=== PATIENT | male | born 1975 | race Caucasian/White ===

== ENCOUNTER → 2017-10-19 10:21 | Outpatient (CLI) | payer OTHER, SELFPAY ==
--- NOTE | 2017-10-19 10:29 | US_ITS ---
STUDY: ABDOMINAL ULTRASOUND - RIGHT UPPER QUADRANT REASON FOR VISIT: Male, 42 years old. Periumbilical pain. Blood in the stool. TECHNIQUE: Ultrasound evaluation of the right upper quadrant was performed with real-time and static littlejohn-scale imaging. TECHNICAL QUALITY: Adequate. COMPARISON: None. FINDINGS: Liver: The liver measures 14.8 cm. There is increased echogenicity consistent with fatty infiltration. Focal fatty infiltration is seen in the region of the gallbladder fossa. The bile ducts are within normal limits. There is hepatic color flow. The direction of portal flow is hepatopetal. There is no demonstrated mass lesion. Gallbladder: Normal distended gallbladder. The gallbladder wall measures 3.6 mm. There is a negative sonographic Chiu's sign. There is no pericholecystic fluid. There are no gallstones. Common Bile Duct (C.B.D.): The common bile duct measures 5.0 mm. Pancreas: Normal size of the head, body and tail of the pancreas. There is normal echogenicity of the pancreas. There is no demonstrated pancreatic mass or cyst. Right Kidney: Normal size of the right kidney. The right kidney measures 10.2 cm x 5.4 cm x 4.5 cm. Normal renal cortex. The right cortex measures 1.4 cm. 2 small subcentimeters cysts are seen. There is no right hydronephrosis. US/Gallbladder IMPRESSION: Fatty infiltration of liver. Focal fatty sparing in the gallbladder fossa. Electronically Signed: Ashok Elizalde MD at 12:46 EDT Tel [phone], Service support ,
== END ==
PROVIDERS: Family Provider Family Medicine; PCP Family Medicine; Visit Provider Nurse Practitioner Adult Health
DX: R19.5 Other fecal abnormalities (principal); R10.33 Periumbilical pain; R19.4 Change in bowel habit
CPT/HCPCS: 76705

== ENCOUNTER 2017-11-09 06:00 | Day surgery (SDC) | payer OTHER, SELFPAY ==
[2017-11-09] VITALS (7 sets, daily range): BP systolic 105–126; BP diastolic 62–96; PULSE 83–98; RESP 16–18; TEMP 36.2–36.6; O2SAT 96–99; BMI 27.8
--- NOTE | 2017-11-09 | EGD_PTH ---
PATIENT: MEGAN MILLER LOC: EN U#:[id number] AGE/SX: 42/M ROOM: RE11/09/[address]: Dr. Norman Gardner MD : 1975 BED: DIS: 11/09/2017 SPEC #: [id number] RECD: 11/09/17 09:55 STATUS: EVITA NATA #: [id number] ANITHA: 11/09/17 00:[address]: Norman Gardner DEPT: SURGICAL PATHOLOGY RECD BY: Perry Kothari ENTERED: 11/09/17 10:16 SP TYPE: EGD BIOPSY OTHR DR: Dr. Keith Gardner III, MD Tissues: A - Duodenum, NOS B - Gastric mucous membrane C - Esophageal mucous membrane D - COLON BIOPSY Procedures: Special Stain Group I Surgery Specimen Level IV GMS Stain (control) HEADER OPERATION: EGD and colonoscopy PRE-OP DIAGNOSIS: GERD, change in bowel habits TISSUE SUBMITTED: A ? Duodenal biopsy, B ? Antral biopsy, C ? Distal esophagus biopsy, D ? Random colonic biopsy MICROSCOPIC DIAGNOSIS A. 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 Mild nonspecific chronic inflammation. B. Gastric antrum, biopsy: Mild chronic gastritis. C. Distal esophagus, biopsy: Consistent with reflux esophagitis. Focal mucosal ulceration with associated acute and chronic inflammation, fibrinopurulent material and early granulation. Gastroesophageal junctional mucosa with mild chronic inflammation. No evidence of dysplasia. D. Random colon biopsy: No pathologic diagnosis. AM:angel 11/12/17 COMMENT A. The results of immunohistochemistry for Helicobacter pylori will be reported separately ([id number]). C. GMS stain with matched control does not reveal fungal organisms. Clinical correlation is suggested. Case has been reviewed in consultation with Dr. Phillips who concurs with the above diagnosis. IDC:LAW MICROSCOPIC DESCRIPTION Slides are reviewed. A. Sections show small collections and groups of plasma cells in the mucosa. Active inflammation is not present. These findings are consistent with mild chronic gastritis. GROSS DESCRIPTION A - Received in fixative is one container labeled with the patient's name and designated duodenal biopsy. The specimen consists of two irregular fragments of light julien soft tissue that in aggregate measure 0.5 x 0.3 x 0.1 cm. The specimen is totally submitted in one cassette. B - Received in fixative is one container labeled with the patient's name and designated antral biopsy. The specimen consists of one irregular fragment of light julien soft tissue that measures 0.5 x 0.2 x 0.1 cm. The specimen is totally submitted in one cassette. C - Received in fixative is one container labeled with the patient's name and designated distal esophagus biopsy. The specimen consists of multiple irregular fragments of light julien soft tissue that in aggregate measure 2 x 0.5 x 0.1 cm. The specimen is totally submitted in one cassette. D - Received in fixative is one container labeled with the patient's name and designated random colonic biopsy. The specimen consists of multiple irregular fragments of light julien soft tissue that in aggregate measure 2 x 0.6 x 0.1 cm. The specimen is totally submitted in one cassette. / SJ:rg 11/09/17 TC:2 CPT: 03800 x4, 28042
--- NOTE | 2017-11-09 | IMM_PTH ---
PATIENT: MEGAN MILLER LOC: EN U#:[id number] AGE/SX: 42/M ROOM: RE11/09/[address]: Dr. Norman Gardner MD : 1975 BED: DIS: 11/09/2017 SPEC #: [id number] RECD: 11/12/17 13:29 STATUS: EVITA NATA #: [id number] ANITHA: 11/09/17 00:[address]: Norman Gardner DEPT: IMMUNOHISTOCHEMISTRY RECD BY: Jania Crawford ENTERED: 11/12/17 13:29 SP TYPE: IMMUNO OTHR DR: Dr. Keith Gardner III, MD Tissues: B - Stomach, NOS Procedures: H Pylori (initial) PHYSICIAN & INSTITUTION [place] [id number] SPECIMEN INFORMATION: Tissue Source: B ? Antral biopsy Clinical Info: GERD, change in bowel habits Specimen Number: [id number] CPT code: 24270 METHODOLOGY: Deparaffinized sections of prefer/formalin-fixed tissue or PAP/DQ stained slides are incubated with monoclonal/polyclonal antibodies/oligonucleotide probes. Localization is made via biotin free immunoperoxidase method. Appropriate controls are performed and reacted as expected. Results on target cell population are indicated in the following table: RESULTS: ANTIBODY / CLONE RESULT Block B H Pylori (polyclonal) negative These tests were developed and their performance characteristics determined by [facility]. They may not have been cleared or approved by the U.S. Food and Drug Administration. The FDA has determined that such clearance or approval is not necessary. INTERPRETATION: B. Antral biopsy: Negative for Helicobacter pylori. AM:tiffany 11/13/17
--- NOTE | 2017-11-09 07:35 | OP.PCM_ITS ---
Problem List (1) Change in bowel habit Status: Acute (2) GERD (gastroesophageal reflux disease) Status: Acute Qualifiers: Esophagitis presence: with esophagitis Qualified Code(s): K21.0 - Gastro- esophageal reflux disease with esophagitis Report of Operation Date of Procedure: 11/09/17 Pre-Operative Diagnosis: Nausea night cough dysphasia and epigastric pain. Change of bowel habits with narrow stool Post-Operative Diagnosis: Severe reflux esophagitis. Small to moderate hiatal hernia 4 cm. Mild antral gastritis. Mild duodenitis. Scattered sigmoid diverticulosis Surgery/Procedure Performed:: Esophagogastroduodenoscopy with cold forcep biopsies. Colonoscopy with random cold forcep biopsies Description of Surgical Findings:: Timeout and informed consent was obtained. 42-year-old gent was taken the endoscopy suite. His oropharynx anesthetized with Topex. He was placed in a left lateral decubitus position. Throughout both the upper and lower endoscopy he received total 125 mg Demerol and 5.5 g of Versed as intravenous sedation. Under direct physician videogastroscope was inserted into the esophageal inlet. The proximal mid esophagus did not appear to be remarkable. The EG junction was at 38 cm. A moderate for similar long hiatal hernia noted. There is evidence of an inflammatory ring and severe reflux esophagitis. The scope was advanced in the stomach. Mild antral erythema noted. The scope was advanced through the pylorus. The first and second portion of the duodenum inspected. The duodenal bulb had some mild erythema. There were no erosions ulceration or bleeding. Biopsy was obtained of the duodenum with cold forcep. The scope was withdrawn back to the stomach and cold forcep antral biopsy was obtained. The scope was retroflexed. The EG junction and cardia inspected. The hiatal hernia noted. The cardia was otherwise unremarkable. Greater and lesser curvatures were inspected and not remarkable. The scope was withdrawn back into the esophagus where an inflammatory type ring was identified with firm tissue there was evidence of severe reflux multiple distal esophageal biopsies were obtained. Hemostasis was intact. Excess fluid and air was aspirated.. The scope was withdrawn without additional abnormality. The patient was kept in a left lateral decubitus position. Digital rectal exam performed. Mild hemorrhoidal changes. 2+ smooth prostate. The flexible colonoscope inserted the rectum advanced quite readily throughout the colon. Some transabdominal pressure was required to get scope to go to the cecum. The cecum ileocecal valve area was nicely achieved. Bowel prep was quite good. The scope was carefully withdrawn from the ascending transverse descending and sigmoid colon. Random colonic biopsies are obtained. There is some scattered diverticulosis of the sigmoid. The scope was retroflexed within the rectum the anorectal verge inspected some hemorrhoidal changes noted no active bleeding. Excess fluid and air was aspirated free the procedure was completed with patient tolerating it well. Impression Hiatal hernia with severe reflux esophagitis Mild antral gastritis Mild duodenitis Minimal sigmoid diverticulosis Random colonic biopsies pending The patient has not had a previous colonoscopy. His next screening colonoscopy would be in 10 years I am strongly recommending to the patient that we initiate a proton pump inhibitor and I will provide him a prescription of omeprazole 40 mg daily. I will invite him to return to the office if he would like to consider further investigations for potential surgical reflux procedure. Cc: Dr. Keith Gardner, III Medications were given at 0705. The upper endoscopy was started at 0707. It was completed at 0712. The lower endoscopy was initiated at 0715. The cecum was reached at 0719. The procedure was completed at 0725. Norman Gardner M.D., F.A.C.S. Type of Anesthesia:: IV Sedation
== END 2017-11-09 08:27 | disposition home or self-care (01) ==
LOC: EN 06:00 → AC 06:01
PROVIDERS: Family Provider Family Medicine; PCP Family Medicine; Visit Provider Surgery
PROC: 0DJD8ZZ Inspection of Lower Intestinal Tract, Via Natural or Artificial Opening Endoscopic (ICD-10-PCS; CPT 45378; principal; 2017-11-09 06:55)
DX: K21.0 Gastro-esophageal reflux disease with esophagitis (principal); K29.70 Gastritis, unspecified, without bleeding; K29.80 Duodenitis without bleeding; K44.9 Diaphragmatic hernia without obstruction or gangrene; K57.30 Diverticulosis of large intestine without perforation or abscess without bleeding; K64.9 Unspecified hemorrhoids; I10 Essential (primary) hypertension; Z79.899 Other long term (current) drug therapy
CPT/HCPCS: 43239; 45380; 88305; 88312; 88342; 99152; 99153; J7120

== ENCOUNTER 2017-12-05 07:25 | Day surgery (SDC) | payer OTHER, SELFPAY ==
[2017-12-05 07:35] VITALS: BP 148/107; PULSE 85; RESP 18; TEMP 36.1; O2SAT 100
== END 2017-12-05 08:08 | disposition home or self-care (01) ==
LOC: EN 07:26
PROVIDERS: Family Provider Family Medicine; PCP Family Medicine; Visit Provider Surgery
PROC: F00ZJWZ Instrumental Swallowing and Oral Function Assessment using Swallowing Equipment (ICD-10-PCS; CPT 43235; principal; 2017-12-05 07:25)
DX: K21.9 Gastro-esophageal reflux disease without esophagitis (principal); R13.10 Dysphagia, unspecified
CPT/HCPCS: 91010; 91013

== ENCOUNTER 2017-12-31 05:29 | Observation (INO) | payer OTHER, SELFPAY ==
[2017-12-24 13:17] VITALS: BP 138/87; PULSE 87; RESP 16; TEMP 36.5; O2SAT 98; BMI 30.2
--- NOTE | 2017-12-24 13:21 | SDCEKG_ITS ---
Test Reason : Blood Pressure : / mmHG Vent. Rate : 065 BPM Atrial Rate : 065 BPM P-R Int : 138 ms QRS Dur : 104 ms QT Int : 380 ms P-R-T Axes : 023 003 -25 degrees QTc Int : 395 ms Normal sinus rhythm Minimal voltage criteria for LVH, may be normal variant Nonspecific T wave abnormality Abnormal ECG Confirmed by JOSE CAMPBELL, LONDON ([id number]), continuity editor LESA MEANS ([id number]) on 12/26/2017 10:26:02 AM Referred By: Norman Gardner Confirmed By:LONDON GARCIA MD
[2017-12-24 13:48] LABS: Hematocrit 44.6 % (40-54); Mean Corp Hgb Conc 33.6 g/gl (32-36); Mean Corpuscular Hgb 29.1 pg (27.0-32.0); Mean Corpuscular Volume 86.4 fL (80-94); Mean Platelet Vol. 9.8 fl (6.2-12.0); Platelet Count 212 K/mm3 (150-450); RBC Distribution Width SD 40.9 fl (35.1-43.9); Red Blood Count 5.16 M/mm3 (4.6-6.2); White Blood Count 7.8 K/mm3 (4.4-11.0)
[2017-12-24 13:53] LABS: Scan Indicated on CBC? Y/N NO
[2017-12-24 14:11] LABS: Anion Gap 8 (5-15); BUN 16 mg/dL (7-18); BUN/Creat Ratio 13.4 RATIO (10-20); Calcium,Total 8.7 mg/dL (8.5-10.1); Chloride 105 mmol/L (98-107); Creatinine, Serum 1.19 mg/dL (0.70-1.30); EST Glomerular Filtration Rate 71 mL/min (>60); Est Glom Filt Rate - Afr Amer 86 mL/min (>60); Estimated Creatinine Clearance 85.25 ml/min; Glucose 95 mg/dL (74-106); Potassium 3.5 mmol/L (3.5-5.1); Sodium Level 139 mmol/L (136-145)
[2017-12-31] VITALS (11 sets, daily range): BP systolic 128–155; BP diastolic 87–115; PULSE 55–104; RESP 16–18; TEMP 36.1–36.8; O2SAT 95–100; BMI 30.2; BMI 29.9
--- NOTE | 2017-12-31 07:09 | DCINST_ITS ---
Discharge Diet: - - You may eat anything which at body temperature will dissolve to a liquid. If no difficulties with swallowing after 1 day you may add pasta and rice. Slowly advanced her diet including soft foods and chewing her food well. Leave very solid foods like beef or pork and chicken until your swallowing with no delay Discharge Activity: May Not Drive - for 1 week or while taking narcotic pain medicine. May shower in (days): 1 Lifting Restrictions: 10 pounds Call your doctor if your incision/area has: Continuous Slow Oozing, Sudden Increased Bleeding, Increased Pain/ Swelling, Increased Redness, Foul Smelling Discharge Call your doctor if you observe: Fever of 101 or Higher Suture Line Care: Avoid Pulling/Pushing, Avoid Pinching/Bending Additional Dressing/Incision Instructions:: Change or remove dressing in 4 days. Leave steri-strips in place for 1 week. Allergies/Adverse Reactions: Allergies shellfish derived Allergy (Severe, Verified 12/24/17 13:08) anaphylactic hydrochlorothiazide Allergy (Intermediate, Verified 12/24/17 13:08) palpitations/restlessness lisinopril Adverse Reaction (Mild, Verified 12/24/17 13:08) cough Medications to take at Discharge losartan 50 mg tablet 50 mg PO QDAY 10/30/17 omega-3 fatty acids 1,000 mg capsule 1,000 mg PO QDAY 12/19/17 Omeprazole 40 mg PO DAILY 12/24/17 Hydrocodone Bitart/Apap 5-325 [[place] 5MG-325MG] 1 tablet PO Q6H PRN PRN 3 Days # 10 tablet 12/31/17 The following prescriptions were given: Hydrocodone Bitart/Apap 5-325 [[place] 5MG-325MG] 1 tablet PO Q6H PRN PRN 3 Days # 10 tablet PRN Reason: Pain Primary Care Physician: Keith Gardner III, MD [Primary Care Provider] - Test Results: Test results from this visit will be discussed in further detail at your follow- up appointment, if applicable. Please Follow Up With: Norman Gardner MD - [phone] When: Call to make an appointment to be seen in about 10 days.
[2017-12-31] MEDS: Cefazolin 2 GM in 0.9% Normal Saline 100 ML IV (07:26)
[2017-12-31] MEDS: Bupivacaine 0.5% PF 10 ML VIAL (09:37)
--- NOTE | 2017-12-31 09:47 | PCM.OPRPT ---
Problem List (1) GERD (gastroesophageal reflux disease) Status: Acute Qualifiers: Esophagitis presence: with esophagitis Report of Operation Date of Procedure: 12/31/17 Pre-Operative Diagnosis: Gastroesophageal reflux disease with Guzmán's esophagus Post-Operative Diagnosis: Same Surgery/Procedure Performed:: Laparoscopic Jose fundoplication Description of Surgical Findings:: Timeout and informed consent was obtained. 39-year-old gent was taken out from. He was placed on the table. He underwent general endotracheal intubation anesthesia. Ancef 2 g given intravenous preoperatively. He was placed in the low lithotomy position with careful buttock padding. The abdomen sterilely prepped draped. Ioban drape was used to help facilitate holding of drapes in place. 0.5% Marcaine was used as local anesthetic. Throughout the procedure total 30 cc was used. Superior and to the right of the umbilicus 5 mm incision was created using [employer] technology access was gained to the abdomen the absence freed CO2 to pressure of 10 mmHg pressure. Family history trocar inserted five-minute lap scope inserted over the joint trocar injuries five-minute trochars are placed in the right upper quadrant and the left upper quadrant left lateral quadrant in a 10 mm trocar was placed in the left epigastrium. The abdomen was insufflated the patient was placed in reverse Trendelenburg position to superficial abdomen was inspected no abnormality. The gastrohepatic omentum was incised with harmonic scalpel. There was a significant amount of fibrofatty tissue in the gastrohepatic ligament so then I elected to transect the short gastrics I did this in the fundus of the stomach rather tight connection to the spleen and very carefully using Harmonic completely transected that. At one and a further secured the vessel on the stomach side with a [id number] suture of 2-0 Ethibond. I then completed that dissection with harmonic was able to the left identify the left young the stomach was actually fairly adherent to carefully dissect that free and do blunt dissection so I could identify the posterior vagus nerve was then able to better identify the epiphrenic ligament and transected over the anterior surface of the esophagus. That been are identified all the fibrofatty tissue on the right which could now be released from the diaphragm giving view to the right young of the diaphragm dissected down to the inferior aspect where I was able to identify the left young the right young and get circumferential blunt dissection. I dissected into the mediastinum with harmonic scalpel so as to free up to the esophagus circumferentially so I could allow for mobilization well back down to the abdomen. I then placed a 1/2 inch Abby around the e.g. junction that gave excellent visualization confirmed my mobilization. I utilized 0 Ethibond sutures with pledgets made of Hemoccult carotid patch admitted ultrathin Dacron. Lot number [id number]. Serial #[id number] with a reference number of HSG K1 4/75 CP UT an expiry date of 02/17/2022. 4 simple sutures were applied I thought I had good approximation of the diaphragmatic hiatus. However did not feel that I had this too snug. Then wrapped the fundus. That sat in position very nicely. My apical suture of 0 Ethibond captured the fundus of the stomach the anterior wall of the esophagus the epiphrenic ligament and the right portion of the stomach. That also was pledgeted. I then placed 1 more 0 Ethibond suture to approximate the stomach to itself and catching the anterior wall of the e.g. junction again. [place] that I had a nice loose short Jose wrap. Hemostasis was wonderfully intact. I then placed a flexible gastroscope down the e.g. inlet carefully inspected the esophagogastric junction this was widely patent. Hemostasis nicely intact. I insufflated air into the stomach and there was absolutely no air leak visualized laparoscopically as I had placed fluid into the epigastric area. All suturing and components appear to be nicely intact. It is note that with the 0 Ethibond I performed that suturing with pledgets on both sides performed extracorporeal knot tying and then additionally added at least a minimal 3 additional intrapleural corporeal knots to each of those fisherman ties. Fluid and air was aspirated free from the abdomen. The gastroscope was used to aspirate fluid and air free from the stomach. I repaired the Madai trocar site with a figure 8 suture of 0 Vicryl using a granee needle. The abdomen was allowed to deflate of the CO2. Skin edges approximated with interrupted 4 Monocryl subdermal stitches. Steri-Strips Telfa and OpSite dressings applied. Sponge and instrument and needle counts were reported the surgeon be correct. Blood loss was minimal. Specimens none. Drains none. Blood loss minimal. The patient was taken to the recovery room in satisfactory condition without apparent complication. Norman Gardner M.D., F.A.C.S. Type of Anesthesia:: General Anesthesiologist: Conrad Cerrato
[2017-12-31] MEDS: Acetaminophen 325 MG Tablet 650 MG PO (13:38)
--- NOTE | 2017-12-31 16:37 | PCM.PN.BLA ---
Progress Note Pt is doing very well Swallowing liquids without difficulty Will advance diet
[2018-01-01] MEDS: Acetaminophen 325 MG Tablet 650 MG PO ×2 (02:11→11:55)
[2018-01-01 02:12] VITALS: BP 159/109; PULSE 88; RESP 16; TEMP 36.4; O2SAT 99
--- NOTE | 2018-01-01 05:30 | NURSING ---
Pt c/o 09/27 lt sided sharp chest pain, stating it is different than the shoulder pain that he had post-op last evening. Dr. Gardner in to see pt and assess. New orders given for EKG, Cardiac enzyme series, aspirin 325mg x1, and daily Cozaar to be given now. ONEYDA Riley called and notified about the stat EKG order. Lab notified of troponin order.
--- NOTE | 2018-01-01 05:48 | PCM.PN.SRG ---
Subjective: New onset left chest pressure at 4:30am HTN also recorded Urinary retention last night requiring st. cath - Physical Exam Lungs: Clear to auscultation, Normal air movement Cardiovascular: Regular rate, Regular Rhythm Abdomen: Bowel Sounds Present, Soft, Distended Vital Signs Temp Pulse Resp BP Pulse Ox 97.6 F L 88 16 159/109 H 99 01/01/18 02:12 01/01/18 02:12 01/01/18 02:12 01/01/18 02:12 01/01/18 02:12 Oxygen Flow Rate (L/min) 2 Oxygen Delivery Method Room Air Weight: 214 lb 15.211 oz Body Mass Index (BMI) 29.9 Intake and Output for Last 24 Hours 12/30/17 12/31/17 01/01/18 23:59 23:59 23:59 Intake Total 1800 / 1800 500 / 500 Output Total 900 / 900 1625 / 1625 Balance 900 / 900 -1125 / -1125 Medical Necessity - Tobacco Use Smoking Status: Never smoker Assessment/Plan All Active Problems (Last Updated 12/19/17 @ 10:02 by Daphnie Curiel) Change in bowel habit (Acute) GERD (gastroesophageal reflux disease) (Acute) Pt is quite anxious likely adding to HTN and urinary retention problems Will check ECG and cardiac enzymes Will treat HTN and chest pain with topical NTG
[2018-01-01 06:00] VITALS: BP 154/98; PULSE 89; RESP 16; TEMP 36.7; O2SAT 98
[2018-01-01] MEDS: Losartan Potassium 50 MG Tablet PO (06:02)
[2018-01-01] MEDS: Enoxaparin 40 MG/0.4 ML Syringe SC (06:03)
[2018-01-01] MEDS: Ibuprofen 600 MG Tablet PO (06:14)
[2018-01-01] MEDS: Aspirin 325 MG Tablet PO (06:14)
[2018-01-01] MEDS: Nitroglycerin Oint 1 INCH PACKET TRANSDERM. (06:14)
[2018-01-01] MEDS: Tamsulosin HCl 0.4 MG Capsule PO (06:14)
[2018-01-01] MEDS: Pantoprazole Sodium 40 MG Tablet PO (09:12)
[2018-01-01 09:18] VITALS: BP 146/88; PULSE 104; RESP 18; TEMP 36.5; O2SAT 96
[2018-01-01 11:18] VITALS: BP 127/73; PULSE 90; RESP 18; TEMP 37.1; O2SAT 95
--- NOTE | 2018-01-01 11:35 | CASEMGMT ---
RN VINITA Face to Face with patient for initial transition planning/care coordination assessment. RN CM introduced self and role at [facility]. Patient lying in bed, alert and oriented, at bedside. Patient willing to participate in assessment and is able to answer all questions appropriately. Care providers, pharmacy, and demographics verified. See link attached. Patient wishes to discharge home, denies need for home health at this time. Patient states he has no further needs or concerns at this time. CM to follow for discharge planning needs that may arise. Disposition Plan: Patient to discharge home with family support and follow-up plans in place.
== END 2018-01-01 15:21 | disposition home or self-care (01) ==
PROVIDERS: Admitting Provider Surgery; Family Provider Family Medicine; PCP Family Medicine; Visit Provider Surgery
PROC: (CPT 43325; principal; 2017-12-31 06:55)
DX: K21.0 Gastro-esophageal reflux disease with esophagitis (principal); K44.9 Diaphragmatic hernia without obstruction or gangrene; K22.70 Barrett's esophagus without dysplasia; I10 Essential (primary) hypertension; Z79.899 Other long term (current) drug therapy; R19.4 Change in bowel habit; R33.9 Retention of urine, unspecified; R07.89 Other chest pain
CPT/HCPCS: 00790; 43280; 36415; 80048; 84484; 85027; 93005; 96372; 97802; 99218; J7120; C1768; G0378; G0379

== ENCOUNTER → 2018-05-16 21:49 | Outpatient (CLI) | payer OTHER, SELFPAY | PROVIDERS: Family Provider Family Medicine; PCP Family Medicine; Visit Provider Family Medicine | DX: G47.33 Obstructive sleep apnea (adult) (pediatric) (principal) | CPT/HCPCS: 95811 ==

== ENCOUNTER → 2018-05-31 14:21 | Outpatient (CLI) | payer OTHER, SELFPAY ==
[2018-05-31 13:17] VITALS: BMI 30.1
--- NOTE | 2018-05-31 14:24 | RAD_ITS ---
STUDY: X-RAY CHEST REASON FOR EXAM: Male, 42 years old. Shortness of breath and cough TECHNIQUE: PA and lateral views of the chest. COMPARISON: 2011 FINDINGS: The lungs are clear and expanded. There is no demonstrated pleural abnormality. Normal size heart. Normal mediastinum and sigifredo. Normal visualized pulmonary arteries. Normal visualized aortic arch and descending thoracic aorta. Normal visualized thoracic spine. Normal visualized ribs, clavicles, and shoulders. There is no demonstrated abnormality of the visualized soft tissue structures of the upper abdomen. RAD/Chest PA and Lateral IMPRESSION: Normal x-ray examination of the chest. Electronically Signed: Guido Parson MD at 21:06 EST , Service support ,
== END ==
PROVIDERS: Family Provider Family Medicine; PCP Family Medicine; Referring Provider Nurse Practitioner Acute Care; Visit Provider Nurse Practitioner Acute Care
DX: R06.02 Shortness of breath (principal)
CPT/HCPCS: 71046

== ENCOUNTER → 2018-06-11 08:19 | Outpatient (CLI) | payer OTHER, SELFPAY ==
[2018-05-31 13:17] VITALS: BMI 30.1
[2018-06-11 08:44] VITALS: PULSE 62; PULSE 66; PULSE 68; PULSE 74; PULSE 78; PULSE 81; PULSE 83; PULSE 85; O2SAT 95; O2SAT 96; O2SAT 97; O2SAT 98
--- NOTE | 2018-06-11 11:14 | PCM.PSN.6M ---
PSN 6 Minute Walk Test - 6 Minute Walk Test 6 Minute Walk Test: 6 Minute Walk Test PSN:6-Minute Walk Test Start: 06/11/18 08:44 Freq: Status: Active Protocol: RESP.6MINW Document 06/11/18 08:44 NEENA (Rec: 06/11/18 08:48 JLA [id number]) 6 Minute Walk Test Date Performed 06/11/18 Time Performed 08:30 Height 6 ft Weight: 99.798 kg Weight in Pounds 220.[address]: Solange Burnette Assistive device used: None Pre-test Oxygen Delivery Method Room Air Pulse Ox (%) 97 Pulse Rate (60-100 beats/min) 83 Dyspnea Carmela Scale (0-10) 0.5 Exertion Carmela Scale (6-20) 6 1st minute Oxygen Delivery Method Room Air Pulse Ox (%) 97 Pulse Rate (60-100 beats/min) 62 2nd minute Oxygen Delivery Method Room Air Pulse Ox (%) 96 Pulse Rate (60-100 beats/min) 74 3rd minute Oxygen Delivery Method Room Air Pulse Ox (%) 95 Pulse Rate (60-100 beats/min) 85 4th minute Oxygen Delivery Method Room Air Pulse Ox (%) 96 Pulse Rate (60-100 beats/min) 81 5th minute Oxygen Delivery Method Room Air Pulse Ox (%) 96 Pulse Rate (60-100 beats/min) 78 6th minute Oxygen Delivery Method Room Air Pulse Ox (%) 96 Pulse Rate (60-100 beats/min) 66 Dyspnea Carmela Scale (0-10) 0.5 Exertion Carmela Scale (6-20) 11 Post-test Oxygen Delivery Method Room Air Pulse Ox (%) 98 Pulse Rate (60-100 beats/min) 68 Full Laps Walked 25 Partial Lap, Number of Tiles Walked 26 Total Distance Walked (ft) 1501 - Interpretation Interpretation: The patient was able to ambulate 1501 feet over the course of 6 minutes on room air with no assistive devices or breaks. The patient explains no significant desaturation or tachycardia during testing. - Recommendations Recommendations: This is a normal walking oximetry.
--- OUTSIDE RECORDS SUMMARY | 2018-08-13 08:56 | XMS RPT_ITS ---
:1975 Author Organization OHIP Support Name Relationship Address Phone [employer] Unavailable [address] + [place] [address] RAINA MILLER Unavailable [address] + [place] [address] [address] [address] + [place] [address] RAINA MILLER Unavailable [address] + [facility] [place] [address] [employer] [address] + [place] [address] RAINA MILLER Unavailable [address] + [place] [address] [employer] [address] + [place] [address] RAINA MILLER Unavailable [address] + [place] [address] [employer] Un[address] + [place] [address] RAINA MILLER Unavailable [address] + [place] [address] [address] [address] + [place] [address] RAINA MILLER Unavailable [address] + [place] [address] [address] [address] + [place] [address] RAINA MILLER Unavailable [address] + [place] [address] [employer] [address] + [place] [address] RAINA MILLER Unavailable [address] + [place] [address] [employer] [address] + [place] [address] RAINA MILLER Unavailable [address] + [place] [address] [employer] Un[address] + [place] [address] RAINA MILLER Unavailable [address] + [place] [address] [address] [address] + [place] [address] RAINA MILLER Unavailable [address] + [facility] [place] [address] [employer] [address] + [place] [address] RAINA MILLER Unavailable [address] + [facility] [place] [address] [employer] [address] + [place] [address] RAINA MILLER Unavailable [address] + [place] [address] [employer] [address] + [place] [address] RAINA MILLER Unavailable [address] + [place] [address] [employer] [address] + [place] [address] [employer] [address] + [place] [address] RAINA MILLER Unavailable [address] + [place] [address] [employer] [address] + [place] [address] ARINA MILLER Unavailable [address] + [place] [address] [employer] [address] + [place] [address] [employer] [address] + [place] [address] RAINA MILLER Unavailable [address] + [place] [address] [address] [address] + [place] [address] RAINA MILLER Unavailable [address] [phone] [place] [address] MALIKA MILLER Unavailable [address] + [place] [address] Care Team Providers Name Role Phone IGOR ERICA Gregory (LIBRARY PARAPROFESSIONAL) Attending Unavailable THORPE, JIMENEZ (LIBRARY PARAPROFESSIONAL) Attending Unavailable CEBUL III, MARIA DEL CARMEN A Referring Unavailable THORPE, JIMENEZ (LIBRARY PARAPROFESSIONAL) Referring Unavailable CEBUL III, MARIA DEL CARMEN A Attending Unavailable CEBUL III, MARIA DEL CARMEN A Referring Unavailable CEBUL III, MARIA DEL CARMEN A Referring Unavailable CEBUL III, MARIA DEL CARMEN A Referring Unavailable CEBUL III, MARIA DEL CARMEN A Referring Unavailable CEBUL III, MARIA DEL CARMEN A Referring Unavailable Cebul III, Maria Del Carmen Attending Unavailable Cebul III, Maria Del Carmen Primary Care Unavailable Solange Burnette Attending Unavailable Cebul III, Maria Del Carmen Referring Unavailable THORPE, JIMENEZ Attending Unavailable THORPE, JIMENEZ Referring Unavailable Cebul III, Maria Del Carmen Primary Care Unavailable Yomaira, Solange Attending Unavailable Yomaira, Solange Referring Unavailable Cebul III, Maria Del Carmen Primary Care Unavailable Yomaira, Solange Attending Unavailable Yomaira, Solange Referring Unavailable Cebul III, Maria Del Carmen Primary Care Unavailable Yomaira, Solange Attending Unavailable Yomaira, Solange Referring Unavailable Cebul III, Maria Del Carmen Primary Care Unavailable CebulNorman Attending Unavailable THORPE, JIMENEZ Referring Unavailable Cebul III, Maria Del Carmen Primary Care Unavailable CebulNorman Attending Unavailable CebulNorman Referring Unavailable Cebul III, Maria Del Carmen Primary Care Unavailable CebulNorman Attending Unavailable CebulNorman Referring Unavailable Cebul III, Maria Del Carmen Primary Care Unavailable CebulNorman Consulting Unavailable Cortez Mendez Attending Unavailable Cortez Mendez Referring Unavailable Cebul III, Maria Del Carmen Primary Care Unavailable CebulNorman Admitting Unavailable Cebul, Norman Attending Unavailable CebulNorman Referring Unavailable Cebul III, Maria Del Carmen Primary Care Unavailable Cebul, Norman Attending Unavailable Cebul III, Maria Del Carmen Referring Unavailable Cebul III, Maria Del Carmen Primary Care Unavailable CebulNorman Admitting Unavailable Cebul, Norman Attending Unavailable Cebul Norman Referring Unavailable Cebul III, Maria Del Carmen Primary Care Unavailable CebulNorman Consulting Unavailable Una Meek PA-C Attending Unavailable Cebul III, Maria Del Carmen Referring Unavailable Cebul III, Maria Del Carmen Primary Care Unavailable CalCortez braga Attending Unavailable Cebul, Norman Referring Unavailable Una Meek PA-C Attending Unavailable Cebul III, Maria Del Carmen Referring Unavailable James Garcia Attending Unavailable CebuNorman velázquez Referring Unavailable Moodispasandra, James Attending Unavailable CeNorman gutierres Referring Unavailable PROBLEMS PROBLEMS DATE TYPE CONDITION / CODE ATTENDING STATUS SOURCE 06/11/2018 Unknown R06.02 - Shortness of Burnette, Active [facility] breath / [facility] R06.02(ICD-10) Hospital Repository 05/06/2018 Active Obstructive sleep NA Active [facility] apnea (adult) Clinic Other (pediatric) / [place] G47.33(ICD-10) Repository 02/11/2018 Unknown R94.31 - Abnormal Moodispaw, Active [facility] electrocardiogram [facility] [ECG] [EKG] / Hospital R94.31(ICD-10) Repository 02/11/2018 Unknown I10 - Essential Moodispaw, Active [facility] (primary) hypertension [facility] / I10(ICD-10) Hospital Repository 02/11/2018 Unknown R07.89 - Other chest Moodispaw, Active [facility] pain / R07.89(ICD-10) [facility] Hospital Repository 01/01/2018 Unknown G89.18 - Other acute CebuNorman velázquez Active [facility] postprocedural pain / [facility] G89.18(ICD-10) Hospital Repository 01/25/2018 Unknown K44.9 - Diaphragmatic [place], Active [facility] hernia without [facility] obstruction or Hospital gangrene / Repository K44.9(ICD-10) 12/04/2017 Unknown K92.1 - Melena / CebhavikNorman Active [facility] K92.1(ICD-10) [facility] Hospital Repository 11/09/2017 Unknown K21.9 - Cebul, Norman Active [facility] reflux disease without Hospital esophagitis / Repository K21.9(ICD-10) 11/09/2017 Unknown R19.4 - Change in Cebul, Norman Active [facility] bowel habit / Community R19.4(ICD-10) Hospital Repository 10/16/2017 Active Other fecal NA Active [facility] abnormalities / Clinic Main R19.5(ICD-10) [facility] Repository 10/16/2017 Active Periumbilical pain / NA Active [facility] R10.33(ICD-10) Clinic Main [place] Repository 10/16/2017 Active Change in bowel habit NA Active [facility] / R19.4(ICD-10) Clinic Main [place] Repository 10/16/2017 Active Unknown / UNK(Unknown) LULA, Active Wan GAONA (LIBRARY PARAPROFESSIONAL) Clinic Main [place] Repository PROCEDURES PROCEDURES No Procedure Records FoundRESULTS RESULTS PULMONARY FUNCTION Observed: 06/13/2018 Status: F Source: [place] REPORT COMP 6:00 AM [facility] REPOSITORY [facility] Pulmonary Services/Neurology [address] [place] [address] MR#: [id number] Acct: [id number] Name: MEGAN MILLER Rep #: [id number] : 1975 42 From: Unruly Magana MD Referring Dr: Solange Burnette NP Status: REG CLI Ordering Dr: Date: Location: PSN Sex: M C COMPLETE PULMONARY FUNCTION TEST INTERPRETATION Brief HPI: Patient is a 42 year old male, currently under the care of Solange Burnette, who presents to [facility] for complete pulmonary function tests secondary to diagnosis of dyspnea. Respiratory therapist reports good effort and reproducible results. Interpretation: Forced expiration spirometry shows no large airways obstructive ventilatory defect with an FEV1 of 99% predicted. There is no significant bronchodilator response in FVC or FEV1 by strict ATS criteria. Spirograms are of good quality and plateau normally. The respiratory flow volume loop shows a normal pattern. Lung volumes by body plethysmography show a normal total lung capacity at 7.74 L, 105% predicted. All other lung volumes are within normal limits. Diffusion capacity by carbon monoxide is normal at 114% predicted. The airway resistance is elevated. No previous pulmonary function tests were available for review. Impression: These pulmonary function tests are grossly within normal limits. Consider bronchoprovocation study if asthma is a consideration. 06/13/18 0600 <Electronically signed by Unruly Magana MD> Date Unruly Magana MD CC: Unruly Magana MD; Solange aGrdner III, MD Date Dictated: 06/12/18 1634 Date Transcribed: 06/12/181633 Improvement Engineer: ASHLEY Signed 6 MINUTE WALK TEST Observed: 06/12/2018 Status: F Source: [place] 6:08 AM [facility] REPOSITORY [facility] Pulmonary Services/Neurology [address] [place] [address] MR#: [id number] Acct: [id number] Name: MEGAN MILLER Rep #: [id number] : 1975 42 From: Unruly Magana MD Referring Dr: Solange Burnette NP Date: Ordering Dr: Sex: M C Location: PSN PSN 6 Minute Walk Test - 6 Minute Walk Test 6 Minute Walk Test: 6 Minute Walk Test PSN:6-Minute Walk Test Start: 06/11/18 08:44 Freq: Status: Active Protocol: RESP.6MINW Document 06/11/18 08:44 JLA (Rec: 06/11/18 08:48 JLA [id number]) 6 Minute Walk Test Date Performed 06/11/18 Time Performed 08:30 Height 6 ft Weight: 99.798 kg Weight in Pounds 220.[address]: Solange Burnette Assistive device used: None Pre-test Oxygen Delivery Method Room Air Pulse Ox (%) 97 Pulse Rate (60-100 beats/min) 83 Dyspnea Carmela Scale (0-10) 0.5 Exertion Carmela Scale (6-20) 6 1st minute Oxygen Delivery Method Room Air Pulse Ox (%) 97 Pulse Rate (60-100 beats/min) 62 2nd minute Oxygen Delivery Method Room Air Pulse Ox (%) 96 Pulse Rate (60-100 beats/min) 74 3rd minute Oxygen Delivery Method Room Air Pulse Ox (%) 95 Pulse Rate (60-100 beats/min) 85 4th minute Oxygen Delivery Method Room Air Pulse Ox (%) 96 Pulse Rate (60-100 beats/min) 81 5th minute Oxygen Delivery Method Room Air Pulse Ox (%) 96 Pulse Rate (60-100 beats/min) 78 6th minute Oxygen Delivery Method Room Air Pulse Ox (%) 96 Pulse Rate (60-100 beats/min) 66 Dyspnea Carmela Scale (0-10) 0.5 Exertion Carmela Scale (6-20) 11 Post-test Oxygen Delivery Method Room Air Pulse Ox (%) 98 Pulse Rate (60-100 beats/min) 68 Full Laps Walked 25 Partial Lap, Number of Tiles Walked 26 Total Distance Walked (ft) 1501 - Interpretation Interpretation: The patient was able to ambulate 1501 feet over the course of 6 minutes on room air with no assistive devices or breaks. The patient explains no significant desaturation or tachycardia during testing. - Recommendations Recommendations: This is a normal walking oximetry. 06/12/18 0608 <Electronically signed by Unruly Magana MD> Date Unruly Magana MD CC: Date Dictated: 06/11/18 1114 Date Transcribed: 06/11/181113 Improvement Engineer: Unruly Magana MD Signed PULMONARY VISIT REPORT Observed: 05/31/2018 Status: F Source: [place] 3:46 PM [facility] REPOSIT[facility] Pulmonary Medicine of [address] [place] [address] OFFICE VISIT Date of Service: 05/31/18 MR#: [id number] Acct: [id number] Name: PAULMEGAN Rep #: [id number] : 1975 Provider: Solange Burnette Age/Sex: 42/M Location: [facility] Status: Signed Assessment AND Plan 1. TOBY (obstructive sleep apnea) G47.33 Plan New. Lengthy discussion about the pathophysiology of obstructive sleep apnea. We will initiate BiPAP 12/8 cm of water. Initial goal is that the Pap should be worn at least 4 hours nightly, ultimately it should be worn anytime spent sleeping. Follow-up with Dr. Magana in 6 weeks to review test results and compliance report. The patient has been encouraged to contact the office with any difficulty acclimating to Pap therapy in the meantime. He conveys understanding and is agreeable to this plan. 2. Obesity (BMI 30.0-34.9) E66.9 Plan Encourage weight loss. Discussed the relationship between obesity and obstructive sleep apnea. 3. Shortness of breath R06.02 Plan Of unclear etiology at this time. Will obtain a chest x-ray given that the patient states that these symptoms began after a surgical procedure was for performed. Plan for a pulmonary stress test to rule out any exertional hypoxia. Also plan to obtain a pulmonary function test to give us further insight into lung volumes and diffusing capacity which may lead us to additional testing such as CT of the chest and or echocardiogram to further evaluate this shortness of breath. Consider diastolic heart failure, pulmonary fibrosis, vocal cord dysfunction, heart failure. Orders Orders: Plan Detail Other Medications New: Follow Up 6 Weeks (BWA) HPI Sleep concern: Chief Complaint: Daytime hypersomnia HPI Comments Details: This patient presents the office today for initial consultation regarding obstructive sleep apnea. He is ambulatory, currently in room air and accompanied by his . The patient states that he is known to snore and has had episodes of witnessed apneas. He has approximately one episode of nocturia nightly. He is not feeling rested upon arising in the morning. He does fall asleep easily while sitting still or reading. He is not currently napping. He experiences shortness of breath on exertion and is exerting easily. He states that this came on fairly suddenly back in December after he had his Jes fundoplication surgery. He denies any shortness of breath with conversation or at rest. He denies any cough, sputum production or hemoptysis. He denies any wheezing, chest tightness, chest pain or palpitations. He denies any fever, chills or body aches. He states that he was previously diagnosed with asthma but has never completed a pulmonary function test. He is not currently on any inhalers. He has never been a smoker. He does not have any environmental exposures at work that would predispose him to chronic bronchitis or COPD. Review report that his father at age 68 suddenly of a heart attack. 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 The father also had obstructive sleep apnea. Titration study completed on May 16, 2018 suggest that the patient has mild obstructive sleep apnea and should be treated with BiPAP of 12/8 cm of water. PLMS index of 0 noted. Intake Vital Signs05/31/18 Height 6 ft 05/31/18 Weight: 222 lb Intake Visit Reasons: Sleep problems DME Vendor: [facility] Accompanied by: Allergies shellfish derived Allergy (Severe, Verified 05/31/18 08:48) anaphylactic hydrochlorothiazide Allergy (Intermediate, Verified 05/31/18 08:48) palpitations/restlessness lisinopril Adverse Reaction (Mild, Verified 05/31/18 13:25) cough AND tachycardia Medications cholecalciferol (vitamin D3) 1,000 unit capsule 1,000 unit PO DAILY 05/31/18 [History Confirmed 05/31/18] coenzyme Q10 75 mg capsule 75 mg PO DAILY 05/31/18 [History Confirmed 05/31/18] losartan 50 mg tablet 25 mg PO QDAY tab 05/31/18 [History Confirmed 05/31/18] multivitamin tablet 1 tab PO DAILY 05/31/18 [History Confirmed 05/31/18] omega-3 fatty acids 1,000 mg capsule 2,000 mg PO QDAY cap 05/31/18 [History Confirmed 05/31/18] vitamin B complex capsule 1 cap PO DAILY 05/31/18 [History Confirmed 05/31/18] [facility] Medical History Change in bowel habit (Acute) GERD (gastroesophageal reflux disease) (Acute) Abdominal pain (Acute) Diarrhea (Acute) Difficulty swallowing (Acute) Hypertension (Chronic) Sleep apnea (Chronic) Surgical History History of esophagogastroduodenoscopy (EGD) (Resolved 10/2017) History of tonsillectomy (Resolved) S/P colonoscopy (Resolved) Status post laparoscopic Jes fundoplication (Resolved 12/31/17) Family History Brother Asthma Mother Arthritis Hypertension High cholesterol Macular degeneration Father Hypertension High cholesterol Sleep apnea Myocardial infarction Son Seizures Daughter Seizures Social History household members: spouse, children housing: house current occupational status: employed current occupation: [employer] [address] [place], [place] pets and animals: Yes pets and animals: other details: outdoor cats Smoking Status: Never smoker second hand exposure: No alcohol intake: current alcohol intake frequency: holidays/special occasions only Alcohol type: wine, beer substance use type: does not use Review of Systems Const CONSTITUTIONAL: Positive fatigue; negative anorexia, body ache, chills, daytime sleepiness, fever(s), night sweats, oral thrush, stops breathing during sleep, weight loss, sleeping in chair, weight loss, weight gain, frequent colds, seasonal allergies, other, headache(s) or orthopnea EETM Ear Nose Throat Mouth: Negative hard of hearing, hearing normal, hoarseness, dry mouth in morning, change in vision, itchy eyes, eye pain, swallowing Difficulty, ear pain, nose bleed, mouth pain, nasal congestion, nasal discharge, post nasal drip, sinus pain, sinus pressure, sore throat, other or headache(s) Cardio Cardiovascular: Negative chest pain, chest pain at rest, chest pain with activity, irregular heart rhythm, edema, palpitations, murmur, other or shortness of breath when lying down Resp Respiratory: Positive as per HPI, shortness of breath shortness of breath: Positive with activity and while talking and snoring; negative pain with cough, wheezing, chest congestion, cough, chest tightness, pain on inspiration, inhalers, increase use of rescue inhalers, apnea or other Gastro Gastrointestional: Negative bloody stools, change in appetite, difficulty swallowing, reflux, hematemesis, melena stool, loose stool, constipation or other Genitourinary: Negative blood in urine, nocturia, pain with urination or other Musc Musculoskeletal: Negative body pain, back pain, neck pain or other Skin/Breast Skin/Breast: Negative dry skin, itching, rash, unusual bruising, breast lump or other Neuro Neurological: Negative restless legs, confusion, weakness or other Psych Psychocological: Negative abnormal sleep pattern, anxiety, thoughts of hurting self/others, hopelessness or other Lymph Lymphatic: Negative easy bleeding, easy bruising, swollen lymph nodes or other Exam Const Constitutional: Positive conversant, cooperative, in no acute respiratory distress, healthy appearing, well developed, well nourished and good hygiene Head Head: Positive normocephalic and atraumatic; negative cyanosis of lips/distal nose Eyes Eye: Positive clear conjunctiva; negative nystagmus or scleral abnormality Ears Ear: Positive external ears normal; negative hard of hearing or hearing normal Nose Nose: Positive external nose normal and no nasal discharge; negative epistaxis Mouth Mouth: Positive oral mucosae normal, no lesions, good dentition and crowded posterior oropharynx; negative post nasal drip, oral thrush present or malodorous breath Mallampati Score: III: Mallampati Score Neck Neck: Positive normal visual inspection, full ROM and trachea midline; negative lymphadenopathy, JVD or tender Chest Wall Chest: Positive normal inspection of the chest and symmetric chest movement; negative increased A/P diameter Resp lung sounds: Positive clear to auscultation, good air exchange, normal expiratory time and normal respiratory effort; negative diminished, wheezes, rhonchi, rales, dullness to percussion or wheeze present on forced exhalation Cardio Cardiac: Positive regular rhythm, S1 normal, regular rate and S2 normal; negative murmur GI GI: Positive normal to inspection; negative distended Genitourinary: Positive deferred Musc Musculoskeletal: Positive steady gait and ROM normal; negative kyphosis or scoliosis Skin Pulmonary Skin Exam: Positive intact; negative rash Pulses Pulse: Yes pulses normal x4 extremities Extremities Extremities: Yes capillary refill normal, No clubbing, No cyanosis, No edema Neuro Neurologic: Yes conversant, Yes no focal neuro deficits, Yes normal concentration, Yes understands questions, Yes cooperative, Yes normal cognition, Yes normal coordination, No tremor Lymph Lymphatic: No lymphadenopathy, No tenderness, No cervical adenopathy Psych Appearance: Positive grossly normal, eye contact and well kempt Mental Status: Positive mental status grossly normal Mood: Positive congruent mood Affect: Positive normal affect Coding Level of Care Code Off vis,new,level 4 Diagnoses TOBY (obstructive sleep apnea) G47.33 Obesity (BMI 30.0-34.9) E66.9 Shortness of breath R06.02 05/31/18 1546 <Electronically signed by Solange DENT> Date Solange DENT Cosigner Signature: Date (if applicable) CC: Maria Del Carmen Gardner III, MD CHEST PA AND LATERAL Observed: 05/31/2018 Status: F Source: [place] 2:24 PM [facility] REPOSITORY [facility] Imaging Services [address] [place] [address] Chest PA and Lateral MR#: [id number] Acct: [id number] Name: MEGAN MILLER Rep #: [id number] : 1975 M 42 From: Tony Parson MD PCP: Maria Del Carmen Gardner III, MD Status: REG CLI Study: Chest PA and Lateral Date of Exam: 05/31/18 Exam# [id number] Ordering Dr: Solange Burnette STUDY: X-RAY CHEST REASON FOR EXAM: Male, 42 years old. Shortness of breath and cough TECHNIQUE: PA and lateral views of the chest. COMPARISON: 2011 FINDINGS: The lungs are clear and expanded. There is no demonstrated pleural abnormality. Normal size heart. Normal mediastinum and sigifredo. Normal visualized pulmonary arteries. Normal visualized aortic arch and descending thoracic aorta. Normal visualized thoracic spine. Normal visualized ribs, clavicles, and shoulders. There is no demonstrated abnormality of the visualized soft tissue structures of the upper abdomen. RAD/Chest PA and Lateral IMPRESSION: Normal x-ray examination of the chest. Electronically Signed: Guido Parson MD at 21:06 EST , Service support , CC: Solange Burnette; Maria Del Carmen Gardner III, MD Improvement Engineer: Signed PROGRESS Observed: 05/09/2018 Status: COMPLETED Source: [place] 2:19 AM [facility] REPOSITORY [facility] ID: [id number] Author: Marisol Chaparro Poly-T Service: (none) Author Type: (none) Type: Progress Notes Filed: 05/09/2018 2:59 AM Note Text: Sleep Study Check-In Documentation Date: May 09, 2018 Name: Megan Miller Patient was accompanied by Self. Location: [place] Latex allergy: No Tape allergy: No Current medications were reviewed with the patient:Yes Sleep aid taken by patient for the sleep study: [place] of sleep aid: Not Applicable Procedure was explained to the patient and all questions were answered. PAP treatment discussed and shown to patient: Yes If PAP used enter mask info: Mask Name Airfit f10 Make Resmed MaskTypeFull Face Mask SizeMedium Chin Sharp Used No Knowledge Program (KP): KP was not completed in epic by patient and accepted Study type: PAP titration Adverse Event: No (If yes create a new abstract) SERS Event: No Comments: Patient was advised to follow up with their ordering provider regarding test results Marisol Chaparro Poly-Odalys PROGRESS Observed: 05/08/2018 Status: COMPLETED Source: [place] 12:[address] [facility] REPOSITORY [facility] ID: [id number] Author: Aquiles Dee III Service: (none) Author Type: Physician Type: Progress Notes Filed: 05/09/2018 2:59 AM Note Text: May 08, 2018 The medical record was reviewed to determine if the proposed sleep study conforms to the [facility] Practice Parameters for the Indications for Polysomnography and Related Procedures, or if the sleep study is indicated for other reasons. Indications for study: TOBY previously diagnosed: Evaluate response to PAP therapy Sleep study to be performed: PAP titration study Special instructions: Start titration at PAP setting of 5 cmH2O Please encourage supine sleep and record sleep in the patient's habitual sleep position. Please add ETCO2, if not on PAP. Add TcpO2 if available Target REM/supine sleep during a PAP titration Aquiles Dee III, PhD PROGRESS Observed: 05/08/2018 Status: COMPLETED Source: [place] 8:[address] [facility] REPOSITORY HNO ID: [id number] Author: Ilene Ordonez Service: (none) Author Type: (none) Type: Progress Notes Filed: 05/09/2018 2:59 AM Note Text: May 08, 2018 An order has been received for PAP titration study from Dr. Maria Del Carmen Gardner, DASHA B. [facility] Staff. Visit prep complete. Comments :No The sleep study is scheduled for 05/08. Insurance: Payor: [facility] / Plan: [place] / Product Type: PPO / Ilene Hagenmichell Psr CNPN Observed: 05/07/2018 Status: COMPLETED Source: [place] 12:[address] [facility] REPOSITORY Telephone ([place]) MEGAN MILLER ([id number]) 1975 M Date Time Provider Department 05/07/18 YASEMIN DODSON During your visit today, we recorded the following information about you: Michelle Gaines Psr 05/07/2018 11:32 AM Signed Patient scheduled for PSG titration study on 05/08. Patient scheduled for consultation with Dr. Dodson on 08/14/18. asking if this is ok or should patient be seen sooner. This PSS told Dr. Dodson will have to review sleep study and office will let patient know if appointment will need to be moved up from 08/14.. Please advise. rPince Adames RN 05/09/2018 2:10 PM Signed Spoke with pt's . Pt had study last night. Informed her that studies take 10-14 business days to be read and if they don't receive a call in 2 weeks to call office back. They do not need an appt to go over results. She verbalized understanding and was given the number to the office. Shannon Vargas MA 05/16/2018 9:00 AM Signed SLEEP PHONE Name of caller : Raina Relationship to patient : Spouse/ Signiciant Other Was permission obtained from patient ? Yes Patient identified by Name and Date of . ( Megan iMller, 1975). Yes Reason for Call : Results : Calling office requesting results of titration test. completed on 05/08/18. Raina is concerned that Megan's breathing or lack of is getting worse and is worried about him at night because he is gasping for air. Number to return call [phone] Okay to leave a message ? Yes Next office visit 08/14/18 with Jessica Thank you calling [facility] [place]. You will receive a return call within 3 business days. If you feel that this is an urgent issue and needs immediate attention, it is recommended that you contact your primary care provider office or proceed to your Primary Care Provider, nearest [facility], or Emergency Room for evaluation/treatment. Prince Adames RN 05/16/2018 9:39 AM Signed Pt's calling for results of titration study performed 05/08. Results are in Epic. See msg below. Allergies As of Date: 05/07/2018 Noted Allergy Reaction blue cheese [Other] 02/16/2005 7 - Swelling Comments: throat swelling LISINOPRIL 09/21/2014 3 - Cough Comments: Cough SHELLFISH 02/16/2005 7 - Swelling Comments: shrimp throat swelling Date Reviewed: 03/04/2018 Reviewed by: Emerald Negro Ma - Fully Assessed Reason for Visit: Future Appointment [256] Prescriptions as of 05/07/2018 Sig: COMPOUNDED PRESCRIPTION as directed. Taking Super Sup* COMPOUNDED PRESCRIPTION as directed. Taking Food Enzy* LOSARTAN 25 MG TABLET TAKE ONE TABLET ONCE DAILY MULTI-VITAMIN ORAL Take by mouth. COQ10 SG 100 ORAL Take by mouth as directed. Problem List As Of Date 05/07/2018 Noted Resolved ABN INVOLUN MOVEMENT NEC [R25.8, R25.9] INVALID FOR* Dysmetabolic syndrome X [E88.81] INVALID FOR*09/18/2013 Anxiety [F41.9] INVALID FOR* Essential hypertension, benign [I10] INVALID FOR* GERD (gastroesophageal reflux disease) [K21.9] INVALID FOR*03/04/2018 Paresthesia of hand, bilateral [R20.2] INVALID FOR*03/04/2018 TOBY (obstructive sleep apnea) [G47.33] INVALID FOR* Encounter Status:Closed by PRINCE ADAMES RN on 05/09/18 PROGRESS Observed: 04/26/2018 Status: COMPLETED Source: [place] 12:53 PM [facility] REPOSITORY HNO ID: [id number] Author: Radha German Service: (none) Author Type: (none) Type: Progress Notes Filed: 04/26/2018 12:53 PM Note Text: Sleep Study Check-In Documentation Date: April 26, 2018 Name: Megan Miller Comments: HST was returned in working order with all sleep questionnaires Radha German PROGRESS Observed: 04/23/2018 Status: COMPLETED Source: [place] 9:[address] [facility] REPOSITORY HNO ID: [id number] Author: Brien Lara Smart [employer]-T Service: (none) Author Type: (none) Type: Progress Notes Filed: 04/23/2018 9:43 AM Note Text: NOMAD# [id number] Was deployed 04/23/18 Mail out UPS tracking Number [id number] Return UPS tracking Number [id number] PROGRESS Observed: 03/29/2018 Status: COMPLETED Source: [place] 12:[address] [facility] REPOSITORY HNO ID: [id number] Author: Radha German Service: (none) Author Type: (none) Type: Progress Notes Filed: 03/29/2018 12:08 PM Note Text: Sleep Study Check-In Documentation Date: March 29, 2018 Name: Megan Miller Comments: HST was returned in work order. Study did not occur. The patient had a cold and did not take the study. Unable to redeploy. Patient will be contacted for repeat testing. Radha German PROGRESS Observed: 03/28/2018 Status: COMPLETED Source: [place] 8:[address] [facility] REPOSITORY HNO ID: [id number] Author: Radha German Service: (none) Author Type: (none) Type: Progress Notes Filed: 03/29/2018 12:08 PM Note Text: Patient returning equipment unused due to having a cold. PROGRESS Observed: 03/26/2018 Status: COMPLETED Source: [place] 9:[address] [facility] REPOSITORY HNO ID: [id number] Author: Brien Lara [employer] Service: (none) Author Type: (none) Type: Progress Notes Filed: 03/29/2018 12:08 PM Note Text: NOMAD# [id number] Was deployed 03/26/18 Mail out UPS tracking Number [id number] Return UPS tracking Number [id number] PROGRESS Observed: 03/25/2018 Status: COMPLETED Source: [place] 12:[address] [facility] REPOSITORY HNO ID: [id number] Author: Radha German Service: (none) Author Type: (none) Type: Progress Notes Filed: 03/29/2018 12:08 PM Note Text: Confirmed HSAT appt and current mailing address PROGRESS Observed: 03/22/2018 Status: COMPLETED Source: [place] 10:[address] [facility] REPOSITORY HNO ID: [id number] Author: Radha German Service: (none) Author Type: (none) Type: Progress Notes Filed: 03/29/2018 12:08 PM Note Text: Left voicemail for patient to confirm HSAT mail out appointment PROGRESS Observed: 03/06/2018 Status: COMPLETED Source: [place] 11:04 AM [facility] [place] REPOSITORY HNO ID: [id number] Author: Aquiles Dee III Service: (none) Author Type: Physician Type: Progress Notes Filed: 03/29/2018 12:08 PM Note Text: March 06, 2018 The electronic medical record was reviewed to determine if the proposed sleep study conforms to the AASM Practice Parameters for the Indications for Polysomnography and Related Procedures, or if the sleep study is indicated for other reasons. Indications for study: TOBY suspected without comorbid medical or sleep disorders Sleep study to be performed: Home Sleep Apnea Test (HSAT) Special instructions: None-follow laboratory protocol Shannon Mars [facility] I have read the above protocol, edited as needed, and agree to the plan Aquiles Dee III, PhD, [facility] PROGRESS Observed: 03/06/2018 Status: COMPLETED Source: [place] 10:[address] [facility] REPOSITORY HNO ID: [id number] Author: Ilene Ordonze Service: (none) Author Type: (none) Type: Progress Notes Filed: 03/29/2018 12:08 PM Note Text: March 06, 2018 An order has been received for Home Sleep Apnea Test (HSAT) from DASHA Fleming. [facility] Staff. Visit prep complete. Comments :No The sleep study is scheduled for 03/27. Insurance: Payor: [employer] / Plan: [place] / Product Type: PPO / Ilene Richards Psr PROGRESS Observed: 03/04/2018 Status: COMPLETED Source: [place] 6:04 PM [facility] [place] REPOSITORY HNO ID: [id number] Author: Maria Del Carmen Gardner III Service: (none) Author Type: Physician Type: Progress Notes Filed: 03/04/2018 6:40 PM Note Text: SUBJECTIVE: Chief Complaint: Megan Miller is a 42 year old male who presents for comprehensive problem evaluation. New concerns today include 1. known Barretts esophagus. Recent fundoplication per Dr Telly Gardner. (01/02/18) Off of prilosec w/o return of hearburn. 2. wants to lose wt. 11/27 commitment. Wants to help 's effort to lose wt. Plans to use basement exercise equipment, exercise videos, cycling in good weather. Plans to cut out evening snacks and eat smaller portions 3. loud snoring but not to be heard outside of the bedroom. Falls to sleep when sitting in chair. No difficulty staying awake while driving. No witnessed gasping. Last sleep study 10 yrs ago--did not document sleep apnea. . Tonsillectomy helped with upper airway obstruction. Wants sleep study Exercises regularly Minimal exercise associated with work or ADL's Cholesterol screening up to date Yes Current Outpatient Prescriptions on File Prior to Visit: losartan (COZAAR) 25 mg tablet TAKE ONE TABLET ONCE DAILY UBIDECARENONE/VITAMIN E MIXED (COQ10 SG 100 ORAL) Take by mouth as directed. COMPOUNDED PRESCRIPTION as directed. Taking Super Supplemental ([employer] [place]) COMPOUNDED PRESCRIPTION as directed. Taking Food Enzymes ([employer] [place]) MULTI-VITAMIN ORAL Take by mouth. omeprazole (PRILOSEC) 20 mg capsule Take 1 capsule by mouth daily before breakfast. 1/2 hr before meal. (Patient not taking: Reported on 10/16/2017 ) No current facility-administered medications on file prior to visit. PAST MEDICAL HISTORY Diagnosis Date - Guzmán esophagus - Essential hypertension, benign 08/24/2011 - Gastritis and duodenitis 06/2002 - PMH - PAST MEDICAL HISTORY OF 06/2002 ABDOMINAL HERNIA PAST SURGICAL HISTORY Procedure Laterality Date - [facility] [place]next colon in 10 years-10/2027 - EGD W/O OR W/BRUSH/WASH N/A 11/09/2017 [facility] [place] - JES HX N/A 12/31/2017 Laparoscopic Jes fundoplication-R. Cebul - REMOVAL OF TONSILS,<12 Y/O 2004 Tonsillectomy FAMILY HISTORY Problem Relation Age of Onset - Ischemic Heart Disease Father of [place] - Hypertension Father - None Mother - Asthma Brother - Hypertension Brother - other (gout) Brother - None Brother - None Brother Social History Marital status: Spouse name: Years of education: Number of children: Social History Main Topics Smoking status: Never Smoker Smokeless tobacco: Never Used Alcohol use: No Drug use: No Sexual activity: Yes Partners with: Female Immunization History Administered Date(s) Administered DT(PEDIATRIC) 10/02/2005 Influenza Vaccine, Split-Non Spec 03/19/2013 Tdap (Age 7+) 05/18/2016 ACTIVE PROBLEM LIST Abnormal Involuntary Movements(781.0) Anxiety Essential Hypertension, Benign Gerd (Gastroesophageal Reflux Disease) Paresthesia of Hand, Bilateral REVIEW OF SYSTEMS General: Denies fever, chills, night sweats, or changes in weight. Dermatologic: Denies any new skin conditions, rashes or changing moles. Eyes: ENT: Respiratory: Denies any cough, dyspnea, or wheezing. Cardiovascular: Denies any chest pain with exertion or at rest, palpitations, syncope, or edema. Gastrointestinal: Denies any nausea, vomiting, abdominal pain, heartburn, changes in bowel habit, Denies any rectal bleeding. Genitourinary: Denies Denies problems with urinary stream., Denies dysuria, frequency, urgency, incontinence, erectile dysfunction, hematuria and nocturia. Musculoskeletal: Denies any joint swelling, crepitus, joint pain, or loss of range of motion., Denies back pain. Neurologic: Denies any headaches, tremors, dizziness, vertigo, memory loss, confusion., Denies weakness, numbness or tingling. Psychiatric: Denies any anxiety or depression. Hematologic/Lymphatic/Immunologic: Denies anemia, bruising, bleeding abnormalities. Endocrine: Denies any heat or cold intolerance, polyuria or polydipsia. OBJECTIVE: PHYSICAL EXAMINATION: BP 118/82 Pulse 76 Temp 36.7 ?C (98 ?F) (Left Tympanic) Resp 12 Wt 98.4 kg (217 lb) BMI 29.43 kg/m? GENERAL APPEARANCE Well appearing, alert, in no acute distress, well-hydrated, well nourished. SKIN: Skin color, texture, turgor normal, no suspicious rashes or lesions HEAD: No significant findings. EYES: EARS: NOSE/SINUSES: OROPHARYNX: NECK: Supple, no lymphadenopathy, normal thyroid, no carotid bruits and no JVD BACK: Back symmetric, Normal curvature, No CVAT. LUNGS: normal pulmonary exam and clear to auscultation and percussion HEART: Normal PMI, Regular rate and rhythm, Normal heart sounds, S1 and S2 and No murmurs. BREASTS: ABDOMEN: Soft, Non-tender, No palpable masses and No hepatosplenomegaly. EXTREMTIES: extremities normal, no deformities, no skin discoloration, no edema, normal pulses bilaterally. NEURO: Awake, alert and oriented x 3, Normal gait, No involuntary motions., muscle tone normal, muscle strength normal GENITALIA: Exam deferred RECTAL: Exam deferred Lab Results for MEGAN MILLER ( ) as of 03/04/2018 18:06 Ref. Range 10/16/2017 16:28 Sodium Latest Ref Range: 136 - 144 mmol/L 140 Potassium Latest Ref Range: 3.7 - 5.1 mmol/L 3.8 Chloride Latest Ref Range: 97 - 105 mmol/L 101 CO2 Latest Ref Range: 22 - 30 mmol/L 23 BUN Latest Ref Range: 9 - 24 mg/dL 16 Creatinine Latest Ref Range: 0.73 - 1.22 mg/dL 1.19 Glucose Latest Ref Range: 74 - 99 mg/dL 84 Protein, Total Latest Ref Range: 6.3 - 8.0 g/dL 7.1 Calcium Latest Ref Range: 8.5 - 10.2 mg/dL 9.0 Albumin Latest Ref Range: 3.9 - 4.9 g/dL 4.4 Bilirubin, Total Latest Ref Range: 0.2 - 1.3 mg/dL 0.6 Alkaline Phosphatase Latest Ref Range: 36 - 108 U/L 46 ALT Latest Ref Range: 10 - 54 U/L 23 AST Latest Ref Range: 14 - 40 U/L 25 Anion Gap Latest Ref Range: 9 - 18 mmol/L 16 eGFR- Unknown >60 eGFR-All Other Races Latest Units: . >60 Hematocrit Latest Ref Range: 39.0 - 51.0 % 39.9 WBC Latest Ref Range: 3.70 - 11.00 k/uL 7.82 RBC Latest Ref Range: 4.20 - 6.00 m/uL 4.47 Hemoglobin Latest Ref Range: 13.0 - 17.0 g/dL 13.6 Platelet Count Latest Ref Range: 150 - 400 k/uL 214 MCV Latest Ref Range: 80.0 - 100.0 fL 89.3 MCH Latest Ref Range: 26.0 - 34.0 pG 30.4 MCHC Latest Ref Range: 30.5 - 36.0 g/dL 34.1 MPV Latest Ref Range: 9.0 - 12.7 fL 10.2 RDW-CV Latest Ref Range: 11.5 - 15.0 % 13.5 Absolute nRBC Latest Ref Range: <0.01 k/uL <0.01 ASSESSMENT: overweight excessive daytime sleepiness PLAN: healthy weight losing diet and regular exercise--150-200 min/wk eat less sugar, bread, potato, pasta, rice, corn, corn syrup, saturated fats Plans to use basement exercise equipment, exercise videos, cycling in good weather. Plans to cut out evening snacks and eat smaller portions home sleep study Maria Del Carmen Gardner III MD CNOV Observed: 03/04/2018 Status: COMPLETED Source: [place] 6:[address] [facility] REPOSITORY Office Visit (FAMPWS) MEGAN MILLER ([id number]) 1975 M Date Time Provider Department 03/04/18 6:00 PM MARIA DEL CARMEN GARNDER III During your visit today, we recorded the following information about you: Temperature Pulse Respiration Blood pressure 98 degrees 76/minute 12/minute 118/82 Weight 98.4 kg Maria Del Carmen Gardner III MD 03/04/2018 6:40 PM Signed SUBJECTIVE: Chief Complaint: Megan Miller is a 42 year old male who presents for comprehensive problem evaluation. New concerns today include 1. known Barretts esophagus. Recent fundoplication per Dr Telly Munoz (01/02/18) Off of prilosec w/o return of hearburn. 2. wants to lose wt. 7/10 commitment. Wants to help 's effort to lose wt. Plans to use basement exercise equipment, exercise videos, cycling in good weather. Plans to cut out evening snacks and eat smaller portions 3. loud snoring but not to be heard outside of the bedroom. Falls to sleep when sitting in chair. No difficulty staying awake while driving. No witnessed gasping. Last sleep study 10 yrs ago--did not document sleep apnea. . Tonsillectomy helped with upper airway obstruction. Wants sleep study Exercises regularly Minimal exercise associated with work or ADL's Cholesterol screening up to date Yes Current Outpatient Prescriptions on File Prior to Visit: losartan (COZAAR) 25 mg tablet TAKE ONE TABLET ONCE DAILY UBIDECARENONE/VITAMIN E MIXED (COQ10 SG 100 ORAL) Take by mouth as directed. COMPOUNDED PRESCRIPTION as directed. Taking Super Supplemental ([employer] [place]) COMPOUNDED PRESCRIPTION as directed. Taking Food Enzymes ([employer] [place]) MULTI-VITAMIN ORAL Take by mouth. omeprazole (PRILOSEC) 20 mg capsule Take 1 capsule by mouth daily before breakfast. 1/2 hr before meal. (Patient not taking: Reported on 10/16/2017 ) No current facility-administered medications on file prior to visit. PAST MEDICAL HISTORY Diagnosis Date - Guzmán esophagus - Essential hypertension, benign 08/24/2011 - Gastritis and duodenitis 06/2002 - PMH - PAST MEDICAL HISTORY OF 06/2002 ABDOMINAL HERNIA PAST SURGICAL HISTORY Procedure Laterality Date - COLONOSCOP W/ OR W/O [facility] SPEC N/A 11/09/2017 [facility] [place] Cebul-next colon in 10 years-10/2027 - EGD W/O OR W/BRUSH/WASH N/A 11/09/2017 [facility] [place]-R. Cebul - JES HX N/A 12/31/2017 Laparoscopic Jes fundoplication-R. Cebul - REMOVAL OF TONSILS,<12 Y/O 2004 Tonsillectomy FAMILY HISTORY Problem Relation Age of Onset - Ischemic Heart Disease Father of [place] - Hypertension Father - None Mother - Asthma Brother - Hypertension Brother - other (gout) Brother - None Brother - None Brother Social History Marital status: Spouse name: Years of education: Number of children: Social History Main Topics Smoking status: Never Smoker Smokeless tobacco: Never Used Alcohol use: No Drug use: No Sexual activity: Yes Partners with: Female Immunization History Administered Date(s) Administered DT(PEDIATRIC) 10/02/2005 Influenza Vaccine, Split-Non Spec 03/19/2013 Tdap (Age 7+) 05/18/2016 ACTIVE PROBLEM LIST Abnormal Involuntary Movements(781.0) Anxiety Essential Hypertension, Benign Gerd (Gastroesophageal Reflux Disease) Paresthesia of Hand, Bilateral REVIEW OF SYSTEMS General: Denies fever, chills, night sweats, or changes in weight. Dermatologic: Denies any new skin conditions, rashes or changing moles. Eyes: ENT: Respiratory: Denies any cough, dyspnea, or wheezing. Cardiovascular: Denies any chest pain with exertion or at rest, palpitations, syncope, or edema. Gastrointestinal: Denies any nausea, vomiting, abdominal pain, heartburn, changes in bowel habit, Denies any rectal bleeding. Genitourinary: Denies Denies problems with urinary stream., Denies dysuria, frequency, urgency, incontinence, erectile dysfunction, hematuria and nocturia. Musculoskeletal: Denies any joint swelling, crepitus, joint pain, or loss of range of motion., Denies back pain. Neurologic: Denies any headaches, tremors, dizziness, vertigo, memory loss, confusion., Denies weakness, numbness or tingling. Psychiatric: Denies any anxiety or depression. Hematologic/Lymphatic/Immunologic: Denies anemia, bruising, bleeding abnormalities. Endocrine: Denies any heat or cold intolerance, polyuria or polydipsia. OBJECTIVE: PHYSICAL EXAMINATION: BP 118/82 Pulse 76 Temp 36.7 ?C (98 ?F) (Left Tympanic) Resp 12 Wt 98.4 kg (217 lb) BMI 29.43 kg/m? GENERAL APPEARANCE Well appearing, alert, in no acute distress, well-hydrated, well nourished. SKIN: Skin color, texture, turgor normal, no suspicious rashes or lesions HEAD: No significant findings. EYES: EARS: NOSE/SINUSES: OROPHARYNX: NECK: Supple, no lymphadenopathy, normal thyroid, no carotid bruits and no JVD BACK: Back symmetric, Normal curvature, No CVAT. LUNGS: normal pulmonary exam and clear to auscultation and percussion HEART: Normal PMI, Regular rate and rhythm, Normal heart sounds, S1 and S2 and No murmurs. BREASTS: ABDOMEN: Soft, Non-tender, No palpable masses and No hepatosplenomegaly. EXTREMTIES: extremities normal, no deformities, no skin discoloration, no edema, normal pulses bilaterally. NEURO: Awake, alert and oriented x 3, Normal gait, No involuntary motions., muscle tone normal, muscle strength normal GENITALIA: Exam deferred RECTAL: Exam deferred Lab Results for MEGAN MILLER ( ) as of 03/04/2018 18:06 Ref. Range 10/16/2017 16:28 Sodium Latest Ref Range: 136 - 144 mmol/L 140 Potassium Latest Ref Range: 3.7 - 5.1 mmol/L 3.8 Chloride Latest Ref Range: 97 - 105 mmol/L 101 CO2 Latest Ref Range: 22 - 30 mmol/L 23 BUN Latest Ref Range: 9 - 24 mg/dL 16 Creatinine Latest Ref Range: 0.73 - 1.22 mg/dL 1.19 Glucose Latest Ref Range: 74 - 99 mg/dL 84 Protein, Total Latest Ref Range: 6.3 - 8.0 g/dL 7.1 Calcium Latest Ref Range: 8.5 - 10.2 mg/dL 9.0 Albumin Latest Ref Range: 3.9 - 4.9 g/dL 4.4 Bilirubin, Total Latest Ref Range: 0.2 - 1.3 mg/dL 0.6 Alkaline Phosphatase Latest Ref Range: 36 - 108 U/L 46 ALT Latest Ref Range: 10 - 54 U/L 23 AST Latest Ref Range: 14 - 40 U/L 25 Anion Gap Latest Ref Range: 9 - 18 mmol/L 16 eGFR- Unknown >60 eGFR-All Other Races Latest Units: . >60 Hematocrit Latest Ref Range: 39.0 - 51.0 % 39.9 WBC Latest Ref Range: 3.70 - 11.00 k/uL 7.82 RBC Latest Ref Range: 4.20 - 6.00 m/uL 4.47 Hemoglobin Latest Ref Range: 13.0 - 17.0 g/dL 13.6 Platelet Count Latest Ref Range: 150 - 400 k/uL 214 MCV Latest Ref Range: 80.0 - 100.0 fL 89.3 MCH Latest Ref Range: 26.0 - 34.0 pG 30.4 MCHC Latest Ref Range: 30.5 - 36.0 g/dL 34.1 MPV Latest Ref Range: 9.0 - 12.7 fL 10.2 RDW-CV Latest Ref Range: 11.5 - 15.0 % 13.5 Absolute nRBC Latest Ref Range: <0.01 k/uL <0.01 ASSESSMENT: overweight excessive daytime sleepiness PLAN: healthy weight losing diet and regular exercise--150-200 min/wk eat less sugar, bread, potato, pasta, rice, corn, corn syrup, saturated fats Plans to use basement exercise equipment, exercise videos, cycling in good weather. Plans to cut out evening snacks and eat smaller portions home sleep study DASHA Hu MD, III MD 03/04/2018 6:27 PM Signed PLAN: healthy weight losing diet and regular exercise--150-200 min/wk eat less sugar, bread, potato, pasta, rice, corn, corn syrup, saturated fats Plans to use basement exercise equipment, exercise videos, cycling in good weather. Plans to cut out evening snacks and eat smaller portions home sleep study DASHA Hu MD, III MD 03/04/2018 10:07 PM Signed Addended by: MARIA DEL CARMEN GARDNER III, MD on: 03/04/2018 10:07 PM Modules accepted: Orders, SmartSet Referring Provider: SELF [200] Allergies As of Date: 03/04/2018 Noted Allergy Reaction blue cheese [Other] 02/16/2005 7 - Swelling Comments: throat swelling LISINOPRIL 09/21/2014 3 - Cough Comments: Cough SHELLFISH 02/16/2005 7 - Swelling Comments: shrimp throat swelling Date Reviewed: 03/04/2018 Reviewed by: Emerald Negro Ma - Fully Assessed Reason for Visit: Physical [83] Primary Visit Diagnosis:Encounter for routine adult medical exam with abnormal findings [Z00.01] Other Visit Diagnoses:Excessive daytime sleepiness [G47.19] Essential hypertension, benign [I10] Anxiety [F41.9] Order(s):HOME SLEEP APNEA TEST (HSAT) [4240985] Order #: [id number] Prescriptions as of 03/04/2018 Sig: LOSARTAN 25 MG TABLET TAKE ONE TABLET ONCE DAILY COQ10 SG 100 ORAL Take by mouth as directed. COMPOUNDED PRESCRIPTION as directed. Taking Super Sup* COMPOUNDED PRESCRIPTION as directed. Taking Food Enzy* MULTI-VITAMIN ORAL Take by mouth. Problem List As Of Date 03/04/2018 Noted Resolved ABN INVOLUN MOVEMENT NEC [R25.8, R25.9] INVALID FOR* Dysmetabolic syndrome X [E88.81] INVALID FOR*09/18/2013 Anxiety [F41.9] INVALID FOR* Essential hypertension, benign [I10] INVALID FOR* GERD (gastroesophageal reflux disease) [K21.9] INVALID FOR*03/04/2018 Paresthesia of hand, bilateral [R20.2] INVALID FOR*03/04/2018 Other instructions from your clinician: PLAN: healthy weight losing diet and regular exercise--150-200 min/wk eat less sugar, bread, potato, pasta, rice, corn, corn syrup, saturated fats Plans to use [employer] exercise equipment, exercise videos, cycling in good weather. Plans to cut out evening snacks and eat smaller portions home sleep study Maria Del Carmen Gardner III MD Medications Discontinued During This Encounter omeprazole (PRILOSEC) 20 mg capsule 30 c* 11 01/07/2016 03/04/2018 Route: ORAL Sig: Take 1 capsule by mouth daily before breakfast. 1/2 hr before meal. Patient not taking: Reported on 10/16/2017 Disc: Course of therapy completed Encounter Status:Closed by MARIA DEL CARMEN GARDNER III, MD on 03/04/18 SURGERY VISIT REPORT Observed: 01/29/2018 Status: F Source: [place] 2:52 PM [facility] [address] [place] [address] [address] [place] [address] OFFICE VISIT Date of Service: 01/29/18 MR#: [id number] Acct: [id number] Name: MEGAN MILLER Rep #: [id number] : 1975 Provider: Una Meek PA-C Age/Sex: 42/M Location: [facility] Status: Signed Intake Intake Visit Reasons: Lap Jes Fundolipcation RC 12/31 Chief Complaint: discuss lap jes Veterinary Surgeon Required: No Is patient in pain?: No Allergies shellfish derived Allergy (Severe, Verified 01/29/18 14:30) anaphylactic hydrochlorothiazide Allergy (Intermediate, Verified 01/29/18 14:30) palpitations/restlessness lisinopril Adverse Reaction (Mild, Verified 01/29/18 14:30) cough Medications losartan 50 mg tablet 50 mg PO QDAY 10/30/17 [History Confirmed 01/29/18] omega-3 fatty acids 1,000 mg capsule 1,000 mg PO QDAY 12/19/17 [History Confirmed 01/29/18] Omeprazole 40 mg PO DAILY 12/24/17 [History Confirmed 01/29/18] Hydrocodone Bitart/Apap 5-325 [Oxford 5MG-325MG] 1 tab PO Q6H PRN PRN 3 Days #10 tab 12/31/17 [Rx Confirmed 01/29/18] Subjective Details: Patient is a 42 y/o male I am following for GERD with Guzmán's esophagus. Dr. Gardner will plan to perform a laparoscopic Jes fundoplication on 12/31/17. Patient tolerated the procedure well. Patient notes minimal amount of abdominal discomfort especially in the LUQ. He denies nausea, vomiting, fever. He notes trying pie and chips. He notes on one occasion he had a feeling of food sticking, however it eventually went down. Patient denies taking pain medication. He denies heartburn symptoms. Patient returns for a follow-up visit. He notes overall feeling very well. He went on a dump truck ride with his [id number] and felt sore after for the next few days. He denies feeling of food getting stuck. He notes little difficulty with belching. He notes minimal amount of bloating if he eats too much. He notes he continues to wean off of the omeprazole. Objective Details: Abdomen- soft, nontender. Positive bowel sounds. Incisions nicely healed. Assessment AND Plan Problems 1. Status post laparoscopic Jes fundoplication Z98.890 12/2017 Plan - May resume normal diet including meats and breads - Recommend cutting up the meats and breads into smaller pieces - Follow-up as needed Coding Level of Care Code Global Post Op Diagnoses Status post laparoscopic Jes fundoplication Z98.890 01/29/18 1906 <Electronically signed by Una Meek PA-C> Date Una Meek PA-C Cosigner Signature: Date (if applicable) CC: SURGERY VISIT REPORT Observed: 01/10/2018 Status: F Source: [place] 2:10 PM [facility] REPOSITORY [facility] [address] [place] [address] OFFICE VISIT Date of Service: 01/10/18 MR#: [id number] Acct: [id number] Name: MEGAN MILLER Rep #: [id number] : 1975 Provider: Una Meek PA-C Age/Sex: 42/M Location: [facility] Status: Signed Intake Intake Visit Reasons: Lap Jes Fundolipcation RC 12/31 Chief Complaint: discuss lap jes Veterinary Surgeon Required: No Is patient in pain?: No Allergies shellfish derived Allergy (Severe, Verified 01/10/18 09:44) anaphylactic hydrochlorothiazide Allergy (Intermediate, Verified 01/10/18 09:44) palpitations/restlessness lisinopril Adverse Reaction (Mild, Verified 01/10/18 09:44) cough Medications losartan 50 mg tablet 50 mg PO QDAY 10/30/17 [History Confirmed 01/10/18] omega-3 fatty acids 1,000 mg capsule 1,000 mg PO QDAY 12/19/17 [History Confirmed 01/10/18] Omeprazole 40 mg PO DAILY 12/24/17 [History Confirmed 01/10/18] Hydrocodone Bitart/Apap 5-325 [Oxford 5MG-325MG] 1 tab PO Q6H PRN PRN 3 Days #10 tab 12/31/17 [Rx Confirmed 01/10/18] Subjective Details: Patient is a 42 y/o male I am following for GERD with Guzmán's esophagus. Dr. Gardner will plan to perform a laparoscopic Jes fundoplication on 12/31/17. Patient tolerated the procedure well. Patient notes minimal amount of abdominal discomfort especially in the LUQ. He denies nausea, vomiting, fever. He notes trying pie and chips. He notes on one occasion he had a feeling of food sticking, however it eventually went down. Patient denies taking pain medication. He denies heartburn symptoms. Objective Details: Abdomen- soft, tenderness in the LUQ. Bowel sounds normal. Incisions c/d/i. No erythema or infection noted. Minimal amount of ecchymosis. Assessment AND Plan Problems 1. Status post laparoscopic Jes fundoplication Z98.890 12/2017 Plan - May increase to include all food except tough meats and breads - No lifting greater than 35 pounds for 2 weeks - May RTW to work tomorrow for 1/2 day - Follow-up in 1 month Coding Level of Care Code Global Post Op Diagnoses Status post laparoscopic Jes fundoplication Z98.890 01/10/18 1410 <Electronically signed by Una Meek PA-C> Date Una Meek PA-C Cosigner Signature: Date (if applicable) CC: Maria Del Carmen Gardner III, MD 12 LEAD ELECTROCARDIOGRAM Observed: 01/10/2018 Status: F Source: [place] 1:39 PM [facility] REPOSITORY [facility] [address] [place] [id number] 12 Lead EKG 01/01/18 0555 MR#: [id number] Acct: [id number] Name: MEGAN MILLER Rep #: [id number] : 1975 42 From: James Garcia MD Attending Dr: Norman Gardner MD Status: DIS MARJORIE Ordering Dr: Norman Gardner MD Date: 01/01/18 Location: [facility] Sex: M C Admitted: 12/31/17 Test Reason : CHEST PAIN Blood Pressure : / mmHG Vent. Rate : 087 BPM Atrial Rate : 087 BPM P-R Int : 146 ms QRS Dur : 104 ms QT Int : 368 ms P-R-T Axes : 032 -07 -17 degrees QTc Int : 442 ms Normal sinus rhythm with sinus arrhythmia Voltage criteria for left ventricular hypertrophy Nonspecific T wave abnormality Abnormal ECG Confirmed by JAMES GARCIA MD ([id number]), editorial manager LESA [employer] ([id number]) on 01/10/2018 1:39:04 PM Referred By: Norman Gardner Confirmed By:JAMES GARCIA MD 01/10/18 1339 Date James Garcia MD CC: Maria Del Carmen Gardner III, MD; Norman Gardner MD Signed DISCHARGE INSTRUCTION Observed: 01/02/2018 Status: F Source: [place] 5:58 AM [facility] REPOSITORY [facility] Medical Records Department [address] [place] [address] Instructions for Home/Discharge Instructions 12/31/1707 MR#: [id number] Acct: [id number] Name: MEGAN MILLER Rep #: [id number] : 1975 42 From: Norman Gardner MD PCP: Maria Del Carmen Gardner III, MD Status: DIS MARJORIE Discharge Diet: - - You may eat anything which at body temperature will dissolve to a liquid. If no difficulties with swallowing after 1 day you may add pasta and rice. Slowly advanced her diet including soft foods and chewing her food well. Leave very solid foods like beef or pork and chicken until your swallowing with no delay Discharge Activity: May Not Drive - for 1 week or while taking narcotic pain medicine. May shower in (days): 1 Lifting Restrictions: 10 pounds Call your doctor if your incision/area has: Continuous Slow Oozing, Sudden Increased Bleeding, Increased Pain/ Swelling, Increased Redness, Foul Smelling Discharge Call your doctor if you observe: Fever of 101 or Higher Suture Line Care: Avoid Pulling/Pushing, Avoid Pinching/Bending Additional Dressing/Incision Instructions:: Change or remove dressing in 4 days. Leave steri-strips in place for 1 week. Allergies/Adverse Reactions: Allergies shellfish derived Allergy (Severe, Verified 12/24/17 13:08) anaphylactic hydrochlorothiazide Allergy (Intermediate, Verified 12/24/17 13:08) palpitations/restlessness lisinopril Adverse Reaction (Mild, Verified 12/24/17 13:08) cough Medications to take at Discharge losartan 50 mg tablet 50 mg PO QDAY 10/30/17 omega-3 fatty acids 1,000 mg capsule 1,000 mg PO QDAY 12/19/17 Omeprazole 40 mg PO DAILY 12/24/17 Hydrocodone Bitart/Apap 5-325 [Oxford 5MG-325MG] 1 tablet PO Q6H PRN PRN 3 Days #10 tablet 12/31/17 The following prescriptions were given: Hydrocodone Bitart/Apap 5-325 [Oxford 5MG-325MG] 1 tablet PO Q6H PRN PRN 3 Days #10 tablet PRN Reason: Pain Primary Care Physician: Maria Del Carmen Gardner III, MD [Primary Care Provider] - Test Results: Test results from this visit will be discussed in further detail at your follow-up appointment, if applicable. Please Follow Up With: Norman Gardner MD - [phone] When: Call to make an appointment to be seen in about 10 days. 01/02/18 0558 <Electronically signed by Norman Gardner MD> Date Norman Gardner MD CC: Maria Del Carmen Gardner III, MD TROPONIN-I Collected: 01/01/2018 Status: F Source: [place] 11:27 AM [facility] REPOSITORY Order Comment: 'TROP' Serial specimen #1, #2 or #3: 3 TYPE CODE TESTS RESULT OUT OF RANGE REFERENCE UNITS LAB L501.4010 <0.045 ng/mL Normal 0.026 TROPONIN-I Result Comment: TROPONIN-I EXPECTED VALUES <0.045 Negative 0.045 - 0.590 Consistent with Cardiac Damage > OR = 0.600 Critical Value Not every elevated troponin is indicative of AZ. These values should be used with clinical judgement in examining the patient's clinical picture for diagnosis. To establish a diagnosis of AZ versus myocardial injury, there must be a demonstrated rise and/or fall in the troponin values, in addition to ischemic symptoms, EKG changes, new regional wall motion abnormality, and/or angiographical evidence. PLEASE NOTE: REFERENCE RANGES EDITED 17 Performed By: #### L501.4010 #### [facility] [address] [place], [address] TROPONIN-I Collected: 01/01/2018 Status: F Source: [place] 8:23 AM [facility] REPOSITORY Order Comment: 'TROP' Serial specimen #1, #2 or #3: 2 TYPE CODE TESTS RESULT OUT OF RANGE REFERENCE UNITS LAB L501.4010 <0.045 ng/mL Normal 0.021 TROPONIN-I Result Comment: TROPONIN-I EXPECTED VALUES <0.045 Negative 0.045 - 0.590 Consistent with Cardiac Damage > OR = 0.600 Critical Value Not every elevated troponin is indicative of AZ. These values should be used with clinical judgement in examining the patient's clinical picture for diagnosis. To establish a diagnosis of AZ versus myocardial injury, there must be a demonstrated rise and/or fall in the troponin values, in addition to ischemic symptoms, EKG changes, new regional wall motion abnormality, and/or angiographical evidence. PLEASE NOTE: REFERENCE RANGES EDITED 17 Performed By: #### L501.4010 #### [facility] [address] [place], [address] OPERATIVE REPORT Observed: 12/31/2017 Status: F Source: [place] 9:54 AM [facility] REPOSITORY [facility] Medical Records Department [address] [place] [address] Operative Report 12/31/17 0947 MR#: [id number] Acct: [id number] Name: MEGAN MILLER Rep #: [id number] : 1975 42 From: Norman Gardner MD PCP: Maria Del Carmen Gardner III, MD Status: ADM IN Location: [facility] [id number] Problem List (1) GERD (gastroesophageal reflux disease) Status: Acute Qualifiers: Esophagitis presence: with esophagitis Report of Operation Date of Procedure: 12/31/17 Pre-Operative Diagnosis: Gastroesophageal reflux disease with Guzmán's esophagus Post-Operative Diagnosis: Same Surgery/Procedure Performed:: Laparoscopic Jes fundoplication Description of Surgical Findings:: Timeout and informed consent was obtained. 39-year-old gent was taken out from. He was placed on the table. He underwent general endotracheal intubation anesthesia. Ancef 2 g given intravenous preoperatively. He was placed in the low lithotomy position with careful buttock padding. The abdomen sterilely prepped draped. Ioban drape was used to help facilitate holding of drapes in place. 0.5% Marcaine was used as local anesthetic. Throughout the procedure total 30 cc was used. Superior and to the right of the umbilicus 5 mm incision was created using Visipaque technology access was gained to the abdomen the absence freed CO2 to pressure of 10 mmHg pressure. Family history trocar inserted five-minute lap scope inserted over the joint trocar injuries five-minute trochars are placed in the right upper quadrant and the left upper quadrant left lateral quadrant in a 10 mm trocar was placed in the left epigastrium. The abdomen was insufflated the patient was placed in reverse Trendelenburg position to superficial abdomen was inspected no abnormality. The gastrohepatic omentum was incised with harmonic scalpel. There was a significant amount of fibrofatty tissue in the gastrohepatic ligament so then I elected to transect the short gastrics I did this in the fundus of the stomach rather tight connection to the spleen and very carefully using Harmonic completely transected that. At one and a further secured the vessel on the stomach side with a [id number]-bf-cmfsp suture of 2-0 Ethibond. I then completed that dissection with harmonic was able to the left identify the left young the stomach was actually fairly adherent to carefully dissect that free and do blunt dissection so I could identify the posterior vagus nerve was then able to better identify the epiphrenic ligament and transected over the anterior surface of the esophagus. That been are identified all the fibrofatty tissue on the right which could now be released from the diaphragm giving view to the right young of the diaphragm dissected down to the inferior aspect where I was able to identify the left young the right young and get circumferential blunt dissection. I dissected into the mediastinum with harmonic scalpel so as to free up to the esophagus circumferentially so I could allow for mobilization well back down to the abdomen. I then placed a 1/2 inch Abby around the e.g. junction that gave excellent visualization confirmed my mobilization. I utilized 0 Ethibond sutures with pledgets made of Hemoccult carotid patch admitted ultrathin Dacron. Lot number [id number]. Serial #[id number] with a reference number of HSG K1 4/75 CP UT an expiry date of 02/17/2022. 4 simple sutures were applied I thought I had good approximation of the diaphragmatic hiatus. However did not feel that I had this too snug. Then wrapped the fundus. That sat in position very nicely. My apical suture of 0 Ethibond captured the fundus of the stomach the anterior wall of the esophagus the epiphrenic ligament and the right portion of the stomach. That also was pledgeted. I then placed 1 more 0 Ethibond suture to approximate the stomach to itself and catching the anterior wall of the e.g. junction again. [place] that I had a nice loose short Jes wrap. Hemostasis was wonderfully intact. I then placed a flexible gastroscope down the e.g. inlet carefully inspected the esophagogastric junction this was widely patent. Hemostasis nicely intact. I insufflated air into the stomach and there was absolutely no air leak visualized laparoscopically as I had placed fluid into the epigastric area. All suturing and components appear to be nicely intact. It is note that with the 0 Ethibond I performed that suturing with pledgets on both sides performed extracorporeal knot tying and then additionally added at least a minimal 3 additional intrapleural corporeal knots to each of those fisherman ties. Fluid and air was aspirated free from the abdomen. The gastroscope was used to aspirate fluid and air free from the stomach. I repaired the Madai trocar site with a figure 8 suture of 0 Vicryl using a granee needle. The abdomen was allowed to deflate of the CO2. Skin edges approximated with interrupted 4 Monocryl subdermal stitches. Steri-Strips Telfa and OpSite dressings applied. Sponge and instrument and needle counts were reported the surgeon be correct. Blood loss was minimal. Specimens none. Drains none. Blood loss minimal. The patient was taken to the recovery room in satisfactory condition without apparent complication. Norman Gardner M.D., F.A.C.S. Type of Anesthesia:: General Anesthesiologist: Conrad Cerrato 12/31/17 0954 <Electronically signed by Norman Gardner MD> Date Norman Gardner MD CC: Maria Del Carmen Gardner III, MD; Norman Gardner MD Signed 12 LEAD ELECTROCARDIOGRAM Observed: 12/26/2017 Status: F Source: [place] 10:26 AM [facility] REPOSITORY [facility] [place] [address] [address] [facility] 12/24/17 1219 MR#: [id number] Acct: [id number] Name: MEGAN MILLER Rep #: [id number] : 1975 42 From: James Garcia MD Attending Dr: Norman Gardner MD Status: PRE IN Ordering Dr: Norman Gardner MD Date: 12/24/17 Location: [facility] Sex: M C Admitted: Test Reason : Blood Pressure : / mmHG Vent. Rate : 065 BPM Atrial Rate : 065 BPM P-R Int : 138 ms QRS Dur : 104 ms QT Int : 380 ms P-R-T Axes : 023 003 -25 degrees QTc Int : 395 ms Normal sinus rhythm Minimal voltage criteria for LVH, may be normal variant Nonspecific T wave abnormality Abnormal ECG Confirmed by JOSE CAMPBELL, JAMES ([id number]), editorial manager [employer] ([id number]) on 12/26/2017 10:26:02 AM Referred By: Norman Gardner Confirmed By:JAMES GARCIA MD 12/26/17 1026 Date James Garcia MD CC: Maria Del Carmen Gardner III, MD; Norman Gardner MD Date Dictated: 12/24/179 Date Transcribed: 12/24/17 121 Improvement Engineer: Signed CBC-COMPLETE BLOOD CNT Collected: 12/24/2017 Status: F Source: [place] NO DIFF 1:30 PM [facility] REPOSITORY TYPE CODE TESTS RESULT OUT OF RANGE REFERENCE UNITS LAB L100.1000 4.4-11.0 K/mm3 Normal WBC 7.8 LAB L100.1200 4.6-6.2 M/mm3 Normal RBC 5.16 LAB L100.1300 13.0-16.5 g/dl Normal HGB 15.0 LAB L100.1400 40-54 % Normal HCT 44.6 LAB L100.1500 80-94 fL Normal MCV 86.4 LAB L100.1600 27.0-32.0 pg Normal MCH 29.1 LAB L100.1700 32-36 g/gl Normal MCHC 33.6 LAB L100.1810 11.6-14.6 % Normal RDW CV 13.0 LAB L100.1820 35.1-43.9 fl Normal RDW SD 40.9 LAB L100.1900 150-450 K/mm3 Normal PLT 212 LAB L100.2000 6.2-12.0 fl Normal MPV 9.8 Performed By: #### L100.0500 #### [facility] [address] [place], [place], [address] BASIC METABOLIC Collected: 12/24/2017 Status: F Source: [place] PROFILE (BMP) 1:30 PM [facility] REPOSITORY TYPE CODE TESTS RESULT OUT OF RANGE REFERENCE UNITS LAB L501.0100 74-106 mg/dL Normal GLU 95 Result Comment: Please note revised GLUCOSE reference range effective 2017. LAB L501.1000 7-18 mg/dL Normal BUN 16 LAB L501.1100 0.70-1.30 mg/dL Normal CREAT,SERUM 1.19 Result Comment: The validity of the calculated GFR AND GFRAA in patients over 70 years has not been determined. Clinical correlation is essential. LAB L501.1110 >60 mL/min Normal EST GFR 71 Result Comment: Non- GFR Calc LAB L501.1115 >60 mL/min Normal EST GFR - AA 86 Result Comment: GFR Calc LAB L501.1255 ml/min Normal Estimated CRCL 85.25 LAB L501.1300 10-20 RATIO Normal BUN/CRE 13.4 LAB L501.2200 8.5-10 mg/dL Normal .1 CA 8.7 LAB L501.5300 136-14 mmol/L Normal 5 NA 139 LAB L501.5600 3.5-5. mmol/L Normal 1 K 3.5 LAB L501.5900 98-107 mmol/L Normal CL 105 LAB L501.6100 21.0-3 mmol/L Normal 2.0 CO2 26.0 LAB L501.6200 5-15 Normal GAP 8 Performed By: #### L500.2500 #### [facility] [address] [place], [address] SURGERY VISIT REPORT Observed: 12/19/2017 Status: F Source: [place] 11:06 AM [facility] REPOSITORY [facility] [address] [place] [address] OFFICE VISIT Date of Service: 12/19/17 MR#: [id number] Acct: [id number] Name: MEGAN MILLER Rep #: [id number] : 1975 Provider: Norman Gardner MD Age/Sex: 42/M Location: [facility] Status: Signed Intake Vital Signs12/19/17 Height 6 ft 12/19/17 Weight: 204 lb 3 oz 12/19/17 Body Mass Index (BMI) 27.6 12/19/17 Blood Pressure 142/94 Intake Visit Reasons: Hiatal Hernia Chief Complaint: discuss lap jes Veterinary Surgeon Required: No Is patient in pain?: No Allergies shellfish derived Allergy (Severe, Verified 12/19/17 10:02) anaphylactic hydrochlorothiazide Allergy (Intermediate, Verified 12/19/17 10:02) palpitations/restlessness lisinopril Adverse Reaction (Mild, Verified 12/19/17 10:02) cough Medications losartan 50 mg tablet 50 mg PO QDAY 10/30/17 [History Confirmed 12/19/17] Omeprazole 40 mg PO DAILY #90 capsule. 11/09/17 [Rx Confirmed 12/19/17] omega-3 fatty acids 1,000 mg capsule 1,000 mg PO QDAY 12/19/17 [History Confirmed 12/19/17] [facility] Medical History Change in bowel habit (Acute) GERD (gastroesophageal reflux disease) (Acute) Abdominal pain (Acute) Diarrhea (Acute) Difficulty swallowing (Acute) Hypertension (Chronic) Surgical History History of esophagogastroduodenoscopy (EGD) (Acute 10/2017) History of tonsillectomy (Acute) S/P colonoscopy (Acute) Family History Brother Asthma Mother Arthritis Hypertension Father Hypertension High cholesterol Son Seizures Daughter Seizures Social History Smoking Status: Never smoker alcohol intake: never substance use type: does not use HPI HPI HPI: MEGAN MILLER, is a 42 M who presents to the office today for further surgical follow-up and consultation regarding his erosive gastroesophageal reflux disease and Guzmán's esophagus. Previous evaluations including his office visit and upper endoscopy and lower endoscopy and normal gallbladder ultrasound and pathology and manometry which I obtained on December 05, 2017 at the [facility] which is diagnosed as a normal swallow study. MR#:[id number]:[id number] Name: MEGAN MILLER [facility] #:[id number] : 1975 Provider:Norman Gardner MD Age/Sex: 42/M Location:[facility] Status:Signed Intake Vital Signs 10/30/17 Height 6 ft 10/30/17 Weight: 210 lb 10/30/17 Body Mass Index (BMI) 28.5 10/30/17 Blood Pressure 117/78 10/30/17 Blood Pressure Location Rt brachial 10/30/17 Blood Pressure Position Sitting 10/30/17 Respiratory Rate 20 10/30/17 Pulse Rate 81 10/30/17 Pulse Source Monitor 10/30/17 Temperature 98.1 F 10/30/17 Temperature Source Oral 10/30/17 Pulse Ox 98 10/30/17 Oxygen Delivery Method room air Intake Visit Reasons: blood in stool, diarrhea and heartburn Veterinary Surgeon Required: No Is patient in pain?: No Allergies shellfish derived Allergy (Severe, Verified 10/30/17 14:28) anaphylactic hydrochlorothiazide Allergy (Intermediate, Verified 10/30/17 14:29) palpitations/restlessness lisinopril Adverse Reaction (Mild, Verified 10/30/17 14:29) cough Medications losartan 50 mg tablet 50 mg PO QDAY 10/30/17 [History Confirmed 10/30/17] [facility] Medical History Change in bowel habit (Acute) GERD (gastroesophageal reflux disease) (Acute) Abdominal pain (Acute) Diarrhea (Acute) Difficulty swallowing (Acute) Nausea (Acute) Hypertension (Chronic) Surgical History History of tonsillectomy (Acute) Family History Brother Asthma Mother Arthritis Hypertension Father Hypertension High cholesterol Son Seizures Daughter Seizures Social History Smoking Status: Never smoker alcohol intake: never substance use type: does not use HPI HPI HPI: MEGAN MILLER, is a 42 M who presents to the office today for surgical consultation regarding nausea and low to mid abdominal pain and dark smear type stool with change of bowel habits and narrow stool caliber with intermittent diarrhea. In addition he has developed a cough mostly at night. He has a previous history of gastroesophageal reflux disease. There is been no current weight change. He has not had a previous colonoscopy. Previous remote upper endoscopy was in 2002. In addition the patient states that occasionally when he eats food gets stuck right in his hypopharynx. He has never had a food foreign body both esophageal obstruction that required any intervention. He had previously for an extended period of time been on a proton pump inhibitor for his GERD. After reading the package instructions it became apparent that long-term use was discouraged. The patient stopped that medication but did not start any H2 juan or other type of acid reducing medication. He is concerned that his symptoms have escalated. He is not sure that his cough represents reflux. ROS General General: Yes fatigue; no weight change, appetite, colon cancer, breast cancer or weakness HEENT HEENT: Yes difficulty swallowing; no eye injury, eye surgery, swollen glands or hoarseness Endo Endocrine: No thyroid disease, diabetes mellitus, thyroid cancer, Hair loss, heat intolerance or cold intolerance Skin Skin: No rash or changing moles Breast Breast: No left breast lump, right breast lump, nipple discharge, breast pain, abnormal mammogram, abnormal US or breast enlargement Musc Musculoskeletal: No back problems, arthritis, rheumatoid arthritis, gout or joint pain Cardio Cardiovascular: Yes high blood pressure; no murmur, pacemaker, heart disease, atrial fibrillation, heart attack, heart stent, palpitations, shortness of breat with exertion or chest pain Psych Psychiatric: No depression, anxiety or hearing voices Resp Respiratory: No shortness of breath, No sleep apnea, Yes cough, No COPD, No asthma, No emphysema, No wheezing Gastro Gastrointestinal: Yes abdominal pain, Yes nausea or vomiting, Yes diarrhea, No constipation, Yes blood in stool, No acid reflux, Yes hemorrhoids, No ulcers, No gallbladder problem, No black,tarry stools Vicente Hematologic: No blood thinners, No blood disorders, No bleeding, No anemia, No blood clots Neuro Neurologic: No system reviewed and no additional complaints, except as docu, No as per HPI, No abnormal walking, No abnormal hearing, No abnormal movements, No abnormal speech, No behavioral changes, No burning sensations, No confusion, No seizure-like activity, No unsteadiness, No dizziness, No localized weakness, No frequent falls, No headache(s), No lack of coordination, No loss of vision, No memory loss, No numbness, No other visual disturbances, No radiating pain, No restless legs, No sensory deficit, No fainting, No tingling, No tremor(s), No weakness, No other Exam Const General: cooperative, healthy appearing, comfortable Nutritional Appearance: average body habitus Orientation: alert, awake, oriented x3 HENMT Head: normal to inspection Eyes General: appearance normal, both eyes and all related structures Neck Neck: normal visual inspection Chest Chest palpation AND inspection: normal inspection of the chest Breast Palpation: No nipple discharge Resp Effort AND Inspection: normal respiratory effort Auscultation: clear to auscultation bilaterally Cardio Rate: regular rate Rhythm: regular rhythm Heart Sounds: no murmurs GI Inspection: normal to inspection Palpation: soft, no hepatosplenomegaly Auscultation: normal bowel sounds Musc Cervical Spine: normal cervical lordosis Skin General: no rashes or lesions noted Neuro General: CN's II-XI intact bilaterally Extrem General: no calf tenderness Psych Affect: normal affect Assessment AND Plan Problems 1. Gastroesophageal reflux disease, esophagitis presence not specified K21.9 2. Change in bowel habit R19.4 Plan Variety issues suggesting exacerbation of GERD and chronic cough and cessation of previously prescribed proton pump inhibitors. In addition he has a nondescript mid to right abdominal pain. He is convinced that this is gallbladder but a very recent gallbladder ultrasound was normal. He has not had a hepatobiliary scan. He has had a change in bowel habits with some intermittent blood in his stools in the smear and change in caliber to a narrow as well as intermittent diarrhea. It is difficult to assess the variety of this symptom complex. I recommended the patient a esophagogastroduodenoscopy with possible biopsy and colonoscopy with possible biopsy or polypectomy is indicated. The patient is aware of the technique, benefits, risks, alternatives. We will schedule and proceed at his discretion I appreciate the opportunity of assisting with his surgical care If no etiology is identified then we might consider a hepatobiliary scan as the patient is still remain concerned that he has functional gallbladder disease. Cc: Dr. Maria Del Carmen Gardner, DASHA and SADNRA Belle M.D., F.A.C.S. Coding Level of Care Code Off vis,new,level 4 Diagnoses Gastroesophageal reflux disease, esophagitis presence not specified K21.9 Esophagitis presence: esophagitis presence not specified Change in bowel habit R19.4 Time Spent (min) 45 10/30/17 1708<Electronically signed by Norman Gardner MD> Date Norman Gardner MD MR#: [id number]:[id number] Name: MEGAN MILLER [facility] #:[id number] : 1975 42From: Norman Gardner MD PCP:Maria Del Carmen Gardner III, MD Status:[facility] Location: [place] [address] Problem List (1) Change in bowel habit Status: Acute (2) GERD (gastroesophageal reflux disease) Status: Acute Qualifiers: Esophagitis presence: with esophagitis Qualified Code(s): K21.0 - Gastro-esophageal reflux disease with esophagitis Report of Operation Date of Procedure: 11/09/17 Pre-Operative Diagnosis: Nausea night cough dysphasia and epigastric pain. Change of bowel habits with narrow stool Post-Operative Diagnosis: Severe reflux esophagitis. Small to moderate hiatal hernia 4 cm. Mild antral gastritis. Mild duodenitis. Scattered sigmoid diverticulosis Surgery/Procedure Performed:: Esophagogastroduodenoscopy with cold forcep biopsies. Colonoscopy with random cold forcep biopsies Description of Surgical Findings:: Timeout and informed consent was obtained. 42-year-old agueda was taken the endoscopy suite. His oropharynx anesthetized with Topex. He was placed in a left lateral decubitus position. Throughout both the upper and lower endoscopy he received total 125 mg Demerol and 5.5 g of Versed as intravenous sedation. Under direct physician videogastroscope was inserted into the esophageal inlet. The proximal mid esophagus did not appear to be remarkable. The EG junction was at 38 cm. A moderate for similar long hiatal hernia noted. There is evidence of an inflammatory ring and severe reflux esophagitis. The scope was advanced in the stomach. Mild antral erythema noted. The scope was advanced through the pylorus. The first and second portion of the duodenum inspected. The duodenal bulb had some mild erythema. There were no erosions ulceration or bleeding. Biopsy was obtained of the duodenum with cold forcep. The scope was withdrawn back to the stomach and cold forcep antral biopsy was obtained. The scope was retroflexed. The EG junction and cardia inspected. The hiatal hernia noted. The cardia was otherwise unremarkable. Greater and lesser curvatures were inspected and not remarkable. The scope was withdrawn back into the esophagus where an inflammatory type ring was identified with firm tissue there was evidence of severe reflux multiple distal esophageal biopsies were obtained. Hemostasis was intact. Excess fluid and air was aspirated.. The scope was withdrawn without additional abnormality. The patient was kept in a left lateral decubitus position. Digital rectal exam performed. Mild hemorrhoidal changes. 2+ smooth prostate. The flexible colonoscope inserted the rectum advanced quite readily throughout the colon. Some transabdominal pressure was required to get scope to go to the cecum. The cecum ileocecal valve area was nicely achieved. Bowel prep was quite good. The scope was carefully withdrawn from the ascending transverse descending and sigmoid colon. Random colonic biopsies are obtained. There is some scattered diverticulosis of the sigmoid. The scope was retroflexed within the rectum the anorectal verge inspected some hemorrhoidal changes noted no active bleeding. Excess fluid and air was aspirated free the procedure was completed with patient tolerating it well. Impression Hiatal hernia with severe reflux esophagitis Mild antral gastritis Mild duodenitis Minimal sigmoid diverticulosis Random colonic biopsies pending The patient has not had a previous colonoscopy. His next screening colonoscopy would be in 10 years I am strongly recommending to the patient that we initiate a proton pump inhibitor and I will provide him a prescription of omeprazole 40 mg daily. I will invite him to return to the office if he would like to consider further investigations for potential surgical reflux procedure. Cc: Dr. Maria Del Carmen Gardner, III Medications were given at 0705. The upper endoscopy was started at 0707. It was completed at 0712. The lower endoscopy was initiated at 0715. The cecum was reached at 0719. The procedure was completed at 0725. Norman Gardner M.D., F.A.C.S. Type of Anesthesia:: IV Sedation 11/09/17 0735<Electronically signed by Norman Gardner MD> Date Norman Gardner MD CC: Maria Del Carmen Gardner III, MD; Norman Gardner MD Signed [facility] [id number] [place] [address] Page 1of 2The contents of this transmission are privileged, confidential and exempt from disclosureunder applicable law. If you have received this information in error, call . MEGAN HAILE MR# [id number]: MEGAN MILLER/Sex: 42/[address]: Unit #: [id number]: ENDOB: 1975Status:DEP SDCFacility:WOLeslie ____Spec# :[id number] Spec Date: 06/22/18Subm Dr: Jj CAMPBELL,[facility] Type: EGDOPERATION: EGD and colonoscopyPRE-OP DIAGNOSIS: GERD, change in bowel habitsTISSUE SUBMITTED: A Duodenal biopsy, B Antral biopsy, C Distal esophagus biopsy, D Random colonic biopsy MICROSCOPIC DIAGNOSISA. Duodenum, biopsy:Consistent with Katt s gland hyperplasia.Mild nonspecific chronic inflammation.B. Gastric antrum, biopsy:Mild chronic gastritis. C. Distal esophagus, biopsy:Consistent with reflux esophagitis.Focal mucosal ulceration with associated acute and chronic inflammation, fibrinopurulent material and early granulation.Gastroesophageal junctional mucosa with mild chronic inflammation.No evidence of dysplasia.D. Random colon biopsy:No pathologic diagnosis H.AM:angel 11/12/17COMMENTA. The results of immunohistochemistry for Helicobacter pylori will be reported separately ([id number]).C. GMS stain with matched control does not reveal fungal organisms. Clinical correlation is suggested.Case has been reviewed in consultation with Dr. Phillips who concurs with the above diagnosis.IDC:SJMICROSCOPIC DESCRIPTIONSlides are reviewed.A. Sections show small collections and groups of plasma cells in the mucosa. Active inflammation is not present. These findings are consistent with mild chronic gastritis.GROSS DESCRIPTION [facility] [id number] [place], [place] [address] Pag e 2of 2The contents of this transmission are privileged, confidential and exempt from disclosureunder applicable law. If you have received this information in error, call . MEGAN HAILE MR# [id number] -Received in fixative is one container labeled with the patient's name and designated duodenal biopsy. The specimen consists of two irregular fragments of light julien soft tissue that in aggregate measure 0.5 x 0.3 x 0.1 cm. The specimen is totally submitted in one cassette.B -Received in fixative is one container labeled with the patient's name and designated antral biopsy. The specimen consists of one irregular fragment of light julien soft tissue that measures 0.5 x 0.2 x 0.1 cm. The specimen is totally submitted in one cassette.C -Received in fixative is one container labeled with the patient's name and designated distalesophagus biopsy. The specimen consists of multiple irregular fragments of light julien soft tissue that in aggregate measure 2 x 0.5 x 0.1 cm. The specimen is totally submitted in one cassette. D -Received in fixative is one container labeled with the patient's name and designated random colonic biopsy. The specimen consists of multiple irregular fragments of light julien soft tissue that in aggregate measure 2 x 0.6 x 0.1 cm. The specimen is totally submitted in one cassette. / SJ:rg 11/09/17 TC:2CPT: 53536 x4, 88312 Electr onically Signed by: Dr. Gal Bird H pylori is Negative ROS General General: Yes fatigue; no weight change, appetite, colon cancer, breast cancer or weakness HEENT HEENT: Yes difficulty swallowing; no eye injury, eye surgery, swollen glands or hoarseness Endo Endocrine: No thyroid disease, diabetes mellitus, thyroid cancer, Hair loss, heat intolerance or cold intolerance Skin Skin: No rash or changing moles Breast Breast: No left breast lump, right breast lump, nipple discharge, breast pain, abnormal mammogram, abnormal US or breast enlargement Musc Musculoskeletal: No back problems, arthritis, rheumatoid arthritis, gout or joint pain Cardio Cardiovascular: Yes high blood pressure; no murmur, pacemaker, heart disease, atrial fibrillation, heart attack, heart stent, palpitations, shortness of breat with exertion or chest pain Psych Psychiatric: No depression, anxiety or hearing voices Resp Respiratory: No shortness of breath, No sleep apnea, Yes cough, No COPD, No asthma, No emphysema, No wheezing Gastro Gastrointestinal: Yes abdominal pain, Yes nausea or vomiting, Yes diarrhea, No constipation, Yes blood in stool, No acid reflux, Yes hemorrhoids, No ulcers, No gallbladder problem, No black,tarry stools Vicente Hematologic: No blood thinners, No blood disorders, No bleeding, No anemia, No blood clots Neuro Neurologic: No weakness Exam Chest Breast Palpation: No nipple discharge Cardio Heart Sounds: no murmurs Assessment AND Plan Problems 1. Gastroesophageal reflux disease with esophagitis K21.0 Plan Today was a 30 minute face to his consultative appointment regarding the patient's Guzmán's and erosive reflux esophagitis. I am proposing for him a laparoscopic Jes fundoplication and in extensive detail over 30 minute appointment we discussed the technique, benefits, risks and alternatives. I believe that all though he has some chronic gastritis that long-term that can be treated with an H2 juan rather than a proton pump inhibitor. We have discussed the future ongoing need for esophageal surveillance. The patient and his have had an opportunity to ask and have multiple questions answered. I believe that at his age of 42 that he would be a good candidate. Patient states that his father at age 66 of a myocardial infarction. At some point in the past the patient has had a cardiac stress test which by his report was normal. He has no exercise-induced symptoms. We will schedule and proceed with definitive surgical repair. I appreciate the ongoing opportunity of assisting with his surgical management. We will have him hold his fish oil preoperatively. Cc: Dr. Maria Del Carmen Gardner, III Norman Gardner M.D., F.A.C.S. Coding Level of Care Code Off vis,est,level 3 Diagnoses Gastroesophageal reflux disease with esophagitis K21.0 Esophagitis presence: with esophagitis 12/19/17 1106 <Electronically signed by Norman Gardner MD> Date Norman Gardner MD Cosigner Signature: Date (if applicable) CC: Maria Del Carmen Gardner III, MD OPERATIVE REPORT Observed: 11/09/2017 Status: F Source: [place] 7:35 AM [facility] REPOSITORY [facility] Medical Records Department [address] [place] [place] [address] Operative Report 11/09/17 0729 MR#: [id number] Acct: [id number] Name: MEGAN MILLER Rep #: [id number] : 1975 42 From: Norman Gardner MD PCP: Maria Del Carmen Gardner III, MD Status: [facility] Location: [place] [address] Problem List (1) Change in bowel habit Status: Acute (2) GERD (gastroesophageal reflux disease) Status: Acute Qualifiers: Esophagitis presence: with esophagitis Qualified Code(s): K21.0 - Gastro-esophageal reflux disease with esophagitis Report of Operation Date of Procedure: 11/09/17 Pre-Operative Diagnosis: Nausea night cough dysphasia and epigastric pain. Change of bowel habits with narrow stool Post-Operative Diagnosis: Severe reflux esophagitis. Small to moderate hiatal hernia 4 cm. Mild antral gastritis. Mild duodenitis. Scattered sigmoid diverticulosis Surgery/Procedure Performed:: Esophagogastroduodenoscopy with cold forcep biopsies. Colonoscopy with random cold forcep biopsies Description of Surgical Findings:: Timeout and informed consent was obtained. 42-year-old gent was taken the endoscopy suite. His oropharynx anesthetized with Topex. He was placed in a left lateral decubitus position. Throughout both the upper and lower endoscopy he received total 125 mg Demerol and 5.5 g of Versed as intravenous sedation. Under direct physician videogastroscope was inserted into the esophageal inlet. The proximal mid esophagus did not appear to be remarkable. The EG junction was at 38 cm. A moderate for similar long hiatal hernia noted. There is evidence of an inflammatory ring and severe reflux esophagitis. The scope was advanced in the stomach. Mild antral erythema noted. The scope was advanced through the pylorus. The first and second portion of the duodenum inspected. The duodenal bulb had some mild erythema. There were no erosions ulceration or bleeding. Biopsy was obtained of the duodenum with cold forcep. The scope was withdrawn back to the stomach and cold forcep antral biopsy was obtained. The scope was retroflexed. The EG junction and cardia inspected. The hiatal hernia noted. The cardia was otherwise unremarkable. Greater and lesser curvatures were inspected and not remarkable. The scope was withdrawn back into the esophagus where an inflammatory type ring was identified with firm tissue there was evidence of severe reflux multiple distal esophageal biopsies were obtained. Hemostasis was intact. Excess fluid and air was aspirated.. The scope was withdrawn without additional abnormality. The patient was kept in a left lateral decubitus position. Digital rectal exam performed. Mild hemorrhoidal changes. 2+ smooth prostate. The flexible colonoscope inserted the rectum advanced quite readily throughout the colon. Some transabdominal pressure was required to get scope to go to the cecum. The cecum ileocecal valve area was nicely achieved. Bowel prep was quite good. The scope was carefully withdrawn from the ascending transverse descending and sigmoid colon. Random colonic biopsies are obtained. There is some scattered diverticulosis of the sigmoid. The scope was retroflexed within the rectum the anorectal verge inspected some hemorrhoidal changes noted no active bleeding. Excess fluid and air was aspirated free the procedure was completed with patient tolerating it well. Impression Hiatal hernia with severe reflux esophagitis Mild antral gastritis Mild duodenitis Minimal sigmoid diverticulosis Random colonic biopsies pending The patient has not had a previous colonoscopy. His next screening colonoscopy would be in 10 years I am strongly recommending to the patient that we initiate a proton pump inhibitor and I will provide him a prescription of omeprazole 40 mg daily. I will invite him to return to the office if he would like to consider further investigations for potential surgical reflux procedure. Cc: Dr. Maria Del Carmen Gardner, III Medications were given at 0705. The upper endoscopy was started at 0707. It was completed at 0712. The lower endoscopy was initiated at 0715. The cecum was reached at 0719. The procedure was completed at 0725. Norman Gardner M.D., F.A.C.S. Type of Anesthesia:: IV Sedation 11/09/17 0735 <Electronically signed by Norman Gardner MD> Date Norman Gardner MD CC: Maria Del Carmen Gardner III, MD; Norman Gardner MD Signed EGD ([facility] S[facility]) Observed: 11/09/2017 Status: F Source: [place] 12:00 AM [facility] REPOSITORY Patient: MEGAN MILLER : 1975 (42/M) Acct Num: [id number] Phys: Jj CAMPBELL,Norman Unit Num: [id number] Loc: EN Specimen: [id number] Received: 11/09/17 - 0955 Spec Type: EGD BIOPSY TISSUES TISSUES: A. Duodenum, NOS B. Gastric mucous membrane C. Esophageal mucous membrane D. COLON BIOPSY COMMENT A. The results of immunohistochemistry for Helicobacter pylori will be reported separately ([id number]). C. GMS stain with matched control does not reveal fungal organisms. Clinical correlation is suggested. Case has been reviewed in consultation with Dr. Phillips who concurs with the above diagnosis. IDC:LAW GROSS DESCRIPTION A - Received in fixative is one container labeled with the patient's name and designated duodenal biopsy. The specimen consists of two irregular fragments of light julien soft tissue that in aggregate measure 0.5 x 0.3 x 0.1 cm. The specimen is totally submitted in one cassette. B - Received in fixative is one container labeled with the patient's name and designated antral biopsy. The specimen consists of one irregular fragment of light julien soft tissue that measures 0.5 x 0.2 x 0.1 cm. The specimen is totally submitted in one cassette. C - Received in fixative is one container labeled with the patient's name and designated distal esophagus biopsy. The specimen consists of multiple irregular fragments of light julien soft tissue that in aggregate measure 2 x 0.5 x 0.1 cm. The specimen is totally submitted in one cassette. D - Received in fixative is one container labeled with the patient's name and designated random colonic biopsy. The specimen consists of multiple irregular fragments of light julien soft tissue that in aggregate measure 2 x 0.6 x 0.1 cm. The specimen is totally submitted in one cassette. / LAW:angel 11/09/17 TC:2 CPT: 94263 x4, 02992 HEADER OPERATION: EGD and colonoscopy PRE-OP DIAGNOSIS: GERD, change in bowel habits TISSUE SUBMITTED: A Duodenal biopsy, B Antral biopsy, C Distal esophagus biopsy, D Random colonic biopsy MICROSCOPIC DESCRIPTION Slides are reviewed. A. Sections show small collections and groups of plasma cells in the mucosa. Active inflammation is not present. These findings are consistent with mild chronic gastritis. MICROSCOPIC DIAGNOSIS A. Duodenum, biopsy: Consistent with Katt s gland hyperplasia. Mild nonspecific chronic inflammation. B. Gastric antrum, biopsy: Mild chronic gastritis. C. Distal esophagus, biopsy: Consistent with reflux esophagitis. Focal mucosal ulceration with associated acute and chronic inflammation, fibrinopurulent material and early granulation. Gastroesophageal junctional mucosa with mild chronic inflammation. No evidence of dysplasia. D. Random colon biopsy: No pathologic diagnosis. AM:angel 11/12/17 Signed Gal Giovani 11/12/17 <signature on file> Performed By: #### PEGD #### [facility] [address] [place], [address] IMMUNOHISTOCHEMISTRY Observed: 11/09/2017 Status: F Source: [place] 12:00 AM [facility] REPOSITORY Patient: MEGAN MILLER : 1975 (42/M) Acct Num: [id number] Phys: Jj CAMPBELL,Norman Unit Num: [id number] Loc: EN Specimen: [id number] Received: 11/12/17 - 1329 Spec Type: IMMUNO TISSUES TISSUES: B. Stomach, NOS SPECIMEN INFORMATION: Tissue Source: B Antral biopsy Clinical Info: GERD, change in bowel habits Specimen Number: [id number] CPT code: 34742 METHODOLOGY: Deparaffinized sections of prefer/formalin-fixed tissue or PAP/DQ stained slides are incubated with monoclonal/polyclonal antibodies/oligonucleotide probes. Localization is made via biotin free immunoperoxidase method. Appropriate controls are performed and reacted as expected. Results on target cell population are indicated in the following table: RESULTS: ANTIBODY / CLONE RESULT Block B H Pylori (polyclonal) negative These tests were developed and their performance characteristics determined by [facility]. They may not have been cleared or approved by the U.S. Food and Drug Administration. The FDA has determined that such clearance or approval is not necessary. INTERPRETATION: B. Antral biopsy: Negative for Helicobacter pylori. AM:tiffany 11/13/17 PHYSICIAN AND INSTITUTION [address] [address] Signed Gal Leivaih 11/13/17 <signature on file> Performed By: #### PIMM #### [facility] [address] [place], [place] [address]. [place], [address] SURGERY VISIT REPORT Observed: 10/30/2017 Status: F Source: [place] 5:08 PM [facility] RE[facility]IT[facility] [address] [place] [address]. [address] [place] [address] OFFICE VISIT Date of Service: 10/30/17 MR#: [id number] Acct: [id number] Name: MEGAN MILLER Rep #: [id number] : 1975 Provider: Norman Gardner MD Age/Sex: 42/M Location: [facility] Status: Signed Intake Vital Signs10/30/17 Height 6 ft 10/30/17 Weight: 210 lb Intake Visit Reasons: blood in stool, diarrhea and heartburn Veterinary Surgeon Required: No Is patient in pain?: No Allergies shellfish derived Allergy (Severe, Verified 10/30/17 14:28) anaphylactic hydrochlorothiazide Allergy (Intermediate, Verified 10/30/17 14:29) palpitations/restlessness lisinopril Adverse Reaction (Mild, Verified 10/30/17 14:29) cough Medications losartan 50 mg tablet 50 mg PO QDAY 10/30/17 [History Confirmed 10/30/17] [facility] Medical History Change in bowel habit (Acute) GERD (gastroesophageal reflux disease) (Acute) Abdominal pain (Acute) Diarrhea (Acute) Difficulty swallowing (Acute) Nausea (Acute) Hypertension (Chronic) Surgical History History of tonsillectomy (Acute) Family History Brother Asthma Mother Arthritis Hypertension Father Hypertension High cholesterol Son Seizures Daughter Seizures Social History Smoking Status: Never smoker alcohol intake: never substance use type: does not use HPI HPI HPI: MEGAN MILLER, is a 42 M who presents to the office today for surgical consultation regarding nausea and low to mid abdominal pain and dark smear type stool with change of bowel habits and narrow stool caliber with intermittent diarrhea. In addition he has developed a cough mostly at night. He has a previous history of gastroesophageal reflux disease. There is been no current weight change. He has not had a previous colonoscopy. Previous remote upper endoscopy was in 2002. In addition the patient states that occasionally when he eats food gets stuck right in his hypopharynx. He has never had a food foreign body both esophageal obstruction that required any intervention. He had previously for an extended period of time been on a proton pump inhibitor for his GERD. After reading the package instructions it became apparent that long-term use was discouraged. The patient stopped that medication but did not start any H2 juan or other type of acid reducing medication. He is concerned that his symptoms have escalated. He is not sure that his cough represents reflux. ROS General General: Yes fatigue; no weight change, appetite, colon cancer, breast cancer or weakness HEENT HEENT: Yes difficulty swallowing; no eye injury, eye surgery, swollen glands or hoarseness Endo Endocrine: No thyroid disease, diabetes mellitus, thyroid cancer, Hair loss, heat intolerance or cold intolerance Skin Skin: No rash or changing moles Breast Breast: No left breast lump, right breast lump, nipple discharge, breast pain, abnormal mammogram, abnormal US or breast enlargement Musc Musculoskeletal: No back problems, arthritis, rheumatoid arthritis, gout or joint pain Cardio Cardiovascular: Yes high blood pressure; no murmur, pacemaker, heart disease, atrial fibrillation, heart attack, heart stent, palpitations, shortness of breat with exertion or chest pain Psych Psychiatric: No depression, anxiety or hearing voices Resp Respiratory: No shortness of breath, No sleep apnea, Yes cough, No COPD, No asthma, No emphysema, No wheezing Gastro Gastrointestinal: Yes abdominal pain, Yes nausea or vomiting, Yes diarrhea, No constipation, Yes blood in stool, No acid reflux, Yes hemorrhoids, No ulcers, No gallbladder problem, No black,tarry stools Vicente Hematologic: No blood thinners, No blood disorders, No bleeding, No anemia, No blood clots Neuro Neurologic: No system reviewed and no additional complaints, except as docu, No as per HPI, No abnormal walking, No abnormal hearing, No abnormal movements, No abnormal speech, No behavioral changes, No burning sensations, No confusion, No seizure-like activity, No unsteadiness, No dizziness, No localized weakness, No frequent falls, No headache(s), No lack of coordination, No loss of vision, No memory loss, No numbness, No other visual disturbances, No radiating pain, No restless legs, No sensory deficit, No fainting, No tingling, No tremor(s), No weakness, No other Exam Const General: cooperative, healthy appearing, comfortable Nutritional Appearance: average body habitus Orientation: alert, awake, oriented x3 HENMT Head: normal to inspection Eyes General: appearance normal, both eyes and all related structures Neck Neck: normal visual inspection Chest Chest palpation AND inspection: normal inspection of the chest Breast Palpation: No nipple discharge Resp Effort AND Inspection: normal respiratory effort Auscultation: clear to auscultation bilaterally Cardio Rate: regular rate Rhythm: regular rhythm Heart Sounds: no murmurs GI Inspection: normal to inspection Palpation: soft, no hepatosplenomegaly Auscultation: normal bowel sounds Musc Cervical Spine: normal cervical lordosis Skin General: no rashes or lesions noted Neuro General: CN's II-XI intact bilaterally Extrem General: no calf tenderness Psych Affect: normal affect Assessment AND Plan Problems 1. Gastroesophageal reflux disease, esophagitis presence not specified K21.9 2. Change in bowel habit R19.4 Plan Variety issues suggesting exacerbation of GERD and chronic cough and cessation of previously prescribed proton pump inhibitors. In addition he has a nondescript mid to right abdominal pain. He is convinced that this is gallbladder but a very recent gallbladder ultrasound was normal. He has not had a hepatobiliary scan. He has had a change in bowel habits with some intermittent blood in his stools in the smear and change in caliber to a narrow as well as intermittent diarrhea. It is difficult to assess the variety of this symptom complex. I recommended the patient a esophagogastroduodenoscopy with possible biopsy and colonoscopy with possible biopsy or polypectomy is indicated. The patient is aware of the technique, benefits, risks, alternatives. We will schedule and proceed at his discretion I appreciate the opportunity of assisting with his surgical care If no etiology is identified then we might consider a hepatobiliary scan as the patient is still remain concerned that he has functional gallbladder disease. Cc: Dr. Maria Del Carmen Gardner III and SANDRA Belle M.D., F.A.C.S. Coding Level of Care Code Off vis,new,level 4 Diagnoses Gastroesophageal reflux disease, esophagitis presence not specified K21.9 Esophagitis presence: esophagitis presence not specified Change in bowel habit R19.4 Time Spent (min) 45 10/30/17 1708 <Electronically signed by Norman Gardner MD> Date Norman Gardner MD Cosigner Signature: Date (if applicable) CC: JIMENEZ COTTON; Maria Del Carmen Gardner III, MD GALLBLADDER Observed: 10/19/2017 Status: F Source: [place] 10:29 AM [facility] REPOSITORY [facility] [address] [place] [id number] Gallbladder MR#: [id number] Acct: [id number] Name: MEGAN MILLER Rep #: [id number] : 1975 M 42 From: Ashok Elizalde MD PCP: Maria Del Carmen Gardner III, MD Status: REG CLI Study: Gallbladder Date of Exam: 10/19/17 Exam# [id number] Ordering Dr: Jimenez Cotton STUDY: ABDOMINAL ULTRASOUND - RIGHT UPPER QUADRANT REASON FOR VISIT: Male, 42 years old. Periumbilical pain. Blood in the stool. TECHNIQUE: Ultrasound evaluation of the right upper quadrant was performed with real-time and static littlejohn-scale imaging. TECHNICAL QUALITY: Adequate. COMPARISON: None. FINDINGS: Liver: The liver measures 14.8 cm. There is increased echogenicity consistent with fatty infiltration. Focal fatty infiltration is seen in the region of the gallbladder fossa. The bile ducts are within normal limits. There is hepatic color flow. The direction of portal flow is hepatopetal. There is no demonstrated mass lesion. Gallbladder: Normal distended gallbladder. The gallbladder wall measures 3.6 mm. There is a negative sonographic Chiu's sign. There is no pericholecystic fluid. There are no gallstones. Common Bile Duct (C.B.D.): The common bile duct measures 5.0 mm. Pancreas: Normal size of the head, body and tail of the pancreas. There is normal echogenicity of the pancreas. There is no demonstrated pancreatic mass or cyst. Right Kidney: Normal size of the right kidney. The right kidney measures 10.2 cm x 5.4 cm x 4.5 cm. Normal renal cortex. The right cortex measures 1.4 cm. 2 small subcentimeters cysts are seen. There is no right hydronephrosis. US/Gallbladder IMPRESSION: Fatty infiltration of liver. Focal fatty sparing in the gallbladder fossa. Electronically Signed: Ashok Elizalde MD at 12:46 EDT Tel [phone], Service support , CC: JIMENEZ COTTON; Maria Del Carmen Gardner III, MD Improvement Engineer: Signed CBC Collected: 10/16/2017 Status: F Source: [place] 4:28 PM [facility] REPOSIT[facility] TYPE CODE TESTS RESULT OUT OF REFERENCE UNITS RANGE LAB WBC 3.70-11.00 k/uL WBC 7.82 LAB RBC 4.20-6.00 m/uL RBC 4.47 LAB HGB 13.0-17.0 g/dL Hemoglobin 13.6 LAB HCT 39.0-51.0 % Hematocrit 39.9 LAB MCV 80.0-100.0 fL MCV 89.3 LAB MCH 26.0-34.0 pG MCH 30.4 LAB MCHC 30.5-36.0 g/dL MCHC 34.1 LAB RDWCV 11.5-15.0 % RDW-CV 13.5 LAB PLTCT 150-400 k/uL Platelet Count 214 LAB MPV 9.0-12.7 fL MPV 10.2 LAB ABSNUC <0.01 k/uL Absolute nRBC <0.01 Performed By: #### CBC, CMP #### [facility] [address] [place], [place] [address] COMP METABOLIC PANEL Collected: 10/16/2017 Status: F Source: [place] 4:28 PM [facility] REPOSITORY TYPE CODE TESTS RESULT OUT OF REFERENCE UNITS RANGE LAB TP 6.3-8.0 g/dL Protein, Total 7.1 LAB ALB 3.9-4.9 g/dL Albumin 4.4 LAB CA 8.5-10.2 mg/dL Calcium, Total 9.0 LAB TBIL 0.2-1.3 mg/dL Bilirubin, Total 0.6 LAB ALKP 36-108 U/L Alkaline Phosphatase 46 LAB AST 14-40 U/L AST 25 LAB GLU 74-99 mg/dL Glucose 84 Result Comment: The [place] Diabetes Association (ADA) provides guidance for cutoff values for fasting glucose and random glucose. The ADA defines fasting as no caloric intake for at least 8 hours. Fas ting plasma glucose results between 100 to 125 mg/dL indicate increased risk for diabetes (prediabetes). Fasting plasma glucose results greater than or equal to 126 mg/dL meet the criteria for diagnosis of diabetes. In the absence of unequivocal hyperglycemia, results should be confirmed by repeat testing. In a patient with classic symptoms of hyperglycemia or hyperglycemic crisis, random plasma glucose results greater than or equal to 200 mg/dL meet the criteria for diagnosis of diabetes. Reference: Standards of Medical Care in Diabetes 2016, [place] [employer] Association. Diabetes Care. 2016.39(Suppl 1). LAB BUN 9-24 mg/dL BUN 16 LAB CRET 0.73-1.22 mg/dL Creatinine 1.19 LAB NA 136-144 mmol/L Sodium 140 LAB K 3.7-5.1 mmol/L Potassium 3.8 LAB CL 97-105 mmol/L Chloride 101 LAB CO2 22-30 mmol/L CO2 23 LAB AGAP 9-18 mmol/L Anion Gap 16 LAB ALT 10-54 U/L ALT 23 LAB GFRAA eGFR- Amer. >60 LAB GFRNAA . eGFR-All Other Races >60 Result Comment: eGFR (Estimated GFR) Units of measure: mL/min/1.73 meters squared eGFR is derived from the reexpressed MDRD Study equation using the following parameters: serum creatinine, age, gender and race. The creatinine assay has been calibrated to be traceable to IDMS. An eGFR <60 mL/min/1.73m2 for >3 months is consistent with chronic kidney disease. Refer to KDOQI guidelines for clinical interpretation. In patients with unstable renal function, e.g. those with acute kidney injury, the eGFR may not accurately reflect actual GFR. Performed By: #### CBC, CMP #### [facility] [address] [place], [place] [address] HISTORY PHYSICAL Observed: 10/16/2017 Status: COMPLETED Source: [place] 3:31 PM [facility] REPOSITORY HNO ID: [id number] Author: Jimenez (Sandra) Lula Service: (none) Author Type: Nurse Practitioner Type: HANDP Filed: 10/16/2017 6:08 PM Note Text: Megan Nicki Paul a 42 year old male who is a consultation requested by Erica Garcia NP, for an opinion regarding occult blood. My final recommendations will be communicated back to the requesting provider by way of shared Medical record. The patient has not been seen previously. The patient denies a family history of colon cancer. The patient was seen by Erica on 09/18/17, leading to this consultation. That note has been reviewed and part as follows: presents here today for Above Complaints. was on speaker phone. Reports change in bowel habits over past couple months, noting stringy stool consistency alternating with normal BM. He then reports bright red blood in stool x 2 days last week then has returned to normal. He reports BRB dripping into toilet and on tissue with wiping, He denies melana or hematochezia.. He did note some cramping pointing to the periumbilical area and some nausea prior to the BM. He notes he has been off omeprazole for the past year. Was taking for reflux noting increase in cough. Previous EGD in 2002, report reviewed. He denies any black or tarry stools, Cough is described as non-productive, worse when lying down. Denies any post nasal drainage, no wheezing or h/o asthma. Cough started about 1-2 months ago. Denies reflux or heartburn. Denies fever, chills, unintentional weight loss. Component Latest Ref Rng AND Units 09/18/2017 Guaiac neg - pos pos Quality Check yes/no Yes Presenting complaint: The patient presents today reporting continued change in bowel routine. Having a bowel movement two to three times a day. In the past couple days having up to twelve in a day. Waking from sleep with with urgency. Sometimes not making it. The patient had watery stools the past couple days. Cough. Headache (when coughing). No fever. His tells me that the patient gets a pain across his back above the waist. This can happen when sitting still. The sensation may radiate up his back. It might have lasted a minute a two. He reports that this pain can come and go. He can't recall having any of this pain while in bed. The patient reports having intermittent nausea the past month. No vomiting. The patient reports that he had acid reflux several years ago. His reports that the patient had been taking Prilosec for possibly 3-5 years. He stopped taking it abruptly. He used a demetria cleanse. He did well for about ten to twelve months. The patient reports dysphagia when eating a sandwich - if in a hurry. The food bolus will eventually go down. REVIEW OF SYSTEMS: GENERAL: No weight loss, malaise or fevers HEENT: Negative for frequent or significant headaches, No changes in hearing or vision, no nose bleeds or other nasal problems NECK: Negative for lumps, goiter, pain and significant neck swelling RESPIRATORY: Cough; dry CARDIOVASCULAR: Hypertension. On prescription. GI: The patient states that his appetite has been good. He does get hungry. There has been some nausea, no vomiting. He admits to dysphagia and denies odynophagia. There has not been indigestion without heartburn. There has not been regurgitation. Bowel habits have been irregular. There has been diarrhea. There has not been constipation. The patient admits to rectal bleeding. There has not been melena. Intermittent abdominal pain that is located in the periumbilical region. PSYCH: Negative for sleep disturbance, mood disorder and recent psychosocial stressors. HEMATOLOGY/LYMPHOLOGY Negative for prolonged bleeding, bruising easily or swollen nodes ENDOCRINE:Negative for thyroid or diabetes. NEURO: No history of headaches, syncope, paralysis, seizures or tremors All other reviewed and negative other than HPI. PAST MEDICAL HISTORY Diagnosis Date - Esophagitis 06/2002 - Essential hypertension, benign 08/24/2011 - Gastritis and duodenitis 06/2002 - PMH - PAST MEDICAL HISTORY OF 06/2002 ABDOMINAL HERNIA PAST SURGICAL HISTORY Procedure Laterality Date - REMOVAL OF TONSILS,<12 Y/O 2005 Tonsillectomy FAMILY HISTORY Problem Relation Age of Onset - Ischemic Heart Disease Father of [place] - Hypertension Father - None Mother - Asthma Brother - Hypertension Brother - gout [OTHER] Brother - None Brother - None Brother Current Outpatient Prescriptions: losartan (COZAAR) 25 mg tablet Take 1 tablet by mouth once daily. Disp: 30 tablet Rfl: 11 UBIDECARENONE/VITAMIN E MIXED (COQ10 SG 100 ORAL) Take by mouth as directed. Disp: Rfl: COMPOUNDED PRESCRIPTION as directed. Taking Super Supplemental ([employer] [place]) Disp: Rfl: COMPOUNDED PRESCRIPTION as directed. Taking Food Enzymes ([facility] [facility] [place]) Disp: Rfl: omeprazole (PRILOSEC) 20 mg capsule Take 1 capsule by mouth daily before breakfast. 1/2 hr before meal. (Patient not taking: Reported on 10/16/2017 ) Disp: 30 capsule Rfl: 11 MULTI-VITAMIN ORAL Take by mouth. Disp: Rfl: No current facility-administered medications for this visit. SOCIAL HISTORY: Patient is . He has never smoked and reports his alcohol use as never. PHYSICAL EXAMINATION: Blood pressure 119/74, pulse 93, height 182.9 cm (6'), weight 93.9 kg (207 lb). General Appearance: Well appearing, alert, in no acute distress, well-hydrated, well nourished. Skin: Skin color, texture, turgor normal, no suspicious rashes or lesions. Head: Normocephalic, no masses, lesions or abnormalities. Eyes: Anicteric sclera. Oropharynx: Lips, mucosa, and tongue normal, oropharynx normal. Neck: Supple, no adenopathy; thyroid symmetric, normal size. Lungs: Lungs clear to auscultation. No wheezing, rhonchi, rales. Heart: RRR without murmur. Abdomen: Abdomen soft, slight tenderness to palpation above umbilicus in RUQ, non-tender otherwise. Bowel sounds normal. No masses, organomegaly. Extremities: No deformities, edema, skin discoloration, clubbing or cyanosis. Peripheral Pulses: Normal. Neurologic: Gait normal. Sensation grossly intact. Impression: Upper abdominal pain 2)altered bowel habits 3)dyspepsia with reported history of acid reflux Plan: We have discussed an upper endoscopy as well as a colonoscopy. I have recommended MAC. Dr. Norman Gardner has done surgery for his . They request he do the procedures. We will facilitate an appointment with Dr. Gardner. Labs today. RUQ US. I have personally interviewed and examined this patient. I have read the information that the MA documented in this encounter. This visit was at least 30 minutes in [id number] time, with a majority of the time spent in review of the past records with the patient, discussion and counseling. Jimenez Cotton RN APRN.DREA CNOV Observed: 10/16/2017 Status: COMPLETED Source: [place] 3:[address] [facility] REPOSITORY [facility] MEGAN MILLER ([id number]) 1975 M Date Time Provider Department 10/16/17 3:20 PM JIMENEZ COTTON (SANDRA) [facility] During your visit today, we recorded the following information about you: Pulse Blood pressure Weight Height 93/minute 119/74 93.9 kg 1.829 m Jimenez Cotton RN APRN.SPEECH LANGUAGE PATHOLOGIST ASSISTANT 10/16/2017 6:08 PM Signed Megan Miller a 42 year old male who is a consultation requested by Erica Garcia NP, for an opinion regarding occult blood. My final recommendations will be communicated back to the requesting provider by way of shared Medical record. The patient has not been seen previously. The patient denies a family history of colon cancer. The patient was seen by Erica on 09/18/17, leading to this consultation. That note has been reviewed and part as follows: presents here today for Above Complaints. was on speaker phone. Reports change in bowel habits over past couple months, noting stringy stool consistency alternating with normal BM. He then reports bright red blood in stool x 2 days last week then has returned to normal. He reports BRB dripping into toilet and on tissue with wiping, He denies melana or hematochezia.. He did note some cramping pointing to the periumbilical area and some nausea prior to the BM. He notes he has been off omeprazole for the past year. Was taking for reflux noting increase in cough. Previous EGD in 2002, report reviewed. He denies any black or tarry stools, Cough is described as non-productive, worse when lying down. Denies any post nasal drainage, no wheezing or h/o asthma. Cough started about 1-2 months ago. Denies reflux or heartburn. Denies fever, chills, unintentional weight loss. Component Latest Ref Rng AND Units 09/18/2017 Guaiac neg - pos pos Quality Check yes/no Yes Presenting complaint: The patient presents today reporting continued change in bowel routine. Having a bowel movement two to three times a day. In the past couple days having up to twelve in a day. Waking from sleep with with urgency. Sometimes not making it. The patient had watery stools the past couple days. Cough. Headache (when coughing). No fever. His tells me that the patient gets a pain across his back above the waist. This can happen when sitting still. The sensation may radiate up his back. It might have lasted a minute a two. He reports that this pain can come and go. He can't recall having any of this pain while in bed. The patient reports having intermittent nausea the past month. No vomiting. The patient reports that he had acid reflux several years ago. His reports that the patient had been taking Prilosec for possibly 3- 5 years. He stopped taking it abruptly. He used a demetria cleanse. He did well for about ten to twelve months. The patient reports dysphagia when eating a sandwich - if in a hurry. The food bolus will eventually go down. REVIEW OF SYSTEMS: GENERAL: No weight loss, malaise or fevers HEENT: Negative for frequent or significant headaches, No changes in hearing or vision, no nose bleeds or other nasal problems NECK: Negative for lumps, goiter, pain and significant neck swelling RESPIRATORY: Cough; dry CARDIOVASCULAR: Hypertension. On prescription. GI: The patient states that his appetite has been good. He does get hungry. There has been some nausea, no vomiting. He admits to dysphagia and denies odynophagia. There has not been indigestion without heartburn. There has not been regurgitation. Bowel habits have been irregular. There has been diarrhea. There has not been constipation. The patient admits to rectal bleeding. There has not been melena. Intermittent abdominal pain that is located in the periumbilical region. PSYCH: Negative for sleep disturbance, mood disorder and recent psychosocial stressors. HEMATOLOGY/LYMPHOLOGY Negative for prolonged bleeding, bruising easily or swollen nodes ENDOCRINE:Negative for thyroid or diabetes. NEURO: No history of headaches, syncope, paralysis, seizures or tremors All other reviewed and negative other than HPI. PAST MEDICAL HISTORY Diagnosis Date - Esophagitis 06/2002 - Essential hypertension, benign 08/24/2011 - Gastritis and duodenitis 06/2002 - PMH - PAST MEDICAL HISTORY OF 06/2002 ABDOMINAL HERNIA PAST SURGICAL HISTORY Procedure Laterality Date - REMOVAL OF TONSILS,<12 Y/O 2004 Tonsillectomy FAMILY HISTORY Problem Relation Age of Onset - Ischemic Heart Disease Father of [place] - Hypertension Father - None Mother - Asthma Brother - Hypertension Brother - gout [OTHER] Brother - None Brother - None Brother Current Outpatient Prescriptions: losartan (COZAAR) 25 mg tablet Take 1 tablet by mouth once daily. Disp: 30 tablet Rfl: 11 UBIDECARENONE/VITAMIN E MIXED (COQ10 SG 100 ORAL) Take by mouth as directed. Disp: Rfl: COMPOUNDED PRESCRIPTION as directed. Taking Super Supplemental ([employer] [place]) Disp: Rfl: COMPOUNDED PRESCRIPTION as directed. Taking Food Enzymes ([facility] [place]) Disp: Rfl: omeprazole (PRILOSEC) 20 mg capsule Take 1 capsule by mouth daily before breakfast. 1/2 hr before meal. (Patient not taking: Reported on 10/16/2017 ) Disp: 30 capsule Rfl: 11 MULTI-VITAMIN ORAL Take by mouth. Disp: Rfl: No current facility-administered medications for this visit. SOCIAL HISTORY: Patient is . He has never smoked and reports his alcohol use as never. PHYSICAL EXAMINATION: Blood pressure 119/74, pulse 93, height 182.9 cm (6'), weight 93.9 kg (207 lb). General Appearance: Well appearing, alert, in no acute distress, well-hydrated, well nourished. Skin: Skin color, texture, turgor normal, no suspicious rashes or lesions. Head: Normocephalic, no masses, lesions or abnormalities. Eyes: Anicteric sclera. Oropharynx: Lips, mucosa, and tongue normal, oropharynx normal. Neck: Supple, no adenopathy; thyroid symmetric, normal size. Lungs: Lungs clear to auscultation. No wheezing, rhonchi, rales. Heart: RRR without murmur. Abdomen: Abdomen soft, slight tenderness to palpation above umbilicus in RUQ, non-tender otherwise. Bowel sounds normal. No masses, organomegaly. Extremities: No deformities, edema, skin discoloration, clubbing or cyanosis. Peripheral Pulses: Normal. Neurologic: Gait normal. Sensation grossly intact. Impression: Upper abdominal pain 2)altered bowel habits 3)dyspepsia with reported history of acid reflux Plan: We have discussed an upper endoscopy as well as a colonoscopy. I have recommended MAC. Dr. Norman Gardner has done surgery for his . They request he do the procedures. We will facilitate an appointment with Dr. Gardner. Labs today. RUQ US. I have personally interviewed and examined this patient. I have read the information that the KATHRYN documented in this encounter. This visit was at least 30 minutes in rylk-[id number]-cbnk time, with a majority of the time spent in review of the past records with the patient, discussion and counseling. Jimenez Cotton RN DEMONSTRATOR SALES.DREA Cotton RN DEMONSTRATOR SALES.[facility] 10/16/2017 4:[address] Gardner ,as discussed. October 30, @ 1:40. Referring Provider: MARIA DEL CARMEN GARDNER III [[id number]] Allergies As of Date: 10/16/2017 Noted Allergy Reaction blue cheese [Other] 02/16/2005 7 - Swelling Comments: throat swelling LISINOPRIL 09/21/2014 3 - Cough Comments: Cough SHELLFISH 02/16/2005 7 - Swelling Comments: shrimp throat swelling Date Reviewed: 10/16/2017 Reviewed by: Brianna Garcia Ma - Fully Assessed Reason for Visit: Rectal Problem [93] Diarrhea [35] heart burn [Other] Primary Visit Diagnosis:Occult blood in stools [R19.5] Other Visit Diagnoses:Periumbilical pain [R10.33] Altered bowel habits [R19.4] Order(s):CBC [SQCBC] Order #: [id number] FUTURE COMP METABOLIC PANEL [SQCMP] Order #: [id number] FUTURE US ABD RT UPPER QUADRANT [[id number]] Order #: [id number] FUTURE Prescriptions as of 10/16/2017 Sig: LOSARTAN 25 MG TABLET Take 1 tablet by mouth once d* COQ10 SG 100 ORAL Take by mouth as directed. COMPOUNDED PRESCRIPTION as directed. Taking Super Sup* COMPOUNDED PRESCRIPTION as directed. Taking Food Enzy* OMEPRAZOLE 20 MG CAPSULE,SWETA* Take 1 capsule by mouth daily* Patient not taking: Reported on 10/16/2017 MULTI-VITAMIN ORAL Take by mouth. Problem List As Of Date 10/16/2017 Noted Resolved ABN INVOLUN MOVEMENT NEC [R25.8, R25.9] INVALID FOR* Dysmetabolic syndrome X [E88.81] INVALID FOR*09/18/2013 Anxiety [F41.9] INVALID FOR* Essential hypertension, benign [I10] INVALID FOR* GERD (gastroesophageal reflux disease) [K21.9] INVALID FOR* Paresthesia of hand, bilateral [R20.2] INVALID FOR* Other instructions from your clinician: See Dr. Gardner ,as discussed. October 30, @ 1:40. Follow-up and Disposition History Recorded Encounter Status:Closed by JIMENEZ COTTON CNP on 10/16/17 PROGRESS Observed: 09/18/2017 Status: COMPLETED Source: [place] 3:39 PM [facility] REPOSITORY HNO ID: [id number] Author: Erica Garcia (Manager Supply Chain) Service: (none) Author Type: Nurse Practitioner Type: Progress Notes Filed: 09/20/2017 12:22 PM Note Text: Chief Complaint Patient presents with: Rectal Problem: Bright red blood in stool x 2 days HPI Megan Miller is a 42 year old male who presents here today for Above Complaints. was on speaker phone. Reports change in bowel habits over past couple months, noting stringy stool consistency alternating with normal BM. He then reports bright red blood in stool x 2 days last week then has returned to normal. He reports BRB dripping into toilet and on tissue with wiping, He denies melana or hematochezia.. He did note some cramping pointing to the periumbilical area and some nausea prior to the BM. He notes he has been off omeprazole for the past year. Was taking for reflux noting increase in cough. Previous EGD in 2002, report reviewed. He denies any black or tarry stools, Cough is described as non-productive, worse when lying down. Denies any post nasal drainage, no wheezing or h/o asthma. Cough started about 1-2 months ago. Denies reflux or heartburn. Denies fever, chills, unintentional weight loss. Result Date - 07/11/2002 Results-Findings INTRODUCTION: 27 year old male patient presents for an elective outpatient EGD. ?The indication for the procedure was dysphagia. ? CONSENT: The benefits, risks, and alternatives to the procedure were discussed and informed consent was obtained. PREPARATION: EKG, pulse, pulse oximetry and blood pressure monitored. MEDICATIONS: - Demerol 62.5 mg IV before the procedure - Versed 4 mg IV before the procedure - Cetacaine topically before the procedure PROCEDURE: The endoscope was passed with ease under direct visualization to the esophagus. FINDINGS: HYPOPHARYNX: The mucosa in the hypopharynx appeared erythematous. ?Enlarged tonsils were easily idientified. ESOPHAGUS: There was evidence of Grade I nonerosive esophagitis of the esophagus. ?The mucosa appeared cobblestoned. ?Multiple biopsies were obtained from the mid distal esophagus. STOMACH: There was a small hiatal hernia. ?There was evidence of acute gastritis of the entire. ?The mucosa appeared erythematous. ?A single biopsy was obtained and placed on PyloriTek strip. PYLORUS: The pylorus appeared normal. DUODENUM: There was evidence of duodenitis of 1st portion of the duodenum and the 2nd portion of the duodenum. ?The mucosa appeared erythematous. IMPRESSION: 1. ?Erythematous mucosa in the hypopharynx. 2. ?Enlarged tonsils were easily idientified. 3. ?Grade I nonerosive esophagitis of the esophagus. [530.10]. Multiple biopsies were obtained from the mid distal esophagus. 4. ?Small hiatal hernia. [553.3]. 5. ?Acute gastritis of the entire. [535.00]. A single biopsy was obtained and placed on PyloriTek strip. 6. ?The pylorus appeared normal. 7. ?Duodenitis of 1st portion of the duodenum and the 2nd portion of the duodenum. [535.60]. ?8. The esophagus appeared almost tubular in appearance. RECOMMENDATION: - 1. We'll call with biopsy results. ?? 2. Elevation of head of bed 4/Avoid late night snacks ?? 3. Will await biopsies before beginning any medication.. Report interpreted by Dr. Moisés Chiu The ROS is otherwise negative. Past medical history, appointments, medications, allergies reviewed. Patient Allergies ALLERGIES Allergen Reactions - Blue Cheese [Other] Swelling throat swelling - Shellfish Swelling shrimp throat swelling Current Medications Current Outpatient Prescriptions on File Prior to Visit: losartan (COZAAR) 25 mg tablet Take 1 tablet by mouth once daily. UBIDECARENONE/VITAMIN E MIXED (COQ10 SG 100 ORAL) Take by mouth as directed. COMPOUNDED PRESCRIPTION as directed. Taking Super Supplemental ([facility]) COMPOUNDED PRESCRIPTION as directed. Taking Food Enzymes ([facility]) MULTI-VITAMIN ORAL Take by mouth. omeprazole (PRILOSEC) 20 mg capsule Take 1 capsule by mouth daily before breakfast. 1/2 hr before meal. No current facility-administered medications on file prior to visit. Previous Medical History PAST MEDICAL HISTORY Diagnosis Date - Esophagitis 06/2002 - Essential hypertension, benign 08/24/2011 - Gastritis and duodenitis 06/2002 - PMH - PAST MEDICAL HISTORY OF 06/2002 ABDOMINAL HERNIA Previous Surgical History PAST SURGICAL HISTORY Procedure Laterality Date - REMOVAL OF TONSILS,<12 Y/O 2004 Tonsillectomy Family History FAMILY HISTORY Problem Relation Age of Onset - Asthma Brother - Ischemic Heart Disease Father of [place] - Hypertension Father - None Mother - gout [Other] [OTHER] Brother - Hypertension Brother - None Brother - None Brother Social History Social History Marital status: Spouse name: Years of education: Number of children: Social History Main Topics Smoking status: Never Smoker Smokeless tobacco: Never Used Alcohol use: No Drug use: No Sexual activity: Yes Partners with: Female EXAM: BP 120/88 Pulse 82 Temp 36.3 ?C (97.4 ?F) (Tympanic) Resp 16 Wt 94.8 kg (209 lb) BMI 28.54 kg/m? General Appearance: Well appearing, alert, in no acute distress, well-hydrated, well nourished.. Oropharynx: Lips, mucosa, and tongue normal, teeth and gums normal, oropharynx normal. Neck: Supple, no adenopathy; thyroid symmetric, normal size, no bruits. Lungs: Lungs clear to auscultation. No wheezing, rhonchi, rales. Heart: RRR without murmur, gallop, or rubs. No ectopy. Abdomen: Normal abdominal exam, Abdomen soft, non-tender. Bowel sounds normal. No masses, organomegaly, Positive findings: tenderness mild Periumbilical. No rebound or rigidity. Rectal: Positive findings: non-thrombosed, external hemorrhoids noted. Loose stool and guiaic positive. ASSESSMENT/PLAN: 1. Occult blood positive stool - ICD9: 792.1, ICD10: R19.5 (primary diagnosis) -Referral to Gastroenterology for further eval. Likely will need upper and lower endoscopy. - HEMOCCULT SINGLE B/O - CONSULT TO GASTROENTEROLOGY 2. Periumbilical pain - ICD9: 789.05, ICD10: R10.33 Etiology unclear Differential Diagnosis includes IBS - Referral to Gastroenterology - Offered rx such as to resume PPI and patient declines. - CONSULT TO GASTROENTEROLOGY 3. Cough - ICD9: 786.2, ICD10: R05 - As above, patient does not wish to resume PPI at this time. - CONSULT TO GASTROENTEROLOGY Erica Garcia, MSN DEMONSTRATOR SALES.DREA COVARRUBIAS Observed: 09/18/2017 Status: COMPLETED Source: [place] 3:[address] [facility] REPOSITORY Office Visit (FAMPWS) MEGAN MILLER ([id number]) 1975 M Date Time Provider Department 09/18/17 3:20 PM ERICA GARCIA (SANDRA) FAMPWS During your visit today, we recorded the following information about you: Temperature Pulse Respiration Blood pressure 97.4 degrees 82/minute 16/minute 120/88 Weight 94.8 kg Erica Garcia (Manager Supply Chain) 09/20/2017 12:22 PM Signed Chief Complaint Patient presents with: Rectal Problem: Bright red blood in stool x 2 days HPI Megan Miller is a 42 year old male who presents here today for Above Complaints. was on speaker phone. Reports change in bowel habits over past couple months, noting stringy stool consistency alternating with normal BM. He then reports bright red blood in stool x 2 days last week then has returned to normal. He reports BRB dripping into toilet and on tissue with wiping, He denies melana or hematochezia.. He did note some cramping pointing to the periumbilical area and some nausea prior to the BM. He notes he has been off omeprazole for the past year. Was taking for reflux noting increase in cough. Previous EGD in 2002, report reviewed. He denies any black or tarry stools, Cough is described as non-productive, worse when lying down. Denies any post nasal drainage, no wheezing or h/o asthma. Cough started about 1-2 months ago. Denies reflux or heartburn. Denies fever, chills, unintentional weight loss. Result Date - 07/11/2002 Results-Findings INTRODUCTION: 27 year old male patient presents for an elective outpatient EGD. ?The indication for the procedure was dysphagia. ? CONSENT: The benefits, risks, and alternatives to the procedure were discussed and informed consent was obtained. PREPARATION: EKG, pulse, pulse oximetry and blood pressure monitored. MEDICATIONS: - Demerol 62.5 mg IV before the procedure - Versed 4 mg IV before the procedure - Cetacaine topically before the procedure PROCEDURE: The endoscope was passed with ease under direct visualization to the esophagus. FINDINGS: HYPOPHARYNX: The mucosa in the hypopharynx appeared erythematous. ?Enlarged tonsils were easily idientified. ESOPHAGUS: There was evidence of Grade I nonerosive esophagitis of the esophagus. ?The mucosa appeared cobblestoned. ?Multiple biopsies were obtained from the mid distal esophagus. STOMACH: There was a small hiatal hernia. ?There was evidence of acute gastritis of the entire. ?The mucosa appeared erythematous. ?A single biopsy was obtained and placed on PyloriTek strip. PYLORUS: The pylorus appeared normal. DUODENUM: There was evidence of duodenitis of 1st portion of the duodenum and the 2nd portion of the duodenum. ?The mucosa appeared erythematous. IMPRESSION: 1. ?Erythematous mucosa in the hypopharynx. 2. ?Enlarged tonsils were easily idientified. 3. ?Grade I nonerosive esophagitis of the esophagus. [530.10]. Multiple biopsies were obtained from the mid distal esophagus. 4. ?Small hiatal hernia. [553.3]. 5. ?Acute gastritis of the entire. [535.00]. A single biopsy was obtained and placed on PyloriTek strip. 6. ?The pylorus appeared normal. 7. ?Duodenitis of 1st portion of the duodenum and the 2nd portion of the duodenum. [535.60]. ?8. The esophagus appeared almost tubular in appearance. RECOMMENDATION: - 1. We'll call with biopsy results. ?? 2. Elevation of head of bed 4/Avoid late night snacks ?? 3. Will await biopsies before beginning any medication.. Report interpreted by Dr. Moisés Chiu The ROS is otherwise negative. Past medical history, appointments, medications, allergies reviewed. Patient Allergies ALLERGIES Allergen Reactions - Blue Cheese [Other] Swelling throat swelling - Shellfish Swelling shrimp throat swelling Current Medications Current Outpatient Prescriptions on File Prior to Visit: losartan (COZAAR) 25 mg tablet Take 1 tablet by mouth once daily. UBIDECARENONE/VITAMIN E MIXED (COQ10 SG 100 ORAL) Take by mouth as directed. COMPOUNDED PRESCRIPTION as directed. Taking Super Supplemental ([facility]) COMPOUNDED PRESCRIPTION as directed. Taking Food Enzymes ([facility]) MULTI-VITAMIN ORAL Take by mouth. omeprazole (PRILOSEC) 20 mg capsule Take 1 capsule by mouth daily before breakfast. 1/2 hr before meal. No current facility-administered medications on file prior to visit. Previous Medical History PAST MEDICAL HISTORY Diagnosis Date - Esophagitis 06/2002 - Essential hypertension, benign 08/24/2011 - Gastritis and duodenitis 06/2002 - PMH - PAST MEDICAL HISTORY OF 06/2002 ABDOMINAL HERNIA Previous Surgical History PAST SURGICAL HISTORY Procedure Laterality Date - REMOVAL OF TONSILS,<12 Y/O 2005 Tonsillectomy Family History FAMILY HISTORY Problem Relation Age of Onset - Asthma Brother - Ischemic Heart Disease Father of [place] - Hypertension Father - None Mother - gout [Other] [OTHER] Brother - Hypertension Brother - None Brother - None Brother Social History Social History Marital status: Spouse name: Years of education: Number of children: Social History Main Topics Smoking status: Never Smoker Smokeless tobacco: Never Used Alcohol use: No Drug use: No Sexual activity: Yes Partners with: Female EXAM: BP 120/88 Pulse 82 Temp 36.3 ?C (97.4 ?F) (Tympanic) Resp 16 Wt 94.8 kg (209 lb) BMI 28.54 kg/m? General Appearance: Well appearing, alert, in no acute distress, well-hydrated, well nourished.. Oropharynx: Lips, mucosa, and tongue normal, teeth and gums normal, oropharynx normal. Neck: Supple, no adenopathy; thyroid symmetric, normal size, no bruits. Lungs: Lungs clear to auscultation. No wheezing, rhonchi, rales. Heart: RRR without murmur, gallop, or rubs. No ectopy. Abdomen: Normal abdominal exam, Abdomen soft, non-tender. Bowel sounds normal. No masses, organomegaly, Positive findings: tenderness mild Periumbilical. No rebound or rigidity. Rectal: Positive findings: non-thrombosed, external hemorrhoids noted. Loose stool and guiaic positive. ASSESSMENT/PLAN: 1. Occult blood positive stool - ICD9: 792.1, ICD10: R19.5 (primary diagnosis) -Referral to Gastroenterology for further eval. Likely will need upper and lower endoscopy. - HEMOCCULT SINGLE B/O - CONSULT TO GASTROENTEROLOGY 2. Periumbilical pain - ICD9: 789.05, ICD10: R10.33 Etiology unclear Differential Diagnosis includes IBS - Referral to Gastroenterology - Offered rx such as to resume PPI and patient declines. - CONSULT TO GASTROENTEROLOGY 3. Cough - ICD9: 786.2, ICD10: R05 - As above, patient does not wish to resume PPI at this time. - CONSULT TO GASTROENTEROLOGY Erica Garcia, MSN DEMONSTRATOR SALES.SPEECH LANGUAGE PATHOLOGIST ASSISTANT Referring Provider: SELF [[id number]] Allergies As of Date: 09/18/2017 Noted Allergy Reaction blue cheese [Other] 02/16/2005 7 - Swelling Comments: throat swelling LISINOPRIL 09/21/2014 3 - Cough Comments: Cough SHELLFISH 02/16/2005 7 - Swelling Comments: shrimp throat swelling Date Reviewed: 09/18/2017 Reviewed by: Cortney Beebe Cma - Fully Assessed Reason for Visit: Rectal Problem [93] Cmt: Bright red blood in stool x 2 days Primary Visit Diagnosis:Occult blood positive stool [R19.5] Other Visit Diagnoses:Periumbilical pain [R10.33] Cough [R05] Order(s):HEMOCCULT SINGLE B/O [2272077] Order #: [id number] CONSULT TO GASTROENTEROLOGY [9096] Order #: [id number]: 1 Prescriptions as of 09/18/2017 Sig: LOSARTAN 25 MG TABLET Take 1 tablet by mouth once d* COQ10 SG 100 ORAL Take by mouth as directed. COMPOUNDED PRESCRIPTION as directed. Taking Super Sup* COMPOUNDED PRESCRIPTION as directed. Taking Food Enzy* MULTI-VITAMIN ORAL Take by mouth. OMEPRAZOLE 20 MG CAPSULE,SWETA* Take 1 capsule by mouth daily* Problem List As Of Date 09/18/2017 Noted Resolved ABN INVOLUN MOVEMENT NEC [R25.8, R25.9] INVALID FOR* Dysmetabolic syndrome X [E88.81] INVALID FOR*09/18/2013 Anxiety [F41.9] INVALID FOR* Essential hypertension, benign [I10] INVALID FOR* GERD (gastroesophageal reflux disease) [K21.9] INVALID FOR* Paresthesia of hand, bilateral [R20.2] INVALID FOR* Encounter Status:Closed by ERICA GARCIA CNP on 09/20/17 ALLERGIES ALLERGIES DATE TYPE / CODE NAME / CODE REACTION SEVERITY SOURCE Drug lisinopril/F006 cough [place] 9 Allergy/521072778( 417780(RXNORM) tachycardia [facility] Repository Drug hydrochlorothia palpitations/rest [place] 9 Allergy/146920651( zide/[id number] lessness [facility] SNOMED CT) (RXNORM) Hospital Repository Drug shellfish ANAPHYLACTIC [place] 9 Allergy/289862525( derived/T823749 [facility] SNOMED CT) 754(RXNORM) Hospital Repository DRUG LISINOPRIL COUGH [place] 5 INGREDI/405732642( [facility] SNOMED [facility]) [place] [facility]ository Miscellaneous OTHER SWELLING [place] [address] Allergy/424935443( [facility] SNOMED [facility]) [place] Repository Food/232265462(SNO SHELLFISH SWELLING [address]) [facility] [place] Repository ENCOUNTERS ENCOUNTERS ADMIT/DISCHARGE ACCOUNT ADMITTING ENCOUNTER LOCATION SOURCE NUMBER CLASS 06/12/2018 [id number] Ambulatory [facility] ing:PSN Repository 06/11/2018 [id number] Ambulatory [facility] ing:PSN Repository 05/31/2018 [id number] Ambulatory [facility] ing:RAD Repository 05/31/2018/05/31/19 [id number] Ambulatory BMSBuilding:[place] 19 [facility] Repository 05/16/2018 [id number] Ambulatory [facility] ing:SL Repository 05/08/2018/05/22/19 [id number] Ambulatory [address] Other [place] Repository 04/25/2018/04/25/20 [id number] Ambulatory [place] 18 [facility] [place] Repository 04/24/2018/05/06/20 [id number] Ambulatory [address] Main [place] Repository 03/28/2018/03/28/20 [id number] Ambulatory [address] Main [place] Repository 03/27/2018/03/27/20 [id number] Ambulatory [address] Main [place] Repository 03/04/2018/03/05/20 [id number] Ambulatory [address] Repository 01/29/2018/01/30/20 [id number] Ambulatory BMSBuilding:B [place] 18 [facility] Repository 01/10/2018/01/11/20 [id number] Ambulatory BMSBuilding:[place] 18 [facility] Repository 01/01/2018/01/02/20 [id number] Ambulatory BMSBuilding:[place] 18 [facility] Repository 12/31/2017/01/02/20 [id number] Norman Gardner Ambulatory [address] Hospital ing:WP5Jvum: Repository IR690Dca: 1 12/31/2017 [id number] Norman Gardner Ambulatory BMSBuilding:B [place] MS.CF[facility] Repository 12/24/2017/01/02/20 [id number] Ambulatory BMSBuilding:[place] 18 [facility] Repository 12/19/2017/12/20/19 [id number] Ambulatory BMSBuilding:B [place] 18 [facility] Repository 12/05/2017/12/06/19 [id number] Ambulatory [address] ing:EN Repository 12/05/2017 [id number] Ambulatory BMSBuilding:B [place] MS.[facility] Repository 11/09/2017/11/10/19 [id number] Ambulatory [address] ing:EN Repository 11/09/2017 [id number] Ambulatory BMSBuilding:B [place] MS.CF[facility] Repository 10/30/2017/10/31/19 [id number] Ambulatory BMSBuilding:B [place] 18 [facility] Repository 10/19/2017 [id number] Ambulatory [facility] ing:US Repository 10/16/2017 [id number] Ambulatory [facility] Repository 10/16/2017/10/18/19 [id number] Ambulatory [address] Repository 09/18/2017/09/21/19 [id number] Ambulatory [address] Repository PAYERS PAYERS ENCOUNTER GUARANTOR PAYER SUBSCRIBER SOURCE 06/12/2018 MEGAN Caceres Primary MEGAN Wright [id number] Insurance:[facility]: [facility] Number: [id number] [id number] Repository [address]Mcl: (330) Date:2460-17-33[phone] () [address] [address]NX: 06/12/2018 Secondary NOT GIVENUNK Adri[place] Insurance:SELF PAY [facility] Number: Effective Repository Date:2018-05-31 06/11/2018 MEGAN Caceres Primary MEGAN Wright [id number] Insurance:[facility] Number: [id number], [place] [id number] Repository [address]Rik: (330) Date:4141-78-36[phone] (HP) [address] [address]JY: 06/11/2018 Secondary NOT GIVENUNK Adriana Insurance:SELF PAY [facility]: Effective Repository Date:2018-05-31 05/31/2018 MEGAN J Primary MEGAN J [place] [id number] Insurance:SUMMA ALIZAERDOB: Community PAUL CAREPolicy Number: [id number], [place] [id number] Repository [address]Eho: (330) Date:3909-95-24[phone] () [address] [address]GK: 05/31/2018 Secondary NOT GIVENUNK Adriana Insurance:SELF PAY [facility] Number: Effective Repository Date:2018-05-31 05/31/2018 MEGAN J Primary MEGAN J [place] [id number] Insurance:SUMMA [facility]ULDOB: [facility] Number: [id number], [place] [id number] Repository [address]Bii: (330) Date:1101-02-03[phone] () [address] [address]OO: 05/31/2018 Secondary NOT GIVENUNK Adriana Insurance:SELF PAY [facility] Number: Effective Repository Date:2018-05-28 05/16/2018 MEGAN J Primary MEGAN J [place] [id number] Insurance:SUMMA PAULDOB: [facility] Number: [id number], [place] [id number] Repository [address]Tor: (330) Date:5159-45-00X[phone] (HP) [address] [address]DG: 05/16/2018 Secondary NOT GIVENUNK [place] Insurance:SELF PAY [facility] Number: Effective Repository Date:2018-05-16 01/29/2018 MEGAN J Primary MEGAN J Adri[place] [id number] Insurance:SUMMA [facility]ULDOB: [facility] Number: [id number], [place] [id number] Repository [address]Smi: (330) Date:8112-54-58[address] (HP) [place] [address]UW: 01/29/2018 Secondary NOT GIVENUNK Adriana Insurance:SELF PAY [facility]: Effective Repository Date:2018-01-29 01/10/2018 MEGAN J Primary MEGAN J Adriana [id number] Insurance:SUMMA ALIZAERDOB: [facility] [place]: [id number] [id number] Repository 8[address]Qot: ([phone]) Date:0648-60-46PM [phone] (HP) [address] [place] [address]PL: 01/10/2018 Secondary NOT GIVENUNK Alloway Insurance:SELF PAY [facility] Number: Effective Repository Date:2018-01-10 01/01/2018 MEGAN J Primary MEGAN J Alloway [id number] Insurance:SUMMA PAULDOB: [facility] Number: [id number], [place] [id number] Repository 287[address]Uzf: ([phone]) Date:4089-82-40HC [phone] () [place] [address]BW: 01/01/2018 Secondary NOT GIVENUNK Alloway Insurance:SELF PAY [facility] Number: Effective Repository Date:2018-01-01 12/31/2017 MEGAN J Primary MEGAN J Adriana [id number] Insurance:SUMMA ALIZAERDOB: [facility] Number: [id number], [place] [id number] Repository [address]Qsm: (330) Date:9076-65-89KA [phone] () [place] [address]XR: 12/31/2017 Secondary NOT GIVENUNK Alloway Insurance:SELF PAY [facility] Number: Effective Repository Date:2017-11-19 12/31/2017 MEGAN J Primary MEGAN J Alloway [id number] Insurance:SUMMA ALIZAERDOB: Community PAUL CAREPolicy Number: [id number], [place] [id number] Repository [address]Gww: (330) Date:4005-81-91QD [phone] (HP) [address] [address]ZM: 12/31/2017 Secondary NOT GIVENUNK Alloway Insurance:SELF PAY [facility]: Effective Repository Date:2017-12-31 12/24/2017 MEGAN J Primary MEGAN J Alloway [id number] Insurance:SUMMA ALIZAERDOB: Community PAUL CAREPolicy Number: [id number], [place] [id number] Repository 35[address]Syn: (330) Date:1414-55-16SE [phone] (HP) [place] [address]DM: 12/24/2017 Secondary NOT GIVENUNK Alloway Insurance:SELF PAY [facility] Number: Effective Repository Date:2017-12-24 12/19/2017 MEGAN J Primary MEGAN J Alloway [id number] Insurance:SUMMA PAULDOB: Community PAUL CAREPolicy Number: [id number] [id number] Repository [address]Jkx: (330) Date:0616-57-73XB [phone] (HP) [address] [address]OH: 12/19/2017 Secondary NOT GIVENUNK Adriana Insurance:SELF PAY [facility] Number: Effective Repository Date:2017-11-09 12/05/2017 MEGAN J Primary MEGAN J Alloway [id number] Insurance:SUMMA PAULDOB: Community PAUL CAREPolicy Number: [id number], [place] [id number] Repository 197[address]Boz: (330) Date:2627-01-58ZV [phone] (HP) [address] [address]EU: 12/05/2017 Secondary NOT GIVENUNK Adriana Insurance:SELF PAY [facility] Number: Effective Repository Date:2017-11-23 12/05/2017 MEGAN J Primary MEGAN J Alloway [id number] Insurance:SUMMA ALIZAERDOB: Community PAUL CAREPolicy Number: [id number], [place] [id number] Repository 470[address]Ffq: (330) Date:3558-79-57GU [phone] (HP) [address] [address]FP: 12/05/2017 Secondary NOT GIVENUNK Alloway Insurance:SELF PAY [facility] Number: Effective Repository Date:2017-12-05 11/09/2017 MEGAN J Primary MEGAN J Adriana [id number] Insurance:SUMMA ALIZAERDOB: [facility] Number: [id number], [place] [id number] Repository 48[address]Jyv: ([phone]) Date:0769-24-53NT [phone] (HP) [address] [address]DB: 11/09/2017 Secondary NOT GIVENUNK Alloway Insurance:SELF PAY [facility] Number: Effective Repository Date:2017-10-31 11/09/2017 MEGAN J Primary MEGAN J Alloway [id number] Insurance:SUMMA PAULDOB: Community PAUL CAREPolicy Number: [id number], [place] [id number] Repository 75145Pfg: (330) Date:7572-27-43NZ [phone] (HP) [address] [address]IJ: 11/09/2017 Secondary NOT GIVENUNK Alloway Insurance:SELF PAY [facility] Number: Effective Repository Date:2017-11-09 10/30/2017 MEGAN J Primary MEGAN J Alloway [id number] Insurance:SUMMA PAULDOB: [facility] Number: [id number], [place] [id number] Repository 428[address]Rqw: (330) Date:5683-28-93LQ [phone] (HP) [address] [address]LW: 10/30/2017 Secondary NOT GIVENUNK Alloway Insurance:SELF PAY [facility] Effective Repository Date:2017-10-16 10/19/2017 MEGAN J Primary MEGAN J Alloway [id number] Insurance:BIPINA DEANNAB: [facility]: [id number] Hospital [place] [id number] Repository [address]Kve: [phone]) Date:6417-16-30YJ [phone] () [address] [address]IX: 10/19/2017 Secondary MEGAN J Adriana Insurance:[facility] PACKAGE DEANNAB: [facility] [id number] [facility] [id number] Repository Date:2017-10-16 10/19/2017 Tertiary NOT GIVENUNK Alloway Insurance:SELF PAY [facility] Number: Effective Repository Date:2017-10-16
== END ==
PROVIDERS: Family Provider Family Medicine; PCP Family Medicine; Referring Provider Nurse Practitioner Acute Care; Visit Provider Nurse Practitioner Acute Care
DX: R06.02 Shortness of breath (principal)
CPT/HCPCS: 94618

== ENCOUNTER → 2018-06-12 08:01 | Outpatient (CLI) | payer OTHER, SELFPAY ==
[2018-05-31 13:17] VITALS: BMI 30.1
--- NOTE | 2018-06-12 16:34 | PFTCOMP ---
COMPLETE PULMONARY FUNCTION TEST INTERPRETATION Brief HPI: Patient is a 42 year old male, currently under the care of Solange Burnette, who presents to [facility] for complete pulmonary function tests secondary to diagnosis of dyspnea. Respiratory therapist reports good effort and reproducible results. Interpretation: Forced expiration spirometry shows no large airways obstructive ventilatory defect with an FEV1 of 99% predicted. There is no significant bronchodilator response in FVC or FEV1 by strict ATS criteria. Spirograms are of good quality and plateau normally. The respiratory flow volume loop shows a normal pattern. Lung volumes by body plethysmography show a normal total lung capacity at 7.74 L, 105% predicted. All other lung volumes are within normal limits. Diffusion capacity by carbon monoxide is normal at 114% predicted. The airway resistance is elevated. No previous pulmonary function tests were available for review. Impression: These pulmonary function tests are grossly within normal limits. Consider bronchoprovocation study if asthma is a consideration.
--- OUTSIDE RECORDS SUMMARY | 2018-08-14 02:39 | XMS RPT_ITS ---
:1975 Author Organization OHIP Support Name Relationship Address Phone [employer]FUCI[employer] Unavailable [address] + [place] [address] RAINA MILLER Unavailable [address] + [place] [address] [employer] Un[address] + [place] [address] RAINA MILLER Unavailable [address] + [facility] [address] [employer] Un[address] + [place] [address] RAINA MILLER Unavailable [address] + [place] [address] [employer] [address] + [place] [address] RAINA MILLER Unavailable [address] + [place] [address] [employer] Un[address] + [place] [address] RAINA MILLER Unavailable [address] + [place] [address] [employer] [address] + [place] [address] RAINA MILLER Unavailable [address] + [place] [address] [employer] [address] + [place] [address] RAINA MILLER Unavailable [address] + [place] [address] [employer] Un[address] + [place] [address] RAINA MILLER Unavailable [address] + [place] [address] [employer] Un[address] + [place] [address] RAINA MILLER Unavailable [address] + [place] [address] [employer]FU[employer] Un[address] + [place] [address] RAINA MILLER Unavailable [address] + [place] [address] [employer]ISM [employer] Un[address] + [place] [address] RAINA MILLER Unavailable [address] + [facility] [place] [facility] [place] [address] [employer] Un[address] + [place] [address] RAINA MILLER Unavailable [address] + [facility] [place] [facility] [place] [address] [employer]FUCI[employer] Unavailable [address] + [place] [address] RAINA MILLER Unavailable [address] + [place] [address] [employer] [address] + [place] [address] RAINA MILLER Unavailable [address] + [place] [address] [employer]FU[employer] [address] + [place] [address] [employer] [address] + [place] [address] RAINA MILLER Unavailable [address] + [place] [address] [employer] Un[address] + [place] [address] RAINA MILLER Unavailable [address] + [place] [address] [employer] Un[address] + [place] [address] [employer]FUCI[employer]ISM [employer] [address] + [place] [address] RAINA MILLER Unavailable [address] + [place] [address] [employer] [address] + [place] [address] RAINA MILLER Unavailable [address] [phone] [place] [address] MALIKA MILLER Unavailable [address] + [place] [address] Care Team Providers Name Role Phone CEBUL III, MARIA DEL CARMEN A Referring Unavailable CEBUL III, MARIA DEL CARMEN A Referring Unavailable CEBUL III, MARIA DEL CARMEN A Referring Unavailable CEBUL III, MARIA DEL CARMEN A Attending Unavailable THORJIMENEZ NOBLE (ROASTMASTER) Referring Unavailable THORPE, JIMENEZ (ROASTMASTER) Attending Unavailable CEBUL III, MARIA DEL CARMEN A Referring Unavailable ERICA GARCIA (ROASTMASTER) Attending Unavailable CEBUL III, MARIA DEL CARMEN [...] Primary Care Unavailable Solange Burnette Attending Unavailable Yomaira, Solange Referring Unavailable Cebul III, Maria Del Carmen Primary Care Unavailable Yomaira, Solange Attending Unavailable Yomaira, Solange Referring Unavailable Cebul III, Maria Del Carmen Primary Care Unavailable CebulNorman Attending Unavailable THORPEJIMENEZ Referring Unavailable Cebul III, Maria Del Carmen [...] III, Maria Del Carmen Primary Care Unavailable Cortez Mendez Attending Unavailable Cebul, Norman Referring Unavailable Una Meek PA-C Attending Unavailable Cebul III, Maria Del Carmen Referring Unavailable James Garcia Attending Unavailable CebuNorman velázquez Referring Unavailable Moodispasandra, James Attending Unavailable CeNorman gutierres Referring Unavailable PROBLEMS PROBLEMS DATE TYPE CONDITION / CODE ATTENDING STATUS SOURCE 06/11/2018 Unknown R06.02 - Shortness of Burnette, Active [facility] breath / [facility] R06.02(ICD-10) Hospital Repository 05/06/2018 Active Obstructive sleep NA Active [facility] apnea (adult) Clinic Other (pediatric) / [place] G47.33(ICD-10) Repository 02/11/2018 Unknown R94.31 - Abnormal Moodispaw, Active [facility] [place] electrocardiogram [facility] [ECG] [EKG] / Hospital R94.31(ICD-10) Repository 02/11/2018 Unknown I10 - Essential Moodispaw, Active [place] (primary) hypertension [facility] / I10(ICD-10) Hospital Repository 02/11/2018 Unknown R07.89 - Other chest Moodispaw, Active [place] pain / R07.89(ICD-10) [facility] Hospital Repository 01/01/2018 Unknown G89.18 - Other acute CebuNorman velázquez Active [place] postprocedural pain / [facility] G89.18(ICD-10) Hospital Repository 01/25/2018 Unknown K44.9 - Diaphragmatic [place], Active [place] hernia without [facility] Access Hospital obstruction or Hospital gangrene / Repository K44.9(ICD-10) 12/04/2017 Unknown K92.1 - Melena / CebhavikNorman Active [place] K92.1(ICD-10) [facility] Repository 11/09/2017 Unknown K21.9 - Cebul, Norman Active [place] [facility] reflux disease without Hospital esophagitis / Repository K21.9(ICD-10) 11/09/2017 Unknown R19.4 - Change in Cebul, Norman Active [place] [place] bowel habit / Community R19.4(ICD-10) Hospital Repository 10/16/2017 Active Other fecal NA Active [facility] abnormalities / Clinic Main R19.5(ICD-10) [place] Repository 10/16/2017 Active Periumbilical pain / NA Active [facility] R10.33(ICD-10) Clinic Main [place] Repository 10/16/2017 Active Change in bowel habit NA Active [facility] / R19.4(ICD-10) Clinic Main [place] Repository 10/16/2017 Active Unknown / UNK(Unknown) LULA, Active Wan GAONA (ROASTMASTER) Clinic Main [place] Repository PROCEDURES PROCEDURES No Procedure Records FoundRESULTS RESULTS PULMONARY FUNCTION Observed: 06/13/2018 Status: F Source: [place] REPORT COMP 6:00 AM [facility] REPOSITORY [facility] Pulmonary Services/Neurology [address] [place] [address] MR#: [id number] Acct: [id number] Name: MEGAN MILLER Rep #: [id number] : 1975 42 From: Unruly Magana MD Referring Dr: Solange Burnette NP Status: REG CLI Ordering Dr: Date: Location: PSN Sex: M C COMPLETE PULMONARY FUNCTION TEST INTERPRETATION Brief HPI: Patient is a 42 year old male, currently under the care of Solange Burnette, who presents to [facility] for complete pulmonary function tests secondary to [...] Magana MD CC: Unruly Magana MD; Solange Gardner III, MD Date Dictated: 06/12/18 1634 Date Transcribed: 06/12/181633 Hydroblaster: ASHLEY Signed 6 MINUTE WALK TEST Observed: 06/12/2018 Status: F Source: [place] 6:08 AM [facility] REPOSITORY [facility] Pulmonary Services/Neurology [address] [place] [address] MR#: [id number] Acct: [id number] Name: MEGAN MILLER Rep #: [id number] : 1975 42 From: Unruly Magana MD Referring Dr: Solange Burnette NP Date: Ordering Dr: Sex: M C Location: PSN PSN 6 Minute Walk Test - 6 Minute Walk Test 6 Minute Walk Test: 6 Minute Walk Test PSN:6-Minute Walk Test Start: 06/11/18 08:44 Freq: Status: Active Protocol: RESP.6MINW Document 06/11/18 08:44 JLA (Rec: 06/11/18 08:48 JLA [id number]) 6 Minute Walk Test Date Performed 06/11/18 [...] Date Dictated: 06/11/18 1114 Date Transcribed: 06/11/181113 Hydroblaster: Unruly Magana MD Signed PULMONARY VISIT REPORT Observed: 05/31/2018 Status: F Source: [place] 3:46 PM [facility] REPOSITORY [facility] [address] [place] [address] OFFICE VISIT Date of Service: 05/31/18 MR#: [id number] Acct: [id number] Name: PAULMEGAN Rep #: [id number] : 1975 Provider: Solange Burnette Age/Sex: 42/M Location[place] [facility] Status: Signed Assessment AND Plan 1. 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 The father also had obstructive sleep apnea. [...] cap PO DAILY 05/31/18 [History Confirmed 05/31/18] [facility] Medical History Change in bowel habit (Acute) [...] house current occupational status: employed current occupation: [employer] [address] [place], [place] pets and animals: Yes pets and [...] AND LATERAL Observed: 05/31/2018 Status: F Source: [place] 2:24 PM [facility] REPOSITORY [facility] Imaging Services [address] [place] [address] Chest PA and Lateral MR#: [id number] Acct: [id number] Name: MEGAN MILLER Rep #: [id number] : 1975 M 42 From: Tony Parson MD PCP: Maria Del Carmen Gardner III, MD Status: REG CLI Study: Chest PA and Lateral Date of Exam: 05/31/18 Exam# [id number] Ordering Dr: Solange Burnette STUDY: X-RAY CHEST [...] Burnette; Maria Del Carmen Gardner III, MD Hydroblaster: Signed PROGRESS Observed: 05/09/2018 Status: COMPLETED Source: [place] 2:19 AM [facility] [place] REPOSITORY [facility] ID: [id number] Author: Marisol Chaparro Poly-T Service: (none) Author Type: (none) Type: Progress Notes Filed: 05/09/2018 2:59 AM Note Text: Sleep Study Check-In Documentation Date: May 09, 2018 Name: Megan Miller Patient was accompanied by Self. Location: [place] Latex allergy: No Tape allergy: No Current medications were reviewed with the patient:Yes Sleep aid taken by patient for the sleep study: [place] of sleep aid: Not Applicable Procedure was [...] Poly-Odalys PROGRESS Observed: 05/08/2018 Status: COMPLETED Source: [place] 12:25 PM [facility] REPOSITORY HNO ID: [id number] Author: Aquiles Dee III Service: (none) Author [...] PhD PROGRESS Observed: 05/08/2018 Status: COMPLETED Source: [place] 8:13 AM [facility] REPOSITORY [facility]NO ID: [id number] Author: Ilene Ordonez Service: (none) Author Type: (none) Type: Progress Notes Filed: 05/09/2018 2:59 AM Note Text: May 08, 2018 An order has been received for PAP titration study from Dr. Maria Del Carmen Gardner, DASHA B. [facility] Staff. Visit prep complete. Comments :No The sleep study is scheduled for 05/08. Insurance: Payor: [facility] / Plan: [place] / Product Type: PPO / Ilene Hagenmichell Psr CNPN Observed: 05/07/2018 Status: COMPLETED Source: [place] 12:00 AM [facility] REPOSITORY Telephone (NEMOWS) MEGAN MILLER ([id number]) 1975 M Date Time Provider Department 05/07/18 [...] be moved up from 08/14.. Please advise. Prince Adames RN 05/09/2018 2:10 PM Signed Spoke [...] Name and Date of . ( Megan Miller, 1975). Yes Reason for Call : Results : Calling office requesting results of titration test. completed on 05/08/18. Raina is concerned that Megan's breathing or lack of is getting worse and is worried about him at night because he is gasping for air. Number to return call [phone] Okay to leave a message ? Yes Next office visit 08/14/18 with Jessica Thank you calling [facility] [place]. You will receive a return call within 3 business days. If you feel that this is an urgent issue and needs immediate attention, it is recommended that you contact your primary care provider office or proceed to your Primary Care Provider, nearest [facility], or Emergency Room for evaluation/treatment. Prince Adames [...] 05/09/18 PROGRESS Observed: 04/26/2018 Status: COMPLETED Source: [place] 12:53 PM [facility] REPOSITORY HNO ID: [id number] Author: Radha German Service: (none) Author Type: (none) Type: Progress Notes Filed: 04/26/2018 12:53 PM Note Text: Sleep Study Check-In Documentation Date: April 26, 2018 Name: Megan Miller Comments: HST was returned in working order with all sleep questionnaires Radha German PROGRESS Observed: 04/23/2018 Status: COMPLETED Source: [place] 9:40 AM [facility] REPOSITORY HNO ID: [id number] Author: Brien Lara Smart Poly-T Service: (none) Author Type: (none) Type: Progress Notes Filed: 04/23/2018 9:43 AM Note Text: NOMAD# [id number] Was deployed 04/23/18 Mail out UPS tracking Number [id number] Return UPS tracking Number [id number] PROGRESS Observed: 03/29/2018 Status: COMPLETED Source: [place] 12:07 PM [facility] REPOSITORY [facility]NO ID: [id number] Author: Radha German Service: (none) Author Type: [...] German PROGRESS Observed: 03/28/2018 Status: COMPLETED Source: [place] 8:32 AM [facility] REPOSITORY HNO ID: [id number] Author: Radha German Service: (none) Author Type: (none) Type: Progress Notes Filed: 03/29/2018 12:08 PM Note Text: Patient returning equipment unused due to having a cold. PROGRESS Observed: 03/26/2018 Status: COMPLETED Source: [place] 9:29 AM [facility] REPOSITORY [facility]NO ID: [id number] Author: Brien Lara Smart Poly-T Service: (none) Author Type: (none) Type: Progress Notes Filed: 03/29/2018 12:08 PM Note Text: NOMAD# [id number] Was deployed 03/26/18 Mail out UPS tracking Number [id number] Return UPS tracking Number [id number] PROGRESS Observed: 03/25/2018 Status: COMPLETED Source: [place] 12:28 PM [facility] REPOSITORY HNO ID: [id number] Author: Radha German Service: (none) Author Type: (none) Type: Progress Notes Filed: 03/29/2018 12:08 PM Note Text: Confirmed HSAT appt and current mailing address PROGRESS Observed: 03/22/2018 Status: COMPLETED Source: [place] 10:49 AM [facility] REPOSITORY HNO ID: [id number] Author: Radha German Service: (none) Author Type: (none) Type: Progress Notes Filed: 03/29/2018 12:08 PM Note Text: Left voicemail for patient to confirm HSAT mail out appointment PROGRESS Observed: 03/06/2018 Status: COMPLETED Source: [place] 11:04 AM [facility] [place] REPOSITORY HNO ID: [id number] Author: Aquiles Dee III Service: (none) Author [...] Special instructions: None-follow laboratory protocol Shannon Mars [facility] I have read the above protocol, edited as needed, and agree to the plan Aquiles Dee III, PhD, [facility] PROGRESS Observed: 03/06/2018 Status: COMPLETED Source: [place] 10:36 AM [facility] REPOSITORY HNO ID: [id number] Author: Ilene Ordonez Service: (none) Author Type: (none) Type: Progress Notes Filed: 03/29/2018 12:08 PM Note Text: March 06, 2018 An order has been received for Home Sleep Apnea Test (HSAT) from DASHA Fleming. [facility] Staff. Visit prep complete. Comments :No The sleep study is scheduled for 03/27. Insurance: Payor: [employer] / Plan[place] / Product Type: PPO / Ilene Richards Psr PROGRESS Observed: 03/04/2018 Status: COMPLETED Source: [place] 6:04 PM [facility] [place] REPOSITORY HNO ID: [id number] Author: Maria Del Carmen Gardner III Service: [...] PRESCRIPTION as directed. Taking Super Supplemental ([employer]) COMPOUNDED PRESCRIPTION as directed. Taking Food Enzymes ([employer]) MULTI-VITAMIN ORAL Take by mouth. omeprazole (PRILOSEC) [...] Laterality Date - [facility] in 10 years-10/2027 - EGD W/O OR W/BRUSH/WASH N/A 11/09/2017 [facility] - JES HX N/A 12/31/2017 Laparoscopic Jes fundoplication-R. Cebul - REMOVAL OF TONSILS,<12 Y/O 2004 Tonsillectomy FAMILY HISTORY Problem Relation Age of Onset - Ischemic Heart Disease Father of DE - Hypertension Father - None Mother - [...] MD CNOV Observed: 03/04/2018 Status: COMPLETED Source: [place] 6:00 PM [facility] REPOSITORY Office Visit (FAMPWS) MEGAN MILLER ([id number]) 1975 M Date Time Provider Department 03/04/18 6:00 PM MARIA DEL CARMEN GARDNER III During your visit today, we recorded [...] COMPOUNDED PRESCRIPTION as directed. Taking Super Supplemental ([employer]) COMPOUNDED PRESCRIPTION as directed. Taking Food Enzymes ([employer]) MULTI-VITAMIN ORAL Take by mouth. omeprazole (PRILOSEC) [...] Laterality Date - COLONOSCOP W/ OR W/O [facility] SPEC N/A 11/09/2017 [facility] Cebul-next colon in 10 years-10/2027 - EGD W/O OR W/BRUSH/WASH N/A 11/09/2017 [facility] Cebul - JES HX N/A 12/31/2017 Laparoscopic Jes fundoplication-R. Cebul - REMOVAL OF TONSILS,<12 Y/O 2004 Tonsillectomy FAMILY HISTORY Problem Relation Age of Onset - Ischemic Heart Disease Father of DE - Hypertension Father - None Mother - [...] Anxiety [F41.9] Order(s):HOME SLEEP APNEA TEST (HSAT) [[id number]] Order #: [id number] Prescriptions as of 03/04/2018 Sig: LOSARTAN 25 [...] corn syrup, saturated fats Plans to use [employer] exercise equipment, exercise videos, cycling in good [...] VISIT REPORT Observed: 01/29/2018 Status: F Source: [place] 2:52 PM [facility] [address] [place] [address] [address] [place] [address] OFFICE VISIT Date of Service: 01/29/18 MR#: [id number] Acct: [id number] Name: MEGAN MILLER Rep #: [id number] : 1975 Provider: Una Meek PA-C Age/Sex: 42/M Location: [facility] Status: Signed Intake Intake Visit Reasons: Lap Jes Fundolipcation RC 12/31 Chief Complaint: discuss lap jes Analytics Lead Required: No Is patient in pain?: No [...] 12/24/17 [History Confirmed 01/29/18] Hydrocodone Bitart/Apap 5-325 [[place] 5MG-325MG] 1 tab PO Q6H PRN PRN [...] on a 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 [place] [address] OFFICE VISIT Date of Service: 01/10/18 MR#: [id number] Acct: [id number] Name: MEGAN MILLER Rep #: [id number] : 1975 Provider: Una Meek PA-C Age/Sex: 42/M Location: [facility] Status: Signed Intake Intake Visit Reasons: Lap Jes Fundolipcation RC 12/31 Chief Complaint: discuss lap jes Analytics Lead Required: No Is patient in pain?: No [...] 12/24/17 [History Confirmed 01/10/18] Hydrocodone Bitart/Apap 5-325 [[place] 5MG-325MG] 1 tab PO Q6H PRN PRN [...] LEAD ELECTROCARDIOGRAM Observed: 01/10/2018 Status: F Source: [place] 1:39 PM [facility] REPOSITORY [facility] Cardiovascular Services [address] [place] [address] 12 Lead EKG 01/01/18 0555 MR#: [id number] Acct: [id number] Name: MEGAN MILLER Rep #: [id number] : 1975 42 From: James Garcia MD Attending Dr: Norman Gardner MD Status: DIS MARJORIE Ordering Dr: Norman Gardner MD Date: 01/01/18 Location: [place]3 Sex: M C Admitted: 12/31/17 Test Reason [...] Abnormal ECG Confirmed by JAMES GARCIA MD ([id number]), slot editor LESA MEANS ([id number]) on 01/10/2018 1:39:04 PM Referred By: Norman Gardner Confirmed By:JAMES GARCIA MD 01/10/18 1339 Date James Garica MD CC: Maria Del Carmen Gardner III, MD; Norman Gardner MD Signed DISCHARGE INSTRUCTION Observed: 01/02/2018 Status: F Source: [place] 5:58 AM [facility] REPOSITORY [facility] Medical Records Department [address] [place] [address] Instructions for Home/Discharge Instructions 12/31/1707 MR#: [id number] Acct: [id number] Name: MEGAN MILLER Rep #: [id number] : 1975 42 From: Norman Gardner MD [...] mg PO DAILY 12/24/17 Hydrocodone Bitart/Apap 5-325 [[place] 5MG-325MG] 1 tablet PO Q6H PRN PRN 3 Days #10 tablet 12/31/17 The following prescriptions were given: Hydrocodone Bitart/Apap 5-325 [[place] 5MG-325MG] 1 tablet PO Q6H PRN PRN 3 Days #10 tablet PRN Reason: Pain Primary Care Physician: Maria Del Carmen Gardner III, MD [Primary Care Provider] - Test Results: Test results from this visit will be discussed in further detail at your follow-up appointment, if applicable. Please Follow Up With: Norman Gardner MD - [phone] When: Call to make an appointment to be seen in about 10 days. 01/02/18 0558 <Electronically signed by Norman Gardner MD> Date Norman Gardner MD CC: Maria Del Carmen Gardner III, MD TROPONIN-I Collected: 01/01/2018 Status: F Source: [place] 11:27 AM [facility] REPOSITORY Order Comment: 'TROP' Serial specimen #1, #2 or #3: 3 TYPE CODE TESTS RESULT OUT OF RANGE REFERENCE UNITS LAB L501.4010 <0.045 ng/mL Normal 0.026 TROPONIN-I Result Comment: TROPONIN-I EXPECTED VALUES <0.045 Negative 0.045 - 0.590 Consistent with Cardiac Damage > OR = 0.600 Critical Value Not every elevated troponin is indicative of DE. These values should be used with clinical judgement in examining the patient's clinical picture for diagnosis. To establish a diagnosis of DE versus myocardial injury, there must be a demonstrated rise and/or fall in the troponin values, in addition to ischemic symptoms, EKG changes, new regional wall motion abnormality, and/or angiographical evidence. PLEASE NOTE: REFERENCE RANGES EDITED 17 Performed By: #### L501.4010 #### [place] [facility] [address] [place], [address] TROPONIN-I Collected: 01/01/2018 Status: F Source: [place] 8:23 AM [facility] REPOSITORY Order Comment: 'TROP' Serial specimen #1, #2 or #3: 2 TYPE CODE TESTS RESULT OUT OF RANGE REFERENCE UNITS LAB L501.4010 <0.045 ng/mL Normal 0.021 TROPONIN-I Result Comment: TROPONIN-I EXPECTED VALUES <0.045 Negative 0.045 - 0.590 Consistent with Cardiac Damage > OR = 0.600 Critical Value Not every elevated troponin is indicative of DE. These values should be used with clinical judgement in examining the patient's clinical picture for diagnosis. To establish a diagnosis of DE versus myocardial injury, there must be a demonstrated rise and/or fall in the troponin values, in addition to ischemic symptoms, EKG changes, new regional wall motion abnormality, and/or angiographical evidence. PLEASE NOTE: REFERENCE RANGES EDITED 17 Performed By: #### L501.4010 #### [facility] [address] [place], [address] OPERATIVE REPORT Observed: 12/31/2017 Status: F Source: [place] 9:54 AM [facility] REPOSITORY [facility] Medical Records Department [address] [place] [address] Operative Report 12/31/17 0947 MR#: [id number] Acct: [id number] Name: MEGAN MILLER Rep #: [id number] : 1975 42 From: Norman Gardner MD PCP: Maria Del Carmen Gardner III, MD Status: ADM IN Location: [facility] VN132-7 Problem List (1) GERD (gastroesophageal reflux disease) [...] vessel on the stomach side with a lxqeyd-ny-hfbik suture of 2-0 Ethibond. I then completed [...] admitted ultrathin Dacron. Lot number [id number]. Serial #[id number] with a reference number of HSG K1 [...] anterior wall of the e.g. junction again. [place] that I had a nice loose short [...] F.A.C.S. Type of Anesthesia:: General Anesthesiologist: Conrad eCrrato 12/31/17 0954 <Electronically signed by Norman Gardner MD> Date Norman Gardner MD CC: Maria Del Carmen Gardner III, MD; Norman Gardner MD Signed 12 LEAD ELECTROCARDIOGRAM Observed: 12/26/2017 Status: F Source: [place] 10:26 AM [facility] REPOSITORY [facility] [place] [address] EKG - [facility] 12/24/17 1219 MR#: [id number] Acct: [id number] Name: MEGAN MILLER Rep #: [id number] : 1975 42 From: James Garcia MD Attending Dr: Norman Gardner MD Status: PRE IN Ordering Dr: Norman Gardner MD Date: 12/24/17 Location: [facility] [place] Sex: M C Admitted: Test Reason : [...] Abnormal ECG Confirmed by JOSE CAMPBELL, JAMES ([id number]), slot editor LESA MEANS ([id number]) on 12/26/2017 10:26:02 AM Referred By: Norman Gardner Confirmed By:JAMES GARCIA MD 12/26/17 1026 Date James Garcia MD CC: Maria Del Carmen Gardner III, MD; Norman Gardner MD Date Dictated: 12/24/179 Date Transcribed: 12/24/17 121 Hydroblaster: Signed CBC-COMPLETE BLOOD CNT Collected: 12/24/2017 Status: F Source: [place] NO DIFF 1:30 PM [facility] REPOSITORY TYPE CODE TESTS RESULT OUT OF [...] MPV 9.8 Performed By: #### L100.0500 #### [facility] [address] [facility]. [place], [place], [address] BASIC METABOLIC Collected: 12/24/2017 Status: F Source: [place] PROFILE (BMP) 1:30 PM [facility] REPOSITORY TYPE CODE TESTS RESULT OUT OF [...] GAP 8 Performed By: #### L500.2500 #### [facility] [address] [place], [address] SURGERY VISIT REPORT Observed: 12/19/2017 Status: F Source: [place] 11:06 AM [facility] REPOSITORY [facility] [address] [place] [address] OFFICE VISIT Date of Service: 12/19/17 MR#: [id number] Acct: [id number] Name: MEGAN MILLER Rep #: [id number] : 1975 Provider: Norman Gardner MD Age/Sex: 42/M Location: [facility] Status: Signed Intake Vital Signs12/19/17 Height 6 ft 12/19/17 Weight: 204 lb 3 oz 12/19/17 Body Mass Index (BMI) 27.6 12/19/17 Blood Pressure 142/94 Intake Visit Reasons: Hiatal Hernia Chief Complaint: discuss lap jes Analytics Lead Required: No Is patient in pain?: No [...] mg PO QDAY 12/19/17 [History Confirmed 12/19/17] [facility] Medical History Change in bowel habit (Acute) [...] obtained on December 05, 2017 at the [facility] which is diagnosed as a normal swallow study. MR#:[id number]:[id number] Name: MEGAN MILLER [facility] #:[id number] : 1975 Provider:Norman Gardner MD Age/Sex: 42/M Location:[facility] Status:Signed Intake Vital Signs 10/30/17 Height 6 [...] Reasons: blood in stool, diarrhea and heartburn Analytics Lead Required: No Is patient in pain?: No Allergies shellfish derived Allergy (Severe, Verified 10/30/17 14:28) anaphylactic hydrochlorothiazide Allergy (Intermediate, Verified 10/30/17 14:29) palpitations/restlessness lisinopril Adverse Reaction (Mild, Verified 10/30/17 14:29) cough Medications losartan 50 mg tablet 50 mg PO QDAY 10/30/17 [History Confirmed 10/30/17] [facility] Medical History Change in bowel habit (Acute) [...] Dr. Maria Del Carmen Gardner, DASHA and SANDRA Belle M.D., F.A.C.S. Coding Level of Care Code Off vis,new,level 4 Diagnoses Gastroesophageal reflux disease, esophagitis presence not specified K21.9 Esophagitis presence: esophagitis presence not specified Change in bowel habit R19.4 Time Spent (min) 45 10/30/17 1708<Electronically signed by Norman Gardner MD> Date Norman Gardner MD MR#: [id number]:[id number] Name: MEGAN MILLER [facility] #:[id number] : 1975 42From: Norman Gardner MD PCP:Maria Del Carmen Gardner III, MD Status:[facility] Location: [place] [address] Problem List (1) Change in bowel habit [...] Gardner III, MD; Norman Gardner MD Signed [facility]PART[facility] LABORATORYSURGICAL [id number] [place] [address] Page 1of 2The contents of this transmission are privileged, confidential and exempt from disclosureunder applicable law. If you have received this information in error, call . MEGAN HAILE MR# [id number]: MEGAN MILLER/Sex: 42/[address]: Unit #: [id number]: ENDOB: 1975Status:DEP SDCFacility:WOLeslie ____Spec# :[id number] Spec Date: 06/22/18Subm Dr: Jj CAMPBELL,[facility] Type: EGDOPERATION: EGD and colonoscopyPRE-OP DIAGNOSIS: GERD, [...] for Helicobacter pylori will be reported separately ([id number]).C. GMS stain with matched control does not reveal fungal organisms. Clinical correlation is suggested.Case has been reviewed in consultation with Dr. Phillips who concurs with the above diagnosis.IDC:SJMICROSCOPIC DESCRIPTIONSlides are reviewed.A. Sections show small collections and groups of plasma cells in the mucosa. Active inflammation is not present. These findings are consistent with mild chronic gastritis.GROSS DESCRIPTION [facility]ITALDEPARTMENT OF LABORATORYSURGICAL [id number] [place], [place] [address] Pag e 2of 2The contents of this transmission are privileged, confidential and exempt from disclosureunder applicable law. If you have received this information in error, call . MEGAN HAILE MR# [id number] -Received in fixative is one container labeled [...] in one cassette. / SJ:rg 11/09/17 TC:2CPT: 00317 x4, 88312 Electr onically Signed by: Dr. [...] OPERATIVE REPORT Observed: 11/09/2017 Status: F Source: [place] 7:35 AM [facility] REPOSITORY [facility] Medical Records Department [address] [facility] [place] [address] Operative Report 11/09/17 0729 MR#: [id number] Acct: [id number] Name: MEGAN MILLER Rep #: [id number] : 1975 42 From: Norman Gardner MD PCP: Maria Del Carmen Gardner III, MD Status: [facility] Y Location: [place] [address] Problem List (1) Change in bowel habit [...] III, MD; Norman Gardner MD Signed EGD ([facility] SITE) Observed: 11/09/2017 Status: F Source: [place] 12:00 AM [facility] REPOSITORY Patient: MEGAN MILLER : 1975 (42/M) Acct Num: [id number] Phys: Jj CAMPBELL,Norman Unit Num: [id number] Loc: EN Specimen: [id number] Received: 11/09/17 - 0955 Spec Type: EGD BIOPSY TISSUES TISSUES: A. Duodenum, NOS B. Gastric mucous membrane C. Esophageal mucous membrane D. COLON BIOPSY COMMENT A. The results of immunohistochemistry for Helicobacter pylori will be reported separately ([id number]). C. GMS stain with matched control does [...] one cassette. / LAW:angel 11/09/17 TC:2 CPT: 73578 x4, 03930 HEADER OPERATION: EGD and colonoscopy PRE-OP DIAGNOSIS: [...] on file> Performed By: #### PEGD #### [facility] [address] [place], [address] IMMUNOHISTOCHEMISTRY Observed: 11/09/2017 Status: F Source: GORE 12:00 AM [facility] REPOSITORY Patient: MEGAN MILLER : 1975 (42/M) Acct Num: [id number] Phys: Jj CAMPBELL,Norman Unit Num: [id number] Loc: EN Specimen: [id number] Received: 11/12/17 - 1329 Spec Type: IMMUNO TISSUES TISSUES: B. Stomach, NOS SPECIMEN INFORMATION: Tissue Source: B Antral biopsy Clinical Info: GERD, change in bowel habits Specimen Number: [id number] CPT code: 01998 METHODOLOGY: Deparaffinized sections of prefer/formalin-fixed tissue or [...] developed and their performance characteristics determined by [facility]. They may not have been cleared or approved by the U.S. Food and Drug Administration. The FDA has determined that such clearance or approval is not necessary. INTERPRETATION: B. Antral biopsy: Negative for Helicobacter pylori. AM:tiffany 11/13/17 PHYSICIAN AND INSTITUTION [address] [address] Signed Gal Leivaih 11/13/17 <signature on file> Performed By: #### PIMM #### [facility] [address] [place], [place] [address]. [place], [address] SURGERY VISIT REPORT Observed: 10/30/2017 Status: F Source: GORE 5:08 PM [facility] REPOSITORY [facility] [address] [place] [address]. [address] [place] [address] OFFICE VISIT Date of Service: 10/30/17 MR#: [id number] Acct: [id number] Name: MGEAN MILLER Rep #: [id number] : 1975 Provider: Norman Gardner MD Age/Sex: 42/M Location: [facility] Status: Signed Intake Vital Signs10/30/17 Height 6 ft 10/30/17 Weight: 210 lb Intake Visit Reasons: blood in stool, diarrhea and heartburn Analytics Lead Required: No Is patient in pain?: No Allergies shellfish derived Allergy (Severe, Verified 10/30/17 14:28) anaphylactic hydrochlorothiazide Allergy (Intermediate, Verified 10/30/17 14:29) palpitations/restlessness lisinopril Adverse Reaction (Mild, Verified 10/30/17 14:29) cough Medications losartan 50 mg tablet 50 mg PO QDAY 10/30/17 [History Confirmed 10/30/17] [facility] Medical History Change in bowel habit (Acute) [...] MD GALLBLADDER Observed: 10/19/2017 Status: F Source: GORE 10:29 AM [facility] REPOSITORY [facility] Imaging Services [address] [place] [address] Gallbladder MR#: [id number] Acct: [id number] Name: MEGAN MILLER Rep #: [id number] : 1975 M 42 From: Ashok Elizalde MD PCP: Maria Del Carmen Gardner III, MD Status: REG CLI Study: Gallbladder Date of Exam: 10/19/17 Exam# [id number] Ordering Dr: Jimenez Cotton STUDY: ABDOMINAL ULTRASOUND [...] Ashok Elizalde MD at 12:46 EDT Tel [phone], Service support , CC: JIMENEZ COTTON; Maria Del Carmen Gardner III, MD Hydroblaster: Signed CBC Collected: 10/16/2017 Status: F Source: [place] 4:28 PM [facility] REPOSITORY TYPE [...] <0.01 Performed By: #### CBC, CMP #### [facility] [address] [place], [place] [address] COMP METABOLIC PANEL Collected: 10/16/2017 Status: F Source: [place] 4:28 PM [facility] REPOSITORY TYPE CODE TESTS RESULT OUT OF REFERENCE UNITS RANGE LAB TP 6.3-8.0 g/dL Protein, Total 7.1 LAB ALB 3.9-4.9 g/dL Albumin 4.4 LAB CA 8.5-10.2 mg/dL Calcium, Total 9.0 LAB TBIL 0.2-1.3 mg/dL Bilirubin, Total 0.6 LAB ALKP 36-108 U/L Alkaline Phosphatase 46 LAB AST 14-40 U/L AST 25 LAB GLU 74-99 mg/dL Glucose 84 Result Comment: The Canadian Diabetes Association (ADA) provides guidance for cutoff [...] Standards of Medical Care in Diabetes 2016, Canadian Diabetes Association. Diabetes Care. 2016.39(Suppl 1). LAB [...] GFR. Performed By: #### CBC, CMP #### [facility] [address] [place], [place] [address] HISTORY PHYSICAL Observed: 10/16/2017 Status: COMPLETED Source: [place] 3:31 PM [facility] REPOSITORY HNO ID: [id number] Author: Jimenez (Sandra) Lula Service: (none) Author [...] Onset - Ischemic Heart Disease Father of [place] - Hypertension Father - None Mother - Asthma Brother - Hypertension Brother - gout [OTHER] Brother - None Brother - None Brother Current Outpatient Prescriptions: losartan (COZAAR) 25 mg tablet Take 1 tablet by mouth once daily. Disp: 30 tablet Rfl: 11 UBIDECARENONE/VITAMIN E MIXED (COQ10 SG 100 ORAL) Take by mouth as directed. Disp: Rfl: COMPOUNDED PRESCRIPTION as directed. Taking Super Supplemental ([employer]) Disp: Rfl: COMPOUNDED PRESCRIPTION as directed. Taking Food Enzymes ([employer] [place]) Disp: Rfl: omeprazole (PRILOSEC) 20 mg capsule [...] visit was at least 30 minutes in glfm-li-buue time, with a majority of the time spent in review of the past records with the patient, discussion and counseling. Jimenez Cotton RN APRN.DREA CNOV Observed: 10/16/2017 Status: COMPLETED Source: [place] 3:20 PM [facility] REPOSITORY [facility] MEGAN [facility]ILLER ([id number]) 1975 M Date Time Provider Department 10/16/17 3:20 PM JIMENEZ COTTON (SANDRA) [facility] During your visit today, we recorded the following information about you: Pulse Blood pressure Weight Height 93/minute 119/74 93.9 kg 1.829 m Jimenez Cotton RN APRN.SUPERVISOR METAL FURNITURE FABRICATION 10/16/2017 6:08 PM Signed Megan Miller a [...] Onset - Ischemic Heart Disease Father of [place] - Hypertension Father - None Mother - Asthma Brother - Hypertension Brother - gout [OTHER] Brother - None Brother - None Brother Current Outpatient Prescriptions: losartan (COZAAR) 25 mg tablet Take 1 tablet by mouth once daily. Disp: 30 tablet Rfl: 11 UBIDECARENONE/VITAMIN E MIXED (COQ10 SG 100 ORAL) Take by mouth as directed. Disp: Rfl: COMPOUNDED PRESCRIPTION as directed. Taking Super Supplemental ([employer]) Disp: Rfl: COMPOUNDED PRESCRIPTION as directed. Taking Food Enzymes ([employer]) Disp: Rfl: omeprazole (PRILOSEC) 20 mg capsule [...] visit was at least 30 minutes in bikq-zx-kgnr time, with a majority of the time spent in review of the past records with the patient, discussion and counseling. Jimenez Cotton RN VP OF TECHNOLOGY.DREA Cotton RN VP OF TECHNOLOGY.[facility] 10/16/2017 4:[address] Gardner ,as discussed. October 30, @ 1:40. Referring Provider: MARIA DEL CARMEN GARDNER III [02023] Allergies As of Date: 10/16/2017 Noted Allergy [...] bowel habits [R19.4] Order(s):CBC [SQCBC] Order #: [id number] FUTURE COMP METABOLIC PANEL [SQCMP] Order #: [id number] FUTURE US ABD RT UPPER QUADRANT [9780099] Order #: [id number] FUTURE Prescriptions as of 10/16/2017 Sig: LOSARTAN [...] 10/16/17 PROGRESS Observed: 09/18/2017 Status: COMPLETED Source: [place] 3:39 PM [facility] REPOSITORY HNO ID: [id number] Author: Erica Garcia (Precipitation Equipment Tender) Service: (none) Author Type: Nurse Practitioner Type: [...] COMPOUNDED PRESCRIPTION as directed. Taking Super Supplemental ([employer]) COMPOUNDED PRESCRIPTION as directed. Taking Food Enzymes ([employer]) MULTI-VITAMIN ORAL Take by mouth. omeprazole (PRILOSEC) [...] Brother - Ischemic Heart Disease Father of [place] - Hypertension Father - None Mother - [...] - CONSULT TO GASTROENTEROLOGY Erica Garcia, MSN VP OF TECHNOLOGY.DREA COVARRUBIAS Observed: 09/18/2017 Status: COMPLETED Source: [place] 3:20 PM [facility] REPOSITORY Office Visit ([facility]) MEGAN MILLER ([id number]) 1975 M Date Time Provider Department 09/18/17 3:20 PM ERICA GARCIA (SANDRA) [facility] During your visit today, we recorded the following information about you: Temperature Pulse Respiration Blood pressure 97.4 degrees 82/minute 16/minute 120/88 Weight 94.8 kg Erica Garcia (Precipitation Equipment Tender) 09/20/2017 12:22 PM Signed Chief Complaint Patient [...] COMPOUNDED PRESCRIPTION as directed. Taking Super Supplemental ([employer]) COMPOUNDED PRESCRIPTION as directed. Taking Food Enzymes ([employer]) MULTI-VITAMIN ORAL Take by mouth. omeprazole (PRILOSEC) [...] Brother - Ischemic Heart Disease Father of [place] - Hypertension Father - None Mother - [...] - CONSULT TO GASTROENTEROLOGY Erica Garcia, MSN VP OF TECHNOLOGY.SUPERVISOR METAL FURNITURE FABRICATION Referring Provider: SELF [200] Allergies As of [...] pain [R10.33] Cough [R05] Order(s):HEMOCCULT SINGLE B/O [7548100] Order #: [id number] CONSULT TO GASTROENTEROLOGY [9053] Order #: [id number]: 1 Prescriptions as of 09/18/2017 Sig: LOSARTAN [...] CODE REACTION SEVERITY SOURCE Drug lisinopril/F006 cough [place] 9 Allergy/186101649( 949581(RXNORM) tachycardia [facility] SN[facility]) Hospital Repository Drug hydrochlorothia palpitations/rest [place] 9 Allergy/611688911( zide/C662877038 lessness [facility] SNOMED [facility]) (RXNORM) Hospital Repository Drug shellfish ANAPHYLACTIC [place] [facility] 9 Allergy/795449831( derived/G775118 [facility] SNOMED CT) 754(RXNORM) Hospital Repository DRUG LISINOPRIL COUGH [place] 5 INGREDI/198863348( [facility] SNOMED CT) [place] Repository Miscellaneous OTHER SWELLING [place] [address] Allergy/238920107( [facility] SNOMED CT) [place] Repository Food/298385700(SNO SHELLFISH SWELLING [address]) [facility] [place] Repository ENCOUNTERS ENCOUNTERS ADMIT/DISCHARGE ACCOUNT ADMITTING ENCOUNTER LOCATION SOURCE NUMBER CLASS 06/12/2018 [id number] Ambulatory [facility] Hospital ing:PSN Repository 06/11/2018 [id number] Ambulatory [facility] Hospital ing:PSN Repository 05/31/2018 [id number] Ambulatory [facility] Hospital ing:RAD Repository 05/31/2018/05/31/19 [id number] Ambulatory BMSBuilding:B [place] 19 MS.[facility] Repository 05/16/2018 [id number] Ambulatory [facility] Hospital ing:SL Repository 05/08/2018/05/22/19 [id number] Ambulatory [address] Other [place] Repository 04/25/2018/04/25/20 [id number] Ambulatory [place] 18 [facility] [place] Repository 04/24/2018/05/06/20 [id number] Ambulatory [address] Main [place] Repository 03/28/2018/03/28/20 [id number] Ambulatory [address] Main [place] Repository 03/27/2018/03/27/20 [id number] Ambulatory [address] Main [place] Repository 03/04/2018/03/05/20 [id number] Ambulatory [address] Repository 01/29/2018/01/30/20 [id number] Ambulatory BMSBuilding:B [place] 18 [place].[facility] Repository 01/10/2018/01/11/20 [id number] Ambulatory BMSBuilding:B [place] 18 [place].[facility] Repository 01/01/2018/01/02/20 [id number] Ambulatory BMSBuilding:W [place] 18 [facility] Repository 12/31/2017/01/02/20 [id number] Norman Gardner Ambulatory [address] Hospital ing:AT4Aehe: Repository XR930Tzl: 1 12/31/2017 [id number] Norman Gardner Ambulatory BMSBuilding:B [place].CF.[facility] Repository 12/24/2017/01/02/20 [id number] Ambulatory BMSBuilding:W [place] 18 [facility] Repository 12/19/2017/12/20/19 [id number] Ambulatory BMSBuilding:B [place] 18 MS.[facility] Repository 12/05/2017/12/06/19 [id number] Ambulatory [address] ing:EN Repository 12/05/2017 [id number] Ambulatory BMSBuilding:B [place].CF.[facility] Repository 11/09/2017/11/10/19 [id number] Ambulatory [address] ing:EN Repository 11/09/2017 [id number] Ambulatory BMSBuilding:B [place] MS.CF.[facility] Repository 10/30/2017/10/31/19 [id number] Ambulatory BMSBuilding:B [place] 18 [place].[facility] Repository 10/19/2017 [id number] Ambulatory [facility] ing:US Repository 10/16/2017 [id number] Ambulatory [facility] Repository 10/16/2017/10/18/19 [id number] Ambulatory [address] Repository 09/18/2017/09/21/19 [id number] Ambulatory [address] Repository PAYERS PAYERS ENCOUNTER GUARANTOR PAYER SUBSCRIBER SOURCE 06/12/2018 MEGAN Caceres Primary MEGAN Wright [id number] Insurance:[facility]: [facility] Number: [id number], [place] [id number] Repository [address]Uxl: (330) Date:3591-63-52NM [address] () [address] [address]WC: 06/12/2018 Secondary NOT GIVENUNK [place] Insurance:SELF PAY [facility] Number: Effective Repository Date:2018-05-31 06/11/2018 MEGAN Caceres Primary MEGAN Wright [id number] Insurance:[facility] Number: [id number], [place] [id number] Repository [address]Kqk: (330) Date:2266-44-62RN [phone] (HP) [address] [address]SA: 06/11/2018 Secondary NOT GIVENUNK [place] Insurance:SELF PAY [facility] Number: Effective Repository Date:2018-05-31 05/31/2018 MEGAN J Primary MEGAN J [place] [id number] Insurance:SUMMA ALIZAERDOB: Community PAUL CAREPolicy Number: [id number], [place] [id number] Repository [address]Rfj: (330) Date:1332-51-58VC [phone] () [address] [address]QS: 05/31/2018 Secondary NOT GIVENUNK [place] Insurance:SELF PAY [facility] Number: Effective Repository Date:2018-05-31 05/31/2018 MEGAN J Primary MEGAN J [place] [id number] Insurance:SUMMA PAULDOB: [facility] Number: [id number], [place] [id number] Repository [address]Qxu: (330) Date:1816-85-97YD [phone] () [address] [address]SD: 05/31/2018 Secondary NOT GIVENUNK [place] Insurance:SELF PAY [facility] Number: Effective Repository Date:2018-05-28 05/16/2018 MEGAN J Primary MEGAN J [place] [id number] Insurance:SUMMA PAULDOB: [facility] Number: [id number], [place] [id number] Repository [address]Plu: (330) Date:9425-78-60NH [phone] (HP) [address] [address]OJ: 05/16/2018 Secondary NOT GIVENUNK [place] Insurance:SELF PAY [facility] Number: Effective Repository Date:2018-05-16 01/29/2018 MEGAN J Primary MEGAN J [place] [id number] Insurance:SUMMA PAULDOB: [facility] Number: [id number], [place] [id number] Repository [address]Aau: (330) Date:8019-84-92[phone] (HP) [place], [place] [address]PI: 01/29/2018 Secondary NOT GIVENUNK [place] Insurance:SELF PAY [facility] Number: Effective Repository Date:2018-01-29 01/10/2018 MEGAN J Primary MEGAN J [place] [id number] Insurance:SUMMA ALIZAERDOB: Community [facility] Number: [id number], [place] [id number] Repository [address]Nsk: (330) Date:8818-96-11WF [address] (HP) 362[place] [address]HU: 01/10/2018 Secondary NOT GIVENUNK [place] Insurance:SELF PAY [facility] Number: Effective Repository Date:2018-01-10 01/01/2018 MEGAN J Primary MEGAN J [place] [id number] Insurance:SUMMA PAULDOB: Community [facility] Number: [id number], [place] [id number] Repository [address]Azz: (330) Date:0970-43-35SX [address] () [address] [address]JK: 01/01/2018 Secondary NOT GIVENUNK [place] Insurance:SELF PAY [facility] Number: Effective Repository Date:2018-01-01 12/31/2017 MEGAN J Primary MEGAN J [place] [id number] Insurance:SUMMA ALIZAERDOB: Community [facility] Number: [id number], [place] [id number] Repository [address]Ebe: (330) Date:3724-31-07LP [address] () [address] [address]FI: 12/31/2017 Secondary NOT GIVENUNK [place] Insurance:SELF PAY [facility] Number: Effective Repository Date:2017-11-19 12/31/2017 MEGAN J Primary MEGAN J [place] [id number] Insurance:SUMMA ALIZAERDOB: Community PAUL CAREPolicy Number: [id number], [place] [id number] Repository [address]Jwg: (330) Date:1809-48-90WX [phone] (HP) [address] [address]TA: 12/31/2017 Secondary NOT GIVENUNK [place] Insurance:SELF PAY [facility] Number: Effective Repository Date:2017-12-31 12/24/2017 MEGAN J Primary MEGAN J [place] [id number] Insurance:SUMMA ALIZAERDOB: Community PAUL CAREPolicy Number: [id number], [place] [id number] Repository [address]Vki: (330) Date:8381-11-57HP [phone] (HP) [place] [address]XW: 12/24/2017 Secondary NOT GIVENUNK [place] Insurance:SELF PAY [facility] Number: Effective Repository Date:2017-12-24 12/19/2017 MEGAN J Primary MEGAN J [place] [id number] Insurance:SUMMA PAULDOB: Community PAUL CAREPolicy Number: [id number], [place] [id number] Repository [address]Obc: (330) Date:4790-72-57YJ [phone] (HP) [address] [address]MN: 12/19/2017 Secondary NOT GIVENUNK [place] Insurance:SELF PAY [facility] Number: Effective Repository Date:2017-11-09 12/05/2017 MEGAN J Primary MEGAN J [place] [id number] Insurance:SUMMA PAULDOB: Community PAUL CAREPolicy Number: [id number], [place] [id number] Repository [address]Rti: (330) Date:0009-74-31VF [phone] (HP) [address] [address]YP: 12/05/2017 Secondary NOT GIVENUNK [place] Insurance:SELF PAY [facility] Number: Effective Repository Date:2017-11-23 12/05/2017 MEGAN J Primary MEGAN J [place] [id number] Insurance:SUMMA ALIZAERDOB: Community PAUL CAREPolicy Number: [id number], [place] [id number] Repository [address]Kii: (330) Date:8244-05-76[phone] (HP) [place], [place] [address]JU: 12/05/2017 Secondary NOT GIVENUNK [place] Insurance:SELF PAY [facility] Number: Effective Repository Date:2017-12-05 11/09/2017 MEGAN J Primary MEGAN J Adriana [id number] Insurance:SUMMA ALIZAERDOB: [facility] Number: [id number], [place] [id number] Repository [address]Riq: (330) Date:7584-25-71AD [phone] (HP) [address] [address]AS: 11/09/2017 Secondary NOT GIVENUNK [place] Insurance:SELF PAY [facility] Number: Effective Repository Date:2017-10-31 11/09/2017 MEGAN J Primary MEGAN J [place] [id number] Insurance:SUMMA PAULDOB: Community PAUL CAREPolicy Number: [id number], [place] [id number] Repository [address]Khb: (330) Date:5916-18-99[phone] (HP) [address] [address]NJ: 11/09/2017 Secondary NOT GIVENUNK [place] Insurance:SELF PAY [facility] Number: Effective Repository Date:2017-11-09 10/30/2017 MEGAN J Primary MEGAN J [place] [id number] Insurance:SUMMA PAULDOB: [facility] Number: [id number], [place] [id number] Repository [address]Rnq: (330) Date:9803-05-60PE [phone] (HP) [address] [address]LU: 10/30/2017 Secondary NOT GIVENUNK [place] Insurance:SELF PAY [facility] Number: Effective Repository Date:2017-10-16 10/19/2017 MEGAN J Primary MEGAN J [place] [id number] Insurance:BIPINA DEANNAB: [facility]: [id number] [place] [id number] Repository [address]Ogs: 330) Date:3840-12-42[phone] () [address] [address]VE: 10/19/2017 Secondary MEGAN J Adriana Insurance:[facility] P[facility]AGE DEANNAB: [facility] Number: [id number] [id number] Repository Date:2017-10-16 10/19/2017 Tertiary NOT GIVENUNK [place] Insurance:SELF PAY [facility] Number: Effective Repository Date:2017-10-16
== END ==
PROVIDERS: Family Provider Family Medicine; PCP Family Medicine; Referring Provider Nurse Practitioner Acute Care; Visit Provider Nurse Practitioner Acute Care
DX: R06.02 Shortness of breath (principal)
CPT/HCPCS: 94060; 94726; 94729

== ENCOUNTER → 2018-07-05 07:39 | Outpatient (CLI) | payer OTHER, SELFPAY ==
[2018-07-02 11:09] VITALS: BMI 30.4
[2018-07-05 08:48] LABS: AST(SGOT) 23 U/L (15-37); Alanine Aminotransfer ALT/SGPT 55 U/L (16-61); Albumin, Serum 4.1 g/dL (3.2-5.0); Alkaline Phosphatase 58 U/L (45-117); Bilirubin, Direct 0.29 mg/dL (0.00-0.30); Cholesterol 152 mg/dL (200); Globulin 3.9 g/dL (2.2-4.2); High Density Lipoprotein 50 mg/dL; T4 Total, Thyroxin 7.9 ug/dL (4.5-12.1); Thyroid Stim Hormone (TSH) 1.75 uIU/mL (0.358-3.74); Triglycerides 127 mg/dL; Very Low Density Lipoprotein 25 mg/dL (5-40)
== END ==
PROVIDERS: Family Provider Family Medicine; PCP Family Medicine; Referring Provider Internal Medicine Cardiovascular Disease; Visit Provider Internal Medicine Cardiovascular Disease
DX: I10 Essential (primary) hypertension (principal); G47.33 Obstructive sleep apnea (adult) (pediatric); Z13.220 Encounter for screening for lipoid disorders; R06.02 Shortness of breath
CPT/HCPCS: 36415; 80061; 80076; 84436; 84443

== ENCOUNTER → 2018-07-18 08:00 | Outpatient (CLI) | payer OTHER, SELFPAY ==
[2018-07-02 11:09] VITALS: BMI 30.4
[2018-07-17 08:49] VITALS: BMI 30.4
--- NOTE | 2018-07-18 08:03 | ECHOD_ITS ---
Reason For Study: DYSPNEA/SOB Procedure This was a 2D Doppler, Color Flow transthoracic echocardiogram. Exam performed in department. Left Ventricle Normal size and thickness. The estimated ejection fraction is 65 %. Stage 1 diastolic dysfunction. No regional wall motion abnormalities noted. Right Ventricle Mildly dilated right ventricle. Normal systolic function. Atria Normal left atrium. Normal right atrium. Normal atrial septum. Mitral Valve The mitral valve is structurally normal. No prolapse or stenosis seen. Tricuspid Valve Normal tricuspid valve. Unable to estimate RV systolic pressure due to inadequate jet, pulmonary artery pressure probably normal. Aortic Valve Normal aortic valve. Trisinus/trileaflet aortic valve. Pulmonic Valve Normal pulmonic valve. Trivial pulmonic valve insufficiency. Great Vessels Normal aortic root. Normal arch. Normal inferior vena cava. Inferior vena cava collapse with sniff. Pericardium/Pleural No pericardial effusion. MMode/2D Measurements & Calculations LVIDd: 5.0 cm IVSd: 0.86 cm Ao root diam: 3.4 cm LVIDs: 3.4 cm LVPWd: 0.77 cm RVDd: 4.2 cm FS: 31.2 % LAV(MOD-bp): 49.9 ml LVAd ap4: 41.1 cm2 SV(MOD-sp4): 82.3 ml LAV(MOD-bp) Indexed: 22.3 ml/m2 EDV(MOD-sp4): 148.8 ml LAV(MOD-sp2): 45.2 ml EDV(sp4-el): 152.4 ml LAV(MOD-sp4): 48.1 ml LVAs ap4: 24.1 cm2 ESV(MOD-sp4): 66.5 ml ESV(sp4-el): 66.6 ml EF(MOD-sp4): 55.3 % EF(sp4-el): 56.3 % SV(sp4-el): 85.8 ml LA A4 area: 18.5 cm2 LA dimension(2D): 3.5 cm RA A4 area: 17.3 cm2 Time Measurements MV dec time: 0.28 sec Doppler Measurements & Calculations MV E max tonny: 70.8 cm/sec Lat Peak E' Tonny: 10.4 cm/sec Med Peak E' Tonny: 8.1 cm/sec MV A max tonny: 62.7 cm/sec E/E' lat: 6.8 E/E' med: 8.7 MV E/A: 1.1 Ao V2 max: 144.3 cm/sec LV V1 max: 99.4 cm/sec PA V2 max: 93.5 cm/sec Ao max P.3 mmHg LV V1 max P.0 mmHg Interpretation Summary The estimated ejection fraction is 65 %. Stage 1 diastolic dysfunction. Mildly dilated right ventricle. Unable to estimate RV systolic pressure due to inadequate jet, pulmonary artery pressure probably normal. There is no comparison study available. Ordering Physician: Hudson Garvey Referring Physician: MARIA DEL CARMEN GOLD Performed By: Keyla Woods RDCS
== END ==
PROVIDERS: Family Provider Family Medicine; PCP Family Medicine; Referring Provider Internal Medicine Cardiovascular Disease; Visit Provider Internal Medicine Cardiovascular Disease
DX: R06.02 Shortness of breath (principal); G47.33 Obstructive sleep apnea (adult) (pediatric); I10 Essential (primary) hypertension; Z82.49 Family history of ischemic heart disease and other diseases of the circulatory system
CPT/HCPCS: 93306

== ENCOUNTER → 2018-07-25 10:57 | Outpatient (CLI) | payer OTHER, SELFPAY ==
[2018-07-02 11:09] VITALS: BMI 30.4
[2018-07-17 08:49] VITALS: BMI 30.4
--- NOTE | 2018-07-25 10:58 | STE_ITS ---
Reason For Study: Dyspnea Stress Results Protocol: Unruly Protocol Maximum Predicted HR: 176 bpm Target HR: 150 bpm % Maximum Predicted HR: 96 % DurationHeart Rate Stage (mm:ss) (bpm) BP Comment Baseline 78 138/88No Chest Pain Unruly Protocol Stage I 3:00 106 134/86No Chest Pain Unruly Protocol Stage II 3:00 123 140/88No Chest Pain Unruly Protocol Stage III 3:00 153 158/84No Chest Pain Unruly Protocol Stage IV 1:00 169 / No Chest Pain; Mild Dyspnea Recovery 94 134/94No Chest Pain Stress Duration: 10:00 mm:ss Maximum Stress HR: 169 bpm METS: 13 Baseline Echocardiogram Findings The estimated ejection fraction is 65 %. Stress Echo Wall motion Data Resting WM Intermediate WM Stress WM Resting Wall Motion Wall Motion Stress No regional wall motion No regional wall motion abnormalities noted. abnormalities noted. EKG Data Normal intervals are noted. The patient exercised according to the regular Unruly protocol for a total duration of 10:00. The maximum heart rate attained was 171 beats per minute. This was 97% of maximum predicted heart rate. The patient exercised into stage 4 of the Unruly protocol. During stress, there were no ST or T wave changes noted to suggest ischemia. No clinical angina was noted. Interpretation Summary The estimated ejection fraction is 65 %. Normal, adequate, treadmill echocardiogram. Negative for ischemia by EKG and echocardiographic criteria. No anginal symptoms noted. Rare PVCs noted. Appropriate blood pressure response to exercise. Average exercise capacity for age. Final LVEF of 75%. Test terminated due to leg fatigue. Ordering Physician: Hudson Garvey Referring Physician: Keith Gardner III Performed By: Margaret Landin, KENAN, RVT
== END ==
PROVIDERS: Family Provider Family Medicine; PCP Family Medicine; Referring Provider Internal Medicine Cardiovascular Disease; Visit Provider Internal Medicine Cardiovascular Disease
DX: R06.02 Shortness of breath (principal); G47.33 Obstructive sleep apnea (adult) (pediatric); I10 Essential (primary) hypertension; G47.30 Sleep apnea, unspecified; Z82.49 Family history of ischemic heart disease and other diseases of the circulatory system
CPT/HCPCS: 93017; 93350

== ENCOUNTER → 2018-12-25 | Outpatient (CLI) | payer OTHER, SELFPAY ==
[2018-07-17 08:49] VITALS: BMI 30.4
--- NOTE | 2018-12-25 10:07 | NEURO ---
NCS and/or EMG Patient Report Ordering Doctor: Chante Garcia DATE OF SERVICE: 12/25/18 Is a bilateral upper extremity nerve conduction study performed on this 43-year-old male with a 3-month history of numbness and tingling in his hands. Bilateral upper extremity sensory and motor nerve conduction studies performed demonstrating moderate prolongation of the median motor and sensory distal latencies symmetrically with preservation of amplitudes and conduction velocities. The ulnar motor and sensory and radial sensory responses are normal. The median F wave latencies are mildly prolonged bilaterally. Impression: This is an abnormal nerve conduction study of the bilateral upper extremities consistent with moderate carpal tunnel syndrome at the wrist bilaterally.
== END | disposition home or self-care (01) ==
LOC: PSN 06:50
PROVIDERS: Family Provider Family Medicine; PCP Family Medicine; Referring Provider Nurse Practitioner Family; Visit Provider Nurse Practitioner Family
DX: R20.0 Anesthesia of skin (principal); R20.2 Paresthesia of skin
CPT/HCPCS: 95912

== ENCOUNTER → 2019-02-11 20:00 | Outpatient (CLI) | payer OTHER, SELFPAY ==
[2019-01-14 07:45] VITALS: BMI 30.4
== END ==
PROVIDERS: Family Provider Family Medicine; PCP Family Medicine; Referring Provider Nurse Practitioner Acute Care; Visit Provider Nurse Practitioner Acute Care
DX: G47.33 Obstructive sleep apnea (adult) (pediatric) (principal)
CPT/HCPCS: 95811

== ENCOUNTER → 2020-11-19 08:28 | Outpatient (CLI) | payer OTHER, SELFPAY ==
[2020-10-29 15:12] VITALS: BMI 30.7
[2020-11-19 10:29] LABS: Insulin 22.6 mU/L (2.6-37.6)
[2020-11-19 10:35] LABS: Hemoglobin A1c 4.7 % (3.8-5.6)
[2020-11-19 10:50] LABS: Anion Gap 9 (5-15); BUN 20 mg/dL (7-18); BUN/Creat Ratio 15.7 RATIO (10-20); Calcium,Total 8.7 mg/dL (8.5-10.1); Chloride 104 mmol/L (98-107); Creatinine, Serum 1.27 mg/dL (0.70-1.30); EST Glomerular Filtration Rate 65 mL/min (>60); Est Glom Filt Rate - Afr Amer 78 mL/min (>60); Glucose 99 mg/dL (74-106); Potassium 3.8 mmol/L (3.5-5.1); Sodium Level 138 mmol/L (136-145)
== END ==
PROVIDERS: PCP Family Medicine; Referring Provider Dermatology; Visit Provider Dermatology
DX: L83 Acanthosis nigricans (principal); L40.0 Psoriasis vulgaris; L40.8 Other psoriasis; L29.8 Other pruritus; D22.5 Melanocytic nevi of trunk; L82.1 Other seborrheic keratosis; Z71.89 Other specified counseling; D18.01 Hemangioma of skin and subcutaneous tissue
CPT/HCPCS: 36415; 80048; 83036; 83525

== ENCOUNTER → 2020-12-21 09:43 | Outpatient (CLI) | payer OTHER, SELFPAY ==
[2020-12-21 08:26] VITALS: BMI 30.7
[2020-12-21 12:05] LABS: Absolute Lymphocyte Count 2.39 X10^3/uL (0.83-4.51); Absolute Neutrophil Count 3.2 X10^3/uL (2.0-7.7); Basophil# 0.06 X10^3/uL; Basophil% 0.9 % (0-1); Eosinophil# 0.33 X10^3/uL; Hematocrit 45.2 % (40-54); Lymphocyte # 2.39 X10^3/ul (0.83-4.51); Lymphocyte % 36.5 % (19-41); Mean Corp Hgb Conc 33.2 g/dL (32-36); Mean Corpuscular Hgb 29.1 pg (27.0-32.0); Mean Corpuscular Volume 87.6 fL (80-94); Mean Platelet Vol. 10.5 fl (6.2-12.0); Monocyte# 0.54 X10^3/uL; Monocyte% 8.2 % (0-10); NRBC Flagged by Analyzer 0 % (0-5); Neutrophil # 3.21 X10^3/uL (2.7-7.7); Neutrophil % 49.1 % (47-70); Platelet Count 262 K/mm3 (150-450); RBC Distribution Width CV 13.1 % (11.6-14.6); RBC Distribution Width SD 41.7 fl (35.1-43.9); Red Blood Count 5.16 M/mm3 (4.6-6.2); White Blood Count 6.6 K/mm3 (4.4-11.0)
[2020-12-21 12:17] LABS: Vitamin D,25 Hydroxy 33.6 ng/mL
[2020-12-21 12:27] LABS: ALB/GLOB Ratio 1.1 RATIO (0.9-2.4); AST(SGOT) 28 U/L (15-37); Alanine Aminotransfer ALT/SGPT 58 U/L (16-61); Albumin, Serum 4.2 g/dL (3.2-5.0); Alkaline Phosphatase 61 U/L (45-117); Anion Gap 7 (5-15); BUN 12 mg/dL (7-18); BUN/Creat Ratio 10.5 RATIO (10-20); Calcium,Total 8.7 mg/dL (8.5-10.1); Chloride 105 mmol/L (98-107); Cholesterol 184 mg/dL (200); Creatinine, Serum 1.14 mg/dL (0.70-1.30); EST Glomerular Filtration Rate 73 mL/min (>60); Est Glom Filt Rate - Afr Amer 89 mL/min (>60); Globulin 3.7 g/dL (2.2-4.2); Glucose 94 mg/dL (74-106); High Density Lipoprotein 50 mg/dL; PSA,Total - Annual Screen 0.88 ng/mL (0.00-4.00); Potassium 4.5 mmol/L (3.5-5.1); Protein, Total 7.9 g/dL (6.4-8.2); Sodium Level 138 mmol/L (136-145); Triglycerides 170 mg/dL; Very Low Density Lipoprotein 34 mg/dL (5-40)
[2020-12-21 14:29] LABS: Hemoglobin A1c 4.9 % (3.8-5.6)
== END ==
PROVIDERS: PCP Internal Medicine; Referring Provider Internal Medicine; Visit Provider Internal Medicine
DX: I10 Essential (primary) hypertension (principal); G47.33 Obstructive sleep apnea (adult) (pediatric); J30.2 Other seasonal allergic rhinitis; M10.9 Gout, unspecified; E55.9 Vitamin D deficiency, unspecified; K21.9 Gastro-esophageal reflux disease without esophagitis; Z12.5 Encounter for screening for malignant neoplasm of prostate
CPT/HCPCS: 36415; 80053; 80061; 82306; 83036; 84153; 85025; G0103

== ENCOUNTER → 2021-01-06 08:39 | Outpatient (CLI) | payer OTHER, SELFPAY ==
[2021-01-06 10:36] LABS: Homocysteine 7.9 umol/L (3.2-10.7)
[2021-01-12 16:08] LABS: Complement C3 142 mg/dL (82-167); Dilute Russell Viper Venom 44.8 sec (0.0-47.0); PTT-LA 33.5 sec (0.0-51.9); Thrombin Time 19.7 sec (0.0-23.0)
[2021-01-12 18:35] LABS: Anti-Cardiolipin Ab, IgA, Qn < 9 APL U/mL (0-11); Anti-Cardiolipin Ab, IgG, Qn < 9 GPL U/mL (0-14); Anti-Cardiolipin Ab, IgM, Qn 10 MPL U/mL (0-12); Anti-Thrombin 3 AG, Immunol 85 % (72-124); Antithrombin 3 Function 103 % (75-135); Interpretation Comment: (.); Protein C, Functional 122 % (73-180); Protein S, Free 105 % (57-157); Protein S, Funtional 114 % (63-140); Protein S, Total 97 % (60-150)
== END ==
PROVIDERS: PCP Internal Medicine; Referring Provider Internal Medicine; Visit Provider Internal Medicine
DX: Z83.2 Family history of diseases of the blood and blood-forming organs and certain disorders involving the immune mechanism (principal)
CPT/HCPCS: 36415; 81240; 81241; 83090; 85300; 85301; 85303; 85305; 85306; 86147; 86160

== ENCOUNTER 2021-07-19 09:00 | Outpatient (CLI) | payer OTHER, SELFPAY | END 2021-07-19 23:59 | disposition home or self-care (01) | LOC: SL 09:37 | PROVIDERS: PCP Internal Medicine; Visit Provider Internal Medicine Critical Care Medicine | DX: G47.33 Obstructive sleep apnea (adult) (pediatric) (principal) ==

== ENCOUNTER 2021-08-10 09:14 | Outpatient (CLI) | payer OTHER, SELFPAY ==
[2021-08-10 10:16] LABS: Anion Gap 7 (5-15); BUN 18 mg/dL (7-18); BUN/Creat Ratio 15.3 RATIO (10-20); Calcium,Total 9.3 mg/dL (8.5-10.1); Chloride 104 mmol/L (98-107); Creatinine, Serum 1.18 mg/dL (0.70-1.30); EST Glomerular Filtration Rate 70 mL/min (>60); Est Glom Filt Rate - Afr Amer 85 mL/min (>60); Glucose 106 mg/dL (74-106); Magnesium 2.3 mg/dL (1.6-2.6); Potassium 4.4 mmol/L (3.5-5.1); Sodium Level 138 mmol/L (136-145); Thyroid Stim Hormone (TSH) 1.62 uIU/mL (0.358-3.74)
== END 2021-08-10 23:59 | disposition home or self-care (01) ==
LOC: LAB 09:16
PROVIDERS: PCP Internal Medicine; Referring Provider Physician Assistant Medical; Visit Provider Physician Assistant Medical
DX: I10 Essential (primary) hypertension (principal)
CPT/HCPCS: 36415; 80048; 83735; 84443

== ENCOUNTER → 2022-07-19 | Outpatient (CLI) | payer OTHER, SELFPAY ==
[2022-07-19 10:55] LABS: Absolute Lymphocyte Count 3.03 X10^3/uL (0.83-4.51); Absolute Neutrophil Count 4.2 X10^3/uL (2.0-7.7); Basophil# 0.06 X10^3/uL; Basophil% 0.7 % (0-1); Eosinophil# 0.34 X10^3/uL; Eosinophils% 4.1 % (0-5); Hematocrit 46.7 % (40-54); Hemoglobin 15.4 g/dL (13.0-16.5); Lymphocyte # 3.03 X10^3/ul (0.83-4.51); Mean Corpuscular Hgb 29.1 pg (27.0-32.0); Mean Corpuscular Volume 88.1 fL (80-94); Mean Platelet Vol. 9.5 fl (6.2-12.0); Monocyte# 0.52 X10^3/uL; Monocyte% 6.3 % (0-10); NRBC Flagged by Analyzer 0 % (0-5); Neutrophil # 4.18 X10^3/uL (2.7-7.7); Platelet Count 275 K/mm3 (150-450); RBC Distribution Width CV 13.2 % (11.6-14.6); White Blood Count 8.2 K/mm3 (4.4-11.0)
[2022-07-19 11:32] LABS: Vitamin D,25 Hydroxy 34.1 ng/mL
[2022-07-19 11:41] LABS: ALB/GLOB Ratio 1.1 RATIO (0.9-2.4); AST(SGOT) 22 U/L (15-37); Alanine Aminotransfer ALT/SGPT 49 U/L (16-61); Alkaline Phosphatase 57 U/L (45-117); Anion Gap 7 (5-15); BUN 18 mg/dL (7-18); BUN/Creat Ratio 14.9 RATIO (10-20); Calcium,Total 9.1 mg/dL (8.5-10.1); Chloride 104 mmol/L (98-107); Cholesterol 166 mg/dL (200); Creatinine, Serum 1.21 mg/dL (0.70-1.30); EST Glomerular Filtration Rate 68 mL/min (>60); Est Glom Filt Rate - Afr Amer 82 mL/min (>60); Globulin 3.7 g/dL (2.2-4.2); Glucose 94 mg/dL (74-106); High Density Lipoprotein 50 mg/dL; PSA,Total - Annual Screen 1.13 ng/mL (0.00-4.00); Potassium 4.1 mmol/L (3.5-5.1); Protein, Total 7.7 g/dL (6.4-8.2); Sodium Level 138 mmol/L (136-145); Thyroid Stim Hormone (TSH) 1.24 uIU/mL (0.358-3.74); Triglycerides 91 mg/dL; Very Low Density Lipoprotein 18 mg/dL (5-40)
[2022-07-19 14:14] LABS: Hemoglobin A1c 4.8 % (3.8-5.6)
== END | disposition home or self-care (01) ==
LOC: LAB 10:09
PROVIDERS: PCP Internal Medicine; Referring Provider Internal Medicine; Visit Provider Internal Medicine
DX: Z00.00 Encounter for general adult medical examination without abnormal findings (principal); I10 Essential (primary) hypertension; G47.33 Obstructive sleep apnea (adult) (pediatric); K21.9 Gastro-esophageal reflux disease without esophagitis; Z13.220 Encounter for screening for lipoid disorders; Z12.5 Encounter for screening for malignant neoplasm of prostate; E55.9 Vitamin D deficiency, unspecified
CPT/HCPCS: 36415; 80053; 80061; 82306; 83036; 84153; 84443; 85025; G0103

== ENCOUNTER 2022-10-15 08:27 | Emergency (ER) | payer OTHER, SELFPAY ==
[2022-10-15 08:28] VITALS: BP 127/95; PULSE 84; RESP 16; TEMP 36.6; O2SAT 98; BMI 30.2
--- NOTE | 2022-10-15 08:49 | RAD_ITS ---
STUDY: X-RAY - LEFT FOOT CLINICAL: Male, 47 years old. Injury/Pain -- P.o. P base fifth metatarsal and suspect gout MTP TECHNIQUE: 3 view(s) of the foot. COMPARISON: None. FINDINGS: Normal talus, calcaneus, and tarsal bones. Normal visualized subtalar, talonavicular, calcaneocuboid, tarsal and tarsometatarsal articulations. Normal metatarsi. There is mild joint space narrowing, spurring, and small cysts or erosions at the metatarsophalangeal joint of the great toe. Normal tibial and fibular sesamoid bones. Normal interphalangeal joint of the great toe. Normal phalanges of the great toe. Normal second through fifth metatarsophalangeal joints. Normal interphalangeal joints and phalanges of the lesser toes. The soft tissue structures are unremarkable. There is no demonstrated fracture. 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 Electronically Signed: Grant Phelps MD at 9:29 EDT ,
--- NOTE | 2022-10-15 08:49 | ED.VIS.LOWEX ---
HPI History of Present Illness Chief Complaint: Lower Extremity Injury Detail of Chief Complaint: Initially pain base fifth metatarsal now swelling and pain MTP great toe Informant: patient and spouse/S.O. Occured/Mechanism Comment: Patient initially had pain base of the fifth metatarsal after he started using inserts prescribed by Dr. Philip [facility]. Onset/Context/Timing Onset: Weeks Context: Sudden Onset Timing: Continuous and Waxes and wanes Quality of Pain: Dull, Aching and Throbbing Location: Base of the fifth metatarsal initially now MTP joint left great toe Current Severity: Mild Maximum Severity: Severe Worsened by: Walking, lying prone, movement of great toe Relieved by: Nothing Associated Symptoms Associated Symptoms: Negative for Parasthesia, Weakness or Loss of Funtion Narrative Narrative: Patient is a 47-year-old male with history of hypertension who was seen by Dr. Oanh Barrera. He presents with greater than week of pain. Pain initially was located near the base of the fifth metatarsal. Pain started after he began using inserts prescribed by Dr. Philip from the foot and ankle clinic. He subsequently developed swelling and pain which is localized over the MTP joint of his left great toe. He has been taking low doses of ibuprofen erratically. He does report lying prone in bed causes his toe to have significant pain. He has not been able to wear a shoe for greater than a week. He is on losartan. He is not on hydrochlorothiazide. He has no history of gout. There is a family history of gout. He denies fever, chills night sweats. He denies any specific injury. He denies prior injury to the left foot. He is not on an antithrombotic or anticoagulant. Patient states he went to urgent care and presents because he is requesting a second opinion and was dissatisfied with care rendered. Tetanus Immunization: Unknown Prior similar symptoms: No Recent Illness/Hospitalization: No [facility] Medical History Essential hypertension Family history of clotting disorder GERD (gastroesophageal reflux disease) Gout TOBY (obstructive sleep apnea) Seasonal allergies Sleep apnea Home Medications cholecalciferol (vitamin D3) 25 mcg (1,000 unit) capsule (Vitamin D3) 1,000 unit PO DAILY 05/31/18 [History Last Taken Unknown] coenzyme Q10 75 mg capsule (Ultra CoQ10) 75 mg PO DAILY 05/31/18 [History Last Taken Unknown] multivitamin (Multiple Vitamins tablet) 1 tab PO DAILY 05/31/18 [History Last Taken Unknown] omega-3 fatty acids 1,000 mg capsule (Fish Oil Concentrate) 2,000 mg PO QDAY supplement 05/31/18 [History Last Taken Unknown] Cellular Complex PO 11/16/20 [History Last Taken Unknown] Essential oils PO 11/16/20 [History Last Taken Unknown] losartan 25 mg tablet 25 mg PO DAILY #90 tabs 07/19/22 [Rx Last Taken Unknown] prednisone 20 mg tablet 60 mg PO DAILY #15 TABLETS 10/15/22 [Rx Last Taken Unknown] Allergy/AdvReac Type Severity Reaction Status Date / Time shellfish derived Allergy Severe anaphylacti Verified 07/19/22 08:42 c hydrochlorothiazide Allergy Intermediate palpitation Verified 07/19/22 08:42 s/restlessn ess lisinopril AdvReac Mild cough & Verified 07/19/22 08:42 tachycardia Family History Brother Asthma Cancer Mother Arthritis Hypertension High cholesterol Macular degeneration Depression Father Hypertension High cholesterol Sleep apnea Myocardial infarction, Onset Age: 68 CAD (coronary artery disease) Son Seizures Daughter Seizures Aunt Parkinsons disease Grandmother Parkinsons disease CVA (cerebral vascular accident) Uncle CVA (cerebral vascular accident) Diabetes Grandfather Myocardial infarction, Onset Age: 68 Surgical History History of esophagogastroduodenoscopy (EGD) (~10/2017) History of tonsillectomy S/P colonoscopy Status post laparoscopic Jose fundoplication (~12/2017) Status post laparoscopic Jose fundoplication (~12/31/17) Social History household members: spouse and children housing: house current occupational status: employed current occupation: [employer] [address] [place], [place] pets and animals: Yes pets and animals: other details: outdoor cats Smoking Status: Never smoker second hand exposure: No alcohol intake: never substance use type: does not use what type of physical activity do you participate in: walking frequency: 1-2 times per week ROS ROS ED Constitutional Constitutional ED: Denies chills, fever(s), subjective, sweats or weight loss Musculoskeletal Musculoskeletal: Reports arthralgias; Denies back pain, myalgias or neck pain Integumentary Reports rash; Denies abscess or Abrasions Neurologic Neurologic: Denies paresthesias or weakness Endocrine Endocrinology: Denies polydipsia, polyphagia or polyuria EXAM Physical Exam Const Vital Signs: 10/15/22 08:28 Temperature 97.9 F Temperature Source Temporal Pulse Rate 84 Respiratory Rate 16 Blood Pressure 127/95 H Blood Pressure Mean 105 Pulse Ox 98 Oxygen Delivery Method Room Air Positive well nourished and well developed General Appearance ED: well developed HEENT Reports moist mucous membranes normocephalic and atraumatic Eyes PERRL Eyes Narrative: Extraocular muscles are intact. Sclera is anicteric. Resp normal respiratory effort Cardio regular rate and regular rhythm Extremity Negative for normal to inspection Extremity Narrative: There is swelling and erythema over the MTP joint of the left great toe. There is pain outpatient base of the fifth metatarsal. The base of the fifth metatarsal is slightly more prominent on the left than right. DP and PT pulse are palpable. There is no pain the patient over the plantar surface of the left foot. There is no pain ovation of the lateral medial malleolus. Patient does have pain with passive dorsi and plantarflexion of the great toe. General Extremety ED: Yes edema and weight-bearing difficulty; Negative for cyanosis General Extremity: edema and weight-bearing difficulty; Negative for cyanosis Neuro oriented x3, CN's II-XII intact bilaterally and moves all extremities Psych mental status grossly normal Skin no wounds Lesions: no lesions MDM MDM MDM Narrative Medical decision making narrative: With pain at the base of the fifth metatarsal with prominence will obtain x-ray to evaluate for possible pull off fracture versus ligamentous strain from orthotic device. Suspect patient has gout since he has erythema slight warmth and pain over the MTP joint of his great toe. Since he is not diabetic we will treat with burst of prednisone. Radiography Chest X-Ray - ED: Read by ED Physician (Three-view x-ray of the foot reveals no evidence of fracture, of the fifth metatarsal. There is arthritic changes noted MTP joint of the left great toe.) Diagnostic Testing: Clinical Impression(s) from Imaging Studies Foot X-Ray 10/15/22 08:49 IMPRESSION: Arthritic change at the first MTP joint. Electronically Signed: Grant Phelps MD at 9:29 EDT , Treatment and Re-Evaluation Narrative: In light of patient's history arthritic changes of the first MTPJ joint suspect patient has gout we will treat with burst of prednisone. He received his first dose of prednisone in department. With regards to the pain at the base of the fifth metatarsal have him follow-up Dr. Philip since this may be related to the orthotic he was prescribed. Discharge Plan Triage Chief Complaint: Lower Extremity Injury ED Provider: Kareem Dumas Dx/Rx/DC Orders Clinical Impression: Gout, Essential hypertension, Acute pain of left foot Instructions: ED Gout Prescriptions: New prednisone 20 mg tablet 60 mg PO DAILY Qty: 15 0RF No Action omega-3 fatty acids [Fish Oil Concentrate] 1,000 mg capsule 2,000 mg PO QDAY multivitamin [Multiple Vitamins] tablet 1 tab PO DAILY Ultra CoQ10 75 mg capsule 75 mg PO DAILY cholecalciferol (vitamin D3) 1,000 unit capsule 1,000 unit capsule 1,000 unit PO DAILY Cellular Complex PO Essential oils PO losartan 25 mg tablet 25 mg PO DAILY Qty: 90 3RF Primary Care Provider: Oanh Barrera Referrals: Oanh Barrera MD [Primary Care Provider] - 3-5 Days if not improving Malvin Philip DPM [Med Staff - Active Staff] - 3-5 Days Activity Restrictions/Additional Instructions: Recommend follow-up with Dr. Philip with regards to the pain lateral aspect of your foot since this may be related to the orthotics you were prescribed Disposition Disposition: Home, Self Care
[2022-10-15] MEDS: predniSONE 20 MG Tablet 60 MG PO (10:12)
[2022-10-15 10:15] VITALS: BP 125/74; PULSE 61; RESP 15; O2SAT 98
== END 2022-10-15 10:16 | disposition home or self-care (01) ==
PROVIDERS: Emergency Provider Emergency Medicine; PCP Internal Medicine; Visit Provider Emergency Medicine
DX: M10.9 Gout, unspecified (principal); I10 Essential (primary) hypertension; M79.672 Pain in left foot; Z79.899 Other long term (current) drug therapy; X58.XXXA Exposure to other specified factors, initial encounter
CPT/HCPCS: 73630; 99283

== ENCOUNTER → 2023-11-13 | Outpatient (CLI) | payer OTHER, SELFPAY ==
[2023-11-13 12:32] LABS: Absolute Lymphocyte Count 2.11 X10^3/uL (0.83-4.51); Absolute Neutrophil Count 3.1 X10^3/uL (2.0-7.7); Basophil# 0.06 X10^3/uL; Eosinophil# 0.29 X10^3/uL; Eosinophils% 4.8 % (0-5); Hemoglobin 15.2 g/dL (13.0-16.5); Lymphocyte # 2.11 X10^3/ul (0.83-4.51); Lymphocyte % 35.3 % (19-41); Mean Corpuscular Hgb 29.1 pg (27.0-32.0); Mean Platelet Vol. 10.5 fl (6.2-12.0); Monocyte# 0.43 X10^3/uL; Monocyte% 7.2 % (0-10); NRBC Flagged by Analyzer 0 % (0-5); Neutrophil # 3.07 X10^3/uL (2.7-7.7); Neutrophil % 51.4 % (47-70); Platelet Count 267 K/mm3 (150-450); RBC Distribution Width CV 13.2 % (11.6-14.6); RBC Distribution Width SD 41.9 fl (35.1-43.9); Red Blood Count 5.23 M/mm3 (4.6-6.2)
[2023-11-13 12:50] LABS: ALB/GLOB Ratio 1.1 RATIO (0.9-2.4); AST(SGOT) 27 U/L (15-37); Alanine Aminotransfer ALT/SGPT 44 U/L (16-61); Alkaline Phosphatase 57 U/L (45-117); Anion Gap 7 (5-15); BUN 15 mg/dL (7-18); BUN/Creat Ratio 12.3 RATIO (10-20); Calcium,Total 9.5 mg/dL (8.5-10.1); Chloride 105 mmol/L (98-107); Cholesterol 165 mg/dL (200); Creatinine, Serum 1.22 mg/dL (0.70-1.30); EST Glomerular Filtration Rate 67 mL/min (>60); Est Glom Filt Rate - Afr Amer 81 mL/min (>60); Globulin 3.7 g/dL (2.2-4.2); Glucose 105 mg/dL (74-106); High Density Lipoprotein 50 mg/dL; PSA,Total- Diagnostic 1.54 ng/mL (0.0-4.0); Potassium 4.1 mmol/L (3.5-5.1); Protein, Total 7.7 g/dL (6.4-8.2); Sodium Level 138 mmol/L (136-145); Triglycerides 118 mg/dL; Very Low Density Lipoprotein 24 mg/dL (5-40)
[2023-11-13 13:03] LABS: Vitamin B12 404 pg/mL (211-911); Vitamin D,25 Hydroxy 45.7 ng/mL
[2023-11-14 11:09] LABS: ANTINUCLEAR ANTIBODIES DIRECT Negative (Negative)
== END | disposition home or self-care (01) ==
LOC: BIMLAB 08:44
PROVIDERS: PCP Internal Medicine; Referring Provider Internal Medicine; Visit Provider Internal Medicine
DX: Z13.6 Encounter for screening for cardiovascular disorders (principal); I10 Essential (primary) hypertension; R35.1 Nocturia; Z80.42 Family history of malignant neoplasm of prostate; R53.83 Other fatigue; R20.0 Anesthesia of skin
CPT/HCPCS: 36415; 80053; 80061; 82306; 82607; 84153; 85025; 86038; 86225; 86235

== ENCOUNTER → 2023-12-05 | Outpatient (CLI) | payer OTHER, SELFPAY | END | disposition home or self-care (01) | PROVIDERS: PCP Internal Medicine; Referring Provider Internal Medicine; Visit Provider Internal Medicine | DX: G47.33 Obstructive sleep apnea (adult) (pediatric) (principal) | CPT/HCPCS: 95811 ==

== ENCOUNTER → 2024-01-03 | Outpatient (CLI) | payer OTHER, SELFPAY | END | disposition home or self-care (01) | LOC: SL 08:54 | PROVIDERS: PCP Internal Medicine; Visit Provider Internal Medicine | DX: Z00.00 Encounter for general adult medical examination without abnormal findings (principal) ==

== ENCOUNTER → 2024-06-25 | Outpatient (CLI) | payer OTHER, SELFPAY ==
--- NOTE | 2024-06-25 14:45 | RAD_ITS ---
PROCEDURE: HIP, UNI W/ PELVIS 2-3 VIEWS REASON FOR EXAM: Right hip pain TECHNIQUE: AP pelvis and two views of the right hip. COMPARISON: None. FINDINGS: No fracture. No suspicious bone lesion. Normal alignment. Soft tissues are unremarkable. RAD/HIP, UNI W/ Pelvis 2-3 Views IMPRESSION: Negative right hip. Negative AP pelvis. Reading Location: [facility]
== END | disposition home or self-care (01) ==
LOC: RAD 14:39
PROVIDERS: PCP Internal Medicine; Referring Provider Physician Assistant; Visit Provider Physician Assistant
DX: M25.551 Pain in right hip (principal)
CPT/HCPCS: 73502

== ENCOUNTER 2024-07-04 07:26 | Outpatient (RCR) | payer OTHER, SELFPAY ==
--- NOTE | 2024-07-04 09:49 | HP.PTEVAL_ITS ---
Patient's Visit Information Visit Information Visit Information: MEGAN MILLER is a 48 year old M referred to Physical Therapy by VAHID Mark with a diagnosis of RIGHT HIP PAIN. Date of Evaluation: 07/04/24 Physical Therapist: Moisés Lundy PT, Cert MDT, OCS Visit Plan Frequency: 1VISIST Plan: PT EVAL ONLY PER PATIENT FOR HEP IF NOT BETTER RTD FOR POSSIBLE MRI Subjective Subjective: This 48 y/o male presents to physical therapy with right hip pain. Patient has right anterior hip pain ~2 months. Seen recommended PT. Ant- inflammatory was prescribed. Patient also has orthotics. x-rays -. Aggravating factors sitting in chair to elevate ,squatting ,bending ,stairs .Alleviating stretching . Denies paresthesia/tingling. Symptoms insidious onset. Bowel/bladder-. Patient pain affects sleeping. Patient condition affects QOL and function. Patient goals to decrease pain and learn HEP. 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 SOCIAL: Pain Right Back: Pain Intensity (Out of 10): 0 Pain Intensity Range: 10 Right Hip: Pain Intensity (Out of 10): 3 Pain Intensity Range: 10 Comment: walking Objective Objective: POSTURE: WFL GAIT: antalgic gait right side NEURO: denies paresthesia/tingling ,reflexes L3-4,L4-5,L5-S1 S1 1/3 FLEXABILITY: hamstrings mod tigh ,quads mod tight PROM: hip flexion 100 degrees pain,hip abd 40 degrees ,IR30 degrees with pain,ER 45 MMT: quads/hip flexion ,hip abd 4-/5 ,pain ,hamstrings 4/5 STAIRS: painful LUMBAR ROM: flexion min loss ,extension min loss ,side glides min Special Tests L/S Slump test left side: Negative L/S Slump test right side: Negative L/S Left Straight Leg Raise: Negative L/S Right Straight Leg Raise: Negative R Hip Scour: Positive R Hip Quadrant - Intraarticular Pathology: Positive R Hip YARELI - Intraarticular Pathology: Positive R Hip FADDIR - Labrum: Positive R Hip Impingement Provocation - Labrum: Positive Goals Goal 1:: Patient to be I with HEP for hip Rehabilitation Potential Physical Therapy Diagnosis: This patient has pain right hip with possible labral tear with pain ,weakness and antalgic gait thus patient wants HEP Rehabilitation Potential: Good Anticipated Interventions Patient/Client Instruction: Educate patient on: Condition and Plan of Care For the Purpose of:: To decrease pain, To increase ROM, To increase oxygenation perfusion, To improve ability to perform ADL's, To increase tolerance to activity/condition/position, To improve ability of physical actions for home/community/work/leisure, To improve health of tissue, To decrease soft tissue restriction and To improve endurance Therapeutic Exercise to Include: Strength training, Flexibilty training and Active ROM Comment: HIP For the Purpose of:: To decrease pain, To increase ROM, To improve muscle perfo rmance and motor function, To increase tolerance to activity/condition/position, To improve ability of physical actions for home/community/work/leisure, To improve health of tissue and To improve tolerance to ADL's Text: Thank you for the opportunity to evaluate your patient. For Medicare and Medicare HMO plans, please review the plan of care and approve it. It will need to be FAXED BACK to us at [phone] for Medicare purposes. For Medicare only, by signing this I certify the plan of care. Please let me know if there are questions or concerns regarding this plan of care. Physician Signature: Date:
--- NOTE | 2024-09-25 15:02 | HP.PT.NRP ---
Patient Information Patient Information: MEGAN MILLER was seen in my office for initial evaluation on 07/04/24. The following Plan of Care was established for this patient: POC Established Initial Frequency: 1VISIST Anticipated Interventions Patient/Client Instruction: Educate patient on: Condition and Plan of Care For the Purpose of:: To decrease pain, To increase ROM, To increase oxygenation perfusion, To improve ability to perform ADL's, To increase tolerance to activity/condition/position, To improve ability of physical actions for home/community/work/leisure, To improve health of tissue, To decrease soft tissue restriction and To improve endurance Therapeutic Exercise to Include: Strength training, Flexibilty training and Active ROM For the Purpose of:: To decrease pain, To increase ROM, To improve muscle performance and motor function, To increase tolerance to activity/condition/position, To improve ability of physical actions for home/community/work/leisure, To improve health of tissue and To improve tolerance to ADL's Last Seen Last Seen: This patient was last seen in our office . Pertinent comments regarding their Physical therapy will appear below: Patient seen for PT for right hip pain for HEP only thus is d/c At this point I will be discontinuing this patient from physical therapy. I would be happy to see this patient again in the future if found appropriate by the physician. Thank you! Moisés Lundy, PT, Cert MDT, OCS
== END 2024-07-04 19:00 | disposition home or self-care (01) ==
LOC: PT 07:26
PROVIDERS: PCP Internal Medicine; Referring Provider Physician Assistant; Visit Provider Physician Assistant
DX: M25.551 Pain in right hip (principal); G57.63 Lesion of plantar nerve, bilateral lower limbs
CPT/HCPCS: 97110; 97162

== ENCOUNTER → 2024-07-22 | Outpatient (CLI) | payer OTHER, SELFPAY ==
[2024-07-22 12:30] LABS: Absolute Neutrophil Count 3.2 X10^3/uL (2.0-7.7); Basophil# 0.06 X10^3/uL; Basophil% 0.9 % (0-1); Eosinophil# 0.25 X10^3/uL; Eosinophils% 3.7 % (0-5); Hematocrit 44.4 % (40-54); Hemoglobin 14.8 g/dL (13.0-16.5); Lymphocyte % 40.1 % (19-41); Mean Corp Hgb Conc 33.3 g/dL (32-36); Mean Corpuscular Hgb 29.2 pg (27.0-32.0); Mean Corpuscular Volume 87.6 fL (80-94); Mean Platelet Vol. 10.2 fl (6.2-12.0); Monocyte# 0.51 X10^3/uL; Monocyte% 7.6 % (0-10); NRBC Flagged by Analyzer 0 % (0-5); Neutrophil % 47.4 % (47-70); Platelet Count 274 K/mm3 (150-450); RBC Distribution Width CV 13.5 % (11.6-14.6); RBC Distribution Width SD 42.5 fl (35.1-43.9); Red Blood Count 5.07 M/mm3 (4.6-6.2); White Blood Count 6.7 K/mm3 (4.4-11.0)
[2024-07-22 14:31] LABS: ALB/GLOB Ratio 1.4 RATIO (0.9-2.4); AST(SGOT) 24 U/L (<=37); Alanine Aminotransfer ALT/SGPT 27 U/L (<=46); Albumin, Serum 4.5 g/dL (3.5-5.0); Alkaline Phosphatase 61 U/L (40-129); Anion Gap 14 (5-15); BUN 16 mg/dL (4-19); BUN/Creat Ratio 13.7 RATIO (10-20); Calcium,Total 9.4 mg/dL (7.6-11.0); Carbon Dioxide 22.1 mmol/L (21.0-32.0); Chloride 104 mmol/L (98-108); Creatinine, Serum 1.15 mg/dL (0.70-1.20); EST Glomerular Filtration Rate 78 (>60); Globulin 3.2 g/dL (2.2-4.2); Glucose 106 mg/dL (70-99); Potassium 4.3 mmol/L (3.3-5.1); Protein, Total 7.7 g/dL (5.9-8.4); Sodium Level 140 mmol/L (133-145); Total Bilirubin 0.65 mg/dL (0.00-1.30)
[2024-07-22 18:15] LABS: Cholesterol 174 mg/dL (<=200); High Density Lipoprotein 57 mg/dL; Low Density Lipoprotein Calc. 93 mg/dL; Triglycerides 122 mg/dL; Very Low Density Lipoprotein 24 mg/dL (5-40); cholesterol:hdl ratio screen 3.06
== END | disposition home or self-care (01) ==
LOC: BIMLAB 08:11
PROVIDERS: PCP Internal Medicine; Visit Provider Internal Medicine
DX: Z00.00 Encounter for general adult medical examination without abnormal findings (principal); I10 Essential (primary) hypertension; G47.33 Obstructive sleep apnea (adult) (pediatric); Z80.42 Family history of malignant neoplasm of prostate
CPT/HCPCS: 36415; 80053; 80061; 84153; 85025; G0103

== ENCOUNTER → 2024-07-23 | Outpatient (CLI) | payer OTHER, SELFPAY | END | disposition home or self-care (01) | LOC: LABSPEC 08:56 | PROVIDERS: PCP Internal Medicine; Referring Provider Internal Medicine; Visit Provider Internal Medicine | DX: K62.5 Hemorrhage of anus and rectum (principal) | CPT/HCPCS: 82274 ==

== ENCOUNTER 2025-02-12 09:47 | Emergency (ER) | payer OTHER, SELFPAY ==
[2025-02-12 09:47] VITALS: BP 166/111; PULSE 71; RESP 14; TEMP 37.2; O2SAT 98; BMI 32.3
--- NOTE | 2025-02-12 10:00 | ED.VIS.GI ---
HPI HPI - GI History of Present Illness Chief Complaint: Abd Pain Informant: patient Abdominal Pain/Flank Pain Onset: Today Context: Sudden Onset Timing: Continuous Quality: Cramping Location: LLQ and Left Flank Worsened by: - (Standing) Relieved by: - (Bending forward) Nausea/Vomiting/Emesis GI Symptom: Positive for Nausea and Vomiting Quality: Positive for - (Dry heaves) Diarrhea/Melena/Hematochezia GI Symptom: Negative for Diarrhea, Melena or Hematochezia Associated Symptoms Associated Symptoms: Negative for Dysuria, Frequency or Hematuria Narrative Narrative: Patient presents with left lower abdominal pain that began today. Patient states he felt fine when he got up and went to work. Patient states that when he got to work, he noted pain in his left lower abdomen and left flank. Patient states it is worse when he stood up at work. Patient states it is better when he was able to sit down and bend forward. Patient admits to some nausea and dry heaves. Patient denies any melena or hematochezia. Patient denies any dysuria or hematuria. Patient denies any fevers or chills. PFSH [facility] Medical History Family history of clotting disorder Seasonal allergies Gout Essential hypertension TOBY (obstructive sleep apnea) GERD (gastroesophageal reflux disease) Home Medications ?Medication ?Instructions ?Recorded ?Last Taken ?Type cholecalciferol (vitamin D3) 25 1,000 unit PO DAILY 05/31/18 Unknown History mcg (1,000 unit) capsule (Vitamin D3) coenzyme Q10 75 mg capsule (Ultra 75 mg PO DAILY 05/31/18 Unknown History CoQ10) multivitamin (Multiple Vitamins 1 tab PO DAILY 05/31/18 Unknown History tablet) omega-3 fatty acids 1,000 mg 2,000 mg PO QDAY supplement 05/31/18 Unknown History capsule (Fish Oil Concentrate) Cellular Complex PO 11/16/20 Unknown History Essential oils PO 11/16/20 Unknown History losartan 25 mg tablet 25 mg PO DAILY #90 tabs 07/22/24 Unknown Rx methylprednisolone 4 mg tablets in 4 mg PO PER PKG DIR #21 tabs 01/08/25 Unknown Rx a dose pack (Medrol (Tom)) hydrocodone-acetaminophen 5-325mg 1 tab PO Q6H PRN PRN Pain 3 days 02/12/25 Unknown Rx 5mg-325mg #10 TABLETS tamsulosin 0.4 mg capsule 0.4 mg PO DAILY #7 CAPSULES 02/12/25 Unknown Rx Allergy/AdvReac Type Severity Reaction Status Date / Time shellfish derived Allergy Severe anaphylacti Verified 02/12/25 09:47 c hydrochlorothiazide Allergy Intermediate palpitation Verified 02/12/25 09:47 s/restlessn ess lisinopril AdvReac Mild cough & Verified 02/12/25 09:47 tachycardia Family History Brother Asthma Cancer lymphoma Mother Arthritis Hypertension High cholesterol Macular degeneration Depression Father Hypertension High cholesterol Sleep apnea Myocardial infarction, Onset Age: 68 CAD (coronary artery disease) Son Seizures Daughter Seizures Aunt Parkinsons disease Grandmother Parkinsons disease CVA (cerebral vascular accident) Uncle CVA (cerebral vascular accident) Diabetes Grandfather Myocardial infarction, Onset Age: 68 Grandfather Cancer melanoma Brother CVA (cerebral vascular accident) Cancer prostate Surgical History Status post laparoscopic Jose fundoplication (~12/31/17) S/P colonoscopy History of esophagogastroduodenoscopy (EGD) (~10/2017) History of tonsillectomy Social History adopted: No household members: spouse and children housing: house number of children: 3 current occupational status: employed current occupation: [employer] [address] [place], [place] pets and animals: No sexually active: Yes Smoking Status: Never smoker Electronic Cigarette Use: not used second hand exposure: No alcohol intake: never substance use type: does not use caffeine: Yes (2) Type: coffee frequency: does not exercise do you feel safe at home: Yes ROS ROS ED Constitutional Constitutional ED: Denies chills or fever(s) Eyes Eyes: Denies blurry vision or change in vision ENT ENT ED: Denies rhinorrhea or sore throat Cardiovascular Cardiovascular: Denies chest pain or palpitations Respiratory/Chest Respiratory/Chest: Denies cough or dyspnea Gastrointestinal Gastrointestinal: Reports abdominal pain, nausea and vomiting; Denies melena Genitourinary Genitourinary ED: Denies dysuria or hematuria Musculoskeletal Musculoskeletal: Reports back pain; Denies neck pain Integumentary Denies abscess or rash Neurologic Neurologic: Denies headache(s) or weakness Allergic/Immunologic Allergic/Immunologic ED: Denies mouth swelling or urticaria EXAM Physical Exam Const Vital Signs: 02/12/25 09:47 02/12/25 11:47 Temperature 99 F Temperature Source Temporal Pulse Rate 71 63 Respiratory Rate 14 Blood Pressure 166/111 H Blood Pressure Mean 129 Pulse Ox 98 100 Oxygen Delivery Method Room Air Room Air Positive well nourished and well developed Constitutional Narrative: BMI is 32.3. General Appearance ED: well developed and NAD HEENT Reports moist mucous membranes normocephalic and atraumatic Neck supple Resp normal respiratory effort and clear to auscultation bilaterally Cardio regular rate and regular rhythm GI non-distended Palpation: soft and tender LLQ; Negative for guarding or rebound tenderness present Back/Spine General Back: CVA tenderness left Extremity full ROM General Extremety ED: Negative for edema or tenderness General Extremity: Negative for edema Neuro CN's II-XII intact bilaterally, moves all extremities and no sensory deficits noted Sensorium / Orientation: alert Motor Exam: strength 5/5 throughout Psych mental status grossly normal MDM MDM MDM Narrative Medical decision making narrative: Differential diagnosis includes ureteral calculus, pyelonephritis, diverticulitis, colitis, gastroenteritis, dehydration, electrolyte abnormality, and urinary tract infection. CBC will be obtained to assess for leukocytosis and anemia. Basic metabolic profile will be obtained to assess for electrolyte abnormality and renal function. Urinalysis will be obtained to assess for urinary tract infection and hematuria. CT scan of the abdomen and pelvis will be obtained to assess for ureteral calculus, diverticulitis, and colitis. History & Record Review Additional record(s) reviewed:: Prior outpatient record, Prior ED visit and Prior labs Lab Data Attestation: I reviewed the patient's lab results. Lab results narrative: CBC was reviewed and was within normal limits. Basic metabolic profile was reviewed. Creatinine was slightly elevated at 1.3. This is slightly increased from previous result. Urinalysis was reviewed. There is no evidence of urinary tract infection or hematuria. Labs: Laboratory Results - last 24 hr 02/12/25 02/12/25 10:27 10:30 WBC 7.4 RBC 5.11 Hgb 15.3 Hct 44.2 MCV 86.5 MCH 29.9 MCHC 34.6 RDW Std Deviation 40.7 RDW Coeff of Francesca 13.1 Plt Count 277 MPV 9.6 Immature Gran % (Auto) 0.400 Neut % (Auto) 58.9 Lymph % (Auto) 30.3 [place] % (Auto) 6.6 Eos % (Auto) 3.1 Baso % (Auto) 0.7 Absolute Neuts (auto) 4.4 Absolute Lymphs (auto) 2.24 Nucleated RBC % 0 Sodium 138 Potassium 4.6 Chloride 104 Carbon Dioxide 20.7 L Anion Gap 14 BUN 15 Creatinine 1.30 H Estim Creat Clear Calc 83.87 Est GFR (MDRD) Non-Af 67 BUN/Creatinine Ratio 11.2 Glucose 115 H Calcium 9.2 Urine Color Yellow Urine Clarity Clear Urine pH 5.0 Ur Specific [place] 1.025 Urine Protein 15 H Urine Glucose (UA) Normal Urine Ketones Negative Urine Occult Blood 10 H Urine Nitrite Negative Urine Bilirubin Negative Urine Urobilinogen Normal Ur Leukocyte Esterase Negative Urine RBC 0-5 SEEN Urine WBC 0 SEEN Ur Squamous Epith Cells 0 SEEN Urine Bacteria 0 SEEN Urine Mucus 0 SEEN Radiography Diagnostic Testing: Clinical Impression(s) from Imaging Studies Abdomen/Pelvis CT 02/12/25 10:26 IMPRESSION: Three stones at the lower pole of the left kidney with the largest measures 6 mm. Left perinephric fluid consistent sent with forniceal rupture. A 2 mm obstructing stone at the left ureteral-bladder junction causing severe left hydronephrosis. Colonic diverticulosis with no evidence of acute diverticulitis. No bowel obstruction. Reading Location: [facility] CT scan of the abdomen and pelvis was obtained. There are 3 stones at the lower pole of the left kidney with the largest measuring 6 mm. There is a 2 mm obstructing stone at the left ureterovesicular junction causing left hydronephrosis and hydroureter. There is left perinephric stranding consistent with forniceal rupture. This was interpreted by the radiologist and was also independently reviewed by myself. Treatment and Re-Evaluation :: Patient was given IV fluids, morphine, and Zofran. Patient was feeling better on reevaluation. Patient was advised of his findings. Case was discussed with Dr. Cazares. He will follow-up with the patient as an outpatient. He did not feel the forniceal rupture needed treatment at this time. Patient was given a prescription for [place]. Patient was instructed to follow-up with his primary care physician and urology in 5 to 7 days. Patient understood and was agreeable with the plan. All questions were answered. Discharge Plan Triage Chief Complaint: Abd Pain ED Provider: Apolinar Berkowitz Dx/Rx/DC Orders Clinical Impression: Calculus of distal left ureter, Acute left flank pain Instructions: ED Urine Strainer, ED Kidney Stone with Pain Prescriptions: New hydrocodone-acetaminophen 5-325 mg tablet 1 tab PO Q6H PRN PRN (Reason: Pain) 3 Days Qty: 10 0RF tamsulosin 0.4 mg capsule 0.4 mg PO DAILY Qty: 7 0RF No Action omega-3 fatty acids [Fish Oil Concentrate] 1,000 mg capsule 2,000 mg PO QDAY multivitamin [Multiple Vitamins] tablet 1 tab PO DAILY Ultra CoQ10 75 mg capsule 75 mg PO DAILY cholecalciferol (vitamin D3) [Vitamin D3] 1,000 unit capsule 1,000 unit PO DAILY Cellular Complex PO Essential oils PO losartan 25 mg tablet 25 mg PO DAILY Qty: 90 1RF methylprednisolone [Medrol (Tom)] 4 mg tablets,dose pack 4 mg PO PER PKG DIR Qty: 21 0RF Primary Care Provider: Vandana Barahona Referrals: Vandana Barahona MD [Primary Care Provider, Internal Medicine] - 5-7 Days Luis Cazares MD [Med Staff - Active Staff, Urology] - 3-5 Days Activity Restrictions/Additional Instructions: You may take the hydrocodone every 6 hours as needed for pain. Take the tamsulosin daily as this will help the kidney stone pass. Drink plenty of fluids. Strain all of your urine. Print Language: Albanian Disposition Disposition: Home, Self Care
--- NOTE | 2025-02-12 10:26 | CT_ITS ---
PROCEDURE: ABDOMEN/PELVIS WITHOUT CONT 02/12/2025 REASON FOR EXAM: PAIN TECHNIQUE: Procedure Code: CTABDPEL Modality: CT Procedure: ABDOMEN/PELVIS WITHOUT CONT Noncontrast technique limits evaluation of the abdominal and pelvic viscera. Coronal and Sagittal reconstruction series were provided. One or more dose reduction techniques were used (e.g., Automated exposure control, adjustment of the mA and/or kV according to patient size, use of iterative reconstruction technique). RADIATION DOSE SUMMARY: CTDlvol: 15.18 mGy DLP: 879.67 mGycm COMPARISON: None. FINDINGS: Lung bases: Clear. Liver: Fatty infiltration of the liver. Gallbladder: Unremarkable. Spleen: Unremarkable. Pancreas: Unremarkable. Adrenals: Unremarkable. Kidneys: Three stones at the lower pole of the left kidney with the largest measures 6 mm. Left perinephric fluid consistent sent with forniceal rupture. A 2 mm obstructing stone at the left ureteral- bladder junction causing severe left hydronephrosis. Bladder: The bladder is decompressed. Reproductive Organs: Unremarkable. Bowel: Extensive colonic diverticulosis with no evidence of acute diverticulitis. No bowel obstruction. Appendix: Unremarkable. Lymph nodes: No lymphadenopathy. Vasculature: No aneurysm. Peritoneum / Retroperitoneum: No free air or free fluid. Bones: No acute bony abnormalities. CT/Abdomen/Pelvis without Cont IMPRESSION: Three stones at the lower pole of the left kidney with the largest measures 6 m m. Left perinephric fluid consistent sent with forniceal rupture. A 2 mm obstructing stone at the left ureteral-bladder junct ion causing severe left hydronephrosis. Colonic diverticulosis with no evidence of acute diverticulitis. No bowel obstruction. Reading Location: [facility]
[2025-02-12 10:39] LABS: Mucous, Urine 0 SEEN /hpf (<or=2+); Squamous Epithelial Cells - UA 0 SEEN /hpf (0-5)
[2025-02-12] MEDS: 0.9% Normal Saline (1000mL) 1,000 ML 999 ML IV (10:44)
[2025-02-12 10:45] LABS: Hematocrit 44.2 % (40-54); Hemoglobin 15.3 g/dL (13.0-16.5); Immature Granulocytes Count 0.030 X10^3/uL (0.0-0.0); Mean Corp Hgb Conc 34.6 g/dL (32-36); Mean Corpuscular Volume 86.5 fL (80-94); Mean Platelet Vol. 9.6 fl (6.2-12.0); NRBC Flagged by Analyzer 0 % (0-5); Platelet Count 277 K/mm3 (150-450); RBC Distribution Width CV 13.1 % (11.6-14.6); RBC Distribution Width SD 40.7 fl (35.1-43.9); Red Blood Count 5.11 M/mm3 (4.6-6.2); White Blood Count 7.4 K/mm3 (4.4-11.0)
[2025-02-12 10:59] LABS: Anion Gap 14 (5-15); BUN 15 mg/dL (4-19); BUN/Creat Ratio 11.2 RATIO (10-20); Calcium,Total 9.2 mg/dL (7.6-11.0); Carbon Dioxide 20.7 mmol/L (21.0-32.0); Chloride 104 mmol/L (98-108); Estimated Creatinine Clearance 83.87 ml/min (50-250); Glucose 115 mg/dL (70-99); Potassium 4.6 mmol/L (3.3-5.1)
[2025-02-12 11:03] LABS: Color, Urine Yellow (Yellow); Glucose, Dipstick Normal (Normal); Ketone-Dipstick Negative (Negative); Leukocyte Esterase-Dipstick Negative /ul (Negative); Nitrite-Dipstick Negative (Negative); Occult Blood-Urine 10 /ul (Negative); Protein-Dipstick 15 mg/dl (Negative); Specific Gravity, Urine 1.025 (1.002-1.030); Urine Bilirubin Dipstick Negative (Negative)
[2025-02-12 11:13] LABS: Red Blood Cells-Urine 0-5 SEEN /hpf (0-5)
[2025-02-12 11:47] VITALS: PULSE 63; O2SAT 100
[2025-02-12 12:58] VITALS: BP 166/111; PULSE 63; RESP 14; TEMP 37.2; O2SAT 100
== END 2025-02-12 12:58 | disposition home or self-care (01) ==
PROVIDERS: Emergency Provider Emergency Medicine; PCP Internal Medicine; Visit Provider Emergency Medicine
DX: N13.2 Hydronephrosis with renal and ureteral calculous obstruction (principal); R19.7 Diarrhea, unspecified; I10 Essential (primary) hypertension; M10.9 Gout, unspecified; G47.33 Obstructive sleep apnea (adult) (pediatric); K21.9 Gastro-esophageal reflux disease without esophagitis; Z79.899 Other long term (current) drug therapy
CPT/HCPCS: 74176; 80048; 81001; 85025; 96361; 96374; 96375; 99283; A4216; J2405

== ENCOUNTER → 2025-02-19 | Outpatient (CLI) | payer OTHER, SELFPAY ==
--- NOTE | 2025-02-19 11:00 | CALC_PTH ---
PATIENT: MEGAN MILLER LOC: [facility] U#:[id number] AGE/SX: 49/M ROOM: RE02/19/[address]: Dr. Luis Cazares MD : 1975 BED: DIS: 02/19/2025 SPEC #: [id number] RECD: 02/19/25 15:00 STATUS: EVITA NATA #: [id number] ANITHA: 02/19/25 11:[address]: Luis Cazares DEPT: SURGICAL PATHOLOGY RECD BY: Aden Perez ENTERED: 02/20/25 06:37 SP TYPE: Calculi OTHR DR: Dr. Vandana Barahona MD Tissues: A - CALCULI Procedures: Surgery Specimen Level I HEADER OPERATION: Not noted PRE-OP DIAGNOSIS: Calculus of kidney TISSUE SUBMITTED: A- Calculi GROSS DIAGNOSIS A. Kidney, calculus: * Urolithiasis confirmed (gross examination only). * Chemical analysis is pending and a separate report will follow. COMMENT The calculus is submitted in its entirety for chemical stone analysis. The results from this study will be reported separately. GROSS DESCRIPTION A. Received fresh labeled the patient's name and date of . Designated as stone analysis is a 0.3 cm irregular brown calculus. No sections are submitted. The specimen is for gross examination only. The specimen is sent for stone analysis. NM 02/20/2025 CPT:73016
--- NOTE | 2025-02-19 11:00 | CALC_PTH ---
PATIENT: MEGAN MILLER LOC: [facility] U#:[id number] AGE/SX: 49/M ROOM: RE02/19/[address]: Dr. Luis Cazares MD : 1975 BED: DIS: 02/19/2025 SPEC #: [id number] RECD: 02/19/25 15:00 STATUS: EVITA NATA #: [id number] ANITHA: 02/19/25 11:[address]: Luis Cazares DEPT: SURGICAL PATHOLOGY RECD BY: Aden Perez ENTERED: 02/20/25 06:37 SP TYPE: Calculi OTHR DR: Dr. Vandana Barahona MD Tissues: A - CALCULI Procedures: Surgery Specimen Level I HEADER OPERATION: Not noted PRE-OP DIAGNOSIS: Calculus of kidney TISSUE SUBMITTED: A- Calculi GROSS DIAGNOSIS A. Kidney, calculus: * Urolithiasis confirmed (gross examination only). * Chemical analysis is pending and a separate report will follow. COMMENT The calculus is submitted in its entirety for chemical stone analysis. The results from this study will be reported separately. GROSS DESCRIPTION A. Received fresh labeled the patient's name and date of . Designated as stone analysis is a 0.3 cm irregular brown calculus. No sections are submitted. The specimen is for gross examination only. The specimen is sent for stone analysis. NM 02/20/2025 CPT:36225
[2025-03-04 20:08] LABS: Ca Oxalate, Dihydrate 20 % (.); Ca Oxalate, Monohydrate 80 % (.)
== END | disposition home or self-care (01) ==
PROVIDERS: PCP Internal Medicine; Referring Provider Urology; Visit Provider Urology
DX: N20.0 Calculus of kidney (principal)
CPT/HCPCS: 82360; 88300

== ENCOUNTER 2025-03-31 06:32 | Day surgery (SDC) | payer OTHER, SELFPAY ==
--- NOTE | 2025-03-30 08:52 | PAT.ANESEVAL ---
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 When Was Last Pacemaker Check QUESTION #4 FULL TEXT: You/Your Family Experience fever (hyperthermia) with Anesthesia Last Oral Intake Last Oral intake: Last Oral Intake NPO since Meds taken in AM with sips of water? Meds patient instructed to take am of surgery PONV PONV - hospital housekeeper: PONV - hospital housekeeper Female No 03/30/25 08:32 HX of Motion Sickness No 03/30/25 08:32 HX of N/V After Surgery No 03/30/25 08:32 Non-Smoker Yes 03/30/25 08:32 Duration of Surgery greater No 03/30/25 08:32 than 60 minutes Number of Risk Factors 1 03/30/25 08:32 PONV Score Low Risk 03/30/25 08:32 Height & Weight Height & Weight: Anesthesia: Height & Weight Height 5 ft 11 in 02/12/25 09:47 Respiratory Assessment Respiratory Assessment - hospital housekeeper: Respiratory Tract Infection Hx - hospital housekeeper Hx Respiratory Tract Infection No 03/30/25 08:32 STOP Sleep Apnea STOP Sleep Apnea - hospital housekeeper: STOP Sleep Apnea - hospital housekeeper Hx Hypertension Yes: CONTROLLED ON MED 03/30/25 08:32 Hx Sleep Apnea No 03/30/25 08:32 CPAP No 03/30/25 08:32 BIPAP Do you snore loudly (louder No 03/30/25 08:32 than talking or can be heard Do you often feel tired/ No 03/30/25 08:32 fatigued/ sleepy during daytime? Has anyone observed you stop No 03/30/25 08:32 breathing during sleep? STOP Results Negative 03/30/25 08:32 QUESTION #5 FULL TEXT : Do you snore loudly (louder than talking or can be heard through closed doors)? 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 Specify any problems Hx of Preganancy in last 3 N/A 03/30/25 08:32 Months Nurse Filling Out Transfusion VCHRISTIN 03/30/25 08:32 & Questions: Date: 03/30/25 03/30/25 08:32 Time: 08:33 03/30/25 08:32 Patient unable to answer at this time (ie. confused, unrespo /Reproduction History /Reproductive History - hospital housekeeper: /Reproductive Hx- hospital housekeeper Hx Now No 03/30/25 08:32 Gestational Age (in weeks): EDC: Hx Hx Para Hx Section SAB No 03/30/25 08:32 Does the father of the baby or his family experience fever w Father of the baby Malignant Hypertension history comment [facility] Medical History (Updated 03/30/25 @ 08:32 by Cierra Otero) Wears glasses Wears contact lenses Kidney stone Excessive bleeding Non-smoker History of pain when walking Normal stress echocardiogram History of stress test History of echocardiogram Cardiology follow-up encounter Family history of clotting disorder Seasonal allergies Essential hypertension TOBY (obstructive sleep apnea) GERD (gastroesophageal reflux disease) Home Medications Medication Instructions Recorded Last Taken Type cholecalciferol (vitamin D3) 25 1,000 unit PO DAILY 05/31/18 Unknown History mcg (1,000 unit) capsule (Vitamin D3) coenzyme Q10 75 mg capsule (Ultra 75 mg PO DAILY 05/31/18 Unknown History CoQ10) multivitamin (Multiple Vitamins 1 tab PO DAILY 05/31/18 03/25/25 History tablet) omega-3 fatty acids 1,000 mg 2,000 mg PO QDAY supplement 05/31/18 03/25/25 History capsule (Fish Oil Concentrate) Cellular Complex 1 tab PO DAILY 11/16/20 03/26/25 History losartan 25 mg tablet 25 mg PO DAILY #90 tabs 07/22/24 Unknown Rx Allergy/AdvReac Type Severity Reaction Status Date / Time shellfish derived Allergy Severe anaphylacti Verified 03/30/25 08:23 c hydrochlorothiazide Allergy Intermediate palpitation Verified 03/30/25 08:23 s/restlessn ess lisinopril AdvReac Mild cough & Verified 03/30/25 08:23 tachycardia Family History Brother Asthma Cancer lymphoma Mother Arthritis Hypertension High cholesterol Macular degeneration Depression Father Hypertension High cholesterol Sleep apnea Myocardial infarction, Onset Age: 68 CAD (coronary artery disease) Son Seizures Daughter Seizures Aunt Parkinsons disease Grandmother Parkinsons disease CVA (cerebral vascular accident) Uncle CVA (cerebral vascular accident) Diabetes Grandfather Myocardial infarction, Onset Age: 68 Grandfather Cancer melanoma Brother CVA (cerebral vascular accident) Cancer prostate Surgical History Status post laparoscopic Jose fundoplication (~12/31/17) S/P colonoscopy History of esophagogastroduodenoscopy (EGD) (~10/2017) History of tonsillectomy Social History adopted: No household members: spouse and children housing: house number of children: 3 current occupational status: employed current occupation: [employer] [address] [place], [place] pets and animals: No sexually active: Yes Smoking Status: Never smoker Electronic Cigarette Use: not used second hand exposure: No alcohol intake: never substance use type: does not use caffeine: Yes (2) Type: coffee frequency: does not exercise do you feel safe at home: Yes Recommendation Anesthesia Recommendation Anesthesia recommendation: OPTIMIZED for anesthesia (Repeat EKG on DOS. Latest EKG I could find was 12/2017. Can proceed to pre-op)
[2025-03-31] VITALS (8 sets, daily range): BP systolic 97–120; BP diastolic 73–88; PULSE 66–77; RESP 14–16; TEMP 36.1–36.3; O2SAT 97–99; BMI 32.5
--- OUTSIDE RECORDS SUMMARY | 2025-03-31 06:35 | XMS RPT_ITS | CCD ---
Author Organization [facility] Care Team Providers Care Grain Thresher Name Role Phone MARIA DEL CARMEN GARDNER III Unavailable Unavailable Dr. Oanh Barrera Primary Care Provider Dr. Oanh Barrera Attending Provider [phone] Dr. Oanh Barrera Primary Care Provider Dr. Oanh Barrera Attending Provider [phone] Oanh Barrera MD Primary Care Provider [phone] Dr. Vandana Barahona MD Primary Care Provider 1( [phone]) Dr. Vandana Barahona MD Referring Provider Lupillo Vaca Attending Provider [phone] Lupillo Vaca Referring Provider [phone] Dr. Vandana Barahona MD Attending Provider Dr. Vandana Barahona MD Primary Care Provider 1( [phone]) Dr. Vandana Barahona MD Referring Provider Lupillo Vaca Attending Provider [phone] Dr. Mustapha Iqbal MD Attending Provider Dr. Vandana Barahona MD Primary Care Physician [phone] Lupillo Vaca Attending Physician [phone] Dr. Mustapha Iqbal MD Attending Physician Dr. Apolinar Berkowitz DO Attending Physician Dr. Apolinar Berkowitz DO Emergency Department Physi pawan [facility], Vandana Primary Care Unavailable Jun, Vandana Attending Unavailable Jun, Vandana Referring Unavailable [facility], Vandana Primary Care Unavailable Luis Cazares Attending Unavailable Luis Cazares Referring Unavailable Lupillo Vaca Attending Unavailable Nicho REDDING, Lupillo Referring Unavailable Jun, Vandana Primary Care Unavailable Lupillo Vaca Attending Unavailable Nicho PA, Lupillo Referring Unavailable Jun, Vandana Primary Care Unavailable Jun, Vandana Primary Care Unavailable Jun, Vandana Attending Unavailable Jun, Vandana Primary Care Unavailable Apolinar Berkowitz Attending Unavailable [facility], Vandana Primary Care Unavailable Mustapha Iqbal Attending Unavailable Jun, Vandana Referring Unavailable [facility], Vandana Primary Care Unavailable Lupillo Vaca Attending Unavailable Jun, Vandana Referring Unavailable Jun, Vandana Primary Care Unavailable Mustapha Iqbal Attending Unavailable [facility], Vandana Referring Unavailable Jun, Vandana Referring Unavailable [facility], Vandana Primary Care Unavailable Jun, Vandana Attending Unavailable Lupillo Vaca Attending Unavailable [facility], Vandana Primary Care Unavailable [facility], Vandana Referring Unavailable Allergies Allergy Classification Reported Allergen(s) Allergy Type Date of Onset Reaction(s) Facility (11 sources) Lisinopril; Translations: [LISINOPRIL] Drug Allergy 015 Cough [facility] Repository (2 sources) Shellfish; Translations: [SHELLFISH] Propensity to adverse reactions to food (disorder) 005 Swelling [facility] Repository (1 source) OTHER; Translations: [OTHER] Propensity to adverse reactions (disorder) AOF [facility] Repository (8 sources) hydroCHLOROthiazide Drug Allergy 023 palpitations/r estlessness [facility] (9 sources) Shellfish; Translations: [shellfish derived] Allergy to substance 023 anaphylactic [facility] (1 source) blue cheese [Other] Propensity to adverse reactions [address] [facility] Work Phone: (1 source) hydroCHLOROthiazide Drug Allergy 025 [facility] Repository Medications Current Medications Medication Drug Class(es) Dates Sig (Normalized) Sig (Original) acetaminophen 325 mg / HYDROcodone bitartrate 5 mg oral tablet (9 sources) Opioid Agonist Start: 02-12-2025 take 1 tablet by mouth every six hours as needed for pain Start: 12-31-2017 End: 05-31-2018 Hydrocodone-Acetaminophen 1 TABLET tablet Discontinued 1 {tbl} PO EVERY 6 HOURS NEEDED as needed for Pain 10 3 0 December 31, 2017 12:00am May 31, 2018 2:25pm Postoperative pain Other acute postprocedural pain Start: 12-31-2017 End: 05-31-2018 take 1 tablet by mouth every six hours as needed Hydrocodone-Acetaminophen Discontinued 1 TABLET PO EVERY 6 HOURS NEEDED 10 3 December 31, 2017 12:00am May 31, 2018 2:25pm allopurinol 100 mg oral tablet (1 source) Xanthine Oxidase Inhibitor Start: 08-15-2019 take 1 tablet by mouth once daily allopurinol (ZYLOPRIM) 100 mg tablet Indications: Gout involving toe, unspecified cause, unspecified chronicity, unspecified laterality Take 1 tablet by mouth once daily. For gout. 30 tablet 11 08/15/2019 Active Cellular Complex (8 sources) Start: 11-16-2020 Start: 11-16-2020 Cellular Compl ex Active PO 0 November 16, 2020 12:00am Start: 11-16-2020 Cellular Compl ex Active PO November 16, 2020 12:00am Start: 11-16-2020 Cellular Compl ex Active PO November 15, 2020 11:00pm cholecalciferol 0.025 mg oral capsule (8 sources) Vitamin D Start: 05-31-2018 take 1 capsule by mouth once daily colchicine 0.6 mg oral tablet (1 source) Start: 08-07-2019 colchicine 0.6 mg tablet Indications: Acute gout of foot, unspecified cause, unspecified laterality 1.2 mg by mouth x 1 dose; then 0.6 mg taken 1 hour later. May repeat in 3 days 3 tablet 2 08/07/2019 Active COMPOUNDED PRESCRIPTION (2 sources) COMPOUNDED PRESCRIPTION as directed. Taking Super Supplemental ([employer]) Active COMPOUNDED PRESC RIPTION as directed. Taking Food Enzymes ([employer]) Active Essential oils (8 sources) Start: 11-16-2020 Start: 11-16-2020 Essential oils Active PO 0 November 16, 2020 12:00am Start: 11-16-2020 Essential oils Active PO November 16, 2020 12:00am Start: 11-16-2020 Essential oils Active PO November 15, 2020 11:00pm methylPREDNISolone 4 mg oral tablet (2 sources) Corticosteroid Start: 01-08-2025 take 1 tablet by mouth once MULTI-VITAMIN ORAL (1 source) MULTI-VITAMIN ORAL Take by mouth. Active Multivitamin (Multiple Vitamins) tablet (8 sources) Start: 05-31-2018 Start: 05-31-2018 Multivitamin ( Multiple Vitamins) tablet Active 1 {tbl} PO DAILY May 31, 2018 1:00am Start: 05-31-2018 take 1 tablet by roslyn th once daily Multivitamin (Multiple Vitamins) tablet Active 1 TABLET PO DAILY May 31, 2018 1:00am Start: 05-31-2018 take 1 tablet by roslyn th once daily Multivitamin (Multiple Vitamins) tablet Active 1 TABLET PO DAILY May 31, 2018 12:00am [place]-3 Fatty Acids (Fish Oi l Concentrate) 1,000 mg capsule (16 sources) Start: 05-31-2018 Start: 05-31-2018 [place]-3 Fatty Acids (Fish Oil Concentrate) 1,000 mg capsule Active 2000 mg PO daily May 31, 2018 2:25pm supplement Start: 05-31-2018 [place]-3 Fatty Acids (Fish Oil Concentrate) 1,000 mg capsule Active 2000 mg PO daily May 31, 2018 2:25pm Start: 05-31-2018 [place]-3 Fatty Acids (Fish Oil Concentrate) 1,000 mg capsule Active 2000 MG PO daily May 31, 2018 2:25pm Start: 05-31-2018 [place]-3 Fatty Acids (Fish Oil Concentrate) 1,000 mg capsule Active 2000 MG PO daily May 31, 2018 1:25pm Start: 12-19-2017 End: 05-31-2018 take 1 capsule by mouth once daily [place]-3 Fatty Acids (Fish Oil Concentrate) 1,000 mg capsule Discontinued 1000 mg PO daily December 19, 2017 12:00am May 31, 2018 2:27pm supplement Start: 12-19-2017 End: 05-31-2018 take 1 capsule by mouth once daily [place]-3 Fatty Acids (Fish Oil Concentrate) 1,000 mg capsule Discontinued 1000 mg PO daily December 19, 2017 12:00am May 31, 2018 2:27pm Start: 12-19-2017 End: 05-31-2018 take 1 capsule by mouth once daily [place]-3 Fatty Acids (Fish Oil Concentrate) 1,000 mg capsule Discontinued 1000 MG PO daily December 19, 2017 12:00am May 31, 2018 2:27pm Start: 12-19-2017 End: 05-31-2018 take 1 capsule by mouth once daily [place]-3 Fatty Acids (Fish Oil Concentrate) 1,000 mg capsule Discontinued 1000 MG PO daily December 18, 2017 11:00pm May 31, 2018 1:27pm tamsulosin hydrochloride 0.4 mg oral capsule (1 source) alpha-Adrenergic Erika Start: 02-12-2025 take 1 capsule by mouth once daily ubidecarenone 75 mg oral capsule (8 sources) Start: 05-31-2018 UBIDECARENONE/VITAMI N E MIXED (COQ10 SG 100 ORAL) (1 source) UBIDECARENON E/VITAMIN E MIXED (COQ10 SG 100 ORAL) Take by mouth as directed. Active Completed/Discontinued Medications Medication Drug Class(es) Dates Sig (Normalized) Sig (Original) azithromycin 250 mg oral tablet (8 sources) Macrolide Antimicrobial Start: 01-14-2019 End: 02-13-2019 take 1 tablet by mouth once daily Azithromycin 250 mg tablet Discontinued 250 mg PO daily 6 0 January 14, 2019 12:00am February 13, 2019 3:49pm losartan potassium 25 mg oral tablet (20 sources) Angiotensin 2 Receptor Erika Start: 07-02-2018 End: 07-22-2024 take 1 tablet by mouth once daily Losartan 25 mg tablet Discontinued 25 mg PO DAILY 90 3 July 19, 2022 1:22pm November 13, 2023 8:31am Start: 05-31-2018 End: 07-02-2018 Losartan 50 mg tablet Discon tinued 25 mg PO daily May 31, 2018 2:25pm July 02, 2018 12:20pm bp Start: 05-31-2018 End: 07-02-2018 take 25 mg by mouth once daily Losartan Discontinued 2 5 MG PO daily May 31, 2018 2:25pm July 02, 2018 12:20pm Start: 10-30-2017 End: 05-31-2018 take 1 tablet by mouth once daily Losartan 50 mg tablet Discontinued 50 mg PO daily October 30, 2017 12:00am May 31, 2018 2:27pm bp meloxicam 15 mg oral tablet (8 sources) Nonsteroidal Anti-inflammatory Drug Start: 06-25-2024 End: 01-23-2025 take 1 tablet by mouth once daily Meloxicam 15 mg tablet Discontinued 15 mg PO daily 30 0 January 08, 2025 12:39pm January 23, 2025 8:40am do not take while on Medrol omeprazole 40 mg delayed release oral capsule (16 sources) Proton Pump Inhibitor Start: 11-09-2017 End: 05-31-2018 take 1 capsule by mouth once daily Omeprazole 40 MG capsule,delayed release(DR/EC) Discontinued 40 mg PO DAILY December 24, 2017 1:09pm May 31, 2018 2:25pm gerd predniSONE 20 mg oral tablet (8 sources) Start: 10-15-2022 End: 11-16-2022 take 3 tablets by mouth once daily Prednisone 20 mg tablet Discontinued 60 mg PO DAILY 15 0 October 15, 2022 12:00am November 16, 2022 7:33am Start: 10-15-2022 take 60 mg by mouth once daily Prednisone Active 60 MG PO DAILY October 15, 2022 12:00am Start: 01-20-2021 predniSONE (DE LTASONE) 10 mg tablet Take 4 tabs daily for 3 days, then 2 tabs daily for 3 days, then 1 tab daily for 3 days with food. 21 tablet 01/20/2021 Active Vitamin B Complex (2 sources) Start: 05-31-2018 End: 06-08-2020 take 1 capsule by mouth once daily Vitamin B Complex Discontinued 1 CAP PO DAILY May 31, 2018 1:00am June 08, 2020 12:27pm Start: 05-31-2018 End: 06-08-2020 take 1 capsule by mouth once daily Vitamin B Complex Discontinued 1 CAP PO DAILY May 31, 2018 12:00am June 08, 2020 11:27am Vitamin B Complex capsule (6 sources) Start: 05-31-2018 End: 06-08-2020 Vitamin B Complex capsule Discontinued 1 NMA PO DAILY May 31, 2018 1:00am June 08, 2020 12:27pm Problems Active Problems Problem Classification Problem Date Documented Da te Episodic/Chronic Abdominal pain (2 sources) Left flank pain; Translations: [Unspecified abdominal pain] Onset: 5 02-12-2025 Episodic Anxiety disorders (1 source) Anxiety; Translations: [Anxiety disorder, unspecified] Onset: 1 07-15-2010 Chronic Calculus of urinary tract (2 sources) Ureteric stone of lower third of ureter; Translations: [Calculus of ureter] Onset: 5 02-12-2025 Episodic Esophageal disorders (11 sources) Gastroesophageal reflux disease; Translations: [Gastro-esophageal reflux disease without esophagitis] Onset: 5 Resolved: 8 06-28-2018 Chronic Essential hypertension (15 sources) Essential hypertension; Translations: [Essential (primary) hypertension] Onset: 2 06-28-2018 Chronic Gastrointestinal hemorrhage (9 sources) Rectal hemorrhage; Translations: [Hemorrhage of anus and rectum] Onset: 5 07-22-2024 Episodic Gout and other crystal arthropathies (8 sources) Gout; Translations: [Gout, unspecified] 06-22-2021 Chronic Other connective tissue disease (16 sources) Foot pain; Translations: [Pain in left foot] 10-15-2022 Episodic Other connective tissue disease (1 source) Pain in left foot; Translations: [Pain in left foot] 10-10-2022 Episodic Other connective tissue disease (4 sources) Disorder of rotator cuff; Translations: [Unspecified disorder of synovium and tendon, right shoulder] 01-08-2025 Episodic Other connective tissue disease (4 sources) Iliotibial band friction syndrome; Translations: [Iliotibial band syndrome, unspecified leg] 01-08-2025 Episodic Other gastrointestinal disorders (8 sources) Altered bowel function; Translations: [Change in bowel habit] 08-10-2021 Episodic Other gastrointestinal disorders (8 sources) Dysphagia; Translations: [Dysphagia, unspecified] 08-10-2021 Episodic Other gastrointestinal disorders (2 sources) Diarrhea; Translations: [Diarrhea, unspecified] 01-23-2025 Episodic Other lower respiratory disease (8 sources) Dyspnea on exertion; Translations: [Other forms of dyspnea] 06-22-2021 Episodic Other lower respiratory disease (8 sources) Dyspnea; Translations: [Shortness of breath] 06-22-2021 Episodic Other nervous system disorders (1 source) Bilateral carpal tunnel syndrome; Translations: [Carpal tunnel syndrome, bilateral upper limbs] Onset: 9 12-26-2018 Chronic Other nervous system disorders (6 sources) Eldridge neuroma of bilateral feet; Translations: [Lesion of plantar nerve, bilateral lower limbs] 06-25-2024 Chronic Other nervous system disorders (1 source) Lesion of plantar nerve, bilateral lower limbs; Translations: [Lesion of plantar nerve, bilateral lower limbs] Onset: 5 Chronic Other nervous system disorders (4 sources) Paresthesia of hand ; Translations: [Anesthesia of skin] 01-08-2025 Episodic Other non-traumatic joint disorders (9 sources) Hip pain; Translations: [Pain in right hip] 06-25-2024 Episodic Other non-traumatic joint disorders (3 sources) Multiple joint pain; Translations: [Pain in unspecified joint] 07-22-2024 Episodic Other non-traumatic joint disorders (2 sources) Pain in right shoulder; Translations: [Right shoulder pain] 01-08-2025 Episodic Other nutritional; endocrine; and metabolic disorders (3 sources) Obese class I; Translations: [Obesity (BMI 30.0-34.9)] 07-22-2024 Chronic Other screening for suspected conditions (not mental disorders or infectious disease) (5 sources) Patient encounter status; Translations: [Encounter for screening for malignant neoplasm of colon] Onset: 5 01-23-2025 Episodic Other upper respiratory disease (8 sources) Seasonal allergy; Translations: [Other seasonal allergic rhinitis] 06-22-2021 Chronic Residual codes; unclassified (4 sources) Obstructive sleep apnea (adult) (pediatric); Translations: [Obstructive sleep apnea (adult)(pediatric)] Onset: 8 07-19-2022 Chronic Residual codes; unclassified (12 sources) Obstructive sleep apnea syndrome; Translations: [Obstructive sleep apnea (adult) (pediatric)] Onset: 8 05-20-2019 Chronic Comment on above: BiPAP 15/[address] Residual codes; unclassified (8 sources) Sleep apnea; Translations: [Sleep apnea, unspecified] 06-22-2021 Chronic Residual codes; unclassified (8 sources) Family history of blood coagulation disorder; Translations: [Family history of diseases of the blood and blood-forming organs and certain disorders involving the immune mechanism] 06-22-2021 Episodic Residual codes; unclassified (8 sources) History of colonoscopy; Translations: [Other specified postprocedural states] 06-22-2021 Episodic Comment on above: [id number] yearsDr. mitchell Residual codes; unclassified (3 sources) Family history of prostate cancer; Translations: [Family history of malignant neoplasm of prostate] 07-22-2024 Episodic Residual codes; unclassified (3 sources) Influenza vaccination declined; Translations: [Immunization not carried out because of patient refusal] 07-22-2024 Episodic Unclassified (3 sources) M25.551 - Pain in right hip,G57.63 - Lesion of plantar nerve, bilateral lower limbs Past or Other Problems Problem Classification Problem Date Documented Date Episodic/Chronic Other nervous system disorders (1 source) Other abnormal involuntary movements; Translations: [Abnormal involuntary movements] Onset: 05-11-2008 05-11-2008 Episodic Other nervous system disorders (1 source) Paresthesia of skin; Translations: [Disturbance of skin sensation] Onset: 12-18-2016 Resolved: 03-04-2018 03-04-2018 Episodic Other non-traumatic joint disorders (1 source) Pain in right hip; Translations: [Pain in right hip] Onset: 07-09-2024 Episodic Other nutritional; endocrine; and metabolic disorders (1 source) Metabolic syndrome X; Translations: [Dysmetabolic syndrome X] Onset: 05-11-2008 Resolved: 09-18-2013 09-18-2013 Chronic Residual codes; unclassified (16 sources) History of fundoplication; Translations: [Other specified postprocedural states] Onset: 05-21-2017 06-22-2021 Episodic Comment on above: 12/201712/31/17 Residual codes; unclassified (8 sources) Past history of procedure; Translations: [Other specified postprocedural states] Onset: 05-21-2017 06-22-2021 Episodic Residual codes; unclassified (1 source) Family history of malignant neoplasm of prostate; Translations: [Family history of malignant neoplasm of prostate] Onset: 07-22-2024 Episodic Results Test Name Value Interpretation Reference Range Facility /[facility]so 03-30-2025 [facility] [address] [facility] [place] [address] PAT - Anesthesia 03/30/25 0852 MR#: [id number] Acct: [id number] Name: MEGAN MILLER Rep #: [id number] : 1975 49 From: Pete Tai MD PCP: Dr. Vandana Barahona MD Status:PRE SDC Y Race: C Location: EN Pre-Assessment Diagnosis/Proposed Procedure Planned Operative Procedure(s): COLONOSCOPY Anesthesia History Anesthesia History - monitoring engineer: Anesthesia History - monitoring engineer Hx Hospitalization No 03/30/25 08:32 Any Problems With Anesthesia No 03/30/25 08:32 Cholinesterase deficiency No 03/30/25 08:32 You/Your Family Experience No 03/30/25 08:32 fever (hyperthermia) with Relationship Recent Exposure to Contagious Disease Does patient have nerve No 03/30/25 08:32 stimulator Patient instructed to have device shut off --Does patient have Pacemaker or ICD? When Was Last Pacemaker Check QUESTION #4 FULL TEXT: You/Your Family Experience fever (hyperthermia) with Anesthesia Last Oral Intake Last Oral intake: Last Oral Intake NPO since Meds taken in AM with sips of water? Meds patient instructed to take am of surgery PONV PONV - monitoring engineer: PONV - monitoring engineer Female No 03/30/25 08:32 HX of Motion Sickness No 03/30/25 08:32 HX of N/V After Surgery No 03/30/25 08:32 Non-Smoker Yes 03/30/25 08:32 Duration of Surgery greater No 03/30/25 08:32 than 60 minutes Number of Risk Factors 1 03/30/25 08:32 PONV Score Low Risk 03/30/25 08:32 Height Weight Height Weight: Anesthesia: Height Weight Height 5 ft 11 in 02/12/25 09:47 Respiratory Assessment Respiratory Assessment - monitoring engineer: Respiratory Tract Infection Hx - monitoring engineer Hx Respiratory Tract Infection No 03/30/25 08:32 STOP Sleep Apnea STOP Sleep Apnea - monitoring engineer: STOP Sleep Apnea - monitoring engineer Hx Hypertension Yes: CONTROLLED ON MED 03/30/25 08:32 Hx Sleep Apnea No 03/30/25 08:32 CPAP No 03/30/25 08:32 BIPAP Do you snore loudly (louder No 03/30/25 08:32 than talking or can be heard Do you often feel tired/ No 03/30/25 08:32 fatigued/ sleepy during daytime? Has anyone observed you stop No 03/30/25 08:32 breathing during sleep? STOP Results Negative 03/30/25 08:32 QUESTION #5 FULL TEXT : Do you snore loudly (louder than talking or can be heard through closed doors)? 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 Specify any problems Hx of Preganancy in last 3 N/A 03/30/25 08:32 Months Nurse Filling Out Transfusion VCHRISTIN 03/30/25 08:32 Questions: Date: 03/30/25 03/30/25 08:32 Time: 08:33 03/30/25 08:32 Patient unable to answer at this time (ie. confused, unrespo /Reproduction History /Reproductive History - monitoring engineer: /Reproductive Hx- monitoring engineer Hx Now No 03/30/25 08:32 Gestational Age (in weeks): EDC: Hx Hx Para Hx Section SAB No 03/30/25 08:32 Does the father of the baby or his family experience fever w Father of the baby Malignant Hypertension history comment [facility] Medical History (Updated 03/30/25 @ 08:32 by Cierra Otero) Wears glasses Wears contact lenses Kidney stone Excessive bleeding Non-smoker History of pain when walking Normal stress echocardiogram History of stress test History of echocardiogram Cardiology follow-up encounter Family history of clotting disorder Seasonal allergies Essential hypertension TOBY (obstructive sleep apnea) GERD (gastroesophageal reflux disease) Home Medications ???Medication ???Instructions ???Recorded ???Last Taken ???Type cholecalciferol (vitamin D3) 25 1,000 unit PO DAILY 05/31/18 Unkno wn History mcg (1,000 unit) capsule (Vitamin D3) coenzyme Q10 75 mg capsule (Ultra 75 mg PO DAILY 05/31/18 Unknown H istory CoQ10) multivitamin (Multiple Vitamins 1 tab PO DAILY 05/31/18 11/25 H istory tablet) (more content not included)... Normal [facility] Calculi, Urinary w / Photoon 03-04-2025 2,8 Dihydroxyad TNP Normal . [facility] Comment on above: Performed By: #### L 3650.0100 #### [facility] [address] [place], [address] AMM ACID URATE TNP Normal . [facility] Comment on above: Performed By: #### L 3650.0100 #### [facility] [address] [place], [address] Bilirubin Ql (U) TNP Normal . [facility] Comment on above: Performed By: #### L 3650.0100 #### [facility] [address] [place], [address] [place] BILIRUBINATE TNP Normal . [facility] Comment on above: Performed By: #### L 3650.0100 #### [facility] [address] [place], [address] CA CARBONATE TNP Normal . [facility] Comment on above: Performed By: #### L 3650.0100 #### [facility] [address] [place], [address] CA HYDROG PHOS TNP Normal . [facility] Comment on above: Performed By: #### L 3650.0100 #### [facility] [address] [place], [address] CA OXAL DIHYDR 20 Normal . [facility] Comment on above: Result Comment: Perf ormed at: [facility] [address] [id number] Job Printer: Edu Bolton PhD, Phone: [phone] Performed By: #### L 0.0100 #### [facility] [address] [place], [address] CA OXAL MONOHYD 80 Normal . [facility] Comment on above: Performed By: #### L 3650.0100 #### [facility] [address] [place], [address] CA Palmitate TNP Normal . [facility] Comment on above: Performed By: #### L 0.0100 #### [facility] [address] [place], [address] CA PHOS (hydro) TNP Normal . [facility] Comment on above: Performed By: #### L 0.0100 #### [facility] [address] [place], [address] CA PHOSPHATE TNP Normal . [facility] Comment on above: Performed By: #### L 0.0100 #### [facility] [address] [place], [address] CA Stearate TNP Normal . [facility] Comment on above: Performed By: #### L 0.0100 #### [facility] [address] [place], [address] CHOLESTEROL TNP Normal . [facility] Comment on above: Performed By: #### L 3650.0100 #### [facility] [address] [place], [address] Color (U) Brown Normal . [facility] [facility] Comment on above: Performed By: #### L 0.0100 #### [facility] [address] [place], [address] COMMENT TNP Normal . [facility] Comment on above: Performed By: #### L 3649.0100 #### [facility] [address] [place], [address] CYSTINE TNP Normal . [facility] Comment on above: Performed By: #### L 3649.0100 #### [facility] [address] [place], [address] Drug/Metabolite TNP Normal . [facility] Comment on above: Performed By: #### L 3649.0100 #### [facility] [address] [place], [address] MAG RAMANDEEP PHOS TNP Normal . [facility] Comment on above: Performed By: #### L 3649.0 #### [facility] [address] [place], [address] NA ACID URATE TNP Normal . [facility] Comment on above: Performed By: #### L 3649.0 #### [facility] [address] [place], [address] NEWBERYITE TNP Normal . [facility] Comment on above: Performed By: #### L 3649.0 #### [facility] [address] [place], [address] Other Component TNP Normal . [facility] Comment on above: Performed By: #### L 3649.0 #### [facility] [address] [place], [address] SIZE 2x2 Normal . [facility] Comment on above: Result Comment: Sing le piece received. Performed By: #### L 3649.0100 #### [facility] [address] [place], [address] SOURCE Comment Normal . [facility] Comment on above: Result Comment: Not provided Performed By: #### L 3649.0100 #### [facility] [address] [place], [address] TRIAMTERENE TNP Normal . [facility] Comment on above: Performed By: #### L 3649.0100 #### [facility] [address] [place], [address] URIC ACID TNP Normal . [facility] Comment on above: Performed By: #### L 3650.0100 #### [facility] [address] [place], [address] URIC ACID DIHYD TNP Normal . [facility] Comment on above: Performed By: #### L 365.0100 #### [facility] [address] [place], [address] WEIGHT 8 mg Normal . [facility] Comment on above: Performed By: #### L 3649.0100 #### [facility] [address] [place], [address] XANTHINE TNP Normal . [facility] Comment on above: Performed By: #### L 3650.0100 #### [facility] [address] [place], [address] Surgery Specimen Level Ion 1 0 Surgery Specimen Level I -------- Patient Age/Sex Location Account Attending Physician -------- MEGAN MILLER 49/[facility] [id number] Dr. Luis Cazares MD -------- Specimen: [id number] Received: 02/19/25 Status: EVITA Cho Num: [id number] Spec Type: Calculi Subm Dr: Dr. Luis Cazares MD HEADER OPERATION: Not noted PRE-OP DIAGNOSIS: Calculus of kidney TISSUE SUBMITTED: A- Calculi -------- GROSS DIAGNOSIS A. Kidney, calculus: * Urolithiasis confirmed (gross examination only). * Chemical analysis is pending and a separate report will follow. COMMENT The calculus is submitted in its entirety for chemical stone analysis. The results from this study will be reported separately. GROSS DESCRIPTION A. Received fresh labeled the patient's name and date of . Designated as stone analysis" is a 0.3 cm irregular brown calculus. No sections are submitted. The specimen is for gross examination only. The specimen is sent for stone analysis. [place] 02/20/2025 CPT:51875 -------- Patient Age/Sex Location Account Attending Physician -------- MEGAN MILLER 49/M [facility] [id number] Dr. Luis Cazares MD -------- Signed (signature on file) Dr. Candy Marcus MD 02/24/25 1111 -------- Normal [facility] Comment on above: Performed By: #### P HAMILTON ####[facility] [address] [place], [address] Abdomen/Pelvis without Conto n 02-12-2025 Abdomen/Pelvis without Cont [facility] [address] [place] [address] Abdomen/Pelvis without Cont MR#: [id number] Acct: [id number] Name: MEGAN MILLER Rep #: [id number] : 1975 M 49 From: Yamile Milligan MD PCP: Dr. Vandana Barahona MD Status: REG ER Study: Abdomen/Pelvis without Cont Date of Exam: 01/20 10/12 Exam# [id number] Ordering Dr: Apolinar Berkowitz DO PROCEDURE: ABDOMEN/PELVIS WITHOUT CONT 02/12/2025 REASON FOR EXAM: PAIN TECHNIQUE: Procedure Code: CTABDPEL Modality: CT Procedure: ABDOMEN/PELVIS WITHOUT CONT Noncontrast technique limits evaluation of the abdominal and pelvic viscera. Coronal and Sagittal reconstruction series were provided. One or more dose reduction techniques were used (e.g., Automated exposure control, adjustment of the mA and/or kV according to patient size, use of iterative reconstruction technique). RADIATION DOSE SUMMARY: CTDlvol: 15.18 mGy DLP: 879.67 mGycm COMPARISON: None. FINDINGS: Lung bases: Clear. Liver: Fatty infiltration of the liver. Gallbladder: Unremarkable. Spleen: Unremarkable. Pancreas: Unremarkable. Adrenals: Unremarkable. Kidneys: Three stones at the lower pole of the left kidney with the largest measures 6 mm. Left perinephric fluid consistent sent with forniceal rupture. A 2 mm obstructing stone at the left ureteral-bladder junction causing severe left hydronephrosis. Bladder: The bladder is decompressed. Reproductive Organs: Unremarkable. Bowel: Extensive colonic diverticulosis with no evidence of acute diverticulitis. No bowel obstruction. Appendix: Unremarkable. Lymph nodes: No lymphadenopathy. Vasculature: No aneurysm. Peritoneum / Retroperitoneum: No free air or free fluid. Bones: No acute bony abnormalities. CT/Abdomen/Pelvis without Cont IMPRESSION: Three stones at the lower pole of the left kidney with the largest measures 6 mm. Left perinephric fluid consistent sent with forniceal rupture. A 2 mm obstructing stone at the left ureteral-bladder junction causing severe left hydronephrosis. Colonic diverticulosis with no evidence of acute diverticulitis. No bowel obstruction. Reading Location: [facility] CC: Dr. Vandana Barahona MD; Dr. Apolinar Berkowitz DO [employer] Pouncer: Signed Normal [facility] Absolute lymphocyte countOrd ered By: Apolinar Berkowitz on 02-12-2025 Lymphocytes Auto (Unsp spec) [#/Vol] 2.24 10*3/uL 0.83-4.51 [facility] Absolute neutrophil countOrd ered By: Apolinar Berkowitz on 02-12-2025 Neutrophils (Bld) [#/Vol] 4.4 10*3/uL 2.0-7.7 [facility] Anion gap in Serum or Plasma Ordered By: Apolinar Berkowitz on 02-12-2025 Anion gap [Moles/Vol] 14 mmol/L 10-02 [facility] Automated lymphocyte count a s percentage of total leukocytesOrdered By: Apolinar Berkowitz on 02-12-2025 Lymphocytes/100 WBC Auto (Unsp spec) 30.3 % [facility] BUN/creatinine ratioOrdered By: Apolinar Berkowitz on 02-12-2025 Urea nitrogen/Creatinine [Mass ratio] 11.2 mg/mg 03-09 [facility] Basic Metabolic Profile (BMP )on 02-12-2025 BUN/CRE 11.2 RATIO Normal 03-09 [facility] Comment on above: Performed By: #### L 100.0100, L500.2500 #### [facility] [address] [place], [address] Calcium [Mass/Vol] 9.2 mg/dL Normal 7.6-11.0 [facility] Comment on above: Performed By: #### L 100.0100, L500.2500 #### [facility] [address] [place], [address] Chloride [Moles/Vol] 104 mmol/L Normal 98-108 [facility] Comment on above: Performed By: #### L 100.0100, L500.2500 #### [facility] [address] [place], [address] CO2 [Moles/Vol] 20.7 mmol/L Low 21.0-32.0 [facility] Comment on above: Performed By: #### L 100.0100, L500.2500 #### [facility] [address] [place], [address] Creatinine [Mass/Vol] 1.30 mg/dL High 0.70-1.20 [facility] Comment on above: Performed By: #### L 100.0100, L500.2500 #### [facility] [address] [place], [address] ECRCL 83.87 ml/min Normal 50-250 [facility] Comment on above: Performed By: #### L 100.0100, L500.2500 #### [facility] [address] [place], [address] GAP 14 Normal 5-15 [facility] Comment on above: Performed By: #### L 100.0100, L500.2500 #### [facility] [address] [place], [address] GFR/1.73 sq M.predicted among non-blacks MDRD (S/P/Bld) [Vol rate/Area] 67 mL/min/{1.73_m2} Normal >60 [facility] Comment on above: Result Comment: mL/m in/1.73m2 CKD-EPI Creatinine Equation (2020) Performed By: #### L 100.0100, L500.2500 #### [facility] [address] [place], [address] Glucose [Mass/Vol] 115 mg/dL High 70-99 [facility] Comment on above: Performed By: #### L 100.0100, L500.2500 #### [facility] [address] [place], [address] Potassium [Moles/Vol] 4.6 mmol/L Normal 3.3-5.1 [facility] Comment on above: Performed By: #### L 100.0100, L500.2500 #### [facility] [address] [place], [address] Sodium [Moles/Vol] 138 mmol/L Normal 133-145 [facility] Comment on above: Performed By: #### L 100.0100, L500.2500 #### [facility] [address] [place], [address] Urea nitrogen [Mass/Vol] 15 mg/dL Normal 4-19 [facility] Comment on above: Performed By: #### L 100.0100, L500.2500 #### [facility] [address] [place], [address] Basophil percentageOrdered B y: Apolinarjayro Berkowitz on 02-12-2025 Basophils/100 WBC (Bld) 0.7 % 0-1 [facility] Bilirubin Test strip Ql (U)O rdered By: Apolinarjayro Berkowitz on 02-12-2025 Bilirubin Ql (U) Negative Negative [facility] CBC W/Diff, Automatedon 01-20 Absolute Lymph 2.24 X10 3/uL Normal 0.83-4.51 [facility] Comment on above: Performed By: #### L 100.0100, L500.2500 #### [facility] [address] [place], [address] Absolute Neut 4.4 X10 3/uL Normal 2.0-7.7 [facility] Comment on above: Performed By: #### L 100.0100, L500.2500 #### [facility] [address] [place], [address] Basophils/100 WBC (Bld) 0.7 % Normal 0-1 [facility] Comment on above: Performed By: #### L 100.0100, L500.2500 #### [facility] [address] [place], [address] Eosinophils/100 WBC (Bld) 3.1 % Normal 0-5 [facility] Comment on above: Performed By: #### L 100.0100, L500.2500 #### [facility] [address] [place], [address] Erythrocyte distribution width (RBC) [Ratio] 13.1 % Normal 11.6-14.6 [facility] Comment on above: Performed By: #### L 100.0100, L500.2500 #### [facility] [address] [place], [address] Hematocrit (Bld) [Volume fraction] 44.2 % Normal 40-54 [facility] Comment on above: Performed By: #### L 100.0100, L500.2500 #### [facility] [address] [place], [address] Hemoglobin (Bld) [Mass/Vol] 15.3 g/dL Normal 13.0-16.5 [facility] Comment on above: Performed By: #### L 100.0100, L500.2500 #### [facility] [address] [place], [address] IG% 0.400 Normal 0.0-0.9 [facility] Comment on above: Result Comment: IG% - Immature Granulocytes (promyelocytes, myelocytes and metamyelocytes) > 1% indicates that a LEFT SHIFT is Present. Performed By: #### L 100.0100, L500.2500 #### [facility] [address] [place], [address] Lymphocytes/100 WBC (Bld) 30.3 % Normal 19-41 [facility] Comment on above: Performed By: #### L 100.0100, L500.2500 #### [facility] [address] [place], [address] MCH (RBC) [Entitic mass] 29.9 pg Normal 27.0-32.0 [facility] Comment on above: Performed By: #### L 100.0100, L500.2500 #### [facility] [address] [place], [address] MCHC (RBC) [Mass/Vol] 34.6 g/dL Normal 32-36 [facility] Comment on above: Performed By: #### L 100.0100, L500.2500 #### [facility] [address] [place], [address] MCV (RBC) [Entitic vol] 86.5 fL Normal 80-94 [facility] Comment on above: Performed By: #### L 100.0100, L500.2500 #### [facility] [address] [place], [address] Monocytes/100 WBC (Bld) 6.6 % Normal 0-10 [facility] Comment on above: Performed By: #### L 100.0100, L500.2500 #### [facility] [address] [place], [address] Neutrophils/100 WBC (Bld) 58.9 % Normal 47-70 [facility] Comment on above: Performed By: #### L 100.0100, L500.2500 #### [facility] [address] [place], [address] Nucleated RBC (Bld) [#/Vol] 0 10*3/uL Normal 0-5 [facility] Comment on above: Performed By: #### L 100.0100, L500.2500 #### [facility] [address] [place], [address] Platelet mean volume (Bld) [Entitic vol] 9.6 fL Normal 6.2-12.0 [facility] Comment on above: Performed By: #### L 100.0100, L500.2500 #### [facility] [address] [place], [address] Platelets (Bld) [#/Vol] 277 10*3/uL Normal 150-450 [facility] Comment on above: Performed By: #### L 100.0100, L500.2500 #### [facility] [address] [place], [address] RBC (Bld) [#/Vol] 5.11 10*6/uL Normal 4.6-6.2 [facility] Comment on above: Performed By: #### L 100.0100, L500.2500 #### [facility] [address] [place], [address] RDW SD 40.7 fl Normal 35.1-43.9 [facility] Comment on above: Performed By: #### L 100.0100, L500.2500 #### [facility] [address] [place], [address] WBC (Bld) [#/Vol] 7.4 10*3/uL Normal 4.4-11.0 [facility] Comment on above: Performed By: #### L 100.0100, L500.2500 #### [facility] [address] [place], [address] Carbon dioxide, total [Moles /volume] in Central venous bloodOrdered By: Apolinar Berkowitz on 02-12-2025 CO2 [Moles/Vol] 20.7 mmol/L Low 21.0-32.0 [facility] Chloride assayOrdered By: Russell Berkowitz on 02-12-2025 Chloride [Moles/Vol] 104 mmol/L 98-108 [facility] Emergency Department Summary on 02-12-2025 Emergency Department Summary [facility] Medical Records Department [address] [place] [address] Emergency Department Summary 02/12/25 MR#: [id number] Acct: [id number] Name: MEGAN MILLER Rep #: [id number] : 1975 49 From: Apolinar Berkowitz DO PCP: Dr. Vandana Barahona MD Status:DEP ER Location: ED HPI HPI - GI History of Present Illness Chief Complaint: Abd Pain Informant: patient Abdominal Pain/Flank Pain Onset: Today Context: Sudden Onset Timing: Continuous Quality: Cramping Location: LLQ and Left Flank Worsened by: - (Standing) Relieved by: - (Bending forward) Nausea/Vomiting/Emesis GI Symptom: Positive for Nausea and Vomiting Quality: Positive for - (Dry heaves) Diarrhea/Melena/Hematochezia GI Symptom: Negative for Diarrhea, Melena or Hematochezia Associated Symptoms Associated Symptoms: Negative for Dysuria, Frequency or Hematuria Narrative Narrative: Patient presents with left lower abdominal pain that began today. Patient states he felt fine when he got up and went to work. Patient states that when he got to work, he noted pain in his left lower abdomen and left flank. Patient states it is worse when he stood up at work. Patient states it is better when he was able to sit down and bend forward. Patient admits to some nausea and dry heaves. Patient denies any melena or hematochezia. Patient denies any dysuria or hematuria. Patient denies any fevers or chills. [facility] Medical History Family history of clotting disorder Seasonal allergies Gout Essential hypertension TOBY (obstructive sleep apnea) GERD (gastroesophageal reflux disease) Home Medications ???Medication ???Instructions ???Recorded ???Last Taken ???Type cholecalciferol (vitamin D3) 25 1,000 unit PO DAILY 05/31/18 Unkno wn History mcg (1,000 unit) capsule (Vitamin D3) coenzyme Q10 75 mg capsule (Ultra 75 mg PO DAILY 05/31/18 Unknown H istory CoQ10) multivitamin (Multiple Vitamins 1 tab PO DAILY 05/31/18 Unknown Hi story tablet) omega-3 fatty acids 1,000 mg 2,000 mg PO QDAY supplement Unknown History capsule (Fish Oil Concentrate) Cellular Complex PO 11/16/20 Unknown History Essential oils PO 11/16/20 Unknown History losartan 25 mg tablet 25 mg PO DAILY #90 tabs 07/22/24 U nknown Rx methylprednisolone 4 mg tablets in 4 mg PO PER PKG DIR #21 tabs Unknown Rx a dose pack (Medrol (Tom)) hydrocodone-acetaminophen 5-325mg 1 tab PO Q6H PRN PRN Pain 3 days 02/12/25 Unknown Rx 5mg-325mg #10 TABLETS tamsulosin 0.4 mg capsule 0.4 mg PO DAILY #7 CAPSULES Unknown Rx Allergy/AdvReac Type Severity Reaction Status Date / Time shellfish derived Allergy Severe anaphylacti Verified 02/12/25 09:47 c hydrochlorothiazide Allergy Intermediate palpitation Verified 02/12/25 09:47 s/restlessn ess lisinopril AdvReac Mild cough Verified 02/12/25 09:47 tachycardia Family History Brother Asthma Cancer lymphoma Mother Arthritis Hypertension High cholesterol Macular degeneration Depression Father Hypertension High cholesterol Sleep apnea Myocardial infarction, Onset Age: 68 CAD (coronary artery disease) Son Seizures Daughter Seizures Aunt Parkinsons disease Grandmother Parkinsons disease CVA (cerebral vascular accident) Uncle CVA (cerebral vascular accident) Diabetes Grandfather Myocardial infarction, Onset Age: 68 Grandfather Cancer melanoma Brother CVA (cerebral vascular accident) Cancer prostate Surgical History Status post laparoscopic Shakila fundoplication ( 12/31/17) S/P colonoscopy History of esophagogastroduodenoscopy (EGD) ( 10/2017) History of tonsillectomy Social History adopted: No household members: spouse and children housing: house number of children: 3 current occupational status: employed current occupation: [employer] [address] [place], [place] pets and animals: No sexually active: Yes Smoking Status: Never smoker Electronic Cigarette Use: not used second hand exposure: No alcohol intake: never substance use type: does not use caffeine: Yes (2) Type: coffee frequency: does not exercise do you feel safe at home: Yes ROS ROS ED Constitutional Constitutional ED: Denies chills or fever(s) Eyes Eyes: Denies blurry vision or change in vision ENT ENT ED: Denies rhinorrhea or sore throat Cardiovascular Cardiovascular: Denies chest pain or palpitations Respiratory/Chest Respiratory/Chest: Denies cough or dyspnea Gastrointestinal Gastrointestinal: Reports abdominal pain, nausea and vomiting; Denies melena Genitour (more content not included)... Normal [facility] Eosinophil percentageOrdered By: Apolinar Berkowitz on 02-12-2025 Eosinophils/100 WBC (Bld) 3.1 % 0-5 [facility] Erythrocyte distribution wid th ratioOrdered By: Apolinar Berkowitz on 02-12-2025 Erythrocyte distribution width (RBC) [Ratio] 13.1 % 11.6-14.6 [facility] Erythrocyte distribution wid th standard deviationOrdered By: Apolinar Berkowitz on 02-12-2025 Erythrocyte distribution width (RBC) [Ratio] 40.7 fl 35.1-43.9 [facility] Glomerular filtration rate ( GFR) estimation/1.73 sq m using serum, plasma, or whole bOrdered By: Apolinar Berkowitz on 02-12-2025 GFR/1.73 sq M.predicted among non-blacks MDRD (S/P/Bld) [Vol rate/Area] 67 mL/min/{1.73_m2} >60 [facility] Comment on above: mL/min/1.73m2 CKD-EP I Creatinine Equation (2020) Hematocrit Auto (Bld) [Volum e fraction]Ordered By: Apolinar Berkowitz on 02-12-2025 Hematocrit (Bld) [Volume fraction] 44.2 % 40-54 [facility] Hemoglobin measurementOrdere d By: Apolinar Berkowitz on 02-12-2025 Hemoglobin (Bld) [Mass/Vol] 15.3 g/dL 13.0-16.5 [facility] Immature granulocytes/100 WB C Auto (Bld)Ordered By: Apolinar Berkowitz on 02-12-2025 Immature granulocytes/100 WBC (Bld) 0.400 % 0.0-0.9 [facility] Comment on above: IG% - Immature Granu locytes (promyelocytes, myelocytes and metamyelocytes) > 1% indicates that a LEFT SHIFT is Present. Ketones Test strip Ql (U)Ord ered By: Apolinar Berkowitz on 02-12-2025 Ketones Ql (U) Negative Negative [facility] MCV (mean corpuscular volume ) determinationOrdered By: Apolinar Berkowitz on 02-12-2025 MCV (RBC) [Entitic vol] 86.5 fL 80-94 [facility] Mean corpuscular hemoglobin (MCH) determinationOrdered By: Apolinar Berkowitz 02-12-2025 MCH (RBC) [Entitic mass] 29.9 pg 27.0-32.0 [facility] Mean corpuscular hemoglobin concentration (MCHC) determinationOrdered By: Apolinar Berkowitz on 02-12-2025 MCHC (RBC) [Mass/Vol] 34.6 g/dL 32-36 [facility] Mean platelet volume determi nationOrdered By: Apolinar Berkowitz on 02-12-2025 Platelet mean volume (Bld) [Entitic vol] 9.6 fL 6.2-12.0 [facility] Microscopic analysis of urin e for red blood cells (RBC)Ordered By: Apolinar Berkowitz on 02-12-2025 Microscopic analysis of urine for red blood cells (RBC) 0-5 SEEN /hpf 0-5 [facility] Monocyte percentageOrdered B y: Apolinar Berkowitz on 02-12-2025 Monocytes/100 WBC (Bld) 6.6 % 0-10 [facility] Mucus LM Ql (Urine sed)Order ed By: Apolinar Berkowitz on 02-12-2025 Mucus Ql (Urine sed) 0 SEEN /hpf [facility] Neutrophil percentageOrdered By: Apolinar Berkowitz on 02-12-2025 Neutrophils/100 WBC (Bld) 58.9 % 47-70 [facility] Nitrite Test strip Ql (U)Ord ered By: Apolinar Berkowitz on 02-12-2025 Nitrite Ql (U) Negative Negative [facility] Nucleated red blood cell per centageOrdered By: Apolinar Berkowitz on 02-12-2025 Nucleated RBC/100 WBC (Bld) [Ratio] 0 % 0-5 [facility] Platelet countOrdered By: Russell Berkowitz on 02-12-2025 Platelets (Bld) [#/Vol] 277 10*3/uL 150-450 [facility] Potassium measurement (mass/ volume)Ordered By: Apolinar Berkowitz on 02-12-2025 Potassium (Unsp spec) [Mass/Vol] 4.6 mmol/L 3.3-5.1 [facility] Protein Test strip Ql (U)Ord ered By: Apolinar Berkowitz on 02-12-2025 Protein Ql (U) 15 mg/dl High Negative [facility] RBC Auto (Bld) [#/Vol]Ordere d By: Apolinar Berkowitz on 02-12-2025 RBC (Bld) [#/Vol] 5.11 10*6/uL 4.6-6.2 [facility] Serum creatinine measurement (mass/volume)Ordered By: Apolinar Berkowitz on 02-12-2025 Creatinine [Mass/Vol] 1.30 mg/dL High 0.70-1.20 [facility] Serum glucose measurement (m ass/volume)Ordered By: Apolinar Berkowitz on 02-12-2025 Glucose [Mass/Vol] 115 mg/dL High 70-99 [facility] Serum or plasma calcium kike urement (mass/volume)Ordered By: Apolinar Berkowitz on 02-12-2025 Calcium [Mass/Vol] 9.2 mg/dL 7.6-11.0 [facility] Serum or plasma urea nitroge n measurement (mass/volume)Ordered By: Apolinar Berkowitz on 02-12-2025 Urea nitrogen [Mass/Vol] 15 mg/dL 4-19 [facility] Sodium levelOrdered By: Apolinar Berkowitz on 02-12-2025 Sodium [Moles/Vol] 138 mmol/L 133-145 [facility] Squamous epithelial cells de tection in urine sediment by light microscopyOrdered By: Apolinar Berkowitz on 02-12-2025 Epithelial cells.squamous LM Ql (Urine sed) 0 SEEN /hpf 0-5 [facility] Urinalysis, Completeon 02-12 RBC 0-5 SEEN Normal 0-5 [facility] Comment on above: Order Comment: CLEAN CATCH Performed By: #### L 400.0001 #### [facility] [address] [place], [place], [id number] BACTERIA 0 SEEN Normal None Seen [facility] Comment on above: Order Comment: CLEAN CATCH Performed By: #### L 400.0001 #### [facility] [address] [place], [place], [id number] EPI,SQUAMOUS 0 SEEN Normal 0-5 [facility] Comment on above: Order Comment: CLEAN CATCH Performed By: #### L 400.0001 #### [facility] [address] [place], [address] Mucus Ql (Urine sed) 0 SEEN Normal [facility] Comment on above: Order Comment: CLEAN CATCH Performed By: #### L 400.0001 #### [facility] [address] [place], [place], [id number] WBC 0 SEEN Normal 0-5 [facility] Comment on above: Order Comment: CLEAN CATCH Performed By: #### L 400.0001 #### [facility] [address] [place], [place], [id number] Urine clarityOrdered By: Sushma Berkowitz on 02-12-2025 Clarity (U) Clear Clear [facility] Urine color determinationOrd ered By: Apolinar Berkowitz on 02-12-2025 Color (U) Yellow Yellow [facility] Urine glucose detectionOrder ed By: Apolinar Berkowitz on 02-12-2025 Glucose Ql (U) Normal mg/dl Normal [facility] Urine leukocyte esterase det ection by dipstickOrdered By: Apolinar Berkowitz on 02-12-2025 Leukocyte esterase Test strip Ql (U) Negative Negative [facility] Urine pHOrdered By: Apolinar marrero on 02-12-2025 pH (U) 5.0 [pH] 5.0 - 8.0 [facility] Urine sediment bacteria coun t by microscopy (number/high power field)Ordered By: Apolinar Berkowitz on 02-12-2025 Bacteria LM.HPF (Urine sed) [#/Area] 0 /[HPF] None Seen [facility] Urine specific gravity measu rementOrdered By: Apolinar Berkowitz on 02-12-2025 Specific gravity (U) [Rel density] 1.025 1.002-1.03 0 [facility] Urine urobilinogen measureme ntOrdered By: Apolinar Berkowitz on 02-12-2025 Urobilinogen Ql (U) Normal mg/dl Normal [facility] White blood cell (WBC) count Ordered By: Apolinar Berkowitz on 02-12-2025 WBC (Bld) [#/Vol] 7.4 10*3/uL 4.4-11.0 [facility] White blood cell countOrdere d By: Apolinar Berkowitz on 02-12-2025 White blood cell count 0 SEEN /hpf 0-5 [facility] Surgery Visit Reporton 01-23 Surgery Visit Report [facility] [address] [place] [address] OFFICE VISIT Date of Service: 01/23/25 MR#: [id number] Acct: [id number] Name: MEGAN MILLER Rep #: [id number] : 1975 Provider: Dr. Mustapha almodovar MD Age/Sex: 49/M Location: [facility] Status: Signed Intake Vital Signs 01/08/25 08:04 01/23/25 08:39 Height 6 ft 6 ft Weight: 231 lb 235 lb BMI 31.3 31.8 BP 140/88 H 116/80 Blood Pressure Location Lt brachial Rt brachial Position Sitting Sitting Respiration 18 17 Pulse 48 L 83 Pulse Source Monitor Monitor Temp 98.2 F Temp Source Temporal Pulse Oximetry (%) 97 97 Oxygen Delivery Method room air room air Intake Visit Reasons: SELF REFERRED CHANGE IN BOWEL HABITS Chief Complaint: self referred change in bowel habits Is patient in pain?: No Allergies shellfish derived Allergy (Severe, Verified 01/23/25 08:40) anaphylactic hydrochlorothiazide Allergy (Intermediate, Verified 01/23/25 08:40) palpitations/restlessness lisinopril Adverse Reaction (Mild, Verified 01/23/25 08:40) cough tachycardia Medications ???Medication ???Instructions ???Recorded ???Confirmed ???Type cholecalciferol (vitamin D3) 25 1,000 unit PO DAILY 05/31/1801/23 History mcg (1,000 unit) capsule (Vitamin D3) coenzyme Q10 75 mg capsule (Ultra 75 mg PO DAILY 05/31/18 01/23/25 History CoQ10) multivitamin (Multiple Vitamins 1 tab PO DAILY 05/31/18 01/23/25 H istory tablet) omega-3 fatty acids 1,000 mg 2,000 mg PO QDAY supplement 01/23/25 History capsule (Fish Oil Concentrate) Cellular Complex PO 11/16/20 01/23/25 History Essential oils PO 11/16/20 01/23/25 History losartan 25 mg tablet 25 mg PO DAILY #90 tabs 07/22/24 0 01/23/25 Rx methylprednisolone 4 mg tablets in 4 mg PO PER PKG DIR #21 tabs 01/23/25 Rx a dose pack (Medrol (Tom)) [facility] Medical History Family history of clotting disorder Seasonal allergies Gout Essential hypertension TOBY (obstructive sleep apnea) GERD (gastroesophageal reflux disease) Surgical History Status post laparoscopic Shakila fundoplication ( 12/31/17) S/P colonoscopy History of esophagogastroduodenoscopy (EGD) ( 10/2017) History of tonsillectomy Family History Brother Asthma Cancer lymphoma Mother Arthritis Hypertension High cholesterol Macular degeneration Depression Father Hypertension High cholesterol Sleep apnea Myocardial infarction, Onset Age: 68 CAD (coronary artery disease) Son Seizures Daughter Seizures Aunt Parkinsons disease Grandmother Parkinsons disease CVA (cerebral vascular accident) Uncle CVA (cerebral vascular accident) Diabetes Grandfather Myocardial infarction, Onset Age: 68 Grandfather Cancer melanoma Brother CVA (cerebral vascular accident) Cancer prostate Social History adopted: No household members: spouse and children housing: house number of children: 3 current occupational status: employed current occupation: [employer] [address] [place], [place] pets and animals: No sexually active: Yes Smoking Status: Never smoker Electronic Cigarette Use: not used second hand exposure: No alcohol intake: never substance use type: does not use caffeine: Yes (2) Type: coffee frequency: does not exercise do you feel safe at home: Yes HPI HPI HPI: The patient is a 49-year-old male who is being seen today with complaints of a recent change in his bowel movements as well as some periodic bright red blood per rectum. Last colonoscopy was 2017.. Patient denies previous polyps. No family history of colon polyps however a cousin had rectal cancer. Patient states his bowel movements have become somewhat inconsistent in terms of their color and consistency. He states that a lot of times lately they are very thin and somewhat stringy. He does note some occasional bright red blood with bowel movements. He states that sometimes these are couple drops of blood in the water and many times there is bright red blood on the tissue after wiping.. He does admit to some straining at times with bowel movements. He presents today to discuss possible colonoscopy. ROS General General: Yes fatigue; No weight change, appetite, colon cancer, breast cancer or weakness HEENT HEENT: No difficulty swallowing, eye injury, eye surgery, swollen glands or hoarseness Endo Endocrine: No thyroid disease, diabetes mellitus, thyroid cancer, Hair loss, heat intolerance or cold intolerance Skin Skin: No rash or changing moles Musc (more content not included)... Normal [facility] Internal Medicine Office Vis iton 01-08-2025 Internal Medicine Office Visit [facility] [address] [place] [address] [place] [address] OFFICE VISIT Date of Service: 01/08/25 MR#: [id number] Acct: [id number] Name: MEGAN MILLER Rep #: [id number] : 1975 Provider: VAHID Mark Age/Sex: 49/M Location: [facility] Status: Signed Intake Vital Signs 07/22/24 07:38 01/08/25 08:04 Height 6 ft 6 ft Weight: 232 lb 231 lb BMI 31.4 31.3 BP 128/82 H 140/88 H Blood Pressure Location Lt brachial Lt brachial Position Sitting Sitting Respiration 16 18 Pulse 79 48 L Pulse Source Monitor Monitor Temp 97.9 F 98.2 F Temp Source Temporal Temporal Pulse Oximetry (%) 99 97 Oxygen Delivery Method room air room air Intake Visit Reasons: Tingling in fingers. Chief Complaint: Tingling in fingers. Is patient in pain?: Yes (6 right hip ) Allergies shellfish derived Allergy (Severe, Verified 01/08/25 08:05) anaphylactic hydrochlorothiazide Allergy (Intermediate, Verified 01/08/25 08:05) palpitations/restlessness lisinopril Adverse Reaction (Mild, Verified 01/08/25 08:05) cough tachycardia Medications ???Medication ???Instructions ???Recorded ???Confirmed ???Type cholecalciferol (vitamin D3) 25 1,000 unit PO DAILY 05/31/1801/08 History mcg (1,000 unit) capsule (Vitamin D3) coenzyme Q10 75 mg capsule (Ultra 75 mg PO DAILY 05/31/18 01/08/25 History CoQ10) multivitamin (Multiple Vitamins 1 tab PO DAILY 05/31/18 01/08/25 H istory tablet) omega-3 fatty acids 1,000 mg 2,000 mg PO QDAY supplement 01/08/25 History capsule (Fish Oil Concentrate) Cellular Complex PO 11/16/20 01/08/25 History Essential oils PO 11/16/20 01/08/25 History losartan 25 mg tablet 25 mg PO DAILY #90 tabs 07/22/24 0 01/08/25 Rx meloxicam 15 mg tablet 15 mg PO QDAY #30 tabs 01/08/25 Rx methylprednisolone 4 mg tablets in 4 mg PO PER PKG DIR #21 tabs 01/08/25 Rx a dose pack (Medrol (Tom)) Nurse's Note: pt has c/o today of pain/discomfort in right shoulder and right hip for the past 3 months, pt denies injury pt also has concern for recent tingling sensation in bilateral fingers pt is not aware of any injury or triggers [facility] Medical History Family history of clotting disorder Seasonal allergies Gout Essential hypertension TOBY (obstructive sleep apnea) GERD (gastroesophageal reflux disease) Surgical History Status post laparoscopic Shakila fundoplication ( 12/31/17) S/P colonoscopy History of esophagogastroduodenoscopy (EGD) ( 10/2017) History of tonsillectomy Family History Brother Asthma Cancer lymphoma Mother Arthritis Hypertension High cholesterol Macular degeneration Depression Father Hypertension High cholesterol Sleep apnea Myocardial infarction, Onset Age: 68 CAD (coronary artery disease) Son Seizures Daughter Seizures Aunt Parkinsons disease Grandmother Parkinsons disease CVA (cerebral vascular accident) Uncle CVA (cerebral vascular accident) Diabetes Grandfather Myocardial infarction, Onset Age: 68 Grandfather Cancer melanoma Brother CVA (cerebral vascular accident) Cancer prostate Social History adopted: No household members: spouse and children housing: house number of children: 3 current occupational status: employed current occupation: [employer] [address] [place], [place] pets and animals: No sexually active: Yes Smoking Status: Never smoker Electronic Cigarette Use: not used second hand exposure: No alcohol intake: never substance use type: does not use caffeine: Yes (2) Type: coffee frequency: does not exercise do you feel safe at home: Yes HPI HPI Chief Complaint: Tingling in fingers. Details: MEGAN MILLER, is a 49 M who presents to the office today for tingling in the fingers for the past couple of days. He isn't exactly sure which fingers but sort of feels like all of the fingers. He states that it is pretty much all the time and is not specific to a certain activity or position. He denies any new or recent changes in his activities or hobbies. No injuries. Nothing new that he can think of the past few days. He does state that Sunday he was lifting a lot of heavy weights off of a tractor out of a barn. He has had some right shoulder discomfort for many months now. There was no injury that he can recall. He states that he has never had any issues prior. He has continued to have some right hip pains. Exam Const General: cooperative, healthy appearing, comfortable, no acute distress, well developed and well groomed Nutritional Appearance (more content not included)... Normal [facility] Lower GI hemoglobin IA Ql (S tl)Ordered By: Vandana Barahona on 07-23-2024 Stool Occult Blood (JILLIAN) [facility] Stool Occult Blood iFOBon STOB Normal Reference Ran ge = Negative Immunochemical Fecal Occult Blood (iFOBT) method. Hemoccult Stl Ql IA Limitation: Menstrual bleeding, constipation bleeding, bleeding hemorrhoids, and urinary bleeding conditions may interfere with test. Occult Blood Negative Normal [facility] Comment on above: Performed By: #### M 100.7900 ####[facility] [id number] [place], [place], [id number] Stool gastrointestinal hemog lobin detection by immunologic methodOrdered By: Vandana Barahona on 07-23-2024 Lower GI hemoglobin IA Ql (Stl) [facility] Absolute lymphocyte countOrd ered By: Vandana Barahona on 07-22-2024 Lymphocytes Auto (Unsp spec) [#/Vol] 2.70 10*3/uL 0.83-4.51 [facility] Absolute neutrophil countOrd ered By: Vandana Barahona on 07-22-2024 Neutrophils (Bld) [#/Vol] 3.2 10*3/uL 2.0-7.7 [facility] Anion gap in Serum or Plasma Ordered By: Vandana Barahona on 07-22-2024 Anion gap [Moles/Vol] 14 mmol/L 5- [facility] Automated lymphocyte count a s percentage of total leukocytesOrdered By: Vandana Barahona on 07-22-2024 Lymphocytes/100 WBC Auto (Unsp spec) 40.1 % - [facility] BUN/creatinine ratioOrdered By: Vandana Barahona on 07-22-2024 Urea nitrogen/Creatinine [Mass ratio] 13.7 mg/mg 10- [facility] Basophil percentageOrdered B y: Vandana Barahona on 07-22-2024 Basophils/100 WBC (Bld) 0.9 % 0-1 [facility] Bilirubin, totalOrdered By: Vandana Barahona on 07-22-2024 Bilirubin [Mass/Vol] 0.65 mg/dL 0.00-1.30 [facility] CBC W/Diff, Automatedon Absolute Lymph 2.70 X10 3/uL Normal 0.83-4.51 [facility] Comment on above: Performed By: #### L 500.4100, L500.4050, L501.9910, L100.0100 #### [facility] [address] [place], [address] Absolute Neut 3.2 X10 3/uL Normal 2.0-7.7 [facility] Comment on above: Performed By: #### L 500.4100, L500.4050, L501.9910, L100.0100 #### [facility] [address] [place], [address] Basophils/100 WBC (Bld) 0.9 % Normal 0-1 [facility] Comment on above: Performed By: #### L 500.4100, L500.4050, L501.9910, L100.0100 #### [facility] [address] [place], [address] Eosinophils/100 WBC (Bld) 3.7 % Normal 0-5 [facility] Comment on above: Performed By: #### L 500.4100, L500.4050, L501.9910, L100.0100 #### [facility] [address] [place], [address] Erythrocyte distribution width (RBC) [Ratio] 13.5 % Normal 11.6-14.6 [facility] Comment on above: Performed By: #### L 500.4100, L500.4050, L501.9910, L100.0100 #### [facility] [address] [place], [address] Hematocrit (Bld) [Volume fraction] 44.4 % Normal 40-54 [facility] Comment on above: Performed By: #### L 500.4100, L500.4050, L501.9910, L100.0100 #### [facility] [address] [place], [address] Hemoglobin (Bld) [Mass/Vol] 14.8 g/dL Normal 13.0-16.5 [facility] Comment on above: Performed By: #### L 500.4100, L500.4050, L501.9910, L100.0100 #### [facility] [address] [place], [address] IG% 0.300 Normal 0.0-0.9 [facility] Comment on above: Result Comment: IG% - Immature Granulocytes (promyelocytes, myelocytes and metamyelocytes) > 1% indicates that a LEFT SHIFT is Present. Performed By: #### L 500.4100, L500.4050, L501.9910, L100.0100 #### [facility] [address] [place], [address] Lymphocytes/100 WBC (Bld) 40.1 % Normal 19-41 [facility] Comment on above: Performed By: #### L 500.4100, L500.4050, L501.9910, L100.0100 #### [facility] [address] [place], [address] MCH (RBC) [Entitic mass] 29.2 pg Normal 27.0-32.0 [facility] Comment on above: Performed By: #### L 500.4100, L500.4050, L501.9910, L100.0100 #### [facility] [address] [place], [address] MCHC (RBC) [Mass/Vol] 33.3 g/dL Normal 32-36 [facility] Comment on above: Performed By: #### L 500.4100, L500.4050, L501.9910, L100.0100 #### [facility] [address] [place], [address] MCV (RBC) [Entitic vol] 87.6 fL Normal 80-94 [facility] Comment on above: Performed By: #### L 500.4100, L500.4050, L501.9910, L100.0100 #### [facility] [address] [place], [address] Monocytes/100 WBC (Bld) 7.6 % Normal 0-10 [facility] Comment on above: Performed By: #### L 500.4100, L500.4050, L501.9910, L100.0100 #### [facility] [address] [place], [address] Neutrophils/100 WBC (Bld) 47.4 % Normal 47-70 [facility] Comment on above: Performed By: #### L 500.4100, L500.4050, L501.9910, L100.0100 #### [facility] [address] [place], [address] Nucleated RBC (Bld) [#/Vol] 0 10*3/uL Normal 0-5 [facility] Comment on above: Performed By: #### L 500.4100, L500.4050, L501.9910, L100.0100 #### [facility] [address] [place], [address] Platelet mean volume (Bld) [Entitic vol] 10.2 fL Normal 6.2-12.0 [facility] Comment on above: Performed By: #### L 500.4100, L500.4050, L501.9910, L100.0100 #### [facility] [address] [place], [address] Platelets (Bld) [#/Vol] 274 10*3/uL Normal 150-450 [facility] Comment on above: Performed By: #### L 500.4100, L500.4050, L501.9910, L100.0100 #### [facility] [address] [place], [address] RBC (Bld) [#/Vol] 5.07 10*6/uL Normal 4.6-6.2 [facility] Comment on above: Performed By: #### L 500.4100, L500.4050, L501.9910, L100.0100 #### [facility] [address] [place], [address] RDW SD 42.5 fl Normal 35.1-43.9 [facility] Comment on above: Performed By: #### L 500.4100, L500.4050, L501.9910, L100.0100 #### [facility] [address] [place], [address] WBC (Bld) [#/Vol] 6.7 10*3/uL Normal 4.4-11.0 [facility] Comment on above: Performed By: #### L 500.4100, L500.4050, L501.9910, L100.0100 #### [facility] [address] [place], [address] Calculated very low density lipoprotein (VLDL) cholesterol measurementOrdered By: Vandana Barahona on 07-22-2024 Calculated very low density lipoprotein (VLDL) cholesterol measurement 24 mg/dL 5-40 [facility] VLDL Cholesterol 24 mg/dL 5-40 [facility] Carbon dioxide, total [Moles /volume] in Central venous bloodOrdered By: Vandana Barahona on 07-22-2024 CO2 [Moles/Vol] 22.1 mmol/L 21.0-32.0 [facility] Chloride assayOrdered By: Julien Barahona on 07-22-2024 Chloride [Moles/Vol] 104 mmol/L 98-108 [facility] Comprehensive Metabolic Prof ilon 07-22-2024 Albumin [Mass/Vol] 4.5 g/dL Normal 3.5-5.0 [facility] Comment on above: Performed By: #### L 500.4100, L500.4050, L501.9910, L100.0100 #### [facility] [address] [place], [address] Albumin/Globulin [Mass ratio] 1.4 {ratio} Normal 0.9-2.4 [facility] Comment on above: Performed By: #### L 500.4100, L500.4050, L501.9910, L100.0100 #### [facility] [address] [place], [address] ALK PHOS 61 U/L Normal 40-129 [facility] Comment on above: Performed By: #### L 500.4100, L500.4050, L501.9910, L100.0100 #### [facility] [address] [place], [address] ALT [Catalytic activity/Vol] 27 U/L Normal <=46 [facility] Comment on above: Performed By: #### L 500.4100, L500.4050, L501.9910, L100.0100 #### [facility] [address] [place], [address] AST [Catalytic activity/Vol] 24 U/L Normal <=37 [facility] Comment on above: Performed By: #### L 500.4100, L500.4050, L501.9910, L100.0100 #### [facility] [address] [place], [address] Bilirubin [Mass/Vol] 0.65 mg/dL Normal 0.00-1.30 [facility] Comment on above: Performed By: #### L 500.4100, L500.4050, L501.9910, L100.0100 #### [facility] [address] [place], [address] BUN/CRE 13.7 RATIO Normal 10-20 [facility] Comment on above: Performed By: #### L 500.4100, L500.4050, L501.9910, L100.0100 #### [facility] [address] [place], [address] Calcium [Mass/Vol] 9.4 mg/dL Normal 7.6-11.0 [facility] Comment on above: Performed By: #### L 500.4100, L500.4050, L501.9910, L100.0100 #### [facility] [address] [place], [address] Chloride [Moles/Vol] 104 mmol/L Normal 98-108 [facility] Comment on above: Performed By: #### L 500.4100, L500.4050, L501.9910, L100.0100 #### [facility] [address] [place], [address] CO2 [Moles/Vol] 22.1 mmol/L Normal 21.0-32.0 [facility] Comment on above: Performed By: #### L 500.4100, L500.4050, L501.9910, L100.0100 #### [facility] [address] [place], [address] Creatinine [Mass/Vol] 1.15 mg/dL Normal 0.70-1.20 [facility] Comment on above: Performed By: #### L 500.4100, L500.4050, L501.9910, L100.0100 #### [facility] [address] [place], [address] GAP 14 Normal 5-15 [facility] Comment on above: Performed By: #### L 500.4100, L500.4050, L501.9910, L100.0100 #### [facility] [address] [place], [address] GFR/1.73 sq M.predicted among non-blacks MDRD (S/P/Bld) [Vol rate/Area] 78 mL/min/{1.73_m2} Normal >60 [facility] Comment on above: Result Comment: mL/m in/1.73m2 CKD-EPI Creatinine Equation (2020) Performed By: #### L 500.4100, L500.4050, L501.9910, L100.0100 #### [facility] [address] [place], [address] Globulin (S) [Mass/Vol] 3.2 g/dL Normal 2.2-4.2 [facility] Comment on above: Performed By: #### L 500.4100, L500.4050, L501.9910, L100.0100 #### [facility] [address] [place], [address] Glucose [Mass/Vol] 106 mg/dL High 70-99 [facility] Comment on above: Performed By: #### L 500.4100, L500.4050, L501.9910, L100.0100 #### [facility] [address] [place], [address] Potassium [Moles/Vol] 4.3 mmol/L Normal 3.3-5.1 [facility] Comment on above: Performed By: #### L 500.4100, L500.4050, L501.9910, L100.0100 #### [facility] [address] [place], [address] Sodium [Moles/Vol] 140 mmol/L Normal 133-145 [facility] Comment on above: Performed By: #### L 500.4100, L500.4050, L501.9910, L100.0100 #### [facility] [address] [place], [address] T PROT 7.7 g/dL Normal 5.9-8.4 [facility] Comment on above: Performed By: #### L 500.4100, L500.4050, L501.9910, L100.0100 #### [facility] [address] [place], [address] Urea nitrogen [Mass/Vol] 16 mg/dL Normal 4-19 [facility] Comment on above: Performed By: #### L 500.4100, L500.4050, L501.9910, L100.0100 #### [facility] [address] [place], [address] Eosinophil percentageOrdered By: Vandana Barahona on 07-22-2024 Eosinophils/100 WBC (Bld) 3.7 % 0-5 [facility] Erythrocyte distribution wid th ratioOrdered By: Vandana Barahona on 07-22-2024 Erythrocyte distribution width (RBC) [Ratio] 13.5 % 11.6-14.6 [facility] Erythrocyte distribution wid th standard deviationOrdered By: Vandana Barahona on 07-22-2024 Erythrocyte distribution width (RBC) [Entitic vol] 42.5 fL 35.1-43.9 [facility] Erythrocyte distribution width (RBC) [Ratio] 42.5 fl 35.1-43.9 [facility] GFR/1.73 sq M.predicted aby g non-blacks MDRD (S/P/Bld) [Vol rate/Area]Ordered By: Vandana Barahona on 07-22-2024 Estimated GFR (MDRD) Non-Af Amer 78 >60 [facility] Comment on above: mL/min/1.73m2 CKD-EP I Creatinine Equation (2020) Glomerular filtration rate ( GFR) estimation/1.73 sq m using serum, plasma, or whole bOrdered By: Vandana Barahona on 07-22-2024 GFR/1.73 sq M.predicted among non-blacks MDRD (S/P/Bld) [Vol rate/Area] 78 mL/min/{1.73_m2} >60 [facility] Comment on above: mL/min/1.73m2 CKD-EP I Creatinine Equation (2020) Hematocrit Auto (Bld) [Volum e fraction]Ordered By: Vandana Barahona on 07-22-2024 Hematocrit (Bld) [Volume fraction] 44.4 % 40-54 [facility] Hemoglobin measurementOrdere d By: Vandana Barahona on 07-22-2024 Hemoglobin (Bld) [Mass/Vol] 14.8 g/dL 13.0-16.5 [facility] Immature granulocytes/100 WB C Auto (Bld)Ordered By: Vandana Barahona on 07-22-2024 Immature granulocytes/100 WBC (Bld) 0.300 % 0.0-0.9 [facility] Comment on above: IG% - Immature Granu locytes (promyelocytes, myelocytes and metamyelocytes) > 1% indicates that a LEFT SHIFT is Present. LDL calc ser/plasOrdered By: Vandana Barahona on 07-22-2024 Cholesterol in LDL [Mass/Vol] 93 mg/dL [facility] Comment on above: Abhwlqztvf=634-216 m g/dL & Higher Xxci=112 mg/dL or greater LDL Cholesterol, Calculated 93 mg/dL [facility] Comment on above: Fvqysngbeq=565-345 m g/dL & Higher Myhk=963 mg/dL or greater Laboratory - Chemistry and C hemistry - challengeOrdered By: Vandana Barahona on 07-22-2024 AST [Catalytic activity/Vol] 24 U/L <38 [facility] Lipid Profileon 07-22-2024 CHOL:HDL 3.06 Normal [facility] Comment on above: Performed By: #### L 500.4100, L500.4050, L501.9910, L100.0100 #### [facility] [address] [facility] [place], [address] Cholesterol [Mass/Vol] 174 mg/dL Normal <=200 [facility] Comment on above: Result Comment: Chol esterol level, Desirable <200 mg/dL Borderline high cholesterol 200-239 mg/dL High cholesterol >=240 mg/dL Recommendations of the NCEP Adult Treatment Panel for the following risk-cutoff thresholds for the [place] population. Performed By: #### L 500.4100, L500.4050, L501.9910, L100.0100 #### [facility] [address] [place], [address] Cholesterol in HDL [Mass/Vol] 57 mg/dL Normal [facility] Comment on above: Result Comment: Kelli onal Cholesterol Education Program (NCEP) guidelines: <40 mg/dL: Low HDL-cholesterol (major risk factor for CHD) >= 60 mg/dL: High HDL-cholesterol (negative risk factor for CHD) HDL-cholesterol is affected by a number of factors, e.g. smoking, exercise, hormones, sex and age. Performed By: #### L 500.4100, L500.4050, L501.9910, L100.0100 #### [facility] [address] [place], [address] Cholesterol in LDL [Mass/Vol] 93 mg/dL Normal [facility] Comment on above: Result Comment: Bord djrrnh=603-239 mg/dL Higher Yjao=839 mg/dL or greater Performed By: #### L 500.4100, L500.4050, L501.9910, L100.0100 #### [facility] [address] [place], [address] Cholesterol in VLDL [Mass/Vol] 24 mg/dL Normal 5-40 [facility] Comment on above: Performed By: #### L 500.4100, L500.4050, L501.9910, L100.0100 #### [facility] [address] [place], [address] Triglyceride [Mass/Vol] 122 mg/dL Normal [facility] Comment on above: Result Comment: The drugs N-Acetylcysteine and Metamizole may falsely depress this assay. Normal range: <150 mg/dL Borderline High: 150-199 mg/dL High: 200-499 mg/dL Very High: >500 mg/dL Performed By: #### L 500.4100, L500.4050, L501.9910, L100.0100 #### [facility] [address] [place], [address] Lymphocytes Auto (Unsp spec) [#/Vol]Ordered By: Vandana Barahona on 07-22-2024 Lymphocytes (Bld) [#/Vol] 2.70 10*3/uL 0.83-4.51 [facility] Lymphocytes/100 WBC Auto (Un sp spec)Ordered By: Vandana Barahona on 07-22-2024 Lymphocytes/100 WBC (Bld) 40.1 % 19-41 [facility] MCV (mean corpuscular volume ) determinationOrdered By: Vandana Barahona on 07-22-2024 MCV (RBC) [Entitic vol] 87.6 fL 80-94 [facility] Mean corpuscular hemoglobin (MCH) determinationOrdered By: Vandana Barahona on 07-22-2024 MCH (RBC) [Entitic mass] 29.2 pg 27.0-32.0 [facility] Mean corpuscular hemoglobin concentration (MCHC) determinationOrdered By: Vandana Barahona on 07-22-2024 MCHC (RBC) [Mass/Vol] 33.3 g/dL 32-36 [facility] Mean platelet volume determi nationOrdered By: Vandana Barahona on 07-22-2024 Platelet mean volume (Bld) [Entitic vol] 10.2 fL 6.2-12.0 [facility] Monocyte percentageOrdered B y: Vandana Barahona on 07-22-2024 Monocytes/100 WBC (Bld) 7.6 % 0-10 [facility] Neutrophil percentageOrdered By: Vandana Barahona on 07-22-2024 Neutrophils/100 WBC (Bld) 47.4 % 47-70 [facility] Nucleated red blood cell per centageOrdered By: Vandana Barahona on 07-22-2024 Nucleated RBC/100 WBC (Bld) [Ratio] 0 % 0-5 [facility] PSA, total screeningOrdered By: Vandana Barahona on 07-22-2024 Prostate Specific Antigen Screen 1.10 ng/mL 0.02-4.00 [facility] Comment on above: This test was perfor med using the [employer] tPSA method. Measured values of a patient sample can vary depending on the testing procedure used. PSA values determined on patient samples by different testing procedures cannot be used interchangeably. If there is a change in PSA assays while monitoring therapy, sequential testing should be performed to confirm baseline values. PSA,Total - Annual Screenon 07-22-2024 PSA,TOT SCREEN 1.10 ng/mL Normal 0.02-4.00 [facility] Comment on above: Result Comment: This test was performed using the [employer] tPSA method. Measured values of a patient??sample can vary depending on the testing procedure used. PSA values determined on patient samples by different testing procedures cannot be used interchangeably. If there is a change in PSA assays while monitoring therapy, sequential testing should be performed to confirm baseline values. Performed By: #### L 500.4100, L500.4050, L501.9910, L100.0100 #### [facility] [address] [place], [address] Platelet countOrdered By: Julien Barahona on 07-22-2024 Platelets (Bld) [#/Vol] 274 10*3/uL 150-450 [facility] Potassium (Unsp spec) [Mass/ Vol]Ordered By: Vandana Barahona on 07-22-2024 Potassium [Moles/Vol] 4.3 mmol/L 3.3-5.1 [facility] Potassium measurement (mass/ volume)Ordered By: Vandana Barahona on 07-22-2024 Potassium (Unsp spec) [Mass/Vol] 4.3 mmol/L 3.3-5.1 [facility] RBC Auto (Bld) [#/Vol]Ordere d By: Vandana Barahona on 07-22-2024 RBC (Bld) [#/Vol] 5.07 10*6/uL 4.6-6.2 [facility] Screening total cholesterol/ high density lipoprotein (HDL) cholesterol ratioOrdered By: Vandana Barahona on 07-22-2024 Cholesterol.total/Chol esterol in HDL [Mass ratio] 3.06 {ratio} [facility] Serum creatinine measurement (mass/volume)Ordered By: Vandana Barahona on 07-22-2024 Creatinine [Mass/Vol] 1.15 mg/dL 0.70-1.20 [facility] Serum globulin measurementOr dered By: Vandana Barahona on 07-22-2024 Globulin (S) [Mass/Vol] 3.2 g/dL 2.2-4.2 [facility] Serum glucose measurement (m ass/volume)Ordered By: Vandana Barahona on 07-22-2024 Glucose [Mass/Vol] 106 mg/dL High 70-99 [facility] Serum or plasma alanine mayo otransferase (ALT) measurementOrdered By: Vandana Barahona on 03-04-2025 ALT [Catalytic activity/Vol] 27 U/L <47 [facility] Serum or plasma albumin kike urement (mass/volume)Ordered By: Vandana Barahona on 07-22-2024 Albumin [Mass/Vol] 4.5 g/dL 3.5-5.0 [facility] Serum or plasma albumin/glob ulin mass ratioOrdered By: Vandana Barahona on 07-22-2024 Albumin/Globulin [Mass ratio] 1.4 {ratio} 0.9-2.4 [facility] Serum or plasma alkaline vaishali sphatase measurementOrdered By: Vandana Barahona on 07-22-2024 ALP [Catalytic activity/Vol] 61 U/L 40-129 [facility] Serum or plasma calcium kike urement (mass/volume)Ordered By: Vandana Barahona on 07-22-2024 Calcium [Mass/Vol] 9.4 mg/dL 7.6-11.0 [facility] Serum or plasma cholesterol in HDL measurement (mass/volume)Ordered By: Vandana Barahona on 07-22-2024 Cholesterol in HDL [Mass/Vol] 57 mg/dL >40 [facility] Comment on above: National Cholesterol Education Program (NCEP) guidelines:<40 mg/dL: Low HDL-cholesterol (major risk factor for CHD)>= 60 mg/dL: High HDL-cholesterol (negative risk factor for CHD)HDL-cholesterol is affected by a number of factors, e.g. smoking, exercise, hormones, sex and age. Serum or plasma cholesterol measurement (mass/volume)Ordered By: Vandana Barahona on 07-22-2024 Cholesterol [Mass/Vol] 174 mg/dL <201 [facility] Comment on above: Cholesterol level, D esirable <200 mg/dLBorderline high cholesterol 200-239 mg/dLHigh cholesterol >=240 mg/dLRecommendations of the NCEP Adult Treatment Panel for the following risk-cutoff thresholds for the [place] population. Serum or plasma urea nitroge n measurement (mass/volume)Ordered By: Vandana Barahona on 07-22-2024 Urea nitrogen [Mass/Vol] 16 mg/dL 4-19 [facility] Sodium levelOrdered By: Boom Barahona on 07-22-2024 Sodium [Moles/Vol] 140 mmol/L 133-145 [facility] Total proteinOrdered By: Juan Antonio Barahona on 07-22-2024 Protein [Mass/Vol] 7.7 g/dL 5.9-8.4 [facility] Triglycerides measurementOrd ered By: Vandana Barahona on 07-22-2024 Triglyceride [Mass/Vol] 122 mg/dL <199 [facility] Comment on above: The drugs N-Acetylcy steine and Metamizole may falsely depress this assay. Normal range: <150 mg/dLBorderline High: 150-199 mg/dLHigh: 200-499 mg/dLVery High: >500 mg/dL White blood cell (WBC) count Ordered By: Vandana Barahona on 07-22-2024 WBC (Bld) [#/Vol] 6.7 10*3/uL 4.4-11.0 [facility] Internal Medicine Office Vis iton 07-21-2024 Internal Medicine Office Visit [facility] [address] [place] [address] [address] [place] [address] OFFICE VISIT Date of Service: 07/22/24 MR#: [id number] Acct: [id number] Name: MEGAN MILLER Rep #: [id number] : 1975 Provider: Dr. Vandana ochoa MD Age/Sex: 49/M Location: [facility] Status: Signed Intake Vital Signs 11/13/23 07:54 06/25/24 13:34 07/22/24 07:38 Height 6 ft 6 ft 6 ft Weight: 232 lb BMI 31.4 BP 128/82 H Blood Pressure Location Lt brachial Position Sitting Respiration 16 Pulse 79 Pulse Source Monitor Temp 97.9 F Temp Source Temporal Pulse Oximetry (%) 99 Oxygen Delivery Method room air Intake Visit Reasons: FU/PHYSICAL Childcare Aide Required: No Is patient in pain?: No Allergies shellfish derived Allergy (Severe, Verified 07/22/24 07:25) anaphylactic hydrochlorothiazide Allergy (Intermediate, Verified 07/22/24 07:25) palpitations/restlessness lisinopril Adverse Reaction (Mild, Verified 07/22/24 07:25) cough tachycardia Medications ???Medication ???Instructions ???Recorded ???Confirmed ???Type cholecalciferol (vitamin D3) 25 1,000 unit PO DAILY 05/31/1807/22 History mcg (1,000 unit) capsule (Vitamin D3) coenzyme Q10 75 mg capsule (Ultra 75 mg PO DAILY 05/31/18 07/22/24 History CoQ10) multivitamin (Multiple Vitamins 1 tab PO DAILY 05/31/18 07/22/24 H istory tablet) omega-3 fatty acids 1,000 mg 2,000 mg PO QDAY supplement 07/22/24 History capsule (Fish Oil Concentrate) Cellular Complex PO 11/16/20 07/22/24 History Essential oils PO 11/16/20 07/22/24 History meloxicam 15 mg tablet 15 mg PO QDAY #30 tabs 06/25/24 Rx losartan 25 mg tablet 25 mg PO DAILY #90 tabs 07/22/24 0 07/22/24 Rx Nurse's Note: Is fasting today if labs are needed. Needs losartan refilled. [facility] Medical History Family history of clotting disorder Seasonal allergies Gout Essential hypertension TOBY (obstructive sleep apnea) GERD (gastroesophageal reflux disease) Surgical History Status post laparoscopic Shakila fundoplication ( 12/31/17) S/P colonoscopy History of esophagogastroduodenoscopy (EGD) ( 10/2017) History of tonsillectomy Family History Brother Asthma Cancer lymphoma Mother Arthritis Hypertension High cholesterol Macular degeneration Depression Father Hypertension High cholesterol Sleep apnea Myocardial infarction, Onset Age: 68 CAD (coronary artery disease) Son Seizures Daughter Seizures Aunt Parkinsons disease Grandmother Parkinsons disease CVA (cerebral vascular accident) Uncle CVA (cerebral vascular accident) Diabetes Grandfather Myocardial infarction, Onset Age: 68 Grandfather Cancer melanoma Brother CVA (cerebral vascular accident) Cancer prostate Social History adopted: No household members: spouse and children housing: house number of children: 3 current occupational status: employed current occupation: [employer] [address] [place], [place] pets and animals: No sexually active: Yes Smoking Status: Never smoker Electronic Cigarette Use: not used second hand exposure: No alcohol intake: never substance use type: does not use caffeine: Yes (2) Type: coffee frequency: does not exercise do you feel safe at home: Yes HPI HPI Details: MEGAN MILLER, is a 49 M who presents to the office today for a follow up. He is up to date on his routine blood work and believes he is up to date on his screening. He doesn't want a flu shot. He doesn't smoke and does need refills. He doesn't check his blood pressure at home. He is taking his medication as prescribed without problems. He does try to monitor his salt and caffeine intake. He drinks two cups of coffee per day. The patient has a history of TOBY. He wears his BiPAP every night and benefits from its use. He feels that he is sleeping better and that has helped with his stress levels. He also reports that his fatigue symptoms do seem to be a little better. At the patient's last office visit, he complained of right shoulder pain. He reports that he still has occasional pain, but it is better than it had been. The patient was seen last month by VAHID Watson, with complaints of hip and foot pain. He was referred to physical therapy and started on meloxicam. He reports that he was given some home exercises which he has been doing. He thinks they are both doing a little better. Medications reviewed: Yes Megan likes to exercise by walking. They watch their diet for sodium, low fat, and low cholesterol most of the time. He eats a lot of home cooked (more content not included)... Normal [facility] Inital Evaluation (1) - PTon 07-04-2024 Inital Evaluation (1) - PT [facility] Physical Therapy [facility] [address] [place] [address] / REHABILITATION SERVICES INITIAL EVALUATION MR#: [id number] Acct: [id number] Name: MEGAN MILLER Rep #: [id number] : 1975 48 From: Moisés Lundy PT, Cert. CAMPBELL T, OCS Referring Dr.: VAHID Mark Status: REG RCR Insurance: [facility] SELF PAY INSURANCE Patient's Visit Information Visit Information Visit Information: MEGAN MILLER is a 48 year old M referred to Physical Therapy by VAHID Mark with a diagnosis of RIGHT HIP PAIN. Date of Evaluation: 07/04/24 Physical Therapist: Moisés Lundy, PT, Cert T, OCS Visit Plan Frequency: 1VISIST Plan: PT EVAL ONLY PER PATIENT FOR HEP IF NOT BETTER RTD FOR POSSIBLE MRI Subjective Subjective: This 48 y/o male presents to physical therapy with right hip pain. Patient has right anterior hip pain [address] recommended PT. Ant-inflammatory was prescribed. Patient also has orthotics. x-rays -. Aggravating factors sitting in chair to elevate ,squatting ,bending ,stairs .Alleviating stretching . Denies paresthesia/tingling. Symptoms insidious onset. Bowel/bladder-. Patient pain affects sleeping. Patient condition affects QOL and function. Patient goals to decrease pain and learn HEP. 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: Pain Right Back: Pain Intensity (Out of 10): 0 Pain Intensity Range: 10 Right Hip: Pain Intensity (Out of 10): 3 Pain Intensity Range: 10 Comment: walking Objective Objective: POSTURE: WFL GAIT: antalgic gait right side NEURO: denies paresthesia/tingling ,reflexes L3-4,L4-5,L5-S1 S1 1/3 FLEXABILITY: hamstrings mod tigh ,quads mod tight PROM: hip flexion 100 degrees pain,hip abd 40 degrees ,IR30 degrees with pain,ER 45 MMT: quads/hip flexion ,hip abd 4-/5 ,pain ,hamstrings 4/5 STAIRS: painful LUMBAR ROM: flexion min loss ,extension min loss ,side glides min Special Tests L/S Slump test left side: Negative L/S Slump test right side: Negative L/S Left Straight Leg Raise: Negative L/S Right Straight Leg Raise: Negative R Hip Scour: Positive R Hip Quadrant - Intraarticular Pathology: Positive R Hip YARELI - Intraarticular Pathology: Positive R Hip FADDIR - Labrum: Positive R Hip Impingement Provocation - Labrum: Positive Goals Goal 1:: Patient to be I with HEP for hip Rehabilitation Potential Physical Therapy Diagnosis: This patient has pain right hip with possible labral tear with pain ,weakness and antalgic gait thus patient wants HEP Rehabilitation Potential: Good Anticipated Interventions Patient/Client Instruction: Educate patient on: Condition and Plan of Care For the Purpose of:: To decrease pain, To increase ROM, To increase oxygenation perfusion, To improve ability to perform ADL's, To increase tolerance to activity/condition/position, To improve ability of physical actions for home/community/work/leisure, To improve health of tissue, To decrease soft tissue restriction and To improve endurance Therapeutic Exercise to Include: Strength training, Flexibilty training and Active ROM Comment: HIP For the Purpose of:: To decrease pain, To increase ROM, To improve muscle performance and motor function, To increase tolerance to activity/condition/position, To improve ability of physical actions for home/community/work/leisure, To improve health of tissue and To improve tolerance to ADL's Text: Thank you for the opportunity to evaluate your patient. For Medicare and Medicare HMO plans, please review the plan of care and approve it. It will need to be FAXED BACK to us at [phone] for Medicare purposes. For Medicare only, by signing this I certify the plan of care. Please let me know if there are questions or concerns regarding this plan of care. Physician Signature: ___Date: 07/07/24 1158 CC: Dr. Vandana Barahona MD; VAHID Mark NEENA Signed Normal [facility] HIP, UNI W/ Pelvis 2-3 Views on 06-25-2024 HIP, UNI W/ Pelvis 2-3 Views [facility] Services [address] [place], [place] [id number] HIP, UNI W/ Pelvis 2-3 Views MR#: [id number] Acct: [id number] Name: MEGAN MILLER Rep #: [id number] : 1975 M 48 From: Apolinar Mcdonald MD PCP: Dr. Vandana Barahona MD Status: REG CLI Study: HIP, UNI W/ Pelvis 2-3 Views Date of Exam: 10/12 Exam# [id number] Ordering Dr: Lupillo Torre PROCEDURE: HIP, UNI W/ PELVIS 2-3 VIEWS REASON FOR EXAM: Right hip pain TECHNIQUE: AP pelvis and two views of the right hip. COMPARISON: None. FINDINGS: No fracture. No suspicious bone lesion. Normal alignment. Soft tissues are unremarkable. RAD/HIP, UNI W/ Pelvis 2-3 Views IMPRESSION: Negative right hip. Negative AP pelvis. Reading Location: [facility] CC: Dr. Vandana Barahona MD; VAHID Mark Fast Brim Pouncer: Signed Normal [facility] Internal Medicine Office Vis iton 06-25-2024 Internal Medicine Office Visit [facility] [place] [address] OFFICE VISIT Date of Service: 06/25/24 MR#: [id number] Acct: [id number] Name: MEGAN MILLER Rep #: [id number] : 1975 Provider: VAHID Mark Age/Sex: 48/M Location: [facility] Status: Signed Intake Vital Signs 11/13/23 07:54 06/25/24 13:34 Height 6 ft 6 ft Weight: 230 lb BMI 31.1 BP 124/80 H Blood Pressure Location Lt brachial Position Sitting Respiration 16 Pulse 87 Pulse Source Monitor Temp 96.1 F L Temp Source Temporal Pulse Oximetry (%) 99 Oxygen Delivery Method room air Intake Visit Reasons: ACUTE - RT HIP PAIN, STIFFNESS IN TOES Chief Complaint: right hip ping feet Childcare Aide Required: No Accompanied by: Self Is patient in pain?: Yes Pain scale (1-10): 3 Pain Scale - Faces (1-5): 4 Allergies shellfish derived Allergy (Severe, Verified 06/25/24 13:26) anaphylactic hydrochlorothiazide Allergy (Intermediate, Verified 06/25/24 13:26) palpitations/restlessness lisinopril Adverse Reaction (Mild, Verified 06/25/24 13:26) cough tachycardia Medications ???Medication ???Instructions ???Recorded ???Confirmed ???Type cholecalciferol (vitamin D3) 25 1,000 unit PO DAILY 05/31/1806/25 History mcg (1,000 unit) capsule (Vitamin D3) coenzyme Q10 75 mg capsule (Ultra 75 mg PO DAILY 05/31/18 06/25/24 History CoQ10) multivitamin (Multiple Vitamins 1 tab PO DAILY 05/31/18 06/25/24 H istory tablet) omega-3 fatty acids 1,000 mg 2,000 mg PO QDAY supplement 06/25/24 History capsule (Fish Oil Concentrate) Cellular Complex PO 11/16/20 06/25/24 History Essential oils PO 11/16/20 06/25/24 History losartan 25 mg tablet 25 mg PO DAILY #90 tabs 11/13/23 0 06/25/24 Rx meloxicam 15 mg tablet 15 mg PO QDAY #30 tabs 06/25/24 Rx Have you fallen in the past year?: No PFSH Medical History Family history of clotting disorder Seasonal allergies Gout Essential hypertension TOBY (obstructive sleep apnea) GERD (gastroesophageal reflux disease) Surgical History Status post laparoscopic Shakila fundoplication ( 12/31/17) S/P colonoscopy History of esophagogastroduodenoscopy (EGD) ( 10/2017) History of tonsillectomy Family History Brother Asthma Cancer lymphoma Mother Arthritis Hypertension High cholesterol Macular degeneration Depression Father Hypertension High cholesterol Sleep apnea Myocardial infarction, Onset Age: 68 CAD (coronary artery disease) Son Seizures Daughter Seizures Aunt Parkinsons disease Grandmother Parkinsons disease CVA (cerebral vascular accident) Uncle CVA (cerebral vascular accident) Diabetes Grandfather Myocardial infarction, Onset Age: 68 Grandfather Cancer melanoma Brother CVA (cerebral vascular accident) Cancer prostate Social History adopted: No household members: spouse and children housing: house number of children: 3 current occupational status: employed current occupation: [employer] [address] [place], [place] pets and animals: No sexually active: Yes Smoking Status: Never smoker Electronic Cigarette Use: not used second hand exposure: No alcohol intake: never substance use type: does not use caffeine: Yes (2) Type: coffee frequency: does not exercise do you feel safe at home: Yes HPI HPI Chief Complaint: right hip ping feet Details: MEGAN MILLER, is a 48 M who presents to the office today for some right hip pain for the past several months. He states that the pains gradually have come on with time. There was no injury or inciting episode that started this pain. He states that he has been standing more on concrete than he is used to with a new job location and is not sure if that triggered this.. He has not had any new physical activities or exercises regularly. Pains are located on the front of the hip and sort of on the side of the hip (but more in the front). These pains are more of a constant pain. He states that he notices this a little more after he has been seated for a long time. He states that has had some pains lying on that side. HE denies any previous injury or previous pains / problems. He has tried some icy hot a time or two which helps at the same time no consistent NSAIDs. Patient states that he also has this odd feeling that he has been noticing that for at least over a year he wakes up in the morning and feels like his toes are just really stiff and don't want to move freely. He states that sometimes he will like manually wiggle them around and then when he gets up on the feet then the (more content not included)... Normal [facility] XR Foot - left AP and Latera l and obliqueon 10-10-2022 IMPRESSION: No radiographic evidence of acute osseous abnormality Fast Brim Pouncer: BUBBA Transcribe Date/Time: Oct 10 2022 9:02A Dictated by : MIKE DAWN MD This examination was interpreted and the report reviewed and electronically signed by: MIKE DAWN MD on Oct 10 2022 9:15AM [facility] DIVISION OF RADIOLOGY * * *Final Report* * * DATE OF EXAM: Oct 10 2022 8:54AM WOX [id number] - XR FOOT 3V AP/LAT/OBL LT / PROCEDURE REASON: Foot pain, left * * * * Physician Interpretation * * * * TITLE: XR FOOT 3V AP/LAT/OBL LT CLINICAL INDICATION: Pain TECHNIQUE: 3 view radiographic study of the left foot COMPARISON: None FINDINGS: No acute fracture or dislocation identified. No destructive osseous lesion. DIVISION OF RADIOLOGY [facility] * * *Final Report* * * DATE OF EXAM: Oct 10 2022 8:54AM WOX [id number] - XR FOOT 3V AP/LAT/OBL LT / PROCEDURE REASON: Foot pain, left * * * * Physician Interpretation * * * * TITLE: XR FOOT 3V AP/LAT/OBL LT CLINICAL INDICATION: Pain TECHNIQUE: 3 view radiographic study of the left foot COMPARISON: None FINDINGS: No acute fracture or dislocation identified. No destructive osseous lesion. IMPRESSION IMPRESSION: No radiographic evidence of acute osseous abnormality Fast Brim Pouncer: [facility] Transcribe Date/Time: Oct 10 2022 9:02A Dictated by : MIKE DAWN MD This examination was interpreted and the report reviewed and electronically signed by: MIKE DAWN MD on Oct 10 2022 9:15AM EST [facility] Radiology Study observation (narrative) [facility] XR Foot - left AP and Latera l and obliqueOrdered By: Ccf Provider on 10-10-2022 [facility] Absolute lymphocyte countOrd ered By: Dr. Barrera on 07-19-2022 Lymphocytes Auto (Unsp spec) [#/Vol] 3.03 10*3/uL 0.83-4.51 [facility] Basophil percentageOrdered B y: Dr. Barrera on 07-19-2022 Basophils/100 WBC (Bld) 0.7 % 0-1 [facility] Bilirubin [Mass/Vol] 0.70 mg/dL 0.20-1.00 [facility] Comment on above: For patients on eltr ombopag therapy, use of Dimension George TBIL is not recommended. Chloride [Moles/Vol] 104 mmol/L 98-107 [facility] Cholesterol [Mass/Vol] 166 mg/dL <200 [facility] Comment on above: <200 mg/dL Desirable 200-240 mg/dL Borderline >240 mg/dL High Risk Eosinophils/100 WBC (Bld) 4.1 % 0-5 [facility] Glucose [Mass/Vol] 94 mg/dL 74-106 [facility] Neutrophils (Bld) [#/Vol] 4.2 10*3/uL 2.0-7.7 [facility] Neutrophils/100 WBC (Bld) 51.0 % 47-70 [facility] Potassium [Moles/Vol] 4.1 mmol/L 3.5-5.1 [facility] Protein [Mass/Vol] 7.7 g/dL 6.4-8.2 [facility] Sodium [Moles/Vol] 138 mmol/L 136-145 [facility] Triglyceride [Mass/Vol] 91 mg/dL <199 [facility] Comment on above: The drugs N-Acetylcy steine and Metamizole may falsely depress this assay.Serum Triglycerides Reference Interval Normal <150 mg/dL Borderline high 150 - 199 mg/dL High 200 - 499 mg/dL Very High > or = 500 mg/dL WBC (Bld) [#/Vol] 8.2 10*3/uL 4.4-11.0 [facility] Blood erythrocytes count (nu mber/volume)Ordered By: Dr. Barrera on 07-19-2022 RBC (Bld) [#/Vol] 5.30 10*6/uL 4.6-6.2 [facility] Blood hemoglobin measurement (mass/volume)Ordered By: Dr. Barrera on 07-19-2022 Hemoglobin (Bld) [Mass/Vol] 15.4 g/dL 13.0-16.5 [facility] Blood lymphocytes/100 leukoc ytesOrdered By: Dr. Barrera on 07-19-2022 Lymphocytes/100 WBC (Bld) 37.0 % 19-41 [facility] Blood monocytes/100 leukocyt esOrdered By: Dr. Barrera on 07-19-2022 Monocytes/100 WBC (Bld) 6.3 % 0-10 [facility] Blood platelet mean volumeOr dered By: Dr. Barrera on 07-19-2022 Platelet mean volume (Bld) [Entitic vol] 9.5 fL 6.2-12.0 [facility] Determination of erythrocyte mean corpuscular volume (MCV)Ordered By: Dr. Barrera on 07-19-2022 MCV (RBC) [Entitic vol] 88.1 fL 80-94 [facility] Hematocrit Auto (Bld) [Volum e fraction]Ordered By: Dr. Barrera on 07-19-2022 Hematocrit (Bld) [Volume fraction] 46.7 % 40-54 [facility] Laboratory - Chemistry and C hemistry - challengeOrdered By: Dr. Barrera on 07-19-2022 ALP [Catalytic activity/Vol] 57 U/L 45-117 [facility] ALT [Catalytic activity/Vol] 49 U/L 16-61 [facility] CO2 [Moles/Vol] 27.0 mmol/L 21.0-32.0 [facility] Globulin (S) [Mass/Vol] 3.7 g/dL 2.2-4.2 [facility] Urea nitrogen/Creatinine [Mass ratio] 14.9 mg/mg 10-20 [facility] Laboratory - Hematology and Cell countsOrdered By: Dr. Barrera on 07-19-2022 Erythrocyte distribution width (RBC) [Entitic vol] 42.0 fL 35.1-43.9 [facility] Erythrocyte distribution width (RBC) [Ratio] 13.2 % 11.6-14.6 [facility] Immature granulocytes/100 WBC (Bld) 0.900 % 0.0-0.9 [facility] Comment on above: IG% - Immature Granu locytes (promyelocytes, myelocytes and metamyelocytes) > 1% indicates that a LEFT SHIFT is Present. MCH (RBC) [Entitic mass] 29.1 pg 27.0-32.0 [facility] Nucleated RBC/100 WBC (Bld) [Ratio] 0 % 0-5 [facility] MCHC Auto (RBC) [Mass/Vol]Or dered By: Dr. Barrera on 07-19-2022 MCHC (RBC) [Mass/Vol] 33.0 g/dL 32-36 [facility] No Panel InformationOrdered By: Dr. Barrera on 07-19-2022 Estimated GFR (MDRD) Amer 82 mL/min >60 [facility] Comment on above: GFR Calc Estimated GFR (MDRD) Non-Af Amer 68 mL/min >60 [facility] Comment on above: Non- GFR Calc Prostate Specific Antigen Screen 1.13 ng/mL 0.00-4.00 [facility] Comment on above: This test was perfor med using the TPSA assay method for theSecure64 chemistry system. Values obtained with differentassay methods cannot be used interchangably.When changing PSA assays in the course of monitoring apatient, additional sequential testing should be carriedout to confirm baseline values. Thyroid Stimulating Hormone (TSH) 1.24 uIU/mL 0.358-3.74 [facility] Vitamin D 25-Hydroxy 34.1 ng/mL [facility] Comment on above: Vitamin D 25(OH) Sta tus Range Deficiency <20 ng/mL (50nmol/L) Insufficiency 20 - 30 ng/mL (50 - 75 nmol/L) Sufficiency 30 - 100 ng/mL (75 - 250 nmol/L) Toxicity >100 ng/mL (>250 nmol/L) Platelets bldOrdered By: Dr. Barrera on 07-19-2022 Platelets (Bld) [#/Vol] 275 10*3/uL 150-450 [facility] Serum or plasma albumin kike urement (mass/volume)Ordered By: Dr. Barrera on 07-19-2022 Albumin [Mass/Vol] 4.0 g/dL 3.2-5.0 [facility] Serum or plasma albumin/glob ulin mass ratioOrdered By: Dr. Barrera on 07-19-2022 Albumin/Globulin [Mass ratio] 1.1 {ratio} 0.9-2.4 [facility] Serum or plasma calcium kike urement (mass/volume)Ordered By: Dr. Barrera on 07-19-2022 Calcium [Mass/Vol] 9.1 mg/dL 8.5-10.1 [facility] Serum or plasma cholesterol in HDL measurement (mass/volume)Ordered By: Dr. Barrera on 07-19-2022 Cholesterol in HDL [Mass/Vol] 50 mg/dL >40 [facility] Comment on above: The drugs N-Acetylcy steine and Metamizole may falsely depress this assay. Reference Range HDL <40 mg/dL Low HDL Cholesterol HDL >or= 60 mg/dL High HDL Cholesterol Serum or plasma cholesterol in VLDL measurement (mass/volume)Ordered By: Dr. Barrera on 07-19-2022 Cholesterol in VLDL [Mass/Vol] 18 mg/dL 5-40 [facility] Serum or plasma creatinine m easurement (mass/volume)Ordered By: Dr. Barrera on 07-19-2022 Creatinine [Mass/Vol] 1.21 mg/dL 0.70-1.30 [facility] Comment on above: The validity of the calculated GFR & GFRAA in patients over 70 years has not been determined. Clinical correlation is essential. Serum or plasma low density lipoprotein (LDL) cholesterol measurement (mass/volume)Ordered By: Dr. Barrera on 07-19-2022 Cholesterol in LDL [Mass/Vol] 98 mg/dL 0-130 [facility] Serum or plasma urea nitroge n measurement (mass/volume)Ordered By: Dr. Barrera on 07-19-2022 Urea nitrogen [Mass/Vol] 18 mg/dL 7-18 [facility] Thin prep Papanicolaou smear with manual screeningOrdered By: Dr. Barrera on 07-19-2022 Thin prep Papanicolaou smear with manual screening 22 U/L 15-37 [facility] Thin prep Papanicolaou smear with manual screening 7 5-15 [facility] Whole blood hemoglobin A1c/t otal hemoglobin ratio (mass fraction)Ordered By: Dr. Barrera on 07-19-2022 HbA1c (Bld) [Mass fraction] 4.8 % 3.8-5.6 [facility] Comment on above: Normal < 5.7 % Predi abetic 5.7 - 6.4 % Diabetic >or= 6.5 % Please note range changes. CNOVon 01-20-2021 CNOV Office Visit (UCWSTR ) MEGAN MILLER ([id number]) 1975 M Date Time Provider Department 01/20/21 7:45 PM LOUIS JOHN [facility] During your visit today, we recorded the following information about you: Temperature Pulse Respiration Blood pressure 98.3 degrees 75/minute 16/minute 116/82 Weight 99.8 kg Louis JohnKATE.MAINTENANCE INSPECTOR 01/20/2021 8:57 PM Signed Subjective HPI Nontoxic-appearing male presents urgent care chief complaint possible poison shaunna exposure. Duration of symptoms 1 week. Associated symptoms pruritic erythematous rash. Patient states believes he picked up this rash from his cat. Denies history of poison shaunna. States has been using OTC medication use little success. Denies any pain. Most bothersome symptom is itchy rash. Denies any recent antibiotic use or medication changes. Denies any fevers, nausea, vomiting, joint pain, headache, cough chest pain shortness of breath change in bowel or bladder habit. Past medical history prescription medication use allergies reviewed. .Patient presents with: Rash: PING arms AND RIGHT leg x 1 week PAST MEDICAL HISTORY Diagnosis Date - Guzmán esophagus - Essential hypertension, benign 08/24/2011 - Gastritis and duodenitis 06/2002 - Hyperlipidemia - TOBY (obstructive sleep apnea) 2018 - [facility] - PAST MEDICAL HISTORY OF 06/2002 ABDOMINAL HERNIA PAST SURGICAL HISTORY Procedure Laterality Date - COLONOSCOP W/ OR W/O [facility] SPEC N/A 11/09/2017 [facility]. Cebul-next colon in 10 years-10/2027 - EGD W/O OR W/BRUSH/WASH N/A 11/09/2017 [facility]-R. Cebul - SHAKILA HX N/A 12/31/2017 Laparoscopic Shakila fundoplication-R. Cebul - REMOVAL OF TONSILS,<12 Y/O 2005 Tonsillectomy ALLERGIES Blue Cheese [Other], Lisinopril, and Shellfish MEDICATIONS losartan (COZAAR) 25 mg tablet Take 1 tablet by mouth once daily. UBIDECARENONE/VITAMIN E MIXED (COQ10 SG 100 ORAL) Take by mouth as directed. COMPOUNDED PRESCRIPTION as directed. Taking Super Supplemental ([employer]) COMPOUNDED PRESCRIPTION as directed. Taking Food Enzymes ([employer]) MULTI-VITAMIN ORAL Take by mouth. allopurinol (ZYLOPRIM) 100 mg tablet Take 1 tablet by mouth once daily. For gout. colchicine 0.6 mg tablet 1.2 mg by mouth x 1 dose; then 0.6 mg taken 1 hour later. May repeat in 3 days FAMILY HISTORY Problem Relation Age of Onset - Ischemic Heart Disease Father of [place] - Hypertension Father - None Mother - Asthma Brother - Hypertension Brother - other (gout) Brother - None Brother - None Brother Social History Tobacco Use - Smoking status: Never Smoker - Smokeless tobacco: Never Used Substance Use Topics - Alcohol use: No - Drug use: No BP 116/82 Pulse 75 Temp 36.8 ?C (98.3 ?F) (Left Tympanic) Resp 16 Wt 99.8 kg (220 lb) SpO2 97% BMI 29.83 kg/m? Review of Systems Constitutional: Negative for chills, fever and malaise/fatigue. HENT: Negative for congestion, ear discharge, ear pain, sinus pain and sore throat. Eyes: Negative for blurred vision, pain, discharge and redness. Respiratory: Negative for cough, sputum production, shortness of breath and wheezing. Cardiovascular: Negative for chest pain. Gastrointestinal: Negative for abdominal pain, diarrhea, nausea and vomiting. Musculoskeletal: Negative for myalgias. Skin: Positive for itching and rash. Neurological: Negative for dizziness and headaches. Objective Physical Exam Constitutional: General: He is not in acute distress. Appearance: He is not diaphoretic. Eyes: Conjunctiva/sclera: Conjunctivae normal. Pupils: Pupils are equal, round, and reactive to light. Cardiovascular: Rate and Rhythm: Normal rate and regular rhythm. Heart sounds: Normal heart sounds. Pulmonary: Effort: Pulmonary effort is normal. No tachypnea, accessory muscle usage or respiratory distress. Breath sounds: Normal breath sounds. Abdominal: Palpations: Abdomen is soft. Tenderness: There is no abdominal tenderness. Musculoskeletal: Cervical back: Normal range of motion and neck supple. Skin: General: Skin is warm and dry. Comments: Erythematous macular papular rash noted on patient's bilateral lower arms. Small amount of rash noted on right iliac crest. Fluid-filled vesicles with linear coalescing lesions noted. No breaks in the skin. No evidence of bacterial infection no remote redness. Neurological: Mental Status: He is alert and oriented to person, place, and time. ASSESSMENT/PLAN: 1. Contact dermatitis, unspecified contact dermatitis type, unspecified trigger - ICD9: 692.9, ICD10: L25.9 Diagnosis contact dermatitis. Patiently placed on prednisone taper. Educated to use antihistamines. Red flags for reevaluation discussed. Patient was educated on supportive therapies. Patient will follow up with primary care provider as needed. Patient was instructed to immediately p (more content not included)... Normal [facility] CNOVon 07-09-2020 CNOV Office Visit ([facility]WSTR ) MEGAN MILLER ([id number]) 1975 M Date Time Provider Department 07/09/20 5:45 PM ZULMA CAREY (MAINTENANCE INSPECTOR) WS During your visit today, we recorded the following information about you: Temperature Pulse Respiration Blood pressure 97.5 degrees 90/minute 16/minute 118/74 Weight 102.5 kg Zulma Carey APRN.MAINTENANCE INSPECTOR 07/09/2020 6:13 PM Signed Subjective 45 year old male with PMH HTN who presents with complaints of rash. Acute onset of symptoms was around Yevgeniy time. He locates the rash in his groin. States it is red, raised and itchy. He was seen by derm and states that they provided him with a cream " and it kind of helped" States his has similar rash and she was prescribed Diflucan last week " and it took it right out" Denies fever or chills. Denies weight loss, malaise, or fatigue. Denies red streaking. Denies that the rash is painful. Denies new lotions, soaps or medicines. Denies recent travel outside of country. The history is provided by the patient. No bridge saw operator was used. Rash This is a recurrent problem. The current episode started more than 1 month ago. The problem has been waxing and waning since onset. Location: groin region. The rash is characterized by redness and itchiness. He was exposed to nothing. Pertinent negatives include no anorexia, congestion, cough, diarrhea, eye pain, facial edema, fatigue, fever, joint pain, nail changes, rhinorrhea, shortness of breath, sore throat or vomiting. Treatments tried: topical cream. The treatment provided mild relief. There is no history of allergies, asthma, eczema or varicella. PAST MEDICAL HISTORY Diagnosis Date - Guzmán esophagus - Essential hypertension, benign 08/24/2011 - Gastritis and duodenitis 06/2002 - Hyperlipidemia - TOBY (obstructive sleep apnea) 2019 - [facility] - PAST MEDICAL HISTORY OF 06/2002 ABDOMINAL HERNIA PAST SURGICAL HISTORY Procedure Laterality Date - COLONOSCOP W/ OR W/O [facility] SPEC N/A 11/09/2017 [facility] Cebul-next colon in 10 years-10/2027 - EGD W/O OR W/BRUSH/WASH N/A 11/09/2017 [facility]. Cebul - SHAKILA HX N/A 12/31/2017 Laparoscopic Shakila fundoplication-R. Cebul - REMOVAL OF TONSILS,<12 Y/O 2005 Tonsillectomy ALLERGIES Blue Cheese [Other], Lisinopril, and Shellfish MEDICATIONS losartan (COZAAR) 25 mg tablet Take 1 tablet by mouth once daily. UBIDECARENONE/VITAMIN E MIXED (COQ10 SG 100 ORAL) Take by mouth as directed. COMPOUNDED PRESCRIPTION as directed. Taking Super Supplemental ([employer]) COMPOUNDED PRESCRIPTION as directed. Taking Food Enzymes ([employer]) MULTI-VITAMIN ORAL Take by mouth. fluconazole (DIFLUCAN) 150 mg tablet Take 1 tablet by mouth once daily for 2 days. clotrimazole-betamethasone (LOTRISONE) cream Apply to affected area twice daily for 7 days. allopurinol (ZYLOPRIM) 100 mg tablet Take 1 tablet by mouth once daily. For gout. colchicine 0.6 mg tablet 1.2 mg by mouth x 1 dose; then 0.6 mg taken 1 hour later. May repeat in 3 days FAMILY HISTORY Problem Relation Age of Onset - Ischemic Heart Disease Father of [place] - Hypertension Father - None Mother - Asthma Brother - Hypertension Brother - other (gout) Brother - None Brother - None Brother Social History Tobacco Use - Smoking status: Never Smoker - Smokeless tobacco: Never Used Substance Use Topics - Alcohol use: No - Drug use: No Review of Systems Constitutional: Negative for chills, diaphoresis, fatigue, fever, malaise/fatigue and weight loss. HENT: Negative for congestion, ear discharge, ear pain, hearing loss, nosebleeds, rhinorrhea, sinus pain, sore throat and tinnitus. Eyes: Negative for pain, discharge and redness. Respiratory: Negative for cough, hemoptysis, sputum production, shortness of breath and stridor. Cardiovascular: Negative for chest pain, palpitations, orthopnea and claudication. Gastrointestinal: Negative for abdominal pain, anorexia, diarrhea, nausea and vomiting. Genitourinary: Negative for dysuria, frequency and urgency. Musculoskeletal: Negative for back pain, joint pain, myalgias and neck pain. Skin: Positive for itching and rash. Negative for nail changes. Endo/Heme/Allergies: Negative for environmental allergies and polydipsia. Does not bruise/bleed easily. Psychiatric/Behavioral: Negative for depression and suicidal ideas. BP 118/74 Pulse 90 Temp 36.4 ?C (97.5 ?F) (Tympanic) Resp 16 Wt 102.5 kg (226 lb) SpO2 97% BMI 30.64 kg/m? Objective Physical Exam Constitutional: He is oriented to person, place, and time and well-developed, well-nourished, and in no distress. HENT: Head: Normocephalic and atraumatic. Right Ear: External ear normal. Left Ear: External ear normal. Mouth/Throat: Oropharynx is clear and moist. Eyes: Pupils are equal, round, and reactive to light. Conjunctivae and EO (more content not included)... [facility] MEGAN [facility]ILL[facility] ([id number]) 1975 M Date Time Provider Department 07/08/20 MARIA DEL CARMEN GARDNER III During your visit today, we recorded the following information about you: Odin Salazar RN 07/08/2020 2:09 PM Signed Pt's called, verified pt by name and birthdate. Raina wanted PCP to give pt a medication for a "rash in his groin and behind his knee". Explained to her without seeing the rash the provider won't know what to treat. Offered apt for today to discuss with provider. declined. She states pt will go to urgent care Odin Salazar RN Allergies As of Date: 07/08/2020 Noted Allergy Reaction blue cheese [Other] 02/16/2005 7 - Swelling Comments: throat swelling LISINOPRIL 09/21/2014 3 - Cough Comments: Cough SHELLFISH 02/16/2005 7 - Swelling Comments: shrimp throat swelling Date Reviewed: 06/23/2019 Reviewed by: Rafael Arevalo LPN - Fully Assessed Reason for Visit: Question [2127] Prescriptions as of 07/08/2020 Sig: ALLOPURINOL 100 MG TABLET Take 1 tablet by mouth once d* COLCHICINE 0.6 MG TABLET 1.2 mg by mouth x 1 dose; the* LOSARTAN 25 MG TABLET Take 1 tablet by mouth once d* COQ10 SG 100 ORAL Take by mouth as directed. COMPOUNDED PRESCRIPTION as directed. Taking Super Sup* COMPOUNDED PRESCRIPTION as directed. Taking Food Enzy* MULTI-VITAMIN ORAL Take by mouth. Problem List As Of Date 07/08/2020 Noted Resolved ABN INVOLUN MOVEMENT NEC [R25.8, R25.9] 05/11/2008 Dysmetabolic syndrome X [E88.81] 05/11/2008 09/18/2013 Anxiety [F41.9] 07/15/2010 Essential hypertension, benign [I10] 08/24/2011 GERD (gastroesophageal reflux disease) [K21.9] 09/21/2014 03/04/2018 Paresthesia of hand, bilateral [R20.2] 12/18/2016 03/04/2018 TOBY (obstructive sleep apnea) [G47.33] 05/06/2018 Carpal tunnel syndrome, bilateral [G56.03] 12/26/2018 Encounter Status:Closed by ODIN SALAZAR RN on 07/08/20 Normal [facility] Vital Signs Date Time Vital Sign Value Performing Clinician Faci lity 02-12-2025 12:58-0400 Body temperature 99 [degF] Dr. Vandana Barahona MD Work Phone: [facility] 02-12-2025 12:58-0400 Diastolic blood pressure 111 mm[Hg] Dr. Vandana Barahona MD Work Phone: [facility] 02-12-2025 12:58-0400 Heart rate 63 /min Dr. Vandana Barahona MD Work Phone: [facility] 02-12-2025 12:58-0400 Respiratory rate 14 /min Dr. Vandana Barahona MD Work Phone: [facility] 02-12-2025 12:58-0400 SaO2% (BldA) [Mass fraction] 100 % Dr. Vandana Barahona MD Work Phone: [facility] 02-12-2025 12:58-0400 Systolic blood pressure 166 mm[Hg] Dr. Vandana Barahona MD Work Phone: [facility] 02-12-2025 09:47-0400 Body height 180.[address] Vandana Barahona MD Work Phone: [facility] 02-12-2025 09:47-0400 Body mass index (BMI) [Ratio] 32.3 kg/m2 Dr. Vandana Barahona MD Work Phone: [facility] 02-12-2025 09:47-0400 Body weight 105.[address] Vandana Barahona MD Work Phone: [facility] 01-23-2025 08:39-0400 Body height 182.[address] Vandana Barahona MD Work Phone: [facility] 01-23-2025 08:39-0400 Body mass index (BMI) [Ratio] 31.8 kg/m2 Dr. Vandana Barahona MD Work Phone: [facility] 01-23-2025 08:39-0400 Body weight 106.[address] Vandana Barahona MD Work Phone: [facility] 01-23-2025 08:39-0400 Diastolic blood pressure 80 mm[Hg] Dr. Vandana Barahona MD Work Phone: [facility] 01-23-2025 08:39-0400 Heart rate 83 /min Dr. Vandana Barahona MD Work Phone: [facility] 01-23-2025 08:39-0400 Respiratory rate 17 /min Dr. Vandana Barahona MD Work Phone: [facility] 01-23-2025 08:39-0400 SaO2% (BldA) [Mass fraction] 97 % Dr. Vandana Barahona MD Work Phone: [facility] 01-23-2025 08:39-0400 Systolic blood pressure 116 mm[Hg] Dr. Vandana Barahona MD Work Phone: [facility] 01-08-2025 08:04-0400 Body height 182.[address] Vandana Barahona MD Work Phone: [facility] 01-08-2025 08:04-0400 Body mass index (BMI) [Ratio] 31.3 kg/m2 Dr. Vandana Barahona MD Work Phone: [facility] 01-08-2025 08:04-0400 Body temperature 98.2 [degF] Dr. Vandana Barahona MD Work Phone: [facility] 01-08-2025 08:04-0400 Body weight 104.[address] Vandana Barahona MD Work Phone: [facility] 01-08-2025 08:04-0400 Diastolic blood pressure 88 mm[Hg] Dr. Vandana Barahona MD Work Phone: [facility] 01-08-2025 08:04-0400 Heart rate 48 /min Dr. Vandana Barahona MD Work Phone: [facility] 01-08-2025 08:04-0400 Respiratory rate 18 /min Dr. Vandana Barahona MD Work Phone: [facility] 01-08-2025 08:04-0400 SaO2% (BldA) [Mass fraction] 97 % Dr. Vandana Barahona MD Work Phone: [facility] 01-08-2025 08:04-0400 Systolic blood pressure 140 mm[Hg] Dr. Vandana Barahona MD Work Phone: [facility] 07-22-2024 07:38-0500 Body height 182.[address] Vandana Barahona MD Work Phone: [facility] 07-22-2024 07:38-0500 Body mass index (BMI) [Ratio] 31.4 kg/m2 Dr. Vandana Barahona MD Work Phone: [facility] 07-22-2024 07:38-0500 Body temperature 97.9 [degF] Dr. Vandana Barahona MD Work Phone: [facility] 07-22-2024 07:38-0500 Body weight 105.[address] Vandana Barahona MD Work Phone: [facility] 07-22-2024 07:38-0500 Diastolic blood pressure 82 mm[Hg] Dr. Vandana Barahona MD Work Phone: [facility] 07-22-2024 07:38-0500 Heart rate 79 /min Dr. Vandana Barahona MD Work Phone: [facility] 07-22-2024 07:38-0500 Respiratory rate 16 /min Dr. Vandana Barahona MD Work Phone: [facility] 07-22-2024 07:38-0500 SaO2% (BldA) [Mass fraction] 99 % Dr. Vandana Barahona MD Work Phone: [facility] 07-22-2024 07:38-0500 Systolic blood pressure 128 mm[Hg] Dr. Vandana Barahona MD Work Phone: [facility] 06-25-2024 13:34-0500 Body mass index (BMI) [Ratio] 31.1 kg/m2 Dr. Vandana Barahona MD Work Phone: [facility] 06-25-2024 13:34-0500 Body temperature 96.1 [degF] Dr. Vandana Barahona MD Work Phone: [facility] 06-25-2024 13:34-0500 Body weight 104.[address] Vandana Barahona MD Work Phone: [facility] 06-25-2024 13:34-0500 Diastolic blood pressure 80 mm[Hg] Dr. Vandana Barahona MD Work Phone: [facility] 06-25-2024 13:34-0500 Heart rate 87 /min Dr. Vandana Barahona MD Work Phone: [facility] 06-25-2024 13:34-0500 Respiratory rate 16 /min Dr. Vandana Barahona MD Work Phone: [facility] 06-25-2024 13:34-0500 SaO2% (BldA) [Mass fraction] 99 % Dr. Vandana Barahona MD Work Phone: [facility] 06-25-2024 13:34-0500 Systolic blood pressure 124 mm[Hg] Dr. Vandana Barahona MD Work Phone: [facility] 10-15-2022 10:15-0400 Diastolic blood pressure 74 mm[Hg] Dr. Oanh Barrera Work Phone: [facility] 10-15-2022 10:15-0400 Heart rate 61 /min Dr. Oanh Barrera Work Phone: [facility] 10-15-2022 10:15-0400 Respiratory rate 15 /min Dr. Oanh Barrera Work Phone: [facility] 10-15-2022 10:15-0400 SaO2% (BldA) [Mass fraction] 98 % Dr. Oanh Barrera Work Phone: [facility] 10-15-2022 10:15-0400 Systolic blood pressure 125 mm[Hg] Dr. Oanh Barrera Work Phone: [facility] 10-15-2022 08:28-0400 Body height 182.[address] Oanh Barrera Work Phone: [facility] 10-15-2022 08:28-0400 Body mass index (BMI) [Ratio] 30.2 kg/m2 Dr. Oanh Barrera Work Phone: [facility] 10-15-2022 08:28-0400 Body temperature 97.9 [degF] Dr. Oanh Barrera Work Phone: [facility] 10-15-2022 08:28-0400 Body weight 101.[address] Oanh Barrera Work Phone: [facility] 07-19-2022 08:41-0500 Body temperature 97.3 [degF] Dr. Oanh Barrera Work Phone: [facility] 07-19-2022 08:41-0500 Body weight 103.[address] Oanh Barrera Work Phone: [facility] 07-19-2022 08:41-0500 Diastolic blood pressure 80 mm[Hg] Dr. Oanh Barrera Work Phone: [facility] 07-19-2022 08:41-0500 Heart rate 75 /min Dr. Oanh Barrera Work Phone: [facility] 07-19-2022 08:41-0500 Respiratory rate 16 /min Dr. Oanh Barrera Work Phone: [facility] 07-19-2022 08:41-0500 SaO2% (BldA) [Mass fraction] 97 % Dr. Oanh Barrera Work Phone: [facility] 07-19-2022 08:41-0500 Systolic blood pressure 116 mm[Hg] Dr. Oanh Barrera Work Phone: [facility] 06-29-2022 10:51-0500 Body height 182.[address] Oanh Barrera Work Phone: [facility] Encounters Encounter Date Encounter Type Care Provider Facility [facility]: [facility] Start: 02-19-2025 End: 02[facility] Start: 02-12-2025 End: 02-12-2025 Emergency department patient visit Dr. Apolinar Berkowitz DO -Emergency Department Work Phone: Start: 01-23-2025 End: 01-23-[address] Mustapha Iqbal MD -[facility] Work Phone: Start: 01-23-2025 End: 01-23-[address] Vandana Barahona MD Work Phone: -[facility] Start: 01-08-2025 End: 01-08-2025 Patient encounter procedure Lupillo REDDING -[facility] Work Phone: Start: 01-08-2025 End: 01-08-[address] Vandana Barahona MD Work Phone: -[facility] Start: 08-01-2024 Encounter for genera l adult medical examination without abnormal findings Vandana Barahona [facility] Start: 07-23-2024 End: 07-23-[address] Vandana Barahona MD Work Phone: [facility] Work Phone: Start: 07-23-2024 End: 07-23-[address] Vandana Barahona MD -Laboratory, Specimen Work Phone: Start: 07-22-2024 End: 07-22-[address] Vandana Barahona MD -[facility] Work Phone: Start: 07-22-2024 End: 07-23-[address] Vandana Barahona MD Work Phone: [facility] Work Phone: Start: 07-22-2024 End: 07-22-2024 ambulatory Vandana Barahona Facility:[facility] Start: 07-04-2024 End: 07-04-2024 Discharged Recurring Lupillo REDDING -Physical Therapy Work Phone: Start: 07-04-2024 Registered Recurring Lupillo REDDING -Physical Therapy Work Phone: Start: 07-04-2024 End: 07-04-[address] Vandana Barahona MD Work Phone: [facility] Work Phone: Start: 06-25-2024 End: 06-25-2024 Patient encounter procedure Lupillo REDDING -Radiology, [facility] Work Phone: Start: 06-25-2024 End: 06-25-2024 Patient encounter procedure Lupillo REDDING -[facility] Work Phone: Start: 06-25-2024 End: 06-25-2024 ambulatory Lupillo REDDING Facility:[facility] Start: 06-25-2024 End: 06-25-2024 ambulatory Lupillo REDDING Facility:[facility] Start: 10-15-2022 End: 10-15-2022 Emergency department patient visit Dr. Oanh Barrera Work Phone: [facility]-Emergency Department Start: 10-10-2022 End: 10-10-2022 Subsequent hospital visit by physician Xr [facility] Work Phone: Radiology Comment on above: Foot pain, left [[id number] .[id number]] Start: 07-19-2022 End: 07-19-[address] Oanh Barrera Work Phone: [facility] Work Phone: Start: 07-19-2022 End: 07-19-[address] Oanh Barrera Work Phone: [facility]-Laboratory Start: 07-19-[address] Flo Barrera Work Phone: [facility] Start: 07-19-2022 End: 07-19-2022 Encounter for general adult medical examination without abnormal findings Dr. Oanh Barrera Work Phone: [facility] Start: 07-19-2022 End: 07-19-[address] Oanh Barrera Work Phone: [facility] Start: 05-08-2018 End: 05-22-2018 Patient encounter procedure MARIA DEL CARMEN Valentina [facility] Procedures Date Procedure Procedure Detail Performing Clinician Start: 02-12-2025 Urnls dip stick/tabl et reagent auto microscopy Dr. Vandana Barahona MD Work Phone: Start: 02-12-[address] Vandana Barahona MD Work Phone: Start: 02-12-2025 CT of abdomen and pe lvis without contrast Dr. Vandana Barahona MD Work Phone: Start: 07-23-2024 Measurement of occul t blood in stool specimen using immunoassay Dr. Vandana Barahona MD Work Phone: Start: 07-22-2024 Prostate specific antigen measurement Dr. Vandana Barahona MD Work Phone: Comment on above: This test was perfor med using the [employer] tPSA method. Measured values of a patient sample can vary depending on the testing procedure used. PSA values determined on patient samples by different testing procedures cannot be used interchangeably. If there is a change in PSA assays while monitoring therapy, sequential testing should be performed to confirm baseline values. Start: 06-25-2024 Plain x-ray of pelvi s and lower extremity Dr. Vandana Barahona MD Work Phone: Start: 10-15-2022 X-ray of both feet Dr. Oanh Barrera Work Phone: Start: 10-10-2022 Radex foot complete minimum 3 views Louis John APRN.CNP Work Phone: Start: 12-20-2018 Lipid 1996 panel - S nathen or Plasma [facility] Work Phone: Start: 11-09-2017 Colonoscopy Xr Adriana Work Phone: History of tonsillectomy History of tonsillectomy Dr. Oanh Barrera Work Phone: Comment on above: 04/2005 Plan of Treatment Date Care Activity Detail Author Start: 05-18-2026 Urine microalbumin profile DTaP,Tdap,Td Vaccine (3 - Td or Tdap) [facility] Start: 03-06-2025 Colonoscopy [facility] Start: 02-12-2025 [facility] Start: 06-25-2024 Patient referral [facility] Work Phone: Start: 01-20-2024 Covid-19 Vaccine ( season) Covid-19 Vaccine ( season) [facility] Start: 01-20-2024 Influenza vaccination Influenza Vacc ine (#1) [facility] Start: 12-21-2023 Lipid panel Lipid Screening [facility] Start: 11-20-2023 Diabetes Screening Diabetes Screenin g [facility] Start: 06-23-2020 Annual PCP Team [employer] Specialist garima Disease Visit Annual PCP Team Chronic Disease Visit [facility] Start: 06-23-2020 BP Controlled (<130/80) BP Con trolled (<130/80) [facility] Start: 2019 Screening for malign ant neoplasm of colon [facility] Start: 1993 Hepatitis B Vaccine (1 of 3 - 19+ 3-dose series) Hepatitis B Vaccine (1 of 3 - 19+ 3-dose series) [facility] Start: 1992 Depression Screening Depression Scre ening [facility] Start: 1992 Hepatitis C screening Hepatitis C Sc reebrent [facility] Start: 1992 HIV screening HIV Screening [facility] Patient Education [facility] Work Phone: Patient referral [facility] Work Phone: XR Cervical spine 2 or 3 Views [facility] XR Shoulder GE 2 Views [facility] Immunizations Immunization Date Immunization Notes Care Provider Hiro etmarky 06-23-2019 influenza virus vaccine, unspecified formulation [facility] Work Phone: [facility] 05-18-2016 tetanus toxoid, redu samuel diphtheria toxoid, and acellular pertussis vaccine, adsorbed [facility] Work Phone: [facility] 03-19-2013 influenza virus vaccine, unspecified formulation [facility] Work Phone: [facility] 10-02-2005 diphtheria and tetan us toxoids, adsorbed for pediatric use [facility] Work Phone: [facility] Work Phone: Payers Date Payer Category Payer Self-pay [id number] 2024 Unknown [id number] 2022 Unknown [id number] Unknown [id number] 2.16.8 [id number] Unknown [id number] 2.16.8 [id number] Unknown [id number] 2.16.8 [id number] Unknown [id number] 2.16.8 [id number] Unknown [id number] 2.16.8 [id number] Unknown [id number] 2.16.8 [id number] Unknown [id number] 2.16.8 [id number] Unknown [id number] 2.16.8 [id number] Unknown [id number] 2.16.8 [id number] Unknown [id number] 2.16.8 [id number] Unknown [id number] 2.16.8 [id number] Social History Date Type Detail Facility Start: 07-19-2022 End: 10-15-2022 Tobacco smoking status NJIS Unknown if ever smoked [facility] Start: 1975 Sex Assigned At Male [facility] Start: 07-22-2024 End: 02-12-2025 Tobacco smoking status NJIS Never smoked tobacco [facility] Start: 10-10-2022 Alcoholic beverage intake Current non-drinker of alcohol (finding) [facility] Start: 04-27-2020 End: 10-10-2022 History of Social function [facility] Start: 04-27-2020 End: 10-10-[address] [facility] Adult Depression Screening Assessment [address] [facility] Start: 1975 Sex assigned at Not on file [facility] Start: 08-01-2024 End: 08-03-2024 Sex Male (finding) [facility] Sexual Orientation Heterosexual (finding) [facility] Medical Equipment Procedure Code Equipment Code Equipment Origin al Text Equipment Identifier Dates SILVIO PELAEZ LG FDA Start: 12-31-2017 SILVIO PELAEZ FDA Start: 12-31-2017 PATCH,CAROTID THIN FDA Start: 12-31-2017 SILVIO PELAEZ LG FDA Start: 12-31-2017 SILVIO PELAEZ FDA Start: 12-31-2017 PATCH,CAROTID THIN FDA Start: 12-31-2017 SILVIO PELAEZ LG FDA Start: 12-31-2017 SILVIO PELAEZ FDA Start: 12-31-2017 PATCH,CAROTID THIN FDA Start: 12-31-2017 SILVIO PELAEZ LG FDA Start: 12-31-2017 CLIP,HEMOLOCK ME D WECK FDA Start: 12-31-2017 PATCH,CAROTID THIN FDA Start: 12-31-2017 CLIP,HEMOLOCK LG WECK FDA Start: 12-31-2017 CLIP,HEMOLOCK ME D WECK FDA Start: 12-31-2017 PATCH,CAROTID THIN FDA Start: 12-31-2017 CLIP,HEMOLOCK LG WECK FDA Start: 12-31-2017 CLIP,HEMOLOCK ME D WECK FDA Start: 12-31-2017 PATCH,CAROTID THIN FDA Start: 12-31-2017 CLIP,HEMOLOCK LG WECK FDA Start: 12-31-2017 CLIP,HEMOLOCK ME D WECK FDA Start: 12-31-2017 PATCH,CAROTID THIN FDA Start: 12-31-2017 CLIP,HEMOLOCK LG WECK FDA Start: 12-31-2017 CLIP,HEMOLOCK ME D WECK FDA Start: 12-31-2017 PATCH,CAROTID THIN FDA Start: 12-31-2017 Clinical Notes 07-09-2020 to 02-12-2025 Note Date & Type Note Facility 02-12-2025 Discharge summary [facility] 02-12-2025 Radiology Diagnostic study note [facility] [address] [place], [place] [address] Abdomen/Pelvis without Cont MR#: [id number] Acct: [id number] Name: MEGAN MILLER Rep #: [id number] : 1975 M 49 From: Mauro Milligan MD PCP: Dr. Vandana Barahona MD Status: REG ER Study:Abdomen/Pelvis without Cont Date of Exa m: 02/12/25 Exam# [id number] Ordering Dr: Apolinar Berkowitz DO PROCEDURE: ABDOMEN/PELVIS WITHOUT CONT 02/12/2025 REASON FOR EXAM: PAIN TECHNIQUE: Procedure Code: CTABDPEL Modality: CT Procedure: ABDOMEN/PELVIS WITHOUT CONT Noncontrast technique limits evaluation of the abdominal and pelvic viscera. Coronal and Sagittal reconstruction series were provided. One or more dose reduction techniques were used (e.g., Automated exposure control, adjustment of the mA and/or kV according to patient size, use of iterative reconstruction technique). RADIATION DOSE SUMMARY: CTDlvol: 15.18 mGy DLP: 879.67 mGycm COMPARISON: None. FINDINGS: Lung bases: Clear. Liver: Fatty infiltration of the liver. Gallbladder: Unremarkable. Spleen: Unremarkable. Pancreas: Unremarkable. Adrenals: Unremarkable. Kidneys: Three stones at the lower pole of the left kidney with the largest measures 6 mm. Left perinephric fluid consistent sent with forniceal rupture. A 2 mm obstructing stone at the left ureteral-bladder junction causing severe left hydronephrosis. Bladder: The bladder is decompressed. Reproductive Organs: Unremarkable. Bowel: Extensive colonic diverticulosis with no evidence of acute diverticulitis. No bowel obstruction. Appendix: Unremarkable. Lymph nodes: No lymphadenopathy. Vasculature: No aneurysm. Peritoneum / Retroperitoneum: No free air or free fluid. Bones: No acute bony abnormalities. CT/Abdomen/Pelvis without Cont IMPRESSION: Three stones at the lower pole of the left kidney with the largest measures 6 mm. Left perinephric fluid consistent sent with forniceal rupture. A 2 mm obstructing stone at the left ureteral-bladder junction causing severe left hydronephrosis. Colonic diverticulosis with no evidence of acute diverticulitis. No bowel obstruction. Reading Location: [facility] CC: Dr. Vandana Barahona MD; Dr. Apolinar Berkowitz DO ~ [employer] Pouncer: Signed [facility] 01-23-2025 Progress note [facility] 01-23-2025 Progress note Note Date/Time January 23, 2025 8:51am [facility] [place] [address] OFFICE VISIT Date of Service: 01/23/25 MR#: [id number] Acct: [id number] Name: MEGAN MILLER Rep #: [id number] : 1975 Provider: Dr. Jarad Iqbal MD Age/Sex: 49/M Location: [facility] Status: Signed Intake Vital Signs 01/08/25 08:04 01/23/25 08:39 Height 6 ft 6 ft Weight: 231 lb 235 lb BMI 31.3 31.8 BP 140/88 H 116/80 Blood Pressure Location Lt brachial Rt brachial Position Sitting Sitting Respiration 18 17 Pulse 48 L 83 Pulse Source Monitor Monitor Temp 98.2 F Temp Source Temporal Pulse Oximetry (%) 97 97 Oxygen Delivery Method room air room air Intake Visit Reasons: SELF REFERRED CHANGE IN BOWEL HABITS Chief Complaint: self referred change in bowel habits Is patient in pain?: No Allergies shellfish derived Allergy (Severe, Verified 01/23/25 08:40) anaphylactic hydrochlorothiazide Allergy (Intermediate, Verified 01/23/25 08:40) palpitations/restlessness lisinopril Adverse Reaction (Mild, Verified 01/23/25 08:40) cough & tachycardia Medications ?Medication ?Instructions ?Recorded ?Confirmed ?Type cholecalciferol (vitamin D3) 25 1,000 unit PO DAILY 01/23/25 History mcg (1,000 unit) capsule (Vitamin D3) coenzyme Q10 75 mg capsule (Ultra 75 mg PO DAILY 05/3101/23/25 History CoQ10) multivitamin (Multiple Vitamins 1 tab PO DAILY 9 01/23/25 History tablet) omega-3 fatty acids 1,000 mg 2,000 mg PO QDAY suppleme nt 05/31/18 01/23/25 History capsule (Fish Oil Concentrate) Cellular Complex PO 11/16/20 01/23/25 History Essential oils PO 11/16/20 01/23/25 History losartan 25 mg tablet 25 mg PO DAILY #90 tabs 03/09/1201/23/25 Rx methylprednisolone 4 mg tablets in 4 mg PO PER PKG DIR #21 tabs 01/08/25 01/23/25 Rx a dose pack (Medrol (Tom)) PFSH Medical History Family history of clotting disorder Seasonal allergies Gout Essential hypertension TOBY (obstructive sleep apnea) GERD (gastroesophageal reflux disease) Surgical History Status post laparoscopic Shakila fundoplication (~12/31/17) S/P colonoscopy History of esophagogastroduodenoscopy (EGD) (~10/2017) History of tonsillectomy Family History Brother Asthma Cancer lymphoma Mother Arthritis Hypertension High cholesterol Macular degeneration Depression Father Hypertension High cholesterol Sleep apnea Myocardial infarction, Onset Age: 68 CAD (coronary artery disease) Son Seizures Daughter Seizures Aunt Parkinsons disease Grandmother Parkinsons disease CVA (cerebral vascular accident) Uncle CVA (cerebral vascular accident) Diabetes Grandfather Myocardial infarction, Onset Age: 68 Grandfather Cancer melanoma Brother CVA (cerebral vascular accident) Cancer prostate Social History adopted: No household members: spouse and children housing: house number of children: 3 current occupational status: employed current occupation: [employer] [address] [place], [place] pets and animals: No sexually active: Yes Smoking Status: Never smoker Electronic Cigarette Use: not used second hand exposure: No alcohol intake: never substance use type: does not use caffeine: Yes (2) Type: coffee frequency: does not exercise do you feel safe at home: Yes HPI HPI HPI: The patient is a 49-year-old male who is being seen today with complaints of a recent change in his bowel movements as well as some periodic bright red blood per rectum. Last colonoscopy was 2017.. Patient denies previous polyps. No family history of colon polyps however a cousin had rectal cancer. Patient states his bowel movements have become somewhat inconsistent in terms of their color and consistency. He states that a lot of times lately they are very thin and somewhat stringy. He does note some occasional bright red blood with bowel movements. He states that sometimes these are couple drops of blood in the water and many times there is bright red blood on the tissue after wiping.. He does admit to some straining at times with bowel movements. He presents today to discuss possible colonoscopy. ROS General General: Yes fatigue; No weight change, appetite, colon cancer, breast cancer or weakness HEENT HEENT: No difficulty swallowing, eye injury, eye surgery, swollen glands or hoarseness Endo Endocrine: No thyroid disease, diabetes mellitus, thyroid cancer, Hair loss, heat intolerance or cold intolerance Skin Skin: No rash or changing moles Musc Musculoskeletal: No back problems, arthritis, rheumatoid arthritis, gout or joint pain Cardio Cardiovascular: Yes high blood pressure; No murmur, pacemaker, heart disease, atrial fibrillation, heart attack, heart stent, palpitations, shortness of breath with exertion or chest pain Psych Psychiatric: No depression, anxiety or hearing voices Resp Respiratory: No shortness of breath, Yes sleep apnea, No cough, No COPD, No asthma, No emphysema and No wheezing Gastro Gastrointestinal: No abdominal pain, No nausea or vomiting, Yes diarrhea, No constipation, Yes blood in stool, No acid reflux, Yes hemorrhoids, No ulcers, Nogallbladder problem and Yes black,tarry stools Vicente Hematologic: No blood thinners, No blood disorders, No bleeding, No anemia and No blood clots Neuro Neurologic: No system reviewed and no additional complaints, except as documented, No as per HPI, No abnormal gait, No abnormal hearing, No abnormal movements, No abnormal speech, No behavioral changes, No burning sensations, No confusion, No convulsions, No disequilibrium, No dizziness, No localized weakness, No frequent falls, No headache(s), No lack of coordination, No loss ofvision, No memory loss, Yes numbness, No other visual disturbances, No radicularpain, No restless legs, No sensory deficit, No syncope, Yes tingling, No tremor(s), No weakness and No other Exam Const General: cooperative, healthy appearing, comfortable and no acute distress Orientation: alert, awake and oriented x3 HENMT Head: normal to inspection, normocephalic and atraumatic Eyes General: appearance normal, both eyes and all related structures Resp Effort & Inspection: normal respiratory effort and able to speak in complete sentences Assessment and Plan Assessment and Plan (1) Blood in stool: Status: Acute (2) Encounter for screening for malignant neoplasm of colon: Status: Acute Plan The patient is a 49-year-old male who is being seen today to schedule a colonoscopy and to discuss probable hemorrhoid bleeding. I have recommended colonoscopy since has been about 7 years since his last colonoscopy and he clearly notes a change in his bowel movements. As far as the blood in his stools, I suspect this is probably hemorrhoid related however also important to rule out other causes for blood per rectum especially given a family history of rectal cancer. In the meantime we did discuss trying to increase his fiber intake. I suggested consuming foods that are high in fiber. We also discussed fiber supplementation such as Metamucil or Benefiber. We will schedule him for colonoscopy to evaluate his colon and hemorrhoids. If he continues to have ongoing hemorrhoid bleeding and symptoms, he might be a good candidate for a Doppler guided hemorrhoid artery ligation surgery. We will schedule him for colonoscopy in a timely manner. Coding Level of Care Code Off vis,new,level 3 Diagnoses Blood in stool K92.1 Encounter for screening for malignant neoplasm of colon Z12.11 01/23/25 0851 <Electronically signed by Mustapha valladares MD> Date _ Mustapha Iqbal MD Cosign Signature: Date (if applicable) CC: Dr. Vandana Barahona MD ~ [facility] Work Phone: 1(891) 661-586508-21-2025 Evaluation note* Diagnosis Onset Date Resolution Status Admit Date Disorder of right rotator cuff acute January 08 7:56am IT band syndrome acute December 202024 7:56am Numbness and tingling in bot h hands acute January 08 7:56am Blood in stool acute January 23, 2025 8:27am Encounter for screening for malignant neoplasm of colon acute Jan 8:27am [facility] Work Phone: 1([phone]) 353-101105-08-2025 Discharge summary Author Moisés Lundy [facility] Note Date/Time September 25, 2024 3:13pm [facility] Physical Therapy Health[address] [place] [address] / REHABILITATION SERVICES DISCHARGE SUMMARY MR#: [id number] Acct: [id number] Name: MEGAN MILLER Rep #: [id number] : 1975 49 From: Cert. SHANNAN HardyT, OCS Referring DrRichard: VAHID Mark Status: REG RCR Insurance: [facility] SELF PAY INSURANCE Patient Information Patient Information: MEGAN MILLER was seen in my office for initial evaluation on 07/04/24. The following Plan of Care was established for this patient: POC Established Initial Frequency: 1VISIST Anticipated Interventions Patient/Client Instruction: Educate patient on: Condition and Plan of Care For the Purpose of:: To decrease pain, To increase ROM, To increase oxygenation perfusion, To improve ability to perform ADL's, To increase tolerance to activity/condition/position, To improve ability of physical actions for home/community/work/leisure, To improve health of tissue, To decrease soft tissue restriction and To improve endurance Therapeutic Exercise to Include: Strength training, Flexibilty training and Active ROM For the Purpose of:: To decrease pain, To increase ROM, To improve muscle performance and motor function, To increase tolerance to activity/condition/position, To improve ability of physical actions for home/community/work/leisure, To improve health of tissue and To improve tolerance to ADL's Last Seen Last Seen: This patient was last seen in our office . Pertinent comments regarding their Physical therapy will appear below: Patient seen for PT for right hip pain for HEP only thus is d/c At this point I will be discontinuing this patient from physical therapy. I would be happy to see this patient again in the future if found appropriate by the physician. Thank you! Moisés Lundy PT, Cert T, OCS <Electronically signed by Cert. HAY Dobbins PT, OCS> 09/25/24 1513 CC: Dr. Vandana Barahona MD; VAHID Mark ~ NEENA Signed [facility] Work Phone: 1(775) 458-530405-08-2025 Discharge summary [facility] Physical Therapy Health[address] [place] [address] / REHABILITATION SERVICES DISCHARGE SUMMARY MR#: [id number] Acct: [id number] Name: MEGAN MILLER Rep #: [id number] : 1975 49 From: Cert. HAY Hardy, OCS Referring DrRichard: VAHID Mark Status: REG RCR Insurance: [facility] SELF PAY INSURANCE Patient Information Patient Information: MEGAN MILLER was seen in my office for initial evaluation on 07/04/24. The following Plan of Care was established for this patient: POC Established Initial Frequency: 1VISIST Anticipated Interventions Patient/Client Instruction: Educate patient on: Condition and Plan of Care For the Purpose of:: To decrease pain, To increase ROM, To increase oxygenation perfusion, To improve ability to perform ADL's, To increase tolerance to activity/condition/position, To improve ability of physical actions for home/community/work/leisure, To improve health of tissue, To decrease softtissue restriction and To improve endurance Therapeutic Exercise to Include: Strength training, Flexibilty training and Active ROM For the Purpose of:: To decrease pain, To increase ROM, To improve muscle performance and motor function, To increase tolerance to activity/condition/position, To improve ability of physical actions for home/community/work/leisure, To improve health of tissue and To improve tolerance to ADL's Last Seen Last Seen: This patient was last seen in our office . Pertinent comments regarding their Physical therapy willappear below: Patient seen for PT for right hip pain for HEP only thus is d/c At this point I will be discontinuing this patient from physical therapy. I would be happy to see this patient again in the future if found appropriate by the physician. Thank you! Moisés Lundy, PT, Cert MDT, [facility] 09/25/24 1513 CC: Dr. Vandana Barahona MD; VAHID Mark ~ JLA Signed [facility]02-05-2025 Evaluation note* Diagnosis Onset Date Resolution Status Admit Date Pain in metatarsus of both feet acute June 25 1:22pm Right hip pain acute June 252024 1:22pm Essential hypertension chronic Ma [facility] 2024 7:28am TOBY (obstructive sleep apnea) chronic July 22, 2024 7:28am Family history of malignant neoplasm of prostate noneactive July 22, 2024 7:28am Influenza vaccination declined noneactive July 22, 2024 7:28am Multiple joint pain noneactive July 22, 2024 7:28am Blood per rectum noneactive July 7:28am Annual physical exam noneactive 2024 7:28am Obesity (BMI 30.0-34.9) noneactive [facility] 2024 7:28am [facility] Work Phone: [phone]) 871-602711-22-2021 NoteHNO ID: [id number] Author: Krista Aaron Population Health Navigator Service: ? Author Type: ? Type: Progress Notes Filed: 04/11/2021 1:18 PM Note Text: POPULATION HEALTH NAVIGATION OUTREACH Action/ I left a voice message re: pcp No care everywhere Contact made with patient or family member? NO Pt identified by name and : NO Outreach Outcome/Action Unable to reach patient: Left message Reason for Outreach Attribution: Provider Off-boarding Payer: Payor: [facility] / Plan: [place] [employer] SELF FUNDED / Product Type: PPO / Care Gap Reviewed:: Reminder: Reminder note to check Health Maintenance for items below Health Maintenance items due: COVID-19 VACCINE(1) Never done HEPATITIS C SCREENING Never done HIV SCREENING Never done COLORECTAL CANCER SCREENING due on 2019 DEPRESSION SCREENING due on 12/21/2019 ANNUAL PCP TEAM CHRONIC DISEASE VISIT due on 06/23/2020 BP CONTROLLED (<130/80) due on 06/23/2020 INFLUENZA(1) due on 01/19/2021 Advanced Directives Completed: Have you ever planned for future healthcare decisions with a power of finance attorney, living will, or advance directives? No. Please bring a copy to your next appointment or email to Referrals: N/A Message Sent to Practice: NO Navigation Signature: Krista Aaron Population Health Navigator April 11, 2021 1:17 [facility]11-22-2021 NotePatient Outreach (NETNAV) MEGAN MILLER ([id number]) 1975 M Date Time Provider Department 04/11/21 KRISTA AARON During your visit today, we recorded the following information about you: Krista Aaron Population Health Navigator 04/11/2021 1:18 PM Signed POPULATION HEALTH NAVIGATION OUTREACH Action/ I left a voice message re: pcp No care everywhere Contact made with patient or family member? NO Pt identified by name and : NO Outreach Outcome/Action Unable to reach patient: Left message Reason for Outreach Attribution: Provider Off-boarding Payer: Payor: [employer] / Plan: [employer] SELF FUNDED / Product Type: PPO / Care Gap Reviewed:: Reminder: Reminder note to check Health Maintenance for items below Health Maintenance items due: COVID-19 VACCINE(1) Never done HEPATITIS C SCREENING Never done HIV SCREENING Never done COLORECTAL CANCER SCREENING due on 2019 DEPRESSION SCREENING due on 12/21/2019 ANNUAL PCP TEAM CHRONIC DISEASE VISIT due on 06/23/2020 BP CONTROLLED (<130/80) due on 06/23/2020 INFLUENZA(1) due on 01/19/2021 Advanced Directives Completed: Have you ever planned for future healthcare decisions with a power of finance attorney, living will, or advance directives? No. Please bring a copy to your next appointment or email to [email or web address] Referrals: N/A Message Sent to Practice: NO Navigation Signature: Krista Aaron Population Health Navigator April 11, 2021 1:17 PM Allergies As of Date: 04/11/2021 Noted Allergy Reaction blue cheese [Other] 02/16/2005 7 - Swelling Comments: throat swelling LISINOPRIL 09/21/2014 3 - Cough Comments: Cough SHELLFISH 02/16/2005 7 - Swelling Comments: shrimp throat swelling Date Reviewed: 01/20/2021 Reviewed by: Louis John APRN.MAINTENANCE INSPECTOR - Fully Assessed Reason for Visit: Population Health Navigation Outreach [3910] Cmt: Offboarding Prescriptions as of 04/11/2021 - predniSONE (DELTASONE) 10 mg tablet Take 4 tabs daily for 3 days, then 2 tabs daily for 3 days, then 1 tab daily for 3 days with food. - allopurinol (ZYLOPRIM) 100 mg tablet Take 1 tablet by mouth once daily. For gout. - colchicine 0.6 mg tablet 1.2 mg by mouth x 1 dose; then 0.6 mg taken 1 hour later. May repeat in 3 days - losartan (COZAAR) 25 mg tablet Take 1 tablet by mouth once daily. - UBIDECARENONE/VITAMIN E MIXED (COQ10 SG 100 ORAL) Take by mouth as directed. - COMPOUNDED PRESCRIPTION as directed. Taking Super Supplemental (Nature's Moore) - COMPOUNDED PRESCRIPTION as directed. Taking Food Enzymes (Nature's Moore) - MULTI-VITAMIN ORAL Take by mouth. Problem List As Of Date 04/11/2021 Noted Resolved ABN INVOLUN MOVEMENT NEC [R25.8, R25.9] 05/11/2008 Dysmetabolic syndrome X [E88.81] 05/11/2008 09/18/2013 Anxiety [F41.9] 07/15/2010 Essential hypertension, benign [I10] 08/24/2011 GERD (gastroesophageal reflux disease) [K21.9] 09/21/2014 03/04/2018 Paresthesia of hand, bilateral [R20.2] 12/18/2016 03/04/2018 TOBY (obstructive sleep apnea) [G47.33] 05/06/2018 Carpal tunnel syndrome, bilateral [G56.03] 12/26/2018 Encounter Status:Closed by [facility] on 04/11/21[facility]09-02-2021 NoteHNO ID: [id number] Author: Louis John APRN.MAINTENANCE INSPECTOR Service: ? Author Type: Nurse Practitioner Type: Progress Notes Filed: 01/20/2021 8:57 PM Note Text: Subjective HPI Nontoxic-appearing male presents urgent care chief complaint possible poison shaunna exposure. Duration of symptoms 1 week. Associated symptoms pruritic erythematous rash. Patient states believes he picked up this rash from his cat. Denies history of poison shaunna. States has been using OTC medication use little success. Denies any pain. Most bothersome symptom is itchy rash. Denies any recent antibiotic use or medication changes. Denies any fevers, nausea, vomiting, joint pain, headache, cough chest pain shortness of breath change in bowel or bladder habit. Past medical history prescription medication use allergies reviewed. .Patient presents with: Rash: PING arms AND RIGHT leg x 1 week PAST MEDICAL HISTORY Diagnosis Date - Guzmán esophagus - Essential hypertension, benign 08/24/2011 - Gastritis and duodenitis 06/2002 - Hyperlipidemia - TOBY (obstructive sleep apnea) 2018 PMH - PAST MEDICAL HISTORY OF 06/2002 ABDOMINAL HERNIA PAST SURGICAL HISTORY Procedure Laterality Date - COLONOSCOP W/ OR W/O [facility] SPEC N/A 11/09/2017 [facility] Cebul-next colon in 10 years-10/2027 - EGD W/O OR W/BRUSH/WASH N/A 11/09/2017 [facility]. Cebul - SHAKILA HX N/A 12/31/2017 Laparoscopic Shakila fundoplication-R. Cebul - REMOVAL OF TONSILS,<12 Y/O 2005 Tonsillectomy ALLERGIES Blue Cheese [Other], Lisinopril, and Shellfish MEDICATIONS losartan (COZAAR) 25 mg tablet Take 1 tablet by mouth once daily. UBIDECARENONE/VITAMIN E MIXED (COQ10 SG 100 ORAL) Take by mouth as directed. COMPOUNDED PRESCRIPTION as directed. Taking Super Supplemental (Nature's Moore) COMPOUNDED PRESCRIPTION as directed. Taking Food Enzymes (Nature's Moore) MULTI-VITAMIN ORAL Take by mouth. allopurinol (ZYLOPRIM) 100 mg tablet Take 1 tablet by mouth once daily. For gout. colchicine 0.6 mg tablet 1.2 mg by mouth x 1 dose; then 0.6 mg taken 1 hour later. May repeat in 3 days FAMILY HISTORY Problem Relation Age of Onset - Ischemic Heart Disease Father of [place] - Hypertension Father - None Mother - Asthma Brother - Hypertension Brother - other (gout) Brother - None Brother - None Brother Social History Tobacco Use - Smoking status: Never Smoker - Smokeless tobacco: Never Used Substance Use Topics - Alcohol use: No - Drug use: No BP 116/82 Pulse 75 Temp 36.8 ?C (98.3 ?F) (Left Tympanic) Resp 16 Wt 99.8 kg (220 lb) SpO2 97% BMI 29.83 kg/m? Review of Systems Constitutional: Negative for chills, fever and malaise/fatigue. HENT: Negative for congestion, ear discharge, ear pain, sinus pain and sore throat. Eyes: Negative for blurred vision, pain, discharge and redness. Respiratory: Negative for cough, sputum production, shortness of breath and wheezing. Cardiovascular: Negative for chest pain. Gastrointestinal: Negative for abdominal pain, diarrhea, nausea and vomiting. Musculoskeletal: Negative for myalgias. Skin: Positive for itching and rash. Neurological: Negative for dizziness and headaches. Objective Physical Exam Constitutional: General: He is not in acute distress. Appearance: He is not diaphoretic. Eyes: Conjunctiva/sclera: Conjunctivae normal. Pupils: Pupils are equal, round, and reactive to light. Cardiovascular: Rate and Rhythm: Normal rate and regular rhythm. Heart sounds: Normal heart sounds. Pulmonary: Effort: Pulmonary effort is normal. No tachypnea, accessory muscle usage or respiratory distress. Breath sounds: Normal breath sounds. Abdominal: Palpations: Abdomen is soft. Tenderness: There is no abdominal tenderness. Musculoskeletal: Cervical back: Normal range of motion and neck supple. Skin: General: Skin is warm and dry. Comments: Erythematous macular papular rash noted on patient's bilateral lower arms. Small amount of rash noted on right iliac crest. Fluid-filled vesicles with linear coalescing lesions noted. No breaks in the skin. No evidence of bacterial infection no remote redness. Neurological: Mental Status: He is alert and oriented to person, place, and time. ASSESSMENT/PLAN: 1. Contact dermatitis, unspecified contact dermatitis type, unspecified trigger - ICD9: 692.9, ICD10: L25.9 Diagnosis contact dermatitis. Patiently placed on prednisone taper. Educated to use antihistamines. Red flags for reevaluation discussed. Patient was educated on supportive therapies. Patient will follow up with primary care provider as needed. Patient was instructed to immediately proceed to emergency room for any new, worsening, or symptoms lasting longer than anticipated. The patient's clinical presentation is otherwise unremarkable at this time. Based on exam and clinical finding, the patient is stable for discharge. Plan of care was discussed with patie (more content not included)...[facility]02-19-2021 NoteHNO ID: [id number] Author: Zulma Carey Service: ? Author Type: Nurse Practitioner Type: Progress Notes Filed: 07/09/2020 6:13 PM Note Text: Subjective 45 year old male with PMH HTN who presents with complaints of rash. Acute onset of symptoms was around [place] time. He locates the rash in his groin. States it is red, raised and itchy. He was seen by derm and states that they provided him with a cream " and it kind of helped" States his has similar rash and she was prescribed Diflucan last week " and it took it right out" Denies fever or chills. Denies weight loss, malaise, or fatigue. Denies red streaking. Denies that the rash is painful. Denies new lotions, soaps or medicines. Denies recent travel outside of country. The history is provided by the patient. No bridge saw operator was used. Rash This is a recurrent problem. The current episode started more than 1 month ago. The problem has been waxing and waning since onset. Location: groin region. The rash is characterized by redness and itchiness. He was exposed to nothing. Pertinent negatives include no anorexia, congestion, cough, diarrhea, eye pain, facial edema, fatigue, fever, joint pain, nail changes, rhinorrhea, shortness of breath, sore throat or vomiting. Treatments tried: topical cream. The treatment provided mild relief. There is no history of allergies, asthma, eczema or varicella. PAST MEDICAL HISTORY Diagnosis Date - Guzmán esophagus - Essential hypertension, benign 08/24/2011 - Gastritis and duodenitis 06/2002 - Hyperlipidemia - TOBY (obstructive sleep apnea) 2019 - [facility] - PAST MEDICAL HISTORY OF 06/2002 ABDOMINAL HERNIA PAST SURGICAL HISTORY Procedure Laterality Date - [facility] N[facility]A 11/09/2017 [facility] Cebul-next colon in 10 years-10/2027 - EGD W/O OR W/BRUSH/WASH N/A 11/09/2017 [facility] C[facility] - SHAKILA HX N/A 12/31/2017 Laparoscopic Shakila fundoplication-R. Cebul - REMOVAL OF TONSILS,<12 Y/O 2005 Tonsillectomy ALLERGIES Blue Cheese [Other], Lisinopril, and Shellfish MEDICATIONS losartan (COZAAR) 25 mg tablet Take 1 tablet by mouth once daily. UBIDECARENONE/VITAMIN E MIXED (COQ10 SG 100 ORAL) Take by mouth as directed. COMPOUNDED PRESCRIPTION as directed. Taking Super Supplemental (Nature's Moore) COMPOUNDED PRESCRIPTION as directed. Taking Food Enzymes (Nature's Moore) MULTI-VITAMIN ORAL Take by mouth. fluconazole (DIFLUCAN) 150 mg tablet Take 1 tablet by mouth once daily for 2 days. clotrimazole-betamethasone (LOTRISONE) cream Apply to affected area twice daily for 7 days. allopurinol (ZYLOPRIM) 100 mg tablet Take 1 tablet by mouth once daily. For gout. colchicine 0.6 mg tablet 1.2 mg by mouth x 1 dose; then 0.6 mg taken 1 hour later. May repeat in 3 days FAMILY HISTORY Problem Relation Age of Onset - Ischemic Heart Disease Father of [place] - Hypertension Father - None Mother - Asthma Brother - Hypertension Brother - other (gout) Brother - None Brother - None Brother Social History Tobacco Use - Smoking status: Never Smoker - Smokeless tobacco: Never Used Substance Use Topics - Alcohol use: No - Drug use: No Review of Systems Constitutional: Negative for chills, diaphoresis, fatigue, fever, malaise/fatigue and weight loss. HENT: Negative for congestion, ear discharge, ear pain, hearing loss, nosebleeds, rhinorrhea, sinus pain, sore throat and tinnitus. Eyes: Negative for pain, discharge and redness. Respiratory: Negative for cough, hemoptysis, sputum production, shortness of breath and stridor. Cardiovascular: Negative for chest pain, palpitations, orthopnea and claudication. Gastrointestinal: Negative for abdominal pain, anorexia, diarrhea, nausea and vomiting. Genitourinary: Negative for dysuria, frequency and urgency. Musculoskeletal: Negative for back pain, joint pain, myalgias and neck pain. Skin: Positive for itching and rash. Negative for nail changes. Endo/Heme/Allergies: Negative for environmental allergies and polydipsia. Does not bruise/bleed easily. Psychiatric/Behavioral: Negative for depression and suicidal ideas. BP 118/74 Pulse 90 Temp 36.4 ?C (97.5 ?F) (Tympanic) Resp 16 Wt 102.5 kg (226 lb) SpO2 97% BMI 30.64 kg/m? Objective Physical Exam Constitutional: He is oriented to person, place, and time and well-developed, well-nourished, and in no distress. HENT: Head: Normocephalic and atraumatic. Right Ear: External ear normal. Left Ear: External ear normal. Mouth/Throat: Oropharynx is clear and moist. Eyes: Pupils are equal, round, and reactive to light. Conjunctivae and EOM are normal. Right eye exhibits no discharge. Left eye exhibits no discharge. No scleral icterus. Neck: No tracheal deviation present. No thyromegaly present. Cardiovascular: Normal rate, regular rhythm and normal heart sounds. Exam reveals no gallop and no friction rub. No murmur (more content not included)...[facility] Dumas [facility] October 15, 2022 9:41am Note Date/Time October 15, 2022 8:56a m [facility] Medical Records Department [address] [place] [address] Emergency Department Summary 10/15/22 MR#: [id number] Acct: [id number] Name: MEGAN MILLER Rep #:[id number] 1 : 1975 47 From: Kareem Dumas MD PCP: Dr. Oanh Barrera MD Status:REG ER Location: ED HPI History of Present Illness Chief Complaint: Lower Extremity Injury Detail of Chief Complaint: Initially pain base fifth metatarsal now swelling andpain MTP great toe Informant: patient and spouse/S.O. Occured/Mechanism Comment: Patient initially had pain base of the fifth metatarsal after he started using inserts [facility] Dr[facility]. Onset/Context/Timing Onset: Weeks Context: Sudden Onset Timing: Continuous and Waxes and wanes Quality of Pain: Dull, Aching and Throbbing Location: Base of the fifth metatarsal initially now MTP joint left great toe Current Severity: Mild Maximum Severity: Severe Worsened by: Walking, lying prone, movement of great toe Relieved by: Nothing Associated Symptoms Associated Symptoms: Negative for Parasthesia, Weakness or Loss of Funtion Narrative Narrative: Patient is a 47-year-old male with history of hypertension who was seen by Dr. Oanh Barrera. He presents with greater than week of pain. Pain initially waslocated near the base of the fifth metatarsal. Pain started after he began using inserts prescribed by Dr. Philip from the [facility] clinic. He subsequently developed swelling and pain which is localized over the MTP joint of his left great toe. He has been taking low doses of ibuprofen erratically. He does report lying prone in bed causes his toe to have significant pain. He has not been able to wear a shoe for greater than a week. He is on losartan. He is not on hydrochlorothiazide. He has no history of gout. There is a familyhistory of gout. He denies fever, chills night sweats. He denies any specific injury. He deniesprior injury to the left foot. He is not on an antithrombotic or anticoagulant. Patient states he went to urgent care and presents because he is requesting a second opinion and was dissatisfied with care rendered. Tetanus Immunization: Unknown Prior similar symptoms: No Recent Illness/Hospitalization: No PFSH PFS Medical History Essential hypertension Family history of clotting disorder GERD (gastroesophageal reflux disease) Gout TOBY (obstructive sleep apnea) Seasonal allergies Sleep apnea Home Medications cholecalciferol (vitamin D3) 25 mcg (1,000 unit) capsule (Vitamin D3) 1,000 unitPO DAILY 05/31/18 [History Last Taken Unknown] coenzyme Q10 75 mg capsule (Ultra CoQ10) 75 mg PO DAILY 05/31/18 [History Last Taken Unknown] multivitamin (Multiple Vitamins tablet) 1 tab PO DAILY 05/31/18 [History Last Taken Unknown] omega-3 fatty acids 1,000 mg capsule (Fish Oil Concentrate) 2,000 mg PO QDAY supplement 05/31/18 [History Last Taken Unknown] Cellular Complex PO 11/16/20 [History Last Taken Unknown] Essential oils PO 11/16/20 [History Last Taken Unknown] losartan 25 mg tablet 25 mg PO DAILY #90 tabs 07/19/22 [Rx Last Taken Unknown] prednisone 20 mg tablet 60 mg PO DAILY #15 TABLETS 10/15/22 [Rx Last Taken Unknown] Allergy/AdvReac Type Severity Reaction Status Date / Time shellfish derived Allergy Severe anaphylacti Verified 07/19/22 08:42 c hydrochlorothiazide Allergy Intermediate palpitation Verified 07/19/22 08:42 s/restlessn ess lisinopril AdvReac Mild cough & Verified 07/19/22 08:42 tachycardia Family History Brother Asthma Cancer Mother Arthritis Hypertension High cholesterol Macular degeneration Depression Father Hypertension High cholesterol Sleep apnea Myocardial infarction, Onset Age: 68 CAD (coronary artery disease) Son Seizures Daughter Seizures Aunt Parkinsons disease Grandmother Parkinsons disease CVA (cerebral vascular accident) Uncle CVA (cerebral vascular accident) Diabetes Grandfather Myocardial infarction, Onset Age: 68 Surgical History History of esophagogastroduodenoscopy (EGD) (~10/2017) History of tonsillectomy S/P colonoscopy Status post laparoscopic Shakila fundoplication (~12/2017) Status post laparoscopic Shakila fundoplication (~12/31/17) Social History household members: spouse and children housing: house current occupational status: employed current occupation: [employer] [address] [place], [place] pets and animals: Yes pets and animals: other details: outdoor cats Smoking Status: Never smoker second hand exposure: No alcohol intake: never substance use type: does not use what type of physical activity do you participate in: walking frequency: 1-2 times per week ROS ROS ED Constitutional Constitutional ED: Denies chills, fever(s), subjective, sweats or weight loss Musculoskeletal Musculoskeletal: Reports arthralgias; Denies back pain, myalgias or neck pain Integumentary Reports rash; Denies abscess or Abrasions Neurologic Neurologic: Denies paresthesias or weakness Endocrine Endocrinology: Denies polydipsia, polyphagia or polyuria EXAM Physical Exam Const Vital Signs: 10/15/22 08:28 Temperature 97.9 F Temperature Source Temporal Pulse Rate 84 Respiratory Rate 16 Blood Pressure 127/95 H Blood Pressure Mean 105 Pulse Ox 98 Oxygen Delivery Method Room Air Positive well nourished and well developed General Appearance ED: well developed HEENT Reports moist mucous membranes normocephalic and atraumatic Eyes PERRL Eyes Narrative: Extraocular muscles are intact. Sclera is anicteric. Resp normal respiratory effort Cardio regular rate and regular rhythm Extremity Negative for normal to inspection Extremity Narrative: There is swelling and erythema over the MTP joint of the left great toe. There is pain outpatient base of the fifth metatarsal. The base of the fifth metatarsal is slightly more prominent on the left than right. DP and PT pulse are palpable. There is no pain the patient over the plantar surface of the leftfoot. There is no pain ovation of the lateral medial malleolus. Patient does have pain with passive dorsi and plantarflexion of the great toe. General Extremety ED: Yes edema and weight-bearing difficulty; Negative for cyanosis General Extremity: edema and weight-bearing difficulty; Negative for cyanosis Neuro oriented x3, CN's II-XII intact bilaterally and moves all extremities Psych mental status grossly normal Skin no wounds Lesions: no lesions MDM MDM MDM Narrative Medical decision making narrative: With pain at the base of the fifth metatarsal with prominence will obtain x-ray to evaluate for possible pull off fracture versus ligamentous strain from orthotic device. Suspect patient has gout since he has erythema slight warmth and pain over the MTP joint of his great toe. Since he is not diabetic we will treat with burst of prednisone. Radiography Chest X-Ray - ED: Read by ED Physician (Three-view x-ray of the foot reveals no evidence of fracture, of the fifth metatarsal. There is arthritic changes notedMTP joint of the left great toe.) Diagnostic Testing: Clinical Impression(s) from Imaging Studies Foot X-Ray 10/15/22 08:49 IMPRESSION: Arthritic change at the first MTP joint. Electronically Signed: Grant Phelps MD at 9:29 EDT Reading Location ID and State: [facility] / [place] , Service support , Treatment and Re-Evaluation Narrative: In light of patient's history arthritic changes of the first MTPJ joint suspect patient has gout we will treat with burst of prednisone. He received his first dose of prednisone in department. With regards to the pain at the base of the fifth metatarsal have him follow-up Dr. Philip since this may be related to the orthotic he was prescribed. Discharge Plan Triage Chief Complaint: Lower Extremity Injury ED Provider: Kareem Dumas Dx/Rx/DC Orders Clinical Impression: Gout, Essential hypertension, Acute pain of left foot Instructions: ED Gout Prescriptions: New prednisone 20 mg tablet 60 mg PO DAILY Qty: 15 0RF No Action omega-3 fatty acids [Fish Oil Concentrate] 1,000 mg capsule 2,000 mg PO QDAY multivitamin [Multiple Vitamins] tablet 1 tab PO DAILY Ultra CoQ10 75 mg capsule 75 mg PO DAILY cholecalciferol (vitamin D3) 1,000 unit capsule 1,000 unit capsule 1,000 unit PO DAILY Cellular Complex PO Essential oils PO losartan 25 mg tablet 25 mg PO DAILY Qty: 90 3RF Primary Care Provider: Oanh Barrera Referrals: Oanh Barrera MD [Primary Care Provider] - 3-5 Days if not improving Malvin Philip DPM [Med Staff - Active Staff] - 3-5 Days Activity Restrictions/Additional Instructions: Recommend follow-up with Dr. Philip with regards to the pain lateral aspect ofyour foot since this may be related to the orthotics you were prescribed Disposition Disposition: Home, Self Care What to do if you have Problems For any increased pain, shortness of breath, bleeding, nausea or vomiting, chestpain, or any unexpected problems, contact your Primary Care Provider. Call [facility] ([phone]) or report to the closest Emergency Room. Call 911 if necessary. 10/15/22 0941 <Electronically signed by Kareem Dumas MD> Cosigner Signature (if applicable): CC: Dr. Oanh Barrera MD ~ Signed [facility] Work Phone: Discharge summary Author Apolinar Berkowitz [facility] Note Date/Time February 12, 2025 12:58pm [facility] Medical Records Department [address] [place] [address] Emergency Department Summary 02/12/25 MR#: [id number] Acct: [id number] Name: MEGAN MILLER Rep #:[id number] 6 : 1975 49 From: Apolinar Allen PCP: Dr. Vandana Barahona MD Status:DEP ER Location: ED HPI HPI - GI History of Present Illness Chief Complaint: Abd Pain Informant: patient Abdominal Pain/Flank Pain Onset: Today Context: Sudden Onset Timing: Continuous Quality: Cramping Location: LLQ and Left Flank Worsened by: - (Standing) Relieved by: - (Bending forward) Nausea/Vomiting/Emesis GI Symptom: Positive for Nausea and Vomiting Quality: Positive for - (Dry heaves) Diarrhea/Melena/Hematochezia GI Symptom: Negative for Diarrhea, Melena or Hematochezia Associated Symptoms Associated Symptoms: Negative for Dysuria, Frequency or Hematuria Narrative Narrative: Patient presents with left lower abdominal pain that began today. Patient states he felt fine when he got up and went to work. Patient states that when he got to work, he noted pain in his left lower abdomen and left flank. Patientstates it is worse when he stood up at work. Patient states it is better when he was able to sit down and bend forward. Patient admits to some nausea and dryheaves. Patient denies any melena or hematochezia. Patient denies any dysuria or hematuria. Patient denies any fevers or chills. PFSH [facility] Medical History Family history of clotting disorder Seasonal allergies Gout Essential hypertension TOBY (obstructive sleep apnea) GERD (gastroesophageal reflux disease) Home Medications ?Medication ?Instructions ?Recorded ?Last Taken ?Type cholecalciferol (vitamin D3) 25 1,000 unit PO DAILY Unknown History mcg (1,000 unit) capsule (Vitamin D3) coenzyme Q10 75 mg capsule (Ultra 75 mg PO DAILY 05/31 Unknown History CoQ10) multivitamin (Multiple Vitamins 1 tab PO DAILY 9 Unknown History tablet) omega-3 fatty acids 1,000 mg 2,000 mg PO QDAY suppleme nt 05/31/18 Unknown History capsule (Fish Oil Concentrate) Cellular Complex PO 11/16/20 Unknown History Essential oils PO 11/16/20 Unknown History losartan 25 mg tablet 25 mg PO DAILY #90 tabs 09/12 Unknown Rx methylprednisolone 4 mg tablets in 4 mg PO PER PKG DIR #21 tabs 01/08/25 Unknown Rx a dose pack (Medrol (Tom)) hydrocodone-acetaminophen 5-325mg 1 tab PO Q6H PRN PRN Pain 3 days 02/12/25 Unknown Rx 5mg-325mg #10 TABLETS tamsulosin 0.4 mg capsule 0.4 mg PO DAILY #7 CAPSULES 02/12/25 Unknown Rx Allergy/AdvReac Type Severity Reaction Status Date / Time shellfish derived Allergy Severe anaphylacti Verified 02/12/25 09:47 c hydrochlorothiazide Allergy Intermediate palpitation Verified 02/12/25 09:47 s/restlessn ess lisinopril AdvReac Mild cough & Verified 02/12/25 09:47 tachycardia Family History Brother Asthma Cancer lymphoma Mother Arthritis Hypertension High cholesterol Macular degeneration Depression Father Hypertension High cholesterol Sleep apnea Myocardial infarction, Onset Age: 68 CAD (coronary artery disease) Son Seizures Daughter Seizures Aunt Parkinsons disease Grandmother Parkinsons disease CVA (cerebral vascular accident) Uncle CVA (cerebral vascular accident) Diabetes Grandfather Myocardial infarction, Onset Age: 68 Grandfather Cancer melanoma Brother CVA (cerebral vascular accident) Cancer prostate Surgical History Status post laparoscopic Shakila fundoplication (~12/31/17) S/P colonoscopy History of esophagogastroduodenoscopy (EGD) (~10/2017) History of tonsillectomy Social History adopted: No household members: spouse and children housing: house number of children: 3 current occupational status: employed current occupation: [employer] [address] [place], [place] pets and animals: No sexually active: Yes Smoking Status: Never smoker Electronic Cigarette Use: not used second hand exposure: No alcohol intake: never substance use type: does not use caffeine: Yes (2) Type: coffee frequency: does not exercise do you feel safe at home: Yes ROS ROS ED Constitutional Constitutional ED: Denies chills or fever(s) Eyes Eyes: Denies blurry vision or change in vision ENT ENT ED: Denies rhinorrhea or sore throat Cardiovascular Cardiovascular: Denies chest pain or palpitations Respiratory/Chest Respiratory/Chest: Denies cough or dyspnea Gastrointestinal Gastrointestinal: Reports abdominal pain, nausea and vomiting; Denies melena Genitourinary Genitourinary ED: Denies dysuria or hematuria Musculoskeletal Musculoskeletal: Reports back pain; Denies neck pain Integumentary Denies abscess or rash Neurologic Neurologic: Denies headache(s) or weakness Allergic/Immunologic Allergic/Immunologic ED: Denies mouth swelling or urticaria EXAM Physical Exam Const Vital Signs: 02/12/25 09:47 02/12/25 11:47 Temperature 99 F Temperature Source Temporal Pulse Rate 71 63 Respiratory Rate 14 Blood Pressure 166/111 H Blood Pressure Mean 129 Pulse Ox 98 100 Oxygen Delivery Method Room Air Room Air Positive well nourished and well developed Constitutional Narrative: BMI is 32.3. General Appearance ED: well developed and NAD HEENT Reports moist mucous membranes normocephalic and atraumatic Neck supple Resp normal respiratory effort and clear to auscultation bilaterally Cardio regular rate and regular rhythm GI non-distended Palpation: soft and tender LLQ; Negative for guarding or rebound tenderness present Back/Spine General Back: CVA tenderness left Extremity full ROM General Extremety ED: Negative for edema or tenderness General Extremity: Negative for edema Neuro CN's II-XII intact bilaterally, moves all extremities and no sensory deficits noted Sensorium / Orientation: alert Motor Exam: strength 5/5 throughout Psych mental status grossly normal MDM MDM MDM Narrative Medical decision making narrative: Differential diagnosis includes ureteral calculus, pyelonephritis, diverticulitis, colitis, gastroenteritis, dehydration, electrolyte abnormality, and urinary tract infection. CBC will be obtained to assess for leukocytosis and anemia. Basic metabolic profile will be obtained to assess for electrolyte abnormality and renal function. Urinalysis will be obtained to assess for urinary tract infection and hematuria. CT scan of the abdomen and pelvis will be obtained to assess for ureteral calculus, diverticulitis, and colitis. History & Record Review Additional record(s) reviewed:: Prior outpatient record, Prior ED visit and Prior labs Lab Data Attestation: I reviewed the patient's lab results. Lab results narrative: CBC was reviewed and was within normal limits. Basic metabolic profile was reviewed. Creatinine was slightly elevated at 1.3. This is slightly increased from previous result. Urinalysis was reviewed. There is no evidence of urinarytract infection or hematuria. Labs: Laboratory Results - last 24 hr 02/12/25 02/12/25 10:27 10:30 WBC 7.4 RBC 5.11 Hgb 15.3 Hct 44.2 MCV 86.5 MCH 29.9 MCHC 34.6 RDW Std Deviation 40.7 RDW Coeff of Francesca 13.1 Plt Count 277 MPV 9.6 Immature Gran % (Auto) 0.400 Neut % (Auto) 58.9 Lymph % (Auto) 30.3 Casey % (Auto) 6.6 Eos % (Auto) 3.1 Baso % (Auto) 0.7 Absolute Neuts (auto) 4.4 Absolute Lymphs (auto) 2.24 Nucleated RBC % 0 Sodium 138 Potassium 4.6 Chloride 104 Carbon Dioxide 20.7 L Anion Gap 14 BUN 15 Creatinine 1.30 H Estim Creat Clear Calc 83.87 Est GFR (MDRD) Non-Af 67 BUN/Creatinine Ratio 11.2 Glucose 115 H Calcium 9.2 Urine Color Yellow Urine Clarity Clear Urine pH 5.0 Ur Specific [place] 1.025 Urine Protein 15 H Urine Glucose (UA) Normal Urine Ketones Negative Urine Occult Blood 10 H Urine Nitrite Negative Urine Bilirubin Negative Urine Urobilinogen Normal Ur Leukocyte Esterase Negative Urine RBC 0-5 SEEN Urine WBC 0 SEEN Ur Squamous Epith Cells 0 SEEN Urine Bacteria 0 SEEN Urine Mucus 0 SEEN Radiography Diagnostic Testing: Clinical Impression(s) from Imaging Studies Abdomen/Pelvis CT 02/12/25 10:26 IMPRESSION: Three stones at the lower pole of the left kidney with the largest measures 6 mm. Left perinephric fluid consistent sent with forniceal rupture. A 2 mm obstructing stone at the left ureteral-bladder junction causing severe left hydronephrosis. Colonic diverticulosis with no evidence of acute diverticulitis. No bowel obstruction. Reading Location: [facility] CT scan of the abdomen and pelvis was obtained. There are 3 stones at the lowerpole of the left kidney with the largest measuring 6 mm. There is a 2 mm obstructing stone at the left ureterovesicular junction causing left hydronephrosis and hydroureter. There is left perinephric stranding consistent with forniceal rupture. This was interpreted by the radiologist and was also independently reviewed by myself. Treatment and Re-Evaluation :: Patient was given IV fluids, morphine, and Zofran. Patient was feeling better on reevaluation. Patient was advised of his findings. Case was discussed with Dr. Cazares. He will follow-up with the patient as an outpatient. He did not feel the forniceal rupture needed treatment at this time. Patient was given a prescription for [place]. Patient was instructed to follow-up with his primary care physician and urology in 5 to 7 days. Patient understood and was agreeablewith the plan. All questions were answered. Discharge Plan Triage Chief Complaint: Abd Pain ED Provider: Apolinar Berkowitz Dx/Rx/DC Orders Clinical Impression: Calculus of distal left ureter, Acute left flank pain Instructions: ED Urine Strainer, ED Kidney Stone with Pain Prescriptions: New hydrocodone-acetaminophen 5-325 mg tablet 1 tab PO Q6H PRN PRN (Reason: Pain) 3 Days Qty: 10 0RF tamsulosin 0.4 mg capsule 0.4 mg PO DAILY Qty: 7 0RF No Action omega-3 fatty acids [Fish Oil Concentrate] 1,000 mg capsule 2,000 mg PO QDAY multivitamin [Multiple Vitamins] tablet 1 tab PO DAILY Ultra CoQ10 75 mg capsule 75 mg PO DAILY cholecalciferol (vitamin D3) [Vitamin D3] 1,000 unit capsule 1,000 unit PO DAILY Cellular Complex PO Essential oils PO losartan 25 mg tablet 25 mg PO DAILY Qty: 90 1RF methylprednisolone [Medrol (Tom)] 4 mg tablets,dose pack 4 mg PO PER PKG DIR Qty: 21 0RF Primary Care Provider: Vandana Barahona Referrals: Vandana Barahona MD [Primary Care Provider, Internal Medicine] - 5-7 Days Luis Cazares MD [Med Staff - Active Staff, Urology] - 3-5 Days Activity Restrictions/Additional Instructions: You may take the hydrocodone every 6 hours as needed for pain. Take the tamsulosin daily as this will help the kidney stone pass. Drink plenty of fluids. Strain all of your urine. Print Language: Austrian Disposition Disposition: Home, Self Care What to do if you have Problems For any increased pain, shortness of breath, bleeding, nausea or vomiting, chestpain, or any unexpected problems, contact your Primary Care Provider. Call [facility] ([phone]) or report to the closest Emergency Room. Call 911 if necessary. 02/12/25 1654 <Electronically signed by Apolinar Berkowitz DO> Cosigner Signature (if applicable): CC: Dr. Vandana Barahona MD ~ Signed [facility] Work Phone: Evaluation note* Diagnosis Onset Date Resolution Status Encounter for wellness examination in adult acute Essential hypertension chron ic GERD (gastroesophageal reflux disease) chronic TOBY (obstructive sleep apnea) chronic [facility] Work Phone: Evaluation note* Diagnosis Foot pain, left Pain in limb [facility] information availableSet[facility] Work Phone: Hospital Discharge instructions Additional Instructions Recommend follow-up with Dr. Philip with regards to the pain lateral aspect of your foot since this may be related to the orthotics [facility] Work Phone: Hospital Discharge instructionsAdditional Instructions You may take the hydrocodone every 6 hours as needed for pain. Take the tamsulosin daily as this will help the kidney stone pass. Drink plenty of fluids. Strain all of your urine.[facility] Work Phone: Reason for referral (narrative)* Diagnostic Procedure Only (Urgent) - Closed Specialty Diagnoses / Procedures Referred By Contac t Referred To Contact XR IMAGING Diagnoses Foot pain, left Procedures XR FOOT GENERAL 3V AP/LAT/OBL LEFT RADEX FOOT COMPLETE MINIMUM 3 VIEWS Lousi John APRN.MAINTENANCE INSPECTOR [address] [place] [address] [place] [address] Referral ID Status Reason Start Date Expiration Date V isits Requested Visits Authorized [id number] Closed Auto-Generate d Referral 10/10/2022 11/09/[address] [facility]ative[facility]No reason for referral information availableSeton [facility] Work Phone: Reason for visit Narrative* Diagnostic Procedure Only (Urgent) - Closed Specialty Diagnoses / Procedures Referred By Contac t Referred To Contact XR IMAGING Diagnoses Foot pain, left Procedures XR FOOT GENERAL 3V AP/LAT/OBL LEFT RADEX FOOT COMPLETE MINIMUM 3 VIEWS Louis John APRN.MAINTENANCE INSPECTOR [address] [place] [address] [place] [address] Referral ID Status Reason Start Date Expiration Date V isits Requested Visits Authorized [id number] Closed Auto-Generate d Referral 10/10/2022 11/09/[address] [facility] Summary Purpose Family History No Family History Records Found Relationship Condition Age at Onset Recorded Date/T ladi brother Asthma Unknown Malignant neoplasm Unknown mother Arthritis Unknown Hypertension Unknown High blood cholesterol Unknown Macular degeneration Unknown Depression Unknown father Hypertension Unknown Sleep apnea Unknown Myocardial infarction 67 Coronary artery disease Unknown son Seizure Unknown daughter Seizure Unknown aunt Parkinson's disease Unknown grandmother Parkinson's disease Unknown Cerebrovascular accident (CVA) Unknown uncle Cerebrovascular accident (CVA) Unknown Diabetes mellitus Unknown grandfather Myocardial infarction 68 Relationship Condition Age at Onset Recorded Date/T ladi brother Asthma Unknown Malignant neoplasm Unknown mother Arthritis Unknown Hypertension Unknown High blood cholesterol Unknown Macular degeneration Unknown Depression Unknown father Hypertension Unknown Sleep apnea Unknown Myocardial infarction 67 Coronary artery disease Unknown son Seizure Unknown daughter Seizure Unknown aunt Parkinson's disease Unknown grandmother Parkinson's disease Unknown Cerebrovascular accident (CVA) Unknown uncle Cerebrovascular accident (CVA) Unknown Diabetes mellitus Unknown grandfather Myocardial infarction 68 grandfather Malignant neoplasm Unknown brother Cerebrovascular accident (CVA) Unknown Advance Directives No Advanced Directives Records Found Advance Directive Response Recorded Date/ Time Living Will Yes December 31, 201 8 10:40am Power of Lactation Nurse Yes December 31, 018 10:40am Advance Directive Response Recorded Date/ Time Living Will No October 15, 2022 8 :41am Power of Lactation Nurse No October 15, 2022 8:41am Advance Directive Response Recorded Date/ Time Do you have a Healthcare Power of Lactation Nurse? Yes February 12, 2025 10:49am Chief Complaint and Reason for Visit Chief Complaint 2 YR FU E ORDERS Reason for Visit Encounter for wellne ss examination in adult Essential hypertension GERD (gastroesophageal reflux disease) TOBY (obstructive sleep apnea) Chief Complaint 2 YR FU E ORDERS left foot Reason for Visit Encounter for wellne ss examination in adult Essential hypertension GERD (gastroesophageal reflux disease) TOBY (obstructive sleep apnea) Chief Complaint Admit Date ACUTE - RT HIP PAIN, STIFFNESS IN TOES F ebruary 2024 1:22pm EORDER June 25, 2024 2 :37pm RT HIP PAIN,ELDRIDGE'S NEUROMA PING FEET/RX HERE July 04, 2024 7:26am FU/PHYSICAL July 22, 2024 7:28 am Reason for Visit Admit Date Pain in metatarsus of both feet June 25, 2024 1:22pm Right hip pain June 25, 2024 1 :22pm Essential hypertension July 22, 2024 7 :28am TOBY (obstructive sleep apnea) July 22, 2024 7:28am Family history of malignant neoplasm of prostate July 22, 2024 7:28am Influenza vaccination declined July 7:28am Multiple joint pain July 22, 2024 7:28 am Blood per rectum July 22, 2024 7:28 am Annual physical exam July 22, 2024 7:2 8am Obesity (BMI 30.0-34.9) July 22, 2024 7:28am Chief Complaint Admit Date Tingling in fingers. January 08, 2025 7 :56am Chief Complaint Admit Date Tingling in fingers. January 08, 2025 7 :56am SELF REFERRED CHANGE IN BOWEL HABITS Jan 8:27am Reason for Visit Admit Date Disorder of right rotator cuff January 082024 7:56am IT band syndrome January 08, 2025 7: 56am Numbness and tingling in both hands Augu 2024 7:56am Blood in stool January 23, 2025 8:27am Encounter for screening for malignant ne oplasm of colon January 23, 2025 8:27am Chief Complaint Admit Date Tingling in fingers. January 08, 2025 7 :56am SELF REFERRED CHANGE IN BOWEL HABITS [facility] 2024 8:27am NAUSEA February 12, 2025 9:47am Additional Source Comments (unrecognized sect ion and content) No Status Records FoundNo Status Records FoundNo Status Records Found INFORMATION SOURCE (unrecogn ized section and content) DATE CREATED AUTHOR 05/22/2018 [facility] DATE CREATED AUTHOR AUTHOR'S ORGANIZ ATION 06/23/2021 [facility] DATE CREATED AUTHOR AUTHOR'S ORGANIZ ATION 03/30/2025 [facility] Care Teams (unrecognized sec tion and content) Team Status: Active Member Role Status Dates Dr. Maria Del Carmen Gardner III, MD Family Provider Active Dr. Oanh Barrera MD Primary Care Provider Active Team Status: Inactive Member Role Status Dates Dr. Oanh Barrera MD Primary Care Provider, Attendi ng Provider Active Team Status: Inactive Member Role Status Dates Dr. Oanh Barrera MD Primary Care Pro vider, Attending Provider, Referring Provider Active Team Status: Inactive Member Role Status Dates Dr. Oanh Barrera MD Primary Care Provider Active Dr. 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 Vandana Barahona MD Primary Care Provider Active Team Status: Inactive Member Role Status Dates Dr. Vandana Barahona MD Primary Care Provider Active Start: June 25, 2024 End: June 25, 2024 Dr. Vandana Barahona MD Referring Provider Active Start: June 25, 2024 End: June 25, 2024 Lupillo REDDING PA Attending Provider Active St art: June 25, 2024 End: June 25, 2024 Team Status: Inactive Member Role Status Dates Dr. Vandana Barahona MD Primary Care Provider Active Start: June 25, 2024 End: June 25, 2024 Lupillo REDDING PA Attending Provider Active St art: June 25, 2024 End: June 25, 2024 Lupillo REDDING PA Referring Provider Active St art: June 25, 2024 End: June 25, 2024 Team Status: Active Member Role Status Dates Dr. Vandana Barahona MD Primary Care Provider Active Start: July 04, 2024 Lupillo REDDING PA Attending Provider Active St art: July 04, 2024 Lupillo REDDING PA Referring Provider Active St art: July 04, 2024 Team Status: Inactive Member Role Status Dates Dr. Vandana Barahona MD Primary Care Provider Active Start: July 22, 2024 End: July 22, 2024 Dr. Vandana Barahona MD Attending Provider Active Start: July 22, 2024 End: July 22, 2024 Dr. Vandana Barahona MD Referring Provider Active Start: July 22, 2024 End: July 22, 2024 Team Status: Inactive Member Role Status Dates Dr. Vandana Barahona MD Primary Care Provider Active Start: July 22, 2024 End: July 22, 2024 Dr. Vandana Barahona MD Attending Provider Active Start: July 22, 2024 End: July 22, 2024 Team Status: Active Member Role Status Dates Dr. Vandana Barahona MD Primary Care Provider Active Start: July 23, 2024 Dr. Vandana Barahona MD Attending Provider Active Start: July 23, 2024 Dr. Vandana Barahona MD Referring Provider Active Start: July 23, 2024 Team Status: Inactive Member Role Status Dates Dr. Vandana Barahona MD Primary Care Provider Active Start: July 23, 2024 End: July 23, 2024 Dr. Vandana Barahona MD Attending Provider Active Start: July 23, 2024 End: July 23, 2024 Dr. Vandana Barahona MD Referring Provider Active Start: July 23, 2024 End: July 23, 2024 Team Status: Inactive Member Role Status Dates Dr. Vandana Barahona MD Primary Care Provider Active Start: July 04, 2024 End: July 04, 2024 VAHID Castaneda Attending Provider Active St art: July 04, 2024 End: July 04, 2024 VAHID Castaneda Referring Provider Active St art: July 04, 2024 End: July 04, 2024 Team Status: Active Member Role/Relationship Status Dates Dr. Vandana Barahona MD Primary Care Provider Active Team Status: Inactive Member Role/Relationship Status Dates Dr. Vandana Barahona MD Primary Care Provider Active Start: January 08, 2025 End: January 08, 2025 Dr. Vandana Barahona MD Referring Provider Active Start: January 08, 2025 End: January 08, 2025 VAHID Castaneda Attending Provider Active St art: January 08, 2025 End: January 08, 2025 Team Status: Inactive Member Role/Relationship Status Dates Dr. Vandana Barahona MD Primary Care Provider Active Start: January 23, 2025 End: January 23, 2025 Dr. Vandana Barahona MD Referring Provider Active Start: January 23, 2025 End: January 23, 2025 Dr. Mustapha Iqbal MD Attending Provider Active Start: January 23, 2025 End: January 23, 2025 Team Status: Active Member Role/Relationship Status Dates Dr. Vandana Barahona MD Primary care physician Active Team Status: Inactive Member Role/Relationship Status Dates Dr. Vandana Barahona MD Primary care physician Active Start: January 08, 2025 End: January 08, 2025 Dr. Vandana Barahona MD Referring Provider Active Start: January 08, 2025 End: January 08, 2025 VAIHD Castaneda Attending physician Active S tart: January 08, 2025 End: January 08, 2025 Team Status: Inactive Member Role/Relationship Status Dates Dr. Vandana Barahona MD Primary care physician Active Start: January 23, 2025 End: January 23, 2025 Dr. Vandana Barahona MD Referring Provider Active Start: January 23, 2025 End: January 23, 2025 Dr. Mustapha Iqbal MD Attending physician Active Start: January 23, 2025 End: January 23, 2025 Team Status: Inactive Member Role/Relationship Status Dates Dr. Vandana Barahona MD Primary care physician Active Start: February 12, 2025 End: February 12, 2025 Dr. Apolinar Berkowitz DO Attending physician Active Start: February 12, 2025 End: February 12, 2025 Dr. Apolinar Berkowitz , Emergency Departm ent Physician Active Start: February 12, 2025 End: February 12, 2025 Goals (unrecognized section and content) Goals may be documented in a n alternate sectionGoals may be documented in an alternate sectionGoals may be documented in an alternate sectionGoals may be documented in an alternate sectionGoals may be documented in an alternate sectionGoals may be documented in an alternate sectionGoals may be documented in an alternate sectionGoals may be documented in an alternate section Source Comments (unrecognize d section and content) In the event this informatio n is protected by the Federal Confidentiality of Alcohol and Drug Abuse Patient Records regulations: The Federal rules restrict any use of the information to criminally investigate or prosecute any alcohol or drug abuse patient.[facility] FOR RECORDS PERTAINING TO PATIENTS WHO ARE OR HAVE BEEN ENROLLED IN A CHEMICAL DEPENDENCY/SUBSTANCEABUSE PROGRAM, SOME INFORMATION MAY BE OMITTED. This clinical summary was aggregated from multiple sources. Caution should be exercised in using it in the provision of clinical care. This summary normalizes information from multiple sources, and as a consequence, information in this document may materially change the coding, format and clinical context of patient data. In addition, data may be omitted in some cases. CLINICAL DECISIONS SHOULD BE BASED ON THE PRIMARY CLINICAL RECORDS. [employer] [facility]. provides no warranty or guarantee of the accuracy or completeness of information in this document.
[2025-03-31] MEDS: Lactated Ringers 1,000 ML 15 ML IV (07:05)
--- NOTE | 2025-03-31 07:25 | PCM.HP.STD ---
HPI - General General Date of Admission: 03/31/25 Date of Service: 03/31/25 Chief Complaint: Blood in stool HPI Narrative The patient is a 49-year-old male who is being seen today with complaints of a recent change in his bowel movements as well as some periodic bright red blood per rectum. Last colonoscopy was 2018.. Patient denies previous polyps. No family history of colon polyps however a cousin had rectal cancer. Patient states his bowel movements have become somewhat inconsistent in terms of their color and consistency. He states that a lot of times lately they are very thin and somewhat stringy. He does note some occasional bright red blood with bowel movements. He states that sometimes these are couple drops of blood in the water and many times there is bright red blood on the tissue after wiping.. He does admit to some straining at times with bowel movements. He presents today for colonoscopy. [facility] Medical History (Updated 03/30/25 @ 08:32 by Cierra Otero) Wears glasses Wears contact lenses Kidney stone Excessive bleeding Non-smoker History of pain when walking Normal stress echocardiogram History of stress test History of echocardiogram Cardiology follow-up encounter Family history of clotting disorder Seasonal allergies Essential hypertension TOBY (obstructive sleep apnea) GERD (gastroesophageal reflux disease) Home Medications Medication Instructions Recorded Last Taken Type cholecalciferol (vitamin D3) 25 1,000 unit PO DAILY 05/31/18 03/26/25 History mcg (1,000 unit) capsule (Vitamin D3) coenzyme Q10 75 mg capsule (Ultra 75 mg PO DAILY 05/31/18 03/26/25 History CoQ10) multivitamin (Multiple Vitamins 1 tab PO DAILY 05/31/18 03/25/25 History tablet) omega-3 fatty acids 1,000 mg 2,000 mg PO QDAY supplement 05/31/18 03/25/25 History capsule (Fish Oil Concentrate) Cellular Complex 1 tab PO DAILY 11/16/20 03/26/25 History losartan 25 mg tablet 25 mg PO DAILY #90 tabs 07/22/24 03/30/25 Rx Allergy/AdvReac Type Severity Reaction Status Date / Time shellfish derived Allergy Severe anaphylacti Verified 03/30/25 08:23 c hydrochlorothiazide Allergy Intermediate palpitation Verified 03/30/25 08:23 s/restlessn ess lisinopril AdvReac Mild cough & Verified 03/30/25 08:23 tachycardia Family History Brother Asthma Cancer lymphoma Mother Arthritis Hypertension High cholesterol Macular degeneration Depression Father Hypertension High cholesterol Sleep apnea Myocardial infarction, Onset Age: 68 CAD (coronary artery disease) Son Seizures Daughter Seizures Aunt Parkinsons disease Grandmother Parkinsons disease CVA (cerebral vascular accident) Uncle CVA (cerebral vascular accident) Diabetes Grandfather Myocardial infarction, Onset Age: 68 Grandfather Cancer melanoma Brother CVA (cerebral vascular accident) Cancer prostate Surgical History Status post laparoscopic Jose fundoplication (~12/31/17) S/P colonoscopy History of esophagogastroduodenoscopy (EGD) (~10/2017) History of tonsillectomy Social History adopted: No household members: spouse and children housing: house number of children: 3 current occupational status: employed current occupation: [employer] [address] [place], [place] pets and animals: No sexually active: Yes Smoking Status: Never smoker Electronic Cigarette Use: not used second hand exposure: No alcohol intake: never substance use type: does not use caffeine: Yes (2) Type: coffee frequency: does not exercise do you feel safe at home: Yes Vital Signs Vital Signs Vital Signs: 03/31/25 06:59 03/31/25 07:01 Temperature 97.2 F L Temperature Source Temporal Pulse Rate 72 Respiratory Rate 16 Respiratory Pattern Normal Blood Pressure 120/88 H Blood Pressure Mean 98 Blood Pressure Source Monitor Blood Pressure Position Semi-Fowlers Blood Pressure Location Right Arm Pulse Ox 98 Oxygen Delivery Method Room Air Weight Weight: 233 lb 11.04 oz Body Mass Index (BMI) 32.5 Physical Exam Const alert, oriented x3 and no apparent distress Assessment & Plan Assessment/Plan (1) Blood in stool: PLAN: Plan Colonoscopy planned for today. Details of the procedure again reviewed. Risks and benefits discussed. Procedure will begin momentarily
--- NOTE | 2025-03-31 07:26 | PRE.ANES_ITS ---
ASA Classification* ASA Classification ASA Classification: 2 (HTN, sykes esophagus, TOBY (bipap) ) Assessment & Plan Anesthesia* Anesthesia Assessment Anesthesia Assessment: Discussed sedation and/or anesthesia options, risks, benefits, and alternatives with patient/parents/legal guardian/POA. Questions invited. The patient/parents/legal guardian/POA seems to understand and agrees to proceed with anesthesia plan. Reviewed the physical assessment, medical history, allergy history and patient home medications list prior to surgery/procedure/anesthetic and documented any changes. Performed airway and anesthesia risk assessments. Anesthesia Type Anesthesia Type: MAC History Source History Obtained from:: Patient and Chart Anesthesia Focused Assessment* Temperature: 97.2 F Pulse Rate: 72 Blood Pressure: 120/88 Respiratory Rate: 16 Pulse Ox: 98 Oxygen Delivery Method: Room Air Airway Assessment Mouth opens: >3 cm Mallampati Score: II Teeth Condition: Intact Neck Range of motion (ROM): Full ROM Labs Anesthesia Preop lab: CBC WBC, (4.4-11.0) 7.4 K/mm3 02/12/25, : RBC, (4.6-6.2) 5.11 M/mm3 02/12/25, : Hgb, (13.0-16.5) 15.3 g/dL 02/12/25, : Hct, (40-54) 44.2 % 02/12/25, : Plt Count, (150-450) 277 K/mm3 02/12/25, : CHEMISTRY Potassium, (3.3-5.1) 4.6 mmol/L 02/12/25, : Sodium, (133-145) 138 mmol/L 02/12/25, : Magnesium, (1.6-2.6) 2.3 mg/dL 08/10/21, 09:18 BUN, (4-19) 15 mg/dL 02/12/25, : Creatinine, (0.70-1.20) 1.30 mg/dL H 02/12/25, : Glucose, (70-99) 115 mg/dL H 02/12/25, : TSH, (0.358-3.74) 1.24 uIU/mL 07/19/22, :11 COAG Pre-Assessment Diagnosis/Proposed Procedure Planned Operative Procedure(s): COLONOSCOPY Anesthesia History 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 When Was Last Pacemaker Check QUESTION #4 FULL TEXT: You/Your Family Experience fever (hyperthermia) with Anesthesia Last Oral Intake Last Oral intake: Last Oral Intake NPO since 00:00 03/31/25 07:01 Meds taken in AM with sips of No 03/31/25 07:01 water? 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 make ready mechanic Female No 03/30/25 08:32 HX of Motion Sickness No 03/30/25 08:32 HX of N/V After Surgery No 03/30/25 08:32 Non-Smoker Yes 03/30/25 08:32 Duration of Surgery greater No 03/30/25 08:32 than 60 minutes Number of Risk Factors 1 03/30/25 08:32 PONV Score Low Risk 03/30/25 08:32 Height & Weight Height & Weight: Anesthesia: Height & Weight Height 5 ft 11 in 03/31/25 07:01 Weight: 106 kg 03/31/25 07:01 Body Mass Index (BMI) 32.5 03/31/25 07:01 Respiratory Assessment Respiratory Assessment - new car make ready mechanic: Respiratory Tract Infection Hx - new car make ready mechanic Hx Respiratory Tract Infection No 03/30/25 08:32 STOP Sleep Apnea STOP Sleep Apnea - new car make ready mechanic: STOP Sleep Apnea - new car make ready mechanic Hx Hypertension Yes: CONTROLLED ON MED 03/30/25 08:32 Hx Sleep Apnea No 03/30/25 08:32 CPAP No 03/30/25 08:32 BIPAP Do you snore loudly (louder No 03/30/25 08:32 than talking or can be heard Do you often feel tired/ No 03/30/25 08:32 fatigued/ sleepy during daytime? Has anyone observed you stop No 03/30/25 08:32 breathing during sleep? STOP Results Negative 03/30/25 08:32 QUESTION #5 FULL TEXT : Do you snore loudly (louder than talking or can be heard through closed doors)? 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 Specify any problems Hx of Preganancy in last 3 N/A 03/30/25 08:32 Months Nurse Filling Out Transfusion VCHRISTIN 03/30/25 08:32 & Questions: Date: 03/30/25 03/30/25 08:32 Time: 08:33 03/30/25 08:32 Patient unable to answer at this time (ie. confused, unrespo /Reproduction History /Reproductive History - new car make ready mechanic: /Reproductive Hx- new car make ready mechanic Hx Now No 03/30/25 08:32 Gestational Age (in weeks): EDC: Hx Hx Para Hx Section SAB No 03/30/25 08:32 Does the father of the baby or his family experience fever w Father of the baby Malignant Hypertension history comment Active Medications Active Medications: Current Medications Generic Name Dose Route Start Last Admin Trade Name Freq PRN Reason Stop Dose Admin Lactated Ringer's 1,000 mls @ 15 mls/hr 03/31/25 07:15 03/31/25 07:05 IV 15 mls/hr .Q48H EKTA Administration PFSH Medical History (Updated 03/30/25 @ 08:32 by Cierra Otero) Wears glasses Wears contact lenses Kidney stone Excessive bleeding Non-smoker History of pain when walking Normal stress echocardiogram History of stress test History of echocardiogram Cardiology follow-up encounter Family history of clotting disorder Seasonal allergies Essential hypertension TOBY (obstructive sleep apnea) GERD (gastroesophageal reflux disease) Home Medications Medication Instructions Recorded Last Taken Type cholecalciferol (vitamin D3) 25 1,000 unit PO DAILY 03/26/25 History mcg (1,000 unit) capsule (Vitamin D3) coenzyme Q10 75 mg capsule (Ultra 75 mg PO DAILY 05/3103/26/25 History CoQ10) multivitamin (Multiple Vitamins 1 tab PO DAILY 9 03/25/25 History tablet) omega-3 fatty acids 1,000 mg 2,000 mg PO QDAY suppleme nt 05/31/18 03/25/25 History capsule (Fish Oil Concentrate) Cellular Complex 1 tab PO DAILY 11/16/2011/12 History losartan 25 mg tablet 25 mg PO DAILY #90 tabs 09/1203/30/25 Rx Allergy/AdvReac Type Severity Reaction Status Date / Time shellfish derived Allergy Severe anaphylacti Verified 03/30/25 08:23 c hydrochlorothiazide Allergy Intermediate palpitation Verified 03/30/25 08:23 s/restlessn ess lisinopril AdvReac Mild cough & Verified 03/30/25 08:23 tachycardia Family History Brother Asthma Cancer lymphoma Mother Arthritis Hypertension High cholesterol Macular degeneration Depression Father Hypertension High cholesterol Sleep apnea Myocardial infarction, Onset Age: 68 CAD (coronary artery disease) Son Seizures Daughter Seizures Aunt Parkinsons disease Grandmother Parkinsons disease CVA (cerebral vascular accident) Uncle CVA (cerebral vascular accident) Diabetes Grandfather Myocardial infarction, Onset Age: 68 Grandfather Cancer melanoma Brother CVA (cerebral vascular accident) Cancer prostate Surgical History Status post laparoscopic Jose fundoplication (~12/31/17) S/P colonoscopy History of esophagogastroduodenoscopy (EGD) (~10/2017) History of tonsillectomy Social History adopted: No household members: spouse and children housing: house number of children: 3 current occupational status: employed current occupation: [employer] [address] [place], [place] pets and animals: No sexually active: Yes Smoking Status: Never smoker Electronic Cigarette Use: not used second hand exposure: No alcohol intake: never substance use type: does not use caffeine: Yes (2) Type: coffee frequency: does not exercise do you feel safe at home: Yes Review of Systems (Anesthesia) ROS Narrative System reviewed and no additional complaints, except as documented.
--- NOTE | 2025-03-31 08:18 | OP.PROVAT_ITS ---
03/31/2025 Vandana Barahona Md Re : Colonoscopy procedure for Brennen Roberson Dear Jun This procedure was performed on Monday, March 31, 2025. My impressions and recommendations are as follows: Impressions : - Non-bleeding internal hemorrhoids. - The examination was otherwise normal on direct and retroflexion views. - No specimens collected. Recommendations : - Discharge patient to home (ambulatory). - High fiber diet. - Repeat colonoscopy in 10 years for screening purposes. - Return to my office PRN. - Continue present medications. My findings are described in the full procedure note, which is enclosed. If I can be of further assistance, please feel free to contact me at . Sincerely, Mustapha Iqbal MD 03/31/2025 8:18:13 AM This report has been signed electronically.
--- NOTE | 2025-03-31 08:18 | OP.COLON_ITS ---
Patient Name: Brennen Roberson Procedure Date: 03/31/2025 7:38 AM Date of : 1975 Age: 49 Procedure: Colonoscopy Indications: Screening for colorectal malignant neoplasm Providers: Mustapha Iqbal MD Medicines: Monitored Anesthesia Care Patient Profile: Refer to note in patient chart for documentation of history and physical. Last Colonoscopy: 2017. Complications: No immediate complications. Estimated blood loss: None. Procedure: Pre-Anesthesia Assessment: - Prior to the procedure, a History and Physical was performed, and patient medications and allergies were reviewed. The patient's tolerance of previous anesthesia was also reviewed. The risks and benefits of the procedure and the sedation options and risks were discussed with the patient. All questions were answered, and informed consent was obtained. Prior Anticoagulants: The patient has taken no anticoagulant or antiplatelet agents. ASA Grade Assessment: II - A patient with mild systemic disease. After reviewing the risks and benefits, the patient was deemed in satisfactory condition to undergo the procedure. After I obtained informed consent, the scope was passed under direct vision. Throughout the procedure, the patient's blood pressure, pulse, and oxygen saturations were monitored continuously. The colonoscope was introduced through the anus and advanced to the cecum, identified by appendiceal orifice and ileocecal valve. The ileocecal valve, appendiceal orifice, and rectum were photographed. The entire colon was well visualized. The colonoscopy was performed without difficulty. The patient tolerated the procedure well. The quality of the bowel preparation was adequate. Moderate Sedation: See the other procedure note for documentation of moderate sedation with intraservice time. Scope In: 7:48:13 AM Scope Withdrawal Time 0 hours 13 minutes 27 seconds Scope Out: 8:08:38 AM Total Procedure Duration Time 0 hours 20 minutes 25 seconds Findings: The perianal and digital rectal examinations were normal. Non-bleeding internal hemorrhoids were found during retroflexion. The hemorrhoids were medium-sized. The exam was otherwise without abnormality on direct and retroflexion views. Impression: - Non-bleeding internal hemorrhoids. - The examination was otherwise normal on direct and retroflexion views. - No specimens collected. Recommendation: - Discharge patient to home (ambulatory). - High fiber diet. - Repeat colonoscopy in 10 years for screening purposes. - Return to my office PRN. - Continue present medications. Procedure Code(s): --- Professional --- 43244, Colonoscopy, flexible; diagnostic, including collection of specimen(s) by brushing or washing, when performed (separate procedure) Diagnosis Code(s): --- Professional --- K64.8, Other hemorrhoids Z12.11, Encounter for screening for malignant neoplasm of colon CPT copyright 2021 [employer]. All rights reserved. The codes documented in this report are preliminary and upon land title examiner review may be revised to meet current compliance requirements. Mustapha Iqbal MD 03/31/2025 8:18:13 AM This report has been signed electronically. Number of Addenda: 0 Note Initiated On: 03/31/2025 7:38 AM
--- NOTE | 2025-03-31 08:19 | PCM.POST.ANE ---
Anesthesia: Postop Eval I Current Vital Signs Temperature: 97.3 F Pulse Rate: 77 Blood Pressure: 101/76 Respiratory Rate: 16 Pulse Ox: 98 Oxygen Delivery Method: Room Air Assessment Airway patent: Yes Spontaneous unlabored respirations: Yes Mental status: Asleep nausea: No Vomiting: No Anesthesia Complication: No Fluid Hydration Crystalloid volume administer (ml): 600 Total IV fluid infused: 600 Progress Note Anesthesia document: Postop Eval 1 completed: Yes
--- NOTE | 2025-03-31 15:46 | PCM.POSTANE2 ---
Anesthesia Postop Eval I Sum Postop Eval Completion status Anesthesia document: Postop Eval 1 completed: Yes Anesthesia Postop Eval I Summary Anesthesia Postop Eval I Summary: Anesthesia Postop Eval I: Assessment Summary Airway patent Yes 03/31/25 08:20 [email or web address] Spontaneous unlabored Yes 03/31/25 08:20 [email or web address] respirations Mental status Asleep 03/31/25 08:20 [email or web address] nausea No 03/31/25 08:20 [email or web address] Vomiting No 03/31/25 08:20 [email or web address] Anesthesia Postop Eval I: Fluid Summary Crystalloid volume administer 600 03/31/25 08:20 [email or web address] (ml) Colloids volume administered ( ml) Blood Product volume administered (ml) Total IV fluid infused 600 03/31/25 08:20 [email or web address] Anesthesia Postop Eval I: Summary Notes Anesthesia Complication No 03/31/25 08:20 [email or web address] Anesthesia Complication Comment: Post-operative progress note Anesthesia: Postop Eval II Evaluation Mental status: Awake Pain Level: 0 nausea: No Vomiting: No Complications Anesthesia Complication: No
== END 2025-03-31 08:52 | disposition home or self-care (01) ==
LOC: EN 06:32 → AC 06:33
PROVIDERS: PCP Internal Medicine; Referring Provider Internal Medicine; Visit Provider Surgery
DX: Z12.11 Encounter for screening for malignant neoplasm of colon (principal); I10 Essential (primary) hypertension; K64.8 Other hemorrhoids; K21.9 Gastro-esophageal reflux disease without esophagitis; Z79.899 Other long term (current) drug therapy
CPT/HCPCS: 45378; J2405